=== PATIENT | female | born 1935 | race Caucasian/White ===

== ENCOUNTER 2020-06-18 08:28 | Outpatient (REF) | payer MEDICARE, SELFPAY ==
[2020-06-18 09:14] LABS: MANUAL DIFF FLAG NO
[2020-06-18 09:18] LABS: Basophils Absolute Auto 0.1 X10*3/uL (0.0-0.2); Basophils Percent Auto 0.7 % (0-2); Eosinophils Absolute Auto 0.2 X10*3/uL (0.0-0.4); Eosinophils Percent Auto 3.3 % (0-4); Hematocrit 41.6 % (37-47); Hemoglobin 13.7 g/dl (12.0-16.0); Imm Gran Abs Auto 0.01 X10*3/uL (0.00-0.03); Imm Gran Pct Auto 0.1 % (0.0-0.4); Lymphocytes Absolute Auto 1.8 X10*3/uL (1.2-4.9); Lymphocytes Percent Auto 25.7 % (20-40); Mean Corpuscular HGB Conc 32.9 g/dl (31.0-35.0); Mean Corpuscular Hemoglobin 31.9 pg (27.0-33.0); Mean Platelet Volume 9.2 fL (9.4-12.3); Monocytes Absolute Auto 0.5 X10*3/uL (0.1-1.2); Monocytes Percent Auto 7.4 % (2-11); Neutrophils Absolute Auto 4.4 X10*3/uL (2.0-8.3); Neutrophils Percent Auto 62.8 % (45-73); Platelet Count 337 X10*3/uL (160-400); Red Blood Count 4.29 X10*6/uL (4.20-5.50); Red Cell Distribution Width 12.6 % (11.0-16.0)
[2020-06-18 09:48] LABS: Alanine Aminotransferase 15 U/L (0-31); Albumin Level 4.4 g/dL (3.5-5.0); Alkaline Phosphatase 90 U/L (39-117); Anion Gap 13 (12-20); Aspartate Amino Transferase 20 U/L (5-31); Bilirubin Total 0.6 mg/dL (0.0-1.0); Blood Urea Nitrogen 29 mg/dL (9-16); Calcium 9.9 mg/dL (8.4-10.2); Carbon Dioxide 30 mmol/L (22-29); Chloride 101 mmol/L (96-108); Cholesterol 211 mg/dL; Estimated Glomerular Filt Rate > 60; Glucose Fasting 121 mg/dL (60-99); HDL Cholesterol 85 mg/dL; LDL Cholesterol Calculated 107 mg/dl; Potassium 4.7 mmol/l (3.3-5.1); Sodium 139 mmol/L (135-145); Total Protein 7.1 g/dL (6.5-8.0); Triglycerides 97 mg/dL
== END 2020-06-18 08:29 | disposition home or self-care (01) ==
LOC: HO.LAB 08:28
PROVIDERS: Visit Provider Internal Medicine Medical Oncology
DX: E78.2 Mixed hyperlipidemia (principal); I10 Essential (primary) hypertension
CPT/HCPCS: 36415; 80053; 80061; 85025

== ENCOUNTER 2020-10-29 12:18 | Outpatient (REF) | payer MEDICARE, SELFPAY | END 2020-10-29 12:19 | disposition home or self-care (01) | LOC: HO.LAB 12:18 | PROVIDERS: PCP Internal Medicine Medical Oncology; Visit Provider Internal Medicine | DX: Z20.822 Contact with and (suspected) exposure to COVID-19 (principal) | CPT/HCPCS: 36415; C9803; U0003; U0005 ==

== ENCOUNTER 2021-02-18 08:03 | Outpatient (REF) | payer MEDICARE, SELFPAY ==
[2021-02-18 10:06] LABS: MANUAL DIFF FLAG NO
[2021-02-18 10:14] LABS: Basophils Percent Auto 0.4 % (0-2); Eosinophils Absolute Auto 0.2 X10*3/uL (0.0-0.4); Eosinophils Percent Auto 2.2 % (0-4); Hematocrit 39.4 % (37-47); Hemoglobin 12.7 g/dl (12.0-16.0); Imm Gran Abs Auto 0.01 X10*3/uL (0.00-0.03); Imm Gran Pct Auto 0.1 % (0.0-0.4); Lymphocytes Absolute Auto 2.3 X10*3/uL (1.2-4.9); Mean Corpuscular HGB Conc 32.2 g/dl (31.0-35.0); Mean Corpuscular Hemoglobin 31.4 pg (27.0-33.0); Mean Corpuscular Volume 97.3 fL (80-98); Mean Platelet Volume 9.5 fL (9.4-12.3); Monocytes Absolute Auto 0.7 X10*3/uL (0.1-1.2); Neutrophils Absolute Auto 4.1 X10*3/uL (2.0-8.3); Neutrophils Percent Auto 56.3 % (45-73); Platelet Count 350 X10*3/uL (160-400); Red Blood Count 4.05 X10*6/uL (4.20-5.50); Red Cell Distribution Width 12.3 % (11.0-16.0); White Blood Count 7.3 X10*3/uL (4.8-10.8)
[2021-02-18 10:47] LABS: Alanine Aminotransferase 14 U/L (0-31); Albumin Level 4.3 g/dL (3.5-5.0); Alkaline Phosphatase 88 U/L (39-117); Anion Gap 14 (12-20); Aspartate Amino Transferase 18 U/L (5-31); Bilirubin Total 0.6 mg/dL (0.0-1.0); Blood Urea Nitrogen 28 mg/dL (9-16); Calcium 9.7 mg/dL (8.4-10.2); Carbon Dioxide 26 mmol/L (22-29); Chloride 106 mmol/L (96-108); Cholesterol 192 mg/dL; Estimated Glomerular Filt Rate > 60; Glucose Fasting 123 mg/dL (60-99); HDL Cholesterol 82 mg/dL; LDL Cholesterol Calculated 91 mg/dl; Potassium 4.2 mmol/L (3.3-5.1); Sodium 142 mmol/L (135-145); Total Protein 7.1 g/dL (6.5-8.0); Triglycerides 97 mg/dL
== END 2021-02-18 08:04 | disposition home or self-care (01) ==
LOC: HO.10HDL 08:03
PROVIDERS: Visit Provider Internal Medicine Medical Oncology
DX: I10 Essential (primary) hypertension (principal); E78.2 Mixed hyperlipidemia
CPT/HCPCS: 36415; 80053; 80061; 85025

== ENCOUNTER 2021-07-21 12:21 | Outpatient (REF) | payer MEDICARE, SELFPAY ==
--- NOTE | ~2021-07-21 | MM_ITS ---
EXAMINATION: MM SCREENING DIGITAL BREAST TOMOSYNTHESIS, BILATERAL CLINICAL INFORMATION: Screening. Asymptomatic. The lifetime risk of breast cancer based on the Tyrer-Cuzick Model is under 1%. COMPARISON: Mammography: 04/29/2020, 04/24/2019, 01/18/2018 TECHNIQUE: Digital breast tomosynthesis is performed in both the craniocaudal and mediolateral oblique views along with computer-aided detection (CAD). Synthesized 2D images are generated from the tomosynthesis. FINDINGS: There are scattered areas of fibroglandular density (ACR BI-RADS breast composition Category b). Breast tissue composition borders on heterogeneously dense. There are no significant masses, abnormal calcifications, or other abnormalities. Parenchymal pattern is similar to prior exams. No developing density or architectural abnormality. The axilla and skin contours are unremarkable. MM/MM tomosynthesis screening BI IMPRESSION: No mammographic evidence of malignancy. ASSESSMENT: BI-RADS 1: Negative RECOMMENDATION: Routine annual mammography screening. This patient's information was entered into a reminder system with a target due date for their next mammogram.
== END 2021-07-21 12:22 | disposition home or self-care (01) ==
LOC: HO.MAMMO 12:21
PROVIDERS: Visit Provider Internal Medicine Medical Oncology
DX: Z12.31 Encounter for screening mammogram for malignant neoplasm of breast (principal)
CPT/HCPCS: 77063; 77067

== ENCOUNTER 2021-09-25 08:14 | Outpatient (REF) | payer MEDICARE, SELFPAY ==
[2021-09-25 10:53] LABS: MANUAL DIFF FLAG NO
[2021-09-25 10:57] LABS: Basophils Percent Auto 0.6 % (0-2); Eosinophils Absolute Auto 0.3 X10*3/uL (0.0-0.4); Eosinophils Percent Auto 3.6 % (0-4); Hematocrit 41.2 % (37.0-47.0); Hemoglobin 13.4 g/dl (12.0-16.0); Imm Gran Abs Auto 0.02 X10*3/uL (0.00-0.03); Imm Gran Pct Auto 0.3 % (0.0-0.4); Lymphocytes Percent Auto 27.9 % (20-40); Mean Corpuscular HGB Conc 32.5 g/dl (31.0-35.0); Mean Corpuscular Hemoglobin 31.3 pg (27.0-33.0); Mean Corpuscular Volume 96.3 fL (80.0-98.0); Mean Platelet Volume 9.2 fL (9.4-12.3); Monocytes Absolute Auto 0.6 X10*3/uL (0.1-1.2); Monocytes Percent Auto 7.8 % (2-11); Neutrophils Absolute Auto 4.3 x10*3/uL (2.0-8.3); Neutrophils Percent Auto 59.8 % (45-73); Platelet Count 344 X10*3/uL (160-400); Red Blood Count 4.28 X10*6/uL (4.20-5.50); Red Cell Distribution Width 12.7 % (11.0-16.0); White Blood Count 7.2 X10*3/uL (4.8-10.8)
[2021-09-25 11:11] LABS: Alanine Aminotransferase 14 U/L (0-31); Albumin Level 4.1 g/dL (3.5-5.0); Alkaline Phosphatase 98 U/L (39-117); Anion Gap 11 (12-20); Aspartate Amino Transferase 18 U/L (5-31); Bilirubin Total 0.4 mg/dL (0.0-1.0); Blood Urea Nitrogen 28 mg/dL (9-16); Calcium 9.6 mg/dL (8.4-10.2); Carbon Dioxide 28 mmol/L (22-29); Chloride 105 mmol/L (96-108); Cholesterol 210 mg/dL; Estimated Glomerular Filt Rate > 60; Glucose Fasting 144 mg/dL (60-99); HDL Cholesterol 72 mg/dL; LDL Cholesterol Calculated 116 mg/dl; Potassium 4.1 mmol/L (3.3-5.1); Sodium 140 mmol/L (135-145); Total Protein 6.8 g/dL (6.5-8.0); Triglycerides 110 mg/dL
== END 2021-09-25 08:15 | disposition home or self-care (01) ==
LOC: HO.10HDL 08:14
PROVIDERS: Visit Provider Internal Medicine Medical Oncology
DX: I10 Essential (primary) hypertension (principal); E78.2 Mixed hyperlipidemia; E66.3 Overweight
CPT/HCPCS: 36415; 80053; 80061; 85025

== ENCOUNTER 2022-05-25 08:11 | Outpatient (REF) | payer MEDICARE, SELFPAY ==
[2022-05-25 11:18] LABS: MANUAL DIFF FLAG NO
[2022-05-25 11:25] LABS: Basophils Percent Auto 0.3 % (0-2); Eosinophils Absolute Auto 0.2 X10*3/uL (0.0-0.4); Eosinophils Percent Auto 2.5 % (0-4); Hematocrit 40.3 % (37.0-47.0); Hemoglobin 13.2 g/dl (12.0-16.0); Imm Gran Abs Auto 0.05 X10*3/uL (0.00-0.03); Imm Gran Pct Auto 0.5 % (0.0-0.4); Lymphocytes Absolute Auto 2.1 X10*3/uL (1.2-4.9); Lymphocytes Percent Auto 21.5 % (20-40); Mean Corpuscular HGB Conc 32.8 g/dl (31.0-35.0); Mean Corpuscular Hemoglobin 31.4 pg (27.0-33.0); Mean Corpuscular Volume 95.7 fL (80.0-98.0); Mean Platelet Volume 9.4 fL (9.4-12.3); Monocytes Absolute Auto 0.7 X10*3/uL (0.1-1.2); Neutrophils Absolute Auto 6.5 x10*3/uL (2.0-8.3); Neutrophils Percent Auto 68.2 % (45-73); Platelet Count 356 X10*3/uL (160-400); Red Blood Count 4.21 X10*6/uL (4.20-5.50); Red Cell Distribution Width 12.7 % (11.0-16.0); White Blood Count 9.6 X10*3/uL (4.8-10.8)
[2022-05-25 11:54] LABS: Alanine Aminotransferase 11 U/L (0-31); Albumin Level 4.3 g/dL (3.5-5.0); Alkaline Phosphatase 86 U/L (39-117); Anion Gap 17 (12-20); Aspartate Amino Transferase 17 U/L (5-31); Bilirubin Total 0.6 mg/dL (0.0-1.0); Blood Urea Nitrogen 24 mg/dL (9-16); Calcium 9.7 mg/dL (8.4-10.2); Carbon Dioxide 25 mmol/L (22-29); Chloride 104 mmol/L (96-108); Cholesterol 218 mg/dL; Estimated Glomerular Filt Rate > 60; Glucose Fasting 133 mg/dL (60-99); HDL Cholesterol 81 mg/dL; LDL Cholesterol Calculated 114 mg/dl; Potassium 4.6 mmol/L (3.3-5.1); Sodium 141 mmol/L (135-145); Total Protein 6.8 g/dL (6.5-8.0); Triglycerides 119 mg/dL
== END 2022-05-25 08:12 | disposition home or self-care (01) ==
LOC: HO.10HDL 08:11
PROVIDERS: Visit Provider Internal Medicine Medical Oncology
DX: I10 Essential (primary) hypertension (principal); E78.2 Mixed hyperlipidemia; E66.3 Overweight
CPT/HCPCS: 36415; 80053; 80061; 85025

== ENCOUNTER 2022-10-21 07:45 | Outpatient (REF) | payer MEDICARE, SELFPAY ==
[2022-10-21 08:06] LABS: MANUAL DIFF FLAG NO
[2022-10-21 09:01] LABS: Basophils Percent Auto 0.3 % (0-2); Eosinophils Absolute Auto 0.3 X10*3/uL (0.0-0.4); Eosinophils Percent Auto 3.6 % (0-4); Hematocrit 43.5 % (37.0-47.0); Hemoglobin 14.3 g/dl (12.0-16.0); Imm Gran Abs Auto 0.02 X10*3/uL (0.00-0.03); Imm Gran Pct Auto 0.2 % (0.0-0.4); Lymphocytes Absolute Auto 1.9 X10*3/uL (1.2-4.9); Lymphocytes Percent Auto 21.5 % (20-40); Mean Corpuscular HGB Conc 32.9 g/dl (31.0-35.0); Mean Corpuscular Hemoglobin 31.3 pg (27.0-33.0); Mean Corpuscular Volume 95.2 fL (80.0-98.0); Mean Platelet Volume 9.2 fL (9.4-12.3); Monocytes Absolute Auto 0.7 X10*3/uL (0.1-1.2); Monocytes Percent Auto 7.9 % (2-11); Neutrophils Absolute Auto 5.9 x10*3/uL (2.0-8.3); Neutrophils Percent Auto 66.5 % (45-73); Platelet Count 370 X10*3/uL (160-400); Red Blood Count 4.57 X10*6/uL (4.20-5.50); Red Cell Distribution Width 12.5 % (11.0-16.0); White Blood Count 8.9 X10*3/uL (4.8-10.8)
[2022-10-21 09:36] LABS: Alanine Aminotransferase 14 U/L (0-31); Albumin Level 4.3 g/dL (3.5-5.0); Alkaline Phosphatase 83 U/L (39-117); Anion Gap 17 (12-20); Aspartate Amino Transferase 18 U/L (5-31); Bilirubin Total 0.8 mg/dL (0.0-1.0); Blood Urea Nitrogen 23 mg/dL (9-16); Calcium 10.1 mg/dL (8.4-10.2); Carbon Dioxide 26 mmol/L (22-29); Chloride 105 mmol/L (96-108); Cholesterol 233 mg/dL; Estimated Glomerular Filt Rate > 60; Glucose Fasting 134 mg/dL (60-99); HDL Cholesterol 83 mg/dL; LDL Cholesterol Calculated 133 mg/dl; Potassium 4.9 mmol/L (3.3-5.1); Sodium 143 mmol/L (135-145); Triglycerides 88 mg/dL
[2022-10-21 10:01] LABS: Free T4 (Free Thyroxine) 0.98 ng/dL (0.71-1.85); Vitamin B12 772 pg/mL (200-900)
== END 2022-10-21 07:46 | disposition home or self-care (01) ==
LOC: HO.LAB 07:45
PROVIDERS: PCP Internal Medicine Medical Oncology; Visit Provider Internal Medicine Medical Oncology
DX: I10 Essential (primary) hypertension (principal); E78.2 Mixed hyperlipidemia; E66.3 Overweight
CPT/HCPCS: 36415; 80053; 80061; 82607; 84439; 84443; 85025

== ENCOUNTER 2023-03-01 07:57 | Outpatient (REF) | payer MEDICARE, SELFPAY ==
[2023-03-01 10:36] LABS: MANUAL DIFF FLAG NO
[2023-03-01 10:48] LABS: Basophils Absolute Auto 0.1 X10*3/uL (0.0-0.2); Basophils Percent Auto 0.7 % (0-2); Eosinophils Absolute Auto 0.2 X10*3/uL (0.0-0.4); Hematocrit 42.4 % (37.0-47.0); Hemoglobin 13.9 g/dl (12.0-16.0); Imm Gran Abs Auto 0.01 X10*3/uL (0.00-0.03); Imm Gran Pct Auto 0.1 % (0.0-0.4); Lymphocytes Percent Auto 26.3 % (20-40); Mean Corpuscular HGB Conc 32.8 g/dl (31.0-35.0); Mean Corpuscular Hemoglobin 31.2 pg (27.0-33.0); Mean Corpuscular Volume 95.3 fL (80.0-98.0); Mean Platelet Volume 9.2 fL (9.4-12.3); Monocytes Absolute Auto 0.6 X10*3/uL (0.1-1.2); Monocytes Percent Auto 7.5 % (2-11); Neutrophils Absolute Auto 4.6 x10*3/uL (2.0-8.3); Neutrophils Percent Auto 62.4 % (45-73); Platelet Count 366 X10*3/uL (160-400); Red Blood Count 4.45 X10*6/uL (4.20-5.50); Red Cell Distribution Width 12.5 % (11.0-16.0); White Blood Count 7.4 X10*3/uL (4.8-10.8)
[2023-03-01 11:16] LABS: Alanine Aminotransferase 14 U/L (0-31); Alkaline Phosphatase 75 U/L (39-117); Anion Gap 10 (12-20); Aspartate Amino Transferase 16 U/L (5-31); Bilirubin Total 0.4 mg/dL (0.0-1.0); Blood Urea Nitrogen 23 mg/dL (9-16); Calcium 9.7 mg/dL (8.4-10.2); Carbon Dioxide 28 mmol/L (22-29); Chloride 107 mmol/L (96-108); Cholesterol 226 mg/dL; Estimated Glomerular Filt Rate > 60; Glucose Fasting 135 mg/dL (60-99); HDL Cholesterol 72 mg/dL; LDL Cholesterol Calculated 138 mg/dl; Potassium 4.4 mmol/L (3.3-5.1); Sodium 141 mmol/L (135-145); Triglycerides 82 mg/dL
== END 2023-03-01 07:58 | disposition home or self-care (01) ==
LOC: HO.10HDL 07:57
PROVIDERS: Visit Provider Internal Medicine Medical Oncology
DX: I10 Essential (primary) hypertension (principal); E78.2 Mixed hyperlipidemia; E66.3 Overweight
CPT/HCPCS: 36415; 80053; 80061; 85025

== ENCOUNTER 2023-09-08 08:20 | Outpatient (REF) | payer MEDICARE, SELFPAY ==
[2023-09-08 08:37] LABS: MANUAL DIFF FLAG NO
[2023-09-08 08:58] LABS: Basophils Absolute Auto 0.1 X10*3/uL (0.0-0.2); Basophils Percent Auto 0.5 % (0-2); Eosinophils Absolute Auto 0.3 X10*3/uL (0.0-0.4); Eosinophils Percent Auto 2.6 % (0-4); Hematocrit 41.9 % (37.0-47.0); Hemoglobin 13.8 g/dl (12.0-16.0); Imm Gran Abs Auto 0.02 X10*3/uL (0.00-0.03); Imm Gran Pct Auto 0.2 % (0.0-0.4); Lymphocytes Absolute Auto 2.4 X10*3/uL (1.2-4.9); Lymphocytes Percent Auto 22.6 % (20-40); Mean Corpuscular HGB Conc 32.9 g/dl (31.0-35.0); Mean Corpuscular Hemoglobin 31.4 pg (27.0-33.0); Mean Corpuscular Volume 95.4 fL (80.0-98.0); Mean Platelet Volume 8.7 fL (9.4-12.3); Monocytes Absolute Auto 0.7 X10*3/uL (0.1-1.2); Monocytes Percent Auto 6.4 % (2-11); Neutrophils Absolute Auto 7.2 x10*3/uL (2.0-8.3); Neutrophils Percent Auto 67.7 % (45-73); Platelet Count 327 X10*3/uL (160-400); Red Blood Count 4.39 X10*6/uL (4.20-5.50); Red Cell Distribution Width 13.1 % (11.0-16.0); White Blood Count 10.6 X10*3/uL (4.8-10.8)
[2023-09-08 09:32] LABS: Alanine Aminotransferase 12 U/L (0-31); Albumin Level 4.2 g/dL (3.5-5.0); Alkaline Phosphatase 88 U/L (39-117); Anion Gap 12 (12-20); Aspartate Amino Transferase 16 U/L (5-31); Bilirubin Total 0.5 mg/dL (0.0-1.0); Blood Urea Nitrogen 25 mg/dL (9-16); Calcium 10.3 mg/dL (8.4-10.2); Carbon Dioxide 29 mmol/L (22-29); Chloride 106 mmol/L (96-108); Cholesterol 208 mg/dL (<200); Estimated Glomerular Filt Rate > 60; Glucose Random 148 mg/dL (60-115); HDL Cholesterol 74 mg/dL (>40); LDL Cholesterol Calculated 111 mg/dL (<100); Potassium 4.5 mmol/L (3.3-5.1); Sodium 142 mmol/L (135-145); Total Protein 7.4 g/dL (6.5-8.0); Triglycerides 119 mg/dL (<150)
== END 2023-09-08 08:21 | disposition home or self-care (01) ==
LOC: HO.LAB 08:20
PROVIDERS: PCP Internal Medicine Medical Oncology; Visit Provider Internal Medicine Medical Oncology
DX: I10 Essential (primary) hypertension (principal); E78.2 Mixed hyperlipidemia
CPT/HCPCS: 36415; 80053; 80061; 85025

== ENCOUNTER 2024-04-12 08:47 | Outpatient (REF) | payer MEDICARE, SELFPAY ==
[2024-04-12 09:30] LABS: MANUAL DIFF FLAG NO
[2024-04-12 10:27] LABS: Basophils Percent Auto 0.5 % (0-2); Eosinophils Absolute Auto 0.1 X10*3/uL (0.0-0.4); Eosinophils Percent Auto 1.5 % (0-4); Hematocrit 42.5 % (37.0-47.0); Hemoglobin 14.2 g/dl (12.0-16.0); Imm Gran Abs Auto 0.02 X10*3/uL (0.00-0.03); Imm Gran Pct Auto 0.2 % (0.0-0.4); Lymphocytes Absolute Auto 1.6 X10*3/uL (1.2-4.9); Lymphocytes Percent Auto 19.2 % (20-40); Mean Corpuscular HGB Conc 33.4 g/dl (31.0-35.0); Mean Corpuscular Hemoglobin 31.4 pg (27.0-33.0); Mean Platelet Volume 9.3 fL (9.4-12.3); Monocytes Absolute Auto 0.7 X10*3/uL (0.1-1.2); Monocytes Percent Auto 7.9 % (2-11); Neutrophils Percent Auto 70.7 % (45-73); Platelet Count 366 X10*3/uL (160-400); Red Blood Count 4.52 X10*6/uL (4.20-5.50); Red Cell Distribution Width 13.2 % (11.0-16.0); White Blood Count 8.5 X10*3/uL (4.8-10.8)
[2024-04-12 11:05] LABS: Alanine Aminotransferase 15 U/L (0-31); Albumin Level 4.3 g/dL (3.5-5.0); Alkaline Phosphatase 92 U/L (39-117); Anion Gap 15 (12-20); Aspartate Amino Transferase 17 U/L (5-31); Bilirubin Total 0.6 mg/dL (0.0-1.0); Blood Urea Nitrogen 24 mg/dL (9-16); Calcium 10.2 mg/dL (8.4-10.2); Carbon Dioxide 26 mmol/L (22-29); Chloride 106 mmol/L (96-108); Cholesterol 242 mg/dL (<200); Estimated Glomerular Filt Rate > 60; Glucose Fasting 146 mg/dL (60-99); HDL Cholesterol 83 mg/dL (>40); LDL Cholesterol Calculated 142 mg/dL (<100); Potassium 4.3 mmol/L (3.3-5.1); Sodium 143 mmol/L (135-145); Total Protein 7.4 g/dL (6.5-8.0); Triglycerides 85 mg/dL (<150)
== END 2024-04-12 08:48 | disposition home or self-care (01) ==
LOC: HO.LAB 08:47
PROVIDERS: PCP Internal Medicine Medical Oncology; Visit Provider Internal Medicine Medical Oncology
DX: I10 Essential (primary) hypertension (principal); E78.2 Mixed hyperlipidemia; E66.3 Overweight
CPT/HCPCS: 36415; 80053; 80061; 85025

== ENCOUNTER 2024-12-12 01:39 | Inpatient (IN) | payer MEDICARE, SELFPAY ==
[2024-12-12] VITALS (15 sets, daily range): BP systolic 131–163; BP diastolic 46–109; PULSE 69–107; RESP 16–27; TEMP 36.4–37.9; O2SAT 94–98; BMI 27.1; BMI 27.8
--- NOTE | ~2024-12-12 | XR_ITS ---
CLINICAL HISTORY: weakness 1 view chest x-ray Comparison: None Findings: Minimal left basilar atelectasis. No significant pleural effusion or pneumothorax. Possible bilateral perihilar calcified granulomas/nodes. Prominent cardiac silhouette. Degenerative changes of the shoulders. IMPRESSION: Minimal left basilar atelectasis. This document has been electronically signed by: Breezy Maravilla MD on 12/12/2024 03:08:00
--- NOTE | ~2024-12-12 | CT_ITS ---
CLINICAL HISTORY: pain, wound, ?abscess CT right knee with contrast Comparison: CR - XR KNEE RT 2V - 12/12/24 02:38 EDT Findings: Total knee arthroplasty. Heterogeneous multifocal fractures with lucencies along the tibial tuberosity extending along the periprosthetic aspect of the tibial prosthesis. Hardware appears intact. Anterior to the tibial tuberosity of the soft tissues is diffuse thickening with a focal soft tissue defect of the skin surface measuring 1.3 cm. Tiny foci of soft tissue gas. Suspect ill-defined fluid collection, best seen on sagittal measuring up to 4 cm series 9, image 260 extending through the skin defect. Additionally, the fluid collection appears to be contiguous from the marrow cavity of the tibial prosthesis, series 9, image 160. IMPRESSION: 1. Right TKA. 2. 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 Suspect cloaca with adjacent soft tissue abscess, extending through the ulceration of the skin surface. Clinical correlation with tissue sampling may be helpful. This document has been electronically signed by: Breezy Maravilla MD on 12/12/2024 04:42:58
--- NOTE | ~2024-12-12 | XR_ITS ---
CLINICAL HISTORY: pain 2 view right knee Comparison: None Findings: Total knee arthroplasty. Hardware is intact, alignment is maintained. There is heterogeneous lucency surrounding the tibial prosthesis more so along the tibial tuberosity. Findings may be chronic, postoperative related however loosening or infection may have a similar appearance and is not entirely excluded. Comparison with prior imaging and attention on follow-up advised. Osteopenia. No acute fracture. No erosions. No joint effusion. No radiopaque foreign body. IMPRESSION: Chronic changes without acute fracture. Additional findings described, please see above. This document has been electronically signed by: Breezy Maravilla MD on 12/12/2024 03:16:51
--- NOTE | 2024-12-12 01:46 | ECG_ITS ---
Test Reason : WEAKNESS Blood Pressure : */* mmHG Vent. Rate : 107 BPM Atrial Rate : 107 BPM P-R Int : 148 ms QRS Dur : 124 ms QT Int : 362 ms P-R-T Axes : 48 52 21 degrees QTcB Int : 483 ms Sinus tachycardia Right bundle branch block Cannot rule out Inferior infarct , age undetermined Abnormal ECG When compared with ECG of 25-Mar-2017 09:52, Vent. rate has increased by 35 bpm Referred By: Generic ED Physician Electronically Signed By: ISSA ADORNO
--- NOTE | 2024-12-12 01:50 | PC.NURSE ---
PT comes from home with complaints of weakness. Pt states she is ambulatory at baseline but has needed to use a walker d/t weakness. On initial exam, pt a/o to person place and situation- unable to recall her , pt afebrile, bp wnl, however pt tachypneic, and tachycardic. oozing wound to her right knee. Notified provider, Eric Healy.
--- NOTE | 2024-12-12 02:18 | PC.NURSE ---
When attempting to place IV access, pt noted to feel warm despite normal temperature orally. PT agreeable to rectal temp-100.3. Notified provider, Eric Polanco. Sepsis initiated
[2024-12-12 02:20] LABS: Basophils Absolute Auto 0.1 X10*3/uL (0.0-0.2); Basophils Percent Auto 0.4 % (0-2); Hematocrit 38.7 % (37.0-47.0); Hemoglobin 13.2 g/dl (12.0-16.0); Imm Gran Abs Auto 0.09 X10*3/uL (0.00-0.03); Imm Gran Pct Auto 0.4 % (0.0-0.4); Lymphocytes Absolute Auto 0.6 X10*3/uL (1.2-4.9); Lymphocytes Percent Auto 2.8 % (20-40); Mean Corpuscular HGB Conc 34.1 g/dl (31.0-35.0); Mean Corpuscular Volume 90.8 fL (80.0-98.0); Mean Platelet Volume 9.2 fL (9.4-12.3); Monocytes Absolute Auto 0.9 X10*3/uL (0.1-1.2); Monocytes Percent Auto 3.9 % (2-11); Neutrophils Absolute Auto 20.2 x10*3/uL (2.0-8.3); Neutrophils Percent Auto 92.5 % (45-73); Platelet Count 336 X10*3/uL (160-400); Red Blood Count 4.26 X10*6/uL (4.20-5.50); Red Cell Distribution Width 13.2 % (11.0-16.0); SCAN SMEAR FLAG 1; White Blood Count 21.8 X10*3/uL (4.8-10.8)
[2024-12-12 02:30] LABS: MANUAL DIFF FLAG SCAN
[2024-12-12 02:39] LABS: Lactic Acid 2.5 mmol/L (0.5-2.0)
[2024-12-12 02:42] LABS: Alanine Aminotransferase 6 U/L (0-31); Alkaline Phosphatase 105 U/L (39-117); Anion Gap 19 (12-20); Aspartate Amino Transferase 28 U/L (5-31); Bilirubin Total 0.6 mg/dL (0.0-1.0); Blood Urea Nitrogen 33 mg/dL (9-16); Calcium 9.7 mg/dL (8.4-10.2); Carbon Dioxide 19 mmol/L (22-29); Chloride 105 mmol/L (96-108); Creatinine Clr Calc Pharmacy 33.2; Estimated Glomerular Filt Rate 51; Glucose Random 262 mg/dL (60-115); Sodium 139 mmol/L (135-145)
[2024-12-12 02:43] LABS: Troponin-I High Sensitivity 16.7 ng/L (<3.5-17.0)
[2024-12-12 02:45] LABS: SLIDE REVIEW VERIFIED
[2024-12-12 02:47] LABS: Influenza A PCR NEGATIVE (Negative); Influenza B PCR NEGATIVE (Negative); Resp Syncy Virus RNA Qual PCR NEGATIVE (Negative); SARS COV2 PCR INHOUSE NEGATIVE (Negative)
[2024-12-12] MEDS: cefTRIAXone sodium 1 GM VIAL IVPUSH ×2 (02:50→04:42)
[2024-12-12] MEDS: vancomycin HCL 1,500 MG in 0.9 % Sodium Chloride 500 ML 333.33 MG IV (02:51)
[2024-12-12] MEDS: 0.9 % Sodium Chloride 1,000 ML 999 ML IV (02:51)
--- NOTE | 2024-12-12 02:51 | ED.GENADULT ---
HPI - General Adult General Chief complaint: Weakness Stated complaint: GENERALIZED WEAKNESS Time Seen by Provider: 12/12/24 02:25 Source: patient and RN notes reviewed Mode of arrival: EMS Limitations: other (poor historian) History of Present Illness ED Provider: Monet HPI narrative: 89-year-old female presents for evaluation of weakness. EMS was initially called the patient for a lift assist as she had partially so that a bed and was unable to get up. The patient reports that she does not feel well but denies a specific complaints. She states that she has felt somewhat unwell since yesterday She typically ambulates independently but has been unable to do so since yesterday She complains of mild dizziness She denies any pain, The patient endorses a dry cough Related Data Allergies Allergy/AdvReac Type Severity Reaction Status Date / Time amoxicillin [Amoxicillin] Allergy Mild RASH Verified 12/12/24 02:02 Sulfa (Sulfonamide Allergy Mild RASH Verified 12/12/24 02:02 Antibiotics) [Sulfa (Sulfonamides)] sulfa Allergy Unknown Unknown Uncoded 12/12/24 02:02 Review of Systems Constitutional: Constitutional: Denies body ache(s), Denies chills, Reports fatigue, Denies fever(s) and Reports weakness Eyes: Eyes: Denies blurry vision and Denies seeing flashes ENT: Denies vertigo and Reports dizziness Cardiovascular: Cardiovascular: Denies chest pain and Denies dyspnea Respiratory: Respiratory: Denies cough and Denies dyspnea Gastrointestinal: Gastrointestinal: Denies abdominal pain, Denies nausea and Denies vomiting Musculoskeletal: Musculoskeletal: Denies back pain Integumentary/Breasts: Skin/Breast: Denies rash and Reports wounds Neurologic: Denies vertigo, Reports dizziness and Reports weakness Endocrine: Endocrine: Reports fatigue PMFSH Social History Social History Advance Directives: No Advance Directives Information Provided: Yes Do you have a plan to hurt others: No Plan Physical Exam ED Vital Signs: Vital Signs - 24 hr 12/12/24 01:50 12/12/24 02:18 Temperature 98.7 F 100.3 F Pulse Rate 107 H Respiratory Rate 26 H Blood Pressure 136/46 L Pulse Oximetry 95 Oxygen Delivery Method Room Air BMI result Body Mass Index 27.1 Const General: healthy appearing, comfortable, no acute distress, alert and awake Nutritional Appearance: well nourished Orientation/consciousness: patient oriented x3 HENMT Head: Yes normocephalic and Yes atraumatic Eyes Eyelids: Yes eyelids normal Conjunctivae: conjunctivae normal Sclerae: sclerae normal Corneas: corneas normal Pupils: Equal, round and reactive pupils present EOM: EOMs intact bilaterally Neck Neck: Yes full ROM Resp Effort & Inspection: normal respiratory effort, able to speak in complete sentences, no audible wheezes and not labored Auscultation: clear to auscultation bilaterally Cardio Rate: regular rate Rhythm: regular rhythm GI Inspection: No distended Palpation (GI): Soft to palpation, not firm, nontender, no guarding and not rigid Skin General skin exam: elasticity normal Neuro General: patient oriented x3 Cranial nerves: Yes Equal, round and reactive pupils present and Yes Bilaterally intact EOM present Cognition (Neuro): normal cognition Extrem Other: The patient has somewhat decreased range of motion with flexion of the right knee. She is able to flex to about 120? of flexion. There are scars from previous right total knee replacement. There is a wound at the inferior aspect of the right knee. It is approximately dime-sized with surrounding erythema and foul-smelling drainage. Course Reevaluation(s) Reevaluation #1: [place] [address], she is tachycardic, tachypneic. Temp of a 100.3?. Blood pressure is within normal limits. At this time the patient meets SIRS criteria with a suspected infection of a right knee cellulitis. It is unclear how deep this infection goes but she does have a right knee prosthesis. Remainder of workup is pending. The patient was given IV fluids, vancomycin and ceftriaxone due to penicillin allergy Time: 02:52 Reevaluation #2: Sepsis focused exam performed. The patient does not meet criteria for 30 cc/kilogram of IV fluids but did receive a 1 L bolus and any antibiotics Time: 03:44 Medications Administered Generic Name Dose Route Start Last Admin Trade Name Freq PRN Reason Stop Dose Admin Sodium Chloride 1,000 mls @ 999 mls/hr 12/12/24 02:45 12/12/24 02:51 Ns IV 12/12/24 03:45 999 mls/hr .Q1H1M PATRICIA Administration Vancomycin HCl 1,500 mg/ 500 mls @ 333.333 mls/hr 12/12/24 02:39 12/12/24 02:51 Sodium Chloride IV 12/12/24 04:08 333.33 mls/hr ONCE ONE Administration Discontinued Medications Generic Name Dose Route Start Last Admin Trade Name Mannie PRN Reason Stop Dose Admin Acetaminophen 975 mg 12/12/24 02:31 12/12/24 03:05 Acetaminophen 325 Mg Tablet PO 12/12/24 02:32 Not Given ONCE ONE Ceftriaxone Sodium 1 gm 12/12/24 02:41 12/12/24 02:50 Ceftriaxone Sodium 1 Gm Vial IVPUSH 12/12/24 02:42 1 gm ONCE ONE Administration Acetaminophen 1,000 mg in 100 mls @ 400 mls/hr 12/12/24 02:56 12/12/24 03:32 Ofirmev IV 12/12/24 03:10 400 mls/hr ONCE ONE Administration Medical Decision Making Medical Decision Making [facility] Narrative: 89-year-old female presents for evaluation of weakness. She is found to have a rectal temp of a 100.3?, pulse of 107, heart rate of 26. She meets SIRS [place] [address]. Suspected infection of skin infection of the right knee which potentially tunnels deeper to the right knee arthroplasty. A sepsis alert was called. The patient was given IV antibiotics with vancomycin and ceftriaxone due to penicillin allergy. Chest x-ray is clear, viral swabs negative. She was also given IV fluids. The patient's carbon down who level is slightly low at 19 likely due to sepsis and tachypnea. She has slightly elevated BUN the normal creatinine 1.03 which is very slightly elevated from baseline unlikely to dehydration. Random glucose of 262. Elevated inflammatory markers elevated lactate to 2.5. Differential Diagnosis Differential Diagnoses: The differential diagnosis associated with the presentation includes Septic arthritis Cellulitis Sepsis Pneumonia UTI Admission/Observation Consideration of admission/observation: Escalation of care including admission/observation considered Consult Healthcare Provider Management of the patient was discussed with: Hospitalist Lab Data [facility] Lab Attestation statement: I reviewed the patient's lab results. As above 12/12/24 02:14 12/12/24 02:14 Labs: Lab Results 12/12/24 12/12/24 12/12/24 Range/Units 02:05 02:13 02:14 WBC 21.8 H (4.8-10.8) X10*3/uL RBC 4.26 (4.20-5.50) X10*6/uL Hgb 13.2 (12.0-16.0) g/dl Hct 38.7 (37.0-47.0) % MCV 90.8 (80.0-98.0) fL MCH 31.0 (27.0-33.0) pg MCHC 34.1 (31.0-35.0) g/dl RDW 13.2 (11.0-16.0) % Plt Count 336 (160-400) X10*3/uL MPV 9.2 L (9.4-12.3) fL Immature Gran % (Auto) 0.4 (0.0-0.4) % Neut % (Auto) 92.5 H (45-73) % Lymph % (Auto) 2.8 L (20-40) % [place] % (Auto) 3.9 (2-11) % Eos % (Auto) 0.0 (0-4) % Baso % (Auto) 0.4 (0-2) % Lymph # (Auto) 0.6 L (1.2-4.9) X10*3/uL [place] # (Auto) 0.9 (0.1-1.2) X10*3/uL Eos # (Auto) 0.0 (0.0-0.4) X10*3/uL Baso # (Auto) 0.1 (0.0-0.2) X10*3/uL Abs Immat Gran (auto) 0.09 H (0.00-0.03) X10*3/uL Absolute Neuts (auto) 20.2 H (2.0-8.3) x10*3/uL Absolute Nucleated RBC 0.000 (0.0-0.012) X10*3/uL Nucleated RBC % (auto) 0.0 (0.0-0.2) /100WBC Smear Tech's Comments VERIFIED Sodium 139 (135-145) mmol/L Potassium 4.0 (3.3-5.1) mmol/L Chloride 105 (96-108) mmol/L Carbon Dioxide 19 L (22-29) mmol/L Anion Gap 19 (12-20) BUN 33 H (9-16) mg/dL Creatinine 1.03 (0.5-1.4) mg/dL Estim Creat Clear Calc 33.2 Estimated GFR 51 Random Glucose 262 H (60-115) mg/dL Lactic Acid 2.5 H* (0.5-2.0) mmol/L Calcium 9.7 (8.4-10.2) mg/dL Total Bilirubin 0.6 (0.0-1.0) mg/dL AST 28 (5-31) U/L ALT 6 (0-31) U/L Alkaline Phosphatase 105 (39-117) U/L Troponin I High Sens 16.7 (<3.5-17.0) ng/L C-Reactive Protein 1.74 H (< or = 0.50) mg/dL Total Protein 7.0 (6.5-8.0) g/dL Albumin 4.0 (3.5-5.0) g/dL Influenza Type A (PCR) NEGATIVE (Negative) Influenza Type B (PCR) NEGATIVE (Negative) RSV RNA Qual (PCR) NEGATIVE (Negative) SARS-CoV-2 RNA (RT-PCR) NEGATIVE (Negative) Radiology Impression Discussion of test interpretation with radiology: I have reviewed the radiologist's reading. Radiologist Impression: Findings: Total knee arthroplasty. Hardware is intact, alignment is maintained. There is heterogeneous lucency surrounding the tibial prosthesis more so along the tibial tuberosity. Findings may be chronic, postoperative related however loosening or infection may have a similar appearance and is not entirely excluded. Comparison with prior imaging and attention on follow-up advised. Osteopenia. No acute fracture. No erosions. No joint effusion. No radiopaque foreign body. IMPRESSION: Chronic changes without acute fracture. Additional findings described, please see above. This document has been electronically signed by: Breezy Maravilla MD on 12/12/2024 03:16:51 Findings: Minimal left basilar atelectasis. No significant pleural effusion or pneumothorax. Possible bilateral perihilar calcified granulomas/nodes. Prominent cardiac silhouette. Degenerative changes of the shoulders. IMPRESSION: Minimal left basilar atelectasis. This document has been electronically signed by: Breezy Maravilla MD on 12/12/2024 03:08:00 Discharge Plan Discharge Clinical Impression: Sepsis, Cellulitis of knee, right Patient Disposition: Admitted As Inpatient
[2024-12-12 03:05] LABS: C Reactive Protein 1.74 mg/dL (< or = 0.50)
[2024-12-12] MEDS: Acetaminophen 1,000 MG/100 ML PIGGYBACK 400 MG IV (03:32)
--- NOTE | 2024-12-12 03:44 | P.HPHOSP_ITS ---
History of Present Illness Date of Service: 12/12/24 Attending physician on admission: Samantha Ramesh Chief Complaint: weakness Patient is an 89-year-old female with a past medical history significant for HTN, HLD, R TKR, who presented to the ED due to weakness and difficult with ambulation requiring a walker for the past 2 days. At baseline she does not need a walker for ambulation. she denies any fever, chills, nausea, vomiting, abd pain, diarrhea, headache, vision changes, or urinary sx. In the ED she was found to have a wound on her R knee that she was unaware of and does not know how long it has been there. she denies any knee pain. she called EMS last night after sliding off the bed, for assistance getting back on. when the noticed her weakness she agreed to come to the ED. Review of Systems 2 Constitutional: Constitutional: Denies chills, Denies fatigue, Denies fever(s), Denies headache(s) and Reports weakness Eyes: Eyes: Denies change in vision and Denies photophobia ENT: Denies headache(s), Denies nasal congestion, Denies nasal discharge and Denies sore throat Cardiovascular: Cardiovascular: Denies chest pain, Denies rapid heart rate, Denies leg edema, Denies lightheadedness and Denies dyspnea Respiratory: Respiratory: Denies chest congestion, Denies cough, Denies dyspnea and Denies wheezing Gastrointestinal: Gastrointestinal: Denies diarrhea, Denies nausea and Denies vomiting Genitourinary: Genitourinary: Denies difficulty voiding, Denies dysuria and Denies urinary urgency Musculoskeletal: Musculoskeletal: Reports muscle weakness Integumentary/Breasts: Skin/Breast: Denies rash Neurologic: Denies confusion, Denies headache(s) and Reports weakness Psychiatric: Psychiatric: Denies confusion Endocrine: Endocrine: Denies fatigue Hematologic/Lymphatic: Hematologic/Lymphatic: Denies easy bleeding and Denies easy bruising Allergic/Immunologic: Allergic/Immunologic: Denies wheezing [facility] Medical History (Updated 12/12/24 @ 03:54 by Melissa Iyer PA-C) HLD (hyperlipidemia) HTN (hypertension) Functional capacity: independent ambulation Surgical History (Updated 12/12/24 @ 03:48 by Melissa Iyer PA-C) S/P total knee replacement Social History Advance Directives: No Advance Directives Information Provided: Yes Do you have a plan to hurt others: No Plan Narrative: no smoking. social occasional etoh. Meds Allergies Allergy/AdvReac Type Severity Reaction Status Date / Time amoxicillin [Amoxicillin] Allergy Mild RASH Verified 12/12/24 02:02 Sulfa (Sulfonamide Allergy Mild RASH Verified 12/12/24 02:02 Antibiotics) [Sulfa (Sulfonamides)] sulfa Allergy Unknown Unknown Uncoded 12/12/24 02:02 Active Medications: Current Medications Ceftriaxone Sodium (Ceftriaxone Sodium 2 Gm Vial) 2 gm IVPUSH Q24H PATRICIA Sodium Chloride (Ns) 1,000 mls @ 999 mls/hr IV .Q1H1M PATRICIA Stop: 12/12/24 03:45 Last Admin: 12/12/24 02:51 Dose: 999 mls/hr Vancomycin HCl 1,500 mg/ (Sodium Chloride) 500 mls @ 333.333 mls/hr IV ONCE ONE Stop: 12/12/24 04:08 Last Admin: 12/12/24 02:51 Dose: 333.33 mls/hr Pharmacy Consult (Consult Rx Vancomycin Dosing) 1 each MISCELLANE DAILY PRN PRN Reason: Consult order Physical Exam 2 Vital Signs and Narrative: Vital Signs: Last Vital Signs Temp 98.6 F 12/12/24 03:42 Pulse 100 12/12/24 03:42 Resp 22 H 12/12/24 03:42 BP 157/66 H 12/12/24 03:42 Pulse Ox 96 12/12/24 03:42 O2 Del Method Room Air 12/12/24 03:42 BMI result Body Mass Index 27.1 General: AOx3, no acute distress Resp: CTA bilaterally CVS: RRR +murmur GI: +BS, NT, no distention Skin: Warm, dry. small open wound R knee with surrounding erythema and signs of drainage Neuro: Cranial nerves II-XII grossly intact bilaterally. Motor grossly intact bilaterally Extremities: No LE edema Psych: Appropriate affect Const: General: No confusion Orientation/consciousness: No confusion Eyes: Direct Ophthalmoscopy: No photophobia Neuro: General: No confusion Results Labs 12/12/24 02:14 12/12/24 02:14 Labs: Laboratory Results - last 24 hr 12/12/24 12/12/24 12/12/24 02:05 02:13 02:14 MCV 90.8 MCH 31.0 MCHC 34.1 RDW 13.2 Plt Count 336 MPV 9.2 L Immature Gran % (Auto) 0.4 Neut % (Auto) 92.5 H Lymph % (Auto) 2.8 L Gates % (Auto) 3.9 Eos % (Auto) 0.0 Baso % (Auto) 0.4 Lymph # (Auto) 0.6 L [place] # (Auto) 0.9 Eos # (Auto) 0.0 Baso # (Auto) 0.1 Abs Immat Gran (auto) 0.09 H Absolute Neuts (auto) 20.2 H Absolute Nucleated RBC 0.000 Nucleated RBC % (auto) 0.0 Smear Tech's Comments VERIFIED Anion Gap 19 Estim Creat Clear Calc 33.2 Estimated GFR 51 Random Glucose 262 H Lactic Acid 2.5 H* Calcium 9.7 Total Bilirubin 0.6 AST 28 ALT 6 Alkaline Phosphatase 105 C-Reactive Protein 1.74 H Total Protein 7.0 Albumin 4.0 Influenza Type A (PCR) NEGATIVE Influenza Type B (PCR) NEGATIVE RSV RNA Qual (PCR) NEGATIVE SARS-CoV-2 RNA (RT-PCR) NEGATIVE Assessment and Plan (1) Severe sepsis: Status: Acute (2) Cellulitis of knee, right: Status: Acute (3) Metabolic acidosis: Status: Acute (4) Lactic acidosis: Status: Acute Plan Patient is an 89-year-old female with a past medical history significant for HTN, HLD, R TKR, who presented to the ED due to weakness and difficult with ambulation requiring a walker for the past 2 days. She slid off the bed and called EMS to assist her back on and ultimately came to the ED due to her new weakness. 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 Findings may be chronic, postoperative related however loosening or infection may have similar appearance and is not entirely excluded - CT R knee ordered - UA pending - neuro exam normal - started on ceftriaxone and vancomycin in ED, continue ceftriaxone 2 g daily and vancomycin - ortho consult - given 1 L IV fluids in ED, BP stable, no further fluids needed at this time - monitor CBC and BMP metabolic acidosis and lactic acidosis - secondary to severe sepsis - IVF as above, 1L in ED. 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 Quality Stroke Does the patient have a stroke diagnosis?: No VTE Prior VTE?: No VTE Risk Level:: Medical - moderate - high VTE Device Contraindication: N/A - Device Ordered VTE Drug Contraindication: Treatment Not Indicated
[2024-12-12 03:57] LABS: Erythrocyte Sedimentation Rate 38 MM/HR (0-20)
[2024-12-12] MEDS: iohexoL 350 MG/ML 100 ML INFUS..BTL 85 ML IV (04:13)
[2024-12-12 04:18] LABS: Reflex Lactate? Lactic Acid Added
--- NOTE | 2024-12-12 04:35 | PC.NURSE ---
pt reminded to keep arm straight to allow for infusions to run. IV fluids still infusion at this time.
[2024-12-12 05:22] LABS: ~Lactic Acid-LAB USE ONLY 1.6 mmol/L (0.5-2.0)
--- NOTE | 2024-12-12 06:11 | PC.NURSE ---
admission report: 89F Full code biba from home for generalized weakness initially called for lift assist, pt found to have slid partially out of bed. PT reports she has been weak since yesterday dinner time. PT normally ambulates independently but had to start using a walker d/t generalized weakness and dizziness. PT states she just feels off . HX of HTN and HLD. On exam PT a/ox3 however pt unable to recall birthday, pt tremulous, neuros intact, bilateral extremity weakness noted, POC 252, oozing wound to left knee, pt afebrile, tachycardic at 108 and tachypneic 26rr ?vitals otherwise stable. Sepsis?criteria?meet, and work up complete. 20g IV line in LAC? Purewick in place .NPO pending speech eval being admitted for severe sepsis and cellulitis?of the knee. Plan for ortho consult?
[2024-12-12 06:12] LABS: Glucose, Whole Blood 252 mg/dL (60-115)
[2024-12-12 06:14] LABS: Hematocrit 33.5 % (37.0-47.0); Hemoglobin 11.5 g/dl (12.0-16.0); Mean Corpuscular HGB Conc 34.3 g/dl (31.0-35.0); Mean Corpuscular Hemoglobin 31.2 pg (27.0-33.0); Mean Corpuscular Volume 90.8 fL (80.0-98.0); Mean Platelet Volume 10.3 fL (9.4-12.3); Platelet Count 289 X10*3/uL (160-400); Red Blood Count 3.69 X10*6/uL (4.20-5.50); Red Cell Distribution Width 13.2 % (11.0-16.0); White Blood Count 23.5 X10*3/uL (4.8-10.8)
[2024-12-12 06:33] LABS: Appearance Urine Clear; Color Urine Yellow; Glucose Urine UA 250 mg/dL (Negative); Leukocyte Esterase Urine Moderate (2+) (Negative); Nitrite Urine Negative (Negative); PH 6.5 (5.0-9.0); Specific Gravity - Urine >= 1.030 (1.005-1.025); UMIC TRIGGER UACC YES; Urine Blood Large (3+) (Negative); Urine Ketones Trace mg/dL (Negative); Urine Protein 100 (2+) mg/dL (Neg-Trace)
[2024-12-12 06:35] LABS: Bacteria Urine None Seen (None Seen); Hyaline Casts Urine 0-2 /LPF (0-2); RBC Urine >20 /HPF (0-2); Squamous Epithelial Cell Urine 0-2 /HPF (0-2); UACC Culture Trigger YES
[2024-12-12 06:40] LABS: Anion Gap 14 (12-20); Blood Urea Nitrogen 27 mg/dL (9-16); Calcium 8.5 mg/dL (8.4-10.2); Carbon Dioxide 20 mmol/L (22-29); Chloride 110 mmol/L (96-108); Creatinine Clr Calc Pharmacy 44.5; Estimated Glomerular Filt Rate > 60; Glucose Random 180 mg/dL (60-115); Potassium 3.6 mmol/L (3.3-5.1); Sodium 140 mmol/L (135-145)
--- NOTE | 2024-12-12 07:00 | PHA.PROG ---
Admission Date/Time: December 12, 2024 03:08 Indication: Bone and Joint Weight in k.1 kg Adjusted body weight in Kg: [place] body weight in Kg: Obesity Dosing Indication % IBW: Serum Creatinine - Last 168 Hours 12/12/24 12/12/24 02:14 05:03 Creatinine 1.03 0.77 Estimated CrCl and GFR - Last 168 Hours 12/12/24 12/12/24 02:14 05:03 Estim Creat Clear Calc 33.2 44.5 Estimated GFR 51 > 60 Vancomycin Loading Dose: 1500 x 1 Current Vancomycin Dosing Regimen: 750mg Q12H Vancomycin Monitoring using AUC goal of 400 - 600 range with trough as surrogate marker: 522 mg/L Date and Time for next Vancomycin Level to be drawn: 12/13 @2100 Pharmacist Comments on Vancomycin Plan: predicted trough of 15.4 mg/L. Will continue to monitor and adjust as necessary Vancomycin dosing will take advantage of [employer] as a clinical decision support tool that uses Bayesian modeling to calculate individual patient's pharmacokinetic parameters and forecast the patient's drug concentration time course with the target goal AUC 24 range of 400 - 600 mg/L/hr.
--- NOTE | 2024-12-12 08:18 | P.CONOP_ITS ---
History of Present Illness HPI Consult date: 12/12/24 Chief complaint: WEAKNESS Narrative: Ms. Gruber is an 89 yo female with a past medical history significant for HTN, HLD, RTKA with revision, who presented to the ED due to weakness and difficult with ambulation requiring a walker for the past 2 days. At baseline she does not need a walker for ambulation. In the ED she was found to have a wound on her right knee over the prior incision site with drainage. She does not recall what happened and does not know how long it has been there. She denies any knee pain. She called EMS last night after sliding off the bed, for assistance getting back on. EMS observed her level of weakness and recommended further evaluation at the ED. Patient agreed. Review of Systems 2 Review of Systems: Yes all other systems are reviewed and are negative [facility] Past Medical History Medical History (Updated 12/12/24 @ 03:54 by Melissa Iyer PA-C) HLD (hyperlipidemia) HTN (hypertension) Surgical History Surgical History (Updated 12/12/24 @ 03:48 by Melissa Iyer PA-C) S/P total knee replacement Meds Allergies Allergy/AdvReac Type Severity Reaction Status Date / Time amoxicillin [Amoxicillin] Allergy Mild RASH Verified 12/12/24 02:02 Sulfa (Sulfonamide Allergy Mild RASH Verified 12/12/24 02:02 Antibiotics) [Sulfa (Sulfonamides)] sulfa Allergy Unknown Unknown Uncoded 12/12/24 02:02 Active Medications: Current Medications Acetaminophen (Acetaminophen 325 Mg Tablet) 975 mg PO Q6H PRN PRN Reason: Pain, Mild 1-3,fever,headache Calcium Carbonate (Calcium Carbonate 750 Mg Tab.Chew) 750 mg PO Q4H PRN PRN Reason: Heartburn Ceftriaxone Sodium (Ceftriaxone Sodium 2 Gm Vial) 2 gm IVPUSH Q24H PATRICIA Hydromorphone HCl (Hydromorphone Hcl 0.5 Mg/0.5 Ml Syringe) 0.5 mg IVPUSH Q4H PRN; Protocol PRN Reason: Pain, Severe (Pain Scale 7-10) Vancomycin HCl 1,250 mg/ (Sodium Chloride) 250 mls @ 166.667 mls/hr IV Q24H PATRICIA Magnesium Hydroxide (Milk Of Magnesia 30 Ml Oral.Susp) 30 ml PO DAILY PRN PRN Reason: Constipation Melatonin (Melatonin 3 Mg Tablet) 6 mg PO BEDTIME PRN PRN Reason: Insomnia Morphine Sulfate (Morphine Sulfate 2 Mg/Ml Cartridge) 2 mg IVPUSH Q4H PRN; Protocol PRN Reason: Pain, Moderate(Pain Scale 4-6) Ondansetron HCl (Ondansetron Hcl 4 Mg/2 Ml Vial) 4 mg IVPUSH Q8H PRN PRN Reason: Nausea and Vomiting Pharmacy Consult (Consult Rx Vancomycin Dosing) 1 each MISCELLANE DAILY PRN PRN Reason: Consult order Sodium Chloride (0.9 % Sodium Chloride Flush 3 Ml Syringe) 3 ml IVFLUSH QSHIFT [facility] Physical Exam 2 Vital Signs: Vital Signs: Last Vital Signs Temp 98.6 F 12/12/24 03:42 Pulse 92 12/12/24 05:30 Resp 23 H 12/12/24 05:23 BP 139/65 12/12/24 05:30 Pulse Ox 94 12/12/24 05:30 O2 Del Method Room Air 12/12/24 05:25 BMI result Body Mass Index 27.1 Const: General: cooperative, healthy appearing and no acute distress Resp: Effort & Inspection: normal respiratory effort and able to speak in complete sentences Cardio: Rate: regular rate Peripheral pulses: Peripheral pulses 2+ throughout GI: Palpation (GI): Soft to palpation Skin: Lesions: no lesions Rashes: no rashes Extrem: Other: Right knee surgical scar from prior TKA and revision TKA noted. Has a roughly dime sized wound over the anterior aspect of the knee along the surgical scar. There is surrounding erythema and purulent discharge. No pain with ROM. Results Labs 12/12/24 05:03 12/12/24 05:03 Labs: Abnormal lab results 12/12/24 12/12/24 12/12/24 Range/Units 01:52 02:13 02:14 WBC 21.8 H (4.8-10.8) X10*3/uL RBC (4.20-5.50) X10*6/uL Hgb (12.0-16.0) g/dl Hct (37.0-47.0) % MPV 9.2 L (9.4-12.3) fL Neut % (Auto) 92.5 H (45-73) % Lymph % (Auto) 2.8 L (20-40) % Lymph # (Auto) 0.6 L (1.2-4.9) X10*3/uL Abs Immat Gran (auto) 0.09 H (0.00-0.03) X10*3/uL Absolute Neuts (auto) 20.2 H (2.0-8.3) x10*3/uL ESR 38 H (0-20) MM/HR Chloride (96-108) mmol/L Carbon Dioxide 19 L (22-29) mmol/L BUN 33 H (9-16) mg/dL POC Glucose 252 H (60-115) mg/dL Random Glucose 262 H (60-115) mg/dL Lactic Acid 2.5 H* (0.5-2.0) mmol/L C-Reactive Protein 1.74 H (< or = 0.50) mg/dL Ur Specific [place] (1.005-1.025) Urine Protein (Neg-Trace) mg/dL Urine Glucose (UA) (Negative) mg/dL Urine Blood (Negative) Ur Leukocyte Esterase (Negative) Urine RBC (0-2) /HPF Urine WBC (0-5) /HPF 12/12/24 12/12/24 Range/Units 05:03 06:21 WBC 23.5 H (4.8-10.8) X10*3/uL RBC 3.69 L (4.20-5.50) X10*6/uL Hgb 11.5 L (12.0-16.0) g/dl Hct 33.5 L (37.0-47.0) % MPV (9.4-12.3) fL Neut % (Auto) (45-73) % Lymph % (Auto) (20-40) % Lymph # (Auto) (1.2-4.9) X10*3/uL Abs Immat Gran (auto) (0.00-0.03) X10*3/uL Absolute Neuts (auto) (2.0-8.3) x10*3/uL ESR (0-20) MM/HR Chloride 110 H (96-108) mmol/L Carbon Dioxide 20 L (22-29) mmol/L BUN 27 H (9-16) mg/dL POC Glucose (60-115) mg/dL Random Glucose 180 H (60-115) mg/dL Lactic Acid (0.5-2.0) mmol/L C-Reactive Protein (< or = 0.50) mg/dL Ur Specific [place] >= 1.030 H (1.005-1.025) Urine Protein 100 (2+) H (Neg-Trace) mg/dL Urine Glucose (UA) 250 H (Negative) mg/dL Urine Blood Large (3+) H (Negative) Ur Leukocyte Esterase Moderate (2+) H (Negative) Urine RBC >20 H (0-2) /HPF Urine WBC 11-20 H (0-5) /HPF H & H 12/12/24 12/12/24 Range/Units 02:14 05:03 Hgb 13.2 11.5 L (12.0-16.0) g/dl Hct 38.7 33.5 L (37.0-47.0) % All other labs normal. Assessment and Plan (1) Cellulitis of knee, right: Status: Acute (2) S/P total knee replacement: Status: Acute Plan The case and imaging was reviewed with Dr. Estrada Recommend wound care nurse for recommendations of management of the open wound Patient needs to follow-up in the out patient clinic for further discussion of treatment Outpatient management and planning No acute surgical intervention Procedures Date of Service Date of Service: 12/12/24
[2024-12-12] MEDS: 0.9 % Sodium Chloride Flush 3 ML SYRINGE IVFLUSH ×3 (08:23→22:31)
--- NOTE | 2024-12-12 08:26 | PC.NURSE ---
Pt is alert and awake. Denies pain or discomfort. Wound noted just below right knee, red and warm to site, no active drainage, +odor. +cms to distal extremity. VSS. Afebrile. Update Clara (family member) with permission of pt NPO, awaits bed assgn and plan
--- NOTE | 2024-12-12 09:04 | PC.NURSE ---
speech at bedside
--- NOTE | 2024-12-12 09:13 | PC.NURSE ---
Speech recommends reg diet with thin liquids, Dr Bell notified
--- NOTE | 2024-12-12 09:28 | PHA.MEDREC ---
Addendum entered by Eliana Aguirre RPh 12/12/24 09:30: Reviewed by [facility]. Original Note: Pharmacy Consult ? Medication Reconciliation Pharmacy has completed the medication reconciliation. Spoke to patient to confirm med list. Patient states she only takes Atenolol 25 mg, and Simvastatin 20 mg.
--- NOTE | 2024-12-12 10:26 | PM.EVENT ---
Event Note Date of Service: 12/12/24 Event Note: Seen and evaluated Feels better, no fever overnight Orthopedic did not feel the knee hardware infected wound care to follow continue IV antibiotics pending cultures Time Spent With Patient Time: Total time managing care of this patient today ____ minutes.
--- NOTE | 2024-12-12 11:02 | MHC.CM.PN ---
IMM 12/12/24, Pt lives with her , She has a PCP but could not recall the name. She does not have any home care services or use DME at this time. Her will transport home at DC. HCP to be completed here and added to chart. DCP: home, either self care or with services. CM to follow for DC needs.
--- NOTE | 2024-12-12 11:37 | MHC.SL.SWA ---
Speech Pathologist Impression: Oropharyngeal swallow WNL Risk of Aspiration Due to: None Dysphasia Diet Status: Regular diet with thin liquis Liquid Consistency and Strategies for Safe Swallow: Liquid Intake Recommendation: Liquid Intake Strategies: Solid Food Consistency: Dietary Recommendations: Regular Additional Modifications to Solid Foods: Oral Medication Intake: Whole with Liquid Please contact the pharmacy regarding appropriate crushable or liquid drug formulations that are available whenever modified delivery is recommended. Compensatory Strategies and Precautions to be Taken for Safe Swallow: Sitting Upright (90 deg) Alternate Liquids/Solids Supervision While Eating and Drinking for Safe Swallow: None Needed Foods to Avoid: Swallowing Recommended Treatments: Compens. Strategy Educat. Recommendation for Speech: NA:Typical Evaluation Comment: Pt repositioned upright in stretcher, alert and communicative. Pt denied hx of dysphagia. RN consulted, pt had coughed on trials of thins during bedside screen. WAREHOUSE SELECTOR explained reason for evaluation to pt, who was in agreement with bedside assessment. Pt endorsed feeling hungry. Tremors observed in lower facial musculature and hands, bilaterally. No formal diagnosis has been made. Pt presents with adequate oropharyngeal coordination of swallow phases. Pt formulates, manipulates and transfers bolus efficiently, timing of pharyngeal swallow WNL. Pt voicing clear upon speaking. Cough occurred s/p several bites of solids x2, considered WNL as pt voice clear and no further difficulties observed. WAREHOUSE SELECTOR provided education and review of recommendations, RN consulted, MD notified. Recc regular diet with thin liquids, upright position while eating and for 30 minutes after PO intake, meds as pt tolerates, contact PCP with concerns. Frequency/Duration: Date Range for Service Req: Timeline to reassess: Tool And Fixture Repairer Clinican/Clinical Fellow: No Supervisory Statement: I have reviewed and agree with the student/clinical fellow's documentation: N/A Speech Language Pathologist: Rosa Cannon M.S., CCC-WAREHOUSE SELECTOR
--- NOTE | 2024-12-12 11:45 | PC.NURSE ---
Addendum entered by Sandra Newsome 12/12/24 11:56: Pt tremulous, states she has been like that for months. Addendum entered by Sandra Newsome 12/12/24 11:47: repeat rectal 98.2 Original Note: Pt remains calm and appears comfortable. Area to right knee cleansed and DCD applied. Pt cleaned for urine incontinence and repositioned in bed. Purewick in place however some urine leakage noted/cleaned. Pt given more something to drink and awaits lunch tray.
[2024-12-12] MEDS: atenoloL 25 MG TABLET PO (13:01)
--- NOTE | 2024-12-12 16:13 | MHC.CM.PN ---
Patient provided copy of HCP. Added to chart.
[2024-12-12] MEDS: Atorvastatin Calcium 10 MG TABLET PO (22:13)
[2024-12-12] MEDS: cefTRIAXone sodium 2 GM VIAL IVPUSH (22:13)
[2024-12-12] MEDS: vancomycin HCL 1,250 MG in 0.9 % Sodium Chloride 250 ML 166.67 MG IV (22:31)
[2024-12-13] VITALS (9 sets, daily range): BP systolic 97–185; BP diastolic 54–84; PULSE 65–101; RESP 12–18; TEMP 36–36.9; O2SAT 92–95
--- NOTE | 2024-12-13 04:13 | PC.NURSE ---
Pt denies pain, woundnoted to R knee, dsg CDI, no drainage noted, redness/warmth to leg, +cms to R extremity. VSS, Lung sounds clear, respirations even and nonlabored with no apparent distress at this thime.
--- NOTE | 2024-12-13 04:15 | PC.NURSE ---
Pt denies pain, wound noted to R knee, dsg CDI, no drainage noted, redness/warmth to leg, +cms to R extremity. VSS, Lung sounds clear, respirations even and non-labored with no apparent distress at this time, BSX4. Call zhou within reach.
[2024-12-13 06:13] LABS: MANUAL DIFF FLAG NO
[2024-12-13 06:22] LABS: Basophils Percent Auto 0.3 % (0-2); Eosinophils Absolute Auto 0.1 X10*3/uL (0.0-0.4); Eosinophils Percent Auto 0.8 % (0-4); Hematocrit 35.7 % (37.0-47.0); Imm Gran Abs Auto 0.11 X10*3/uL (0.00-0.03); Imm Gran Pct Auto 0.7 % (0.0-0.4); Lymphocytes Percent Auto 12.8 % (20-40); Mean Corpuscular HGB Conc 33.6 g/dl (31.0-35.0); Mean Corpuscular Hemoglobin 30.5 pg (27.0-33.0); Mean Corpuscular Volume 90.6 fL (80.0-98.0); Mean Platelet Volume 9.6 fL (9.4-12.3); Monocytes Absolute Auto 1.2 X10*3/uL (0.1-1.2); Neutrophils Absolute Auto 11.9 x10*3/uL (2.0-8.3); Neutrophils Percent Auto 77.4 % (45-73); Platelet Count 295 X10*3/uL (160-400); Red Blood Count 3.94 X10*6/uL (4.20-5.50); Red Cell Distribution Width 13.3 % (11.0-16.0); White Blood Count 15.4 X10*3/uL (4.8-10.8)
[2024-12-13 06:29] LABS: Anion Gap 14 (12-20); Blood Urea Nitrogen 20 mg/dL (9-16); Carbon Dioxide 22 mmol/L (22-29); Chloride 110 mmol/L (96-108); Creatinine Clr Calc Pharmacy 47.4; Estimated Glomerular Filt Rate > 60; Glucose Random 147 mg/dL (60-115); Potassium 3.8 mmol/L (3.3-5.1); Sodium 142 mmol/L (135-145)
[2024-12-13 06:58] LABS: Anion Gap 11 (12-20); Blood Urea Nitrogen 20 mg/dL (9-16); Calcium 8.7 mg/dL (8.4-10.2); Carbon Dioxide 25 mmol/L (22-29); Chloride 110 mmol/L (96-108); Creatinine Clr Calc Pharmacy 46.2; Estimated Glomerular Filt Rate > 60; Glucose Random 146 mg/dL (60-115); Potassium 3.7 mmol/L (3.3-5.1); Sodium 142 mmol/L (135-145)
[2024-12-13] MEDS: atenoloL 25 MG TABLET PO (08:21)
[2024-12-13] MEDS: 0.9 % Sodium Chloride Flush 3 ML SYRINGE IVFLUSH ×3 (08:22→20:58)
--- NOTE | 2024-12-13 10:33 | MHC.SLORD ---
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 No further GRAIN I FARMWORKER service indicated will D/C speech.
[2024-12-13] MEDS: amLODIPine Besylate 5 MG TABLET PO (13:39)
--- NOTE | 2024-12-13 14:34 | HO.PM.IMPN ---
Subjective Subjective Date of Service: 12/13/24 Interval History: no acute issues overnight. Notes improvement since admission Review of Systems denies chest pain Denies shortness of breath Denies nausea vomiting diarrhea Denies fever chills Physical Exam Vital Signs: Vital Signs: Last Vital Signs Temp 98.2 F 12/13/24 11:45 Pulse 76 12/13/24 11:45 Resp 18 12/13/24 11:45 BP 185/84 H 12/13/24 11:45 Pulse Ox 93 12/13/24 11:45 O2 Del Method Room Air 12/13/24 11:45 BMI result Body Mass Index 27.8 Const: Other: awake alert no acute distress Resp: Other: clear to auscultation bilaterally no rales rhonchi or wheezes Cardio: Other: no S4; positive S1-S2; no S3 murmurs rubs or gallops GI: Other: soft nontender nondistended normoactive bowel sounds Extrem: Other: no edema bilaterally. Minimal erythema over right knee Objective Data Active Medications Acetaminophen (Acetaminophen 325 Mg Tablet) 975 mg PO Q6H PRN PRN Reason: Pain, Mild 1-3,fever,headache Amlodipine Besylate (Amlodipine Besylate 5 Mg Tablet) 5 mg PO DAILY [facility]; Protocol Last Admin: 12/13/24 13:39 Dose: 5 mg Documented By: JEMIMA Atenolol (Atenolol 25 Mg Tablet) 25 mg PO DAILY [facility]; Protocol Last Admin: 12/13/24 08:21 Dose: 25 mg Documented By: JEMIMA Atorvastatin Calcium (Atorvastatin Calcium 10 Mg Tablet) 10 mg PO BEDTIME [facility] Last Admin: 12/12/24 22:13 Dose: 10 mg Documented By: DANIEL Calcium Carbonate (Calcium Carbonate 750 Mg Tab.Chew) 750 mg PO Q4H PRN PRN Reason: Heartburn Ceftriaxone Sodium (Ceftriaxone Sodium 2 Gm Vial) 2 gm IVPUSH Q24H [facility] Last Admin: 12/12/24 22:13 Dose: 2 gm Documented By: DANIEL Hydromorphone HCl (Hydromorphone Hcl 0.5 Mg/0.5 Ml Syringe) 0.5 mg IVPUSH Q4H PRN; Protocol PRN Reason: Pain, Severe (Pain Scale 7-10) Vancomycin HCl 1,250 mg/ (Sodium Chloride) 250 mls @ 166.667 mls/hr IV Q24H [facility] Last Infusion: 12/13/24 00:01 Dose: Infused Documented By: DANIEL Magnesium Hydroxide (Milk Of Magnesia 30 Ml Oral.Susp) 30 ml PO DAILY PRN PRN Reason: Constipation Melatonin (Melatonin 3 Mg Tablet) 6 mg PO BEDTIME PRN PRN Reason: Insomnia Morphine Sulfate (Morphine Sulfate 2 Mg/Ml Cartridge) 2 mg IVPUSH Q4H PRN; Protocol PRN Reason: Pain, Moderate(Pain Scale 4-6) Ondansetron HCl (Ondansetron Hcl 4 Mg/2 Ml Vial) 4 mg IVPUSH Q8H PRN PRN Reason: Nausea and Vomiting Pharmacy Consult (Consult Rx Vancomycin Dosing) 1 each MISCELLANE DAILY PRN PRN Reason: Consult order Sodium Chloride (0.9 % Sodium Chloride Flush 3 Ml Syringe) 3 ml IVFLUSH QSHIFT [facility] Last Admin: 12/13/24 08:22 Dose: 3 ml Documented By: JEMIMA Labs 12/13/24 05:42 12/13/24 06:04 Labs: Laboratory Results - last 24 hr 12/13/24 12/13/24 05:42 06:04 MCV 90.6 MCH 30.5 MCHC 33.6 RDW 13.3 Plt Count 295 MPV 9.6 Immature Gran % (Auto) 0.7 H Neut % (Auto) 77.4 H Lymph % (Auto) 12.8 L [place] % (Auto) 8.0 Eos % (Auto) 0.8 Baso % (Auto) 0.3 Lymph # (Auto) 2.0 [place] # (Auto) 1.2 Eos # (Auto) 0.1 Baso # (Auto) 0.0 Abs Immat Gran (auto) 0.11 H Absolute Neuts (auto) 11.9 H Absolute Nucleated RBC 0.000 Nucleated RBC % (auto) 0.0 Anion Gap 14 11 L Estim Creat Clear Calc 47.4 46.2 Estimated GFR > 60 > 60 Random Glucose 147 H 146 H Calcium 9.0 8.7 Microbiology Microbiology Results: Microbiology 12/12/24 Unknown Urine Culture - Final Urine clean catch - Clean Catch Midstream 12/12/24 06:24 Gram Stain - Final Knee,Right Routine Culture - Preliminary Staphylococcus species 12/12/24 02:15 Blood Culture - Preliminary Blood - Venous No growth after 24 hours. 12/12/24 02:15 Blood Culture - Preliminary Blood - Venous No growth after 24 hours. Assessment and Plan (1) Cellulitis of knee, right: Status: Acute (2) Metabolic acidosis: Status: Acute (3) HTN (hypertension): Status: Acute Plan Patient is an 89-year-old female with a past medical history significant for HTN, HLD, R TKR, who presented to the ED due to weakness and difficult with ambulation requiring a walker for the past 2 days. She slid off the bed and called EMS to assist her back on and ultimately came to the ED due to her new weakness. 1.Severe sepsis secondary to cellulitis R knee( sepsis resolved) - appreciate ortho input. . . Do not feel septic joint - ceftriaxone/vancomycin(2) - monitor CBC and BMP -follow cultures 2.Metabolic acidosis and lactic acidosis - secondary to severe sepsis...resolved - follow renals/divalents 3.HTN - poor control. . . Amlodipine added - continue home meds - adjust as indicated Full code Boots requires ongoing hospitalization for IV antibiotics to treat cellulitis pending culture Quality Stroke Does the patient have a stroke diagnosis?: No VTE Prior VTE?: No VTE Risk Level:: Medical - moderate - high VTE Device Contraindication: N/A - Device Ordered VTE Drug Contraindication: Treatment Not Indicated
--- NOTE | 2024-12-13 16:56 | HO.WOUND ---
Wound Consult: Initial 89yr old?female admitted to [facility] on 12/12/24 - See progress notes and H&P for detailed history.? Wound consult placed for Right Knee and Foot wound.? Patient agreeable to assessment and photo documentation.? Patient is pleasantly confused and unsure about the details of her injury. She had family at bedside and he reports she had foot wound and Right Knee prior to coming in but unclear on timeline. The right knee does probe to bone, Orthopedic consult completed and imaging completed - per Ortho team no surgical interventions needed at this time. The patient reports difficulty with knee mobility. Patient will need VNA services for wound care treatments. Right Knee / bazzi Etiology: Ulceration / Abscess??Present on Admission Measurements: 1.5cm x 1cm x 5cm Wound Bed: adherent kendall yellow drainage Drainage / Odor: Foul smelling odor Edges: ? epibole and red Serenity wound: red hyperpigmentation noted ? No Induration, Fluctuance or Warmth noted Pain: pain noted Goals of Treatment: ? Durafiber packing every other day Right Plantar Foot Unclear etiology - appears as friction or burn but patient and family does not recall injury - partial thickness tissue loss - pink moist wound bed - cleansed and foam dressing applied. Recommendations: 1. Turn and Reposition every 2 hours and as needed for patient comfort.? Use pillows or wedges to support off loading positions. 2. Off Load all bony prominences with use of pillows and heel boots if needed.? Apply Preventative foams where needed. ? 3. Monitor for incontinence and moisture control, use barrier creams when needed for prevention and treatment. 4. Provide adequate and supplemental nutrition.? 5. Order low air loss mattress. 6. When applicable maintain blood glucose levels per Providers order. Right Knee / Bazzi - Cleanse and irrigate with NS. Lightly pack wound bed with Durafiber AG - be sure to leave wick for easy full removal. Cover with dry gauze and abd pad. Change every other day. Right Plantar Foot - Cleanse with NS moist gauze, pat dry. Apply skin prep, followed by foam dressing. Change every 3 days. Recommend follow up out patient Wound Clinic at [address] [place] [id number] and to call for an appointment at time of discharge. [phone].? Re-consult wound care Nurse for wound deterioration or wound changes.
[2024-12-13] MEDS: Atorvastatin Calcium 10 MG TABLET PO (20:54)
[2024-12-13] MEDS: Melatonin 3 MG TABLET 6 MG PO (20:54)
[2024-12-13] MEDS: cefTRIAXone sodium 2 GM VIAL IVPUSH (21:00)
[2024-12-13 21:32] LABS: Vancomycin Random 8.2 mcg/mL (15-20)
[2024-12-13] MEDS: vancomycin HCL 750 MG in 0.9 % Sodium Chloride 250 ML 265 MG IV (22:19)
[2024-12-14 03:16] VITALS: BP 169/73; PULSE 101; RESP 16; TEMP 36.1; O2SAT 93
[2024-12-14 06:33] LABS: Hematocrit 36.4 % (37.0-47.0); Hemoglobin 12.3 g/dl (12.0-16.0); Mean Corpuscular HGB Conc 33.8 g/dl (31.0-35.0); Mean Corpuscular Hemoglobin 30.8 pg (27.0-33.0); Mean Corpuscular Volume 91.2 fL (80.0-98.0); Mean Platelet Volume 9.5 fL (9.4-12.3); Platelet Count 278 X10*3/uL (160-400); Red Blood Count 3.99 X10*6/uL (4.20-5.50); Red Cell Distribution Width 13.2 % (11.0-16.0); White Blood Count 13.1 X10*3/uL (4.8-10.8)
[2024-12-14 06:45] LABS: Anion Gap 13 (12-20); Blood Urea Nitrogen 12 mg/dL (9-16); Calcium 8.6 mg/dL (8.4-10.2); Carbon Dioxide 21 mmol/L (22-29); Chloride 108 mmol/L (96-108); Creatinine Clr Calc Pharmacy 50.2; Estimated Glomerular Filt Rate > 60; Glucose Random 148 mg/dL (60-115); Potassium 3.3 mmol/L (3.3-5.1); Sodium 139 mmol/L (135-145)
[2024-12-14 07:23] VITALS: BP 158/70; PULSE 97; RESP 14; TEMP 36.7; O2SAT 94
[2024-12-14] MEDS: amLODIPine Besylate 5 MG TABLET PO (07:47)
[2024-12-14] MEDS: atenoloL 25 MG TABLET PO (07:48)
[2024-12-14] MEDS: 0.9 % Sodium Chloride Flush 3 ML SYRINGE IVFLUSH ×2 (07:50→21:52)
[2024-12-14 11:58] VITALS: BP 141/70; PULSE 77; RESP 16; TEMP 36.9; O2SAT 94
--- NOTE | 2024-12-14 15:22 | P.PNIM_ITS ---
Subjective Subjective Date of Service: 12/14/24 Interval History: No acute issues overnight. Remains afebrile Review of Systems denies chest pain Denies shortness of breath Denies nausea vomiting diarrhea Denies fever chills Physical Exam 2 Vital Signs: Vital Signs: Last Vital Signs Temp 98.5 F 12/14/24 11:58 Pulse 77 12/14/24 11:58 Resp 16 12/14/24 11:58 BP 141/70 H 12/14/24 11:58 Pulse Ox 94 12/14/24 11:58 O2 Del Method Room Air 12/14/24 11:58 BMI result Body Mass Index 27.8 Const: Other: awake alert no acute distress Resp: Other: clear to auscultation bilaterally no rales rhonchi or wheezes Cardio: Other: no S4; positive S1-S2; no S3 murmurs rubs or gallops GI: Other: soft nontender nondistended normoactive bowel sounds Extrem: Other: no edema bilaterally. Minimal erythema over right knee Objective Data Active Medications Acetaminophen (Acetaminophen 325 Mg Tablet) 975 mg PO Q6H PRN PRN Reason: Pain, Mild 1-3,fever,headache Amlodipine Besylate (Amlodipine Besylate 5 Mg Tablet) 5 mg PO DAILY [facility]; Protocol Last Admin: 12/14/24 07:47 Dose: 5 mg Documented By: RFANCIA Atenolol (Atenolol 25 Mg Tablet) 25 mg PO DAILY [facility]; Protocol Last Admin: 12/14/24 07:48 Dose: 25 mg Documented By: FRANCIA Atorvastatin Calcium (Atorvastatin Calcium 10 Mg Tablet) 10 mg PO BEDTIME [facility] Last Admin: 12/13/24 20:54 Dose: 10 mg Documented By: JUAN JOSE Calcium Carbonate (Calcium Carbonate 750 Mg Tab.Chew) 750 mg PO Q4H PRN PRN Reason: Heartburn Ceftriaxone Sodium (Ceftriaxone Sodium 2 Gm Vial) 2 gm IVPUSH Q24H [facility] Last Admin: 12/13/24 21:00 Dose: 2 gm Documented By: JUAN JOSE Hydromorphone HCl (Hydromorphone Hcl 0.5 Mg/0.5 Ml Syringe) 0.5 mg IVPUSH Q4H PRN; Protocol PRN Reason: Pain, Severe (Pain Scale 7-10) Vancomycin HCl 750 mg/ Sodium (Chloride) 265 mls @ 265 mls/hr IV Q12H [facility] Last Admin: 12/14/24 13:18 Dose: Not Given Documented By: FRANCIA Non-Admin Reason: Physician Held Med Magnesium Hydroxide (Milk Of Magnesia 30 Ml Oral.Susp) 30 ml PO DAILY PRN PRN Reason: Constipation Melatonin (Melatonin 3 Mg Tablet) 6 mg PO BEDTIME PRN PRN Reason: Insomnia Last Admin: 12/13/24 20:54 Dose: 6 mg Documented By: JUAN JOSE Morphine Sulfate (Morphine Sulfate 2 Mg/Ml Cartridge) 2 mg IVPUSH Q4H PRN; Protocol PRN Reason: Pain, Moderate(Pain Scale 4-6) Ondansetron HCl (Ondansetron Hcl 4 Mg/2 Ml Vial) 4 mg IVPUSH Q8H PRN PRN Reason: Nausea and Vomiting Pharmacy Consult (Consult Rx Vancomycin Dosing) 1 each MISCELLANE DAILY PRN PRN Reason: Consult order Sodium Chloride (0.9 % Sodium Chloride Flush 3 Ml Syringe) 3 ml IVFLUSH QSHIFT [facility] Last Admin: 12/14/24 07:50 Dose: 3 ml Documented By: FRANCIA Labs 12/14/24 05:48 12/14/24 05:48 Labs: Laboratory Results - last 24 hr 12/13/24 12/14/24 21:07 05:48 MCV 91.2 MCH 30.8 MCHC 33.8 RDW 13.2 Plt Count 278 MPV 9.5 Absolute Nucleated RBC 0.000 Nucleated RBC % (auto) 0.0 Anion Gap 13 Estim Creat Clear Calc 50.2 Estimated GFR > 60 Random Glucose 148 H Calcium 8.6 Random Vancomycin 8.2 L Microbiology Microbiology Results: Microbiology 12/12/24 06:24 Gram Stain - Final Knee,Right Routine Culture - Final Staphylococcus aureus 12/12/24 02:15 Blood Culture - Preliminary Blood - Venous No growth after 48 hours. 12/12/24 02:15 Blood Culture - Preliminary Blood - Venous No growth after 48 hours. Assessment and Plan (1) Cellulitis of knee, right: Status: Acute Plan Patient is an 89-year-old female with a past medical history significant for HTN, HLD, R TKR, who presented to the ED due to weakness and difficult with ambulation requiring a walker for the past 2 days. She slid off the bed and called EMS to assist her back on and ultimately came to the ED due to her new weakness. 1.Severe sepsis secondary to cellulitis R knee( sepsis resolved) -appreciate ortho input. . . Do not feel septic joint - switch to oral Ceftin -follow cultures -PT consult in a.m. 2.Metabolic acidosis and lactic acidosis - secondary to severe sepsis...resolved - follow renals/divalents 3.HTN - poor control. . . Amlodipine added - continue home meds - adjust as indicated Full code Boots requires ongoing hospitalization for IV antibiotics to treat cellulitis pending culture Quality Stroke Does the patient have a stroke diagnosis?: No VTE Prior VTE?: No VTE Risk Level:: Medical - moderate - high VTE Device Contraindication: N/A - Device Ordered VTE Drug Contraindication: Treatment Not Indicated
[2024-12-14 15:52] VITALS: BP 157/72; PULSE 100; RESP 16; TEMP 36.8; O2SAT 95
[2024-12-14] MEDS: cefuroxime axetiL 250 MG TABLET PO (15:57)
[2024-12-14 20:00] VITALS: BP 142/68; PULSE 83; RESP 17; TEMP 37.2; O2SAT 93
[2024-12-14] MEDS: Atorvastatin Calcium 10 MG TABLET PO (21:49)
[2024-12-14] MEDS: Melatonin 3 MG TABLET 6 MG PO (21:49)
[2024-12-14] MEDS: cefTRIAXone sodium 2 GM VIAL IVPUSH (21:49)
[2024-12-14] MEDS: vancomycin HCL 750 MG in 0.9 % Sodium Chloride 250 ML 265 MG IV (22:00)
[2024-12-15] VITALS (9 sets, daily range): BP systolic 113–170; BP diastolic 58–80; PULSE 79–103; RESP 16–18; TEMP 36.8–37.3; O2SAT 92–96
[2024-12-15] MEDS: cefuroxime axetiL 250 MG TABLET PO ×2 (03:23→15:59)
[2024-12-15] MEDS: amLODIPine Besylate 5 MG TABLET PO (08:27)
[2024-12-15] MEDS: atenoloL 25 MG TABLET PO (08:27)
[2024-12-15 08:29] LABS: Vancomycin Random 11.2 mcg/mL (15-20)
[2024-12-15 08:30] LABS: Creatinine Clr Calc Pharmacy 46.2; Estimated Glomerular Filt Rate > 60
--- NOTE | 2024-12-15 08:38 | HE.PHANOTE ---
RE VANCO: TROUGH STILL LOW. RENAL FUNCTION STABLE. WILL INCREASE DOSE TO 1000 MG Q12 AND RECHECK LEVEL, RENAL FUNCTION IN THE MORNING 12/16/24.
[2024-12-15] MEDS: vancomycin HCL 1,000 MG in 0.9 % Sodium Chloride 250 ML 270 MG IV ×2 (11:42→23:20)
--- NOTE | 2024-12-15 13:07 | P.PNIM_ITS ---
Subjective Subjective Date of Service: 12/15/24 Interval History: No acute issues overnight. Knee continues to improve Review of Systems denies chest pain Denies shortness of breath Denies nausea vomiting diarrhea Denies fever chills Physical Exam 2 Vital Signs: Vital Signs: Last Vital Signs Temp 98.2 F 12/15/24 07:45 Pulse 79 12/15/24 12:00 Resp 18 12/15/24 07:45 BP 113/63 12/15/24 12:00 Pulse Ox 96 12/15/24 10:06 O2 Del Method Room Air 12/15/24 07:45 BMI result Body Mass Index 27.8 Const: Other: awake alert no acute distress Resp: Other: clear to auscultation bilaterally no rales rhonchi or wheezes Cardio: Other: no S4; positive S1-S2; no S3 murmurs rubs or gallops GI: Other: soft nontender nondistended normoactive bowel sounds Extrem: Other: no edema bilaterally. Minimal erythema over right knee Objective Data Active Medications Acetaminophen (Acetaminophen 325 Mg Tablet) 975 mg PO Q6H PRN PRN Reason: Pain, Mild 1-3,fever,headache Amlodipine Besylate (Amlodipine Besylate 5 Mg Tablet) 5 mg PO DAILY [facility]; Protocol Last Admin: 12/15/24 08:27 Dose: 5 mg Documented By: HENRIQUE Atenolol (Atenolol 25 Mg Tablet) 25 mg PO DAILY [facility]; Protocol Last Admin: 12/15/24 08:27 Dose: 25 mg Documented By: HENRIQUE Atorvastatin Calcium (Atorvastatin Calcium 10 Mg Tablet) 10 mg PO BEDTIME [facility] Last Admin: 12/14/24 21:49 Dose: 10 mg Documented By: JUAN JOSE Calcium Carbonate (Calcium Carbonate 750 Mg Tab.Chew) 750 mg PO Q4H PRN PRN Reason: Heartburn Ceftriaxone Sodium (Ceftriaxone Sodium 2 Gm Vial) 2 gm IVPUSH Q24H [facility] Last Admin: 12/14/24 21:49 Dose: 2 gm Documented By: JUAN JOSE Cefuroxime Axetil (Cefuroxime Axetil 250 Mg Tablet) 250 mg PO Q12H [facility] Last Admin: 12/15/24 03:23 Dose: 250 mg Documented By: JUAN JOSE Hydromorphone HCl (Hydromorphone Hcl 0.5 Mg/0.5 Ml Syringe) 0.5 mg IVPUSH Q4H PRN; Protocol PRN Reason: Pain, Severe (Pain Scale 7-10) Vancomycin HCl 1,000 mg/ (Sodium Chloride) 270 mls @ 270 mls/hr IV Q12H [facility] Last Admin: 12/15/24 11:42 Dose: 270 mls/hr Documented By: HENRIQUE Magnesium Hydroxide (Milk Of Magnesia 30 Ml Oral.Susp) 30 ml PO DAILY PRN PRN Reason: Constipation Melatonin (Melatonin 3 Mg Tablet) 6 mg PO BEDTIME PRN PRN Reason: Insomnia Last Admin: 12/14/24 21:49 Dose: 6 mg Documented By: JUAN JOSE Morphine Sulfate (Morphine Sulfate 2 Mg/Ml Cartridge) 2 mg IVPUSH Q4H PRN; Protocol PRN Reason: Pain, Moderate(Pain Scale 4-6) Ondansetron HCl (Ondansetron Hcl 4 Mg/2 Ml Vial) 4 mg IVPUSH Q8H PRN PRN Reason: Nausea and Vomiting Pharmacy Consult (Consult Rx Vancomycin Dosing) 1 each MISCELLANE DAILY PRN PRN Reason: Consult order Sodium Chloride (0.9 % Sodium Chloride Flush 3 Ml Syringe) 3 ml IVFLUSH QSHIFT [facility] Last Admin: 12/15/24 11:33 Dose: Not Given Documented By: HENRIQUE Non-Admin Reason: Previously Administered Labs 12/14/24 05:48 12/15/24 08:00 Labs: Laboratory Results - last 24 hr 12/15/24 08:00 Estim Creat Clear Calc 46.2 Estimated GFR > 60 Random Vancomycin 11.2 L Assessment and Plan (1) Severe sepsis: Status: Acute (2) Cellulitis of knee, right: Status: Acute Plan Patient is an 89-year-old female with a past medical history significant for HTN, HLD, R TKR, who presented to the ED due to weakness and difficult with ambulation requiring a walker for the past 2 days. She slid off the bed and called EMS to assist her back on and ultimately came to the ED due to her new weakness. 1.Severe sepsis secondary to cellulitis R knee( sepsis resolved) -appreciate ortho input. . . Do not feel septic joint - continue IV vanco at this time. We will switch to p.o. in a.m. -cultures negative times 48 hours -PT recommended short-term rehab 2.Metabolic acidosis and lactic acidosis - secondary to severe sepsis...resolved - follow renals/divalents 3.HTN - poor control. . . Amlodipine added - continue home meds - adjust as indicated Full code Boots requires ongoing hospitalization for IV antibiotics to treat cellulitis; we will need short-term rehab Quality Stroke Does the patient have a stroke diagnosis?: No VTE Prior VTE?: No VTE Risk Level:: Medical - moderate - high VTE Device Contraindication: N/A - Device Ordered VTE Drug Contraindication: Treatment Not Indicated
[2024-12-15] MEDS: 0.9 % Sodium Chloride Flush 3 ML SYRINGE IVFLUSH ×2 (16:01→21:01)
[2024-12-15] MEDS: Atorvastatin Calcium 10 MG TABLET PO (21:00)
[2024-12-15] MEDS: Melatonin 3 MG TABLET 6 MG PO (21:00)
[2024-12-15] MEDS: cefTRIAXone sodium 2 GM VIAL IVPUSH (21:00)
[2024-12-16 03:11] VITALS: BP 137/65; PULSE 96; RESP 16; TEMP 37.3; O2SAT 93
[2024-12-16] MEDS: cefuroxime axetiL 250 MG TABLET PO ×2 (03:13→13:11)
[2024-12-16 07:28] VITALS: BP 139/67; PULSE 91; RESP 16; TEMP 37.3; O2SAT 93
[2024-12-16] MEDS: amLODIPine Besylate 5 MG TABLET PO (08:36)
[2024-12-16] MEDS: atenoloL 25 MG TABLET PO (08:36)
[2024-12-16] MEDS: 0.9 % Sodium Chloride Flush 3 ML SYRINGE IVFLUSH (08:37)
[2024-12-16 10:25] LABS: MANUAL DIFF FLAG NO
[2024-12-16 10:30] LABS: Basophils Absolute Auto 0.1 X10*3/uL (0.0-0.2); Basophils Percent Auto 0.4 % (0-2); Eosinophils Absolute Auto 0.5 X10*3/uL (0.0-0.4); Eosinophils Percent Auto 3.6 % (0-4); Hematocrit 37.3 % (37.0-47.0); Hemoglobin 12.5 g/dl (12.0-16.0); Imm Gran Abs Auto 0.07 X10*3/uL (0.00-0.03); Imm Gran Pct Auto 0.6 % (0.0-0.4); Lymphocytes Percent Auto 16.2 % (20-40); Mean Corpuscular HGB Conc 33.5 g/dl (31.0-35.0); Mean Corpuscular Hemoglobin 30.5 pg (27.0-33.0); Mean Platelet Volume 9.3 fL (9.4-12.3); Monocytes Percent Auto 7.8 % (2-11); Neutrophils Percent Auto 71.4 % (45-73); Platelet Count 283 X10*3/uL (160-400); Red Cell Distribution Width 13.2 % (11.0-16.0); White Blood Count 12.6 X10*3/uL (4.8-10.8)
[2024-12-16 10:44] LABS: Creatinine Clr Calc Pharmacy 42.2; Estimated Glomerular Filt Rate > 60
--- NOTE | 2024-12-16 10:53 | MHC.CM.PN ---
Addendum entered by Azalia Garcia 12/16/24 12:22: PT BOOKED FOR 1400 TRANSPORT VIA [facility] A[facility] Original Note: PT MEDICALLY CLEARED TO DC CM MET WITH PT WHO IS AGREEABLE TO STR PTS PREFERRED SNF WAS [facility], HOWEVER THEY DID NOT OFFER A BED SECOND CHOICE IS [facility], THEY ARE OFFERING CM SPOKE TO PTS NIECE/HCP, AZALIA, WHO IS AWARE PT WILL LIKELY DC THIS AFTERNOON CM AWAITING RESPONSE FROM [facility] TO CONFIRM WHAT TIME THEY CAN ACCEPT HER
[2024-12-16 11:01] LABS: Vancomycin Random 16.7 mcg/mL (15-20)
[2024-12-16 11:07] LABS: Alanine Aminotransferase 35 U/L (0-31); Albumin Level 3.2 g/dL (3.5-5.0); Alkaline Phosphatase 140 U/L (39-117); Anion Gap 15 (12-20); Aspartate Amino Transferase 29 U/L (5-31); Bilirubin Total 0.3 mg/dL (0.0-1.0); Blood Urea Nitrogen 17 mg/dL (9-16); Calcium 8.7 mg/dL (8.4-10.2); Carbon Dioxide 20 mmol/L (22-29); Chloride 108 mmol/L (96-108); Creatinine Clr Calc Pharmacy 40.3; Estimated Glomerular Filt Rate > 60; Glucose Random 271 mg/dL (60-115); Potassium 3.8 mmol/L (3.3-5.1); Sodium 139 mmol/L (135-145); Total Protein 6.2 g/dL (6.5-8.0)
--- NOTE | 2024-12-16 11:25 | PM.DS ---
DS: Providers Provider Date of Service: 12/16/24 Date of admission: 12/12/24 03:08 Date of discharge: 12/16/24 Primary care physician: Germán Foss MD Consults: 12/12/24 03:38 Consult to Orthopedics Routine Consulting Provider: [facility] Orthopedic Surgeons Reason for consultation: sepsis ?infected prosthetic joint Has provider been notified: No 12/12/24 08:29 Consult to Wound Care Routine Reason for consultation: Management wound over anterior aspect of rt knee. Hx revision TKA 12/13/24 01:43 Consult to Wound Care Routine Reason for consultation: redness/warmth/ wound to knee DS: Diagnosis Discharge Diagnosis (1) Severe sepsis: Status: Acute (2) Cellulitis of knee, right: Status: Acute DS: Summary Hospital Course Hospital Course: 89-year-old female with a past medical history significant for HTN, HLD, R TKR, who presented to the ED due to weakness and difficult with ambulation requiring a walker for the past 2 days. At baseline she does not need a walker for ambulation. she denies any fever, chills, nausea, vomiting, abd pain, diarrhea, headache, vision changes, or urinary sx. In the ED she was found to have a wound on her R knee that she was unaware of and does not know how long it has been there. she denies any knee pain. she called EMS last night after sliding off the bed, for assistance getting back on. when the noticed her weakness she agreed to come to the ED. Hospital Course Patient admitted to general medical floor and started on vancomycin and Zosyn. She was seen in consultation by Orthopedics who felt this was not a septic joint. She continued with wound care and over the course of her admission had marked improvement in her cellulitis. She was seen by Physical therapy who deemed her appropriate for short-term rehab. At the time of discharge all cultures has been negative and she will be discharged to complete a course of Ceftin Time Attestation Discharge Coordination Time (in mins): 35 Quality: Safe Use of Opioids Does Pt have an Active Cancer Diagnosis on the Problem List?: No Quality: Stroke Does the patient have a stroke diagnosis?: No Physical Exam Vital Signs: Vital Signs: Last Vital Signs Temp 99.1 F 12/16/24 07:28 Pulse 91 12/16/24 07:28 Resp 16 12/16/24 07:28 BP 139/67 12/16/24 07:28 Pulse Ox 93 12/16/24 07:28 O2 Del Method Room Air 12/16/24 07:28 BMI result Body Mass Index 27.8 Const: Other: awake alert no acute distress Resp: Other: clear to auscultation bilaterally no rales rhonchi or wheezes Cardio: Other: no S4; positive S1-S2; no S3 murmurs rubs or gallops GI: Other: soft nontender nondistended normoactive bowel sounds Extrem: Other: no edema bilaterally. Minimal erythema over right knee DS: Data Data Completed and Pending Labs on day of discharge: Laboratory Results - last 24 hr 12/16/24 12/16/24 12/16/24 10:06 10:06 10:06 WBC 12.6 H RBC 4.10 L Hgb 12.5 Hct 37.3 MCV 91.0 MCH 30.5 MCHC 33.5 RDW 13.2 Plt Count 283 MPV 9.3 L Immature Gran % (Auto) 0.6 H Neut % (Auto) 71.4 Lymph % (Auto) 16.2 L Harrison % (Auto) 7.8 Eos % (Auto) 3.6 Baso % (Auto) 0.4 Lymph # (Auto) 2.0 Harrison # (Auto) 1.0 Eos # (Auto) 0.5 H Baso # (Auto) 0.1 Abs Immat Gran (auto) 0.07 H Absolute Neuts (auto) 9.0 H Absolute Nucleated RBC 0.000 Nucleated RBC % (auto) 0.0 Sodium 139 Potassium 3.8 Chloride 108 Carbon Dioxide 20 L Anion Gap 15 BUN 17 H Creatinine 0.82 0.86 Estim Creat Clear Calc 42.2 40.3 Estimated GFR > 60 Random Glucose Calcium Total Bilirubin AST ALT Alkaline Phosphatase Total Protein Albumin Random Vancomycin 12/16/24 10:06 WBC RBC Hgb Hct MCV MCH MCHC RDW Plt Count MPV Immature Gran % (Auto) Neut % (Auto) Lymph % (Auto) Harrison % (Auto) Eos % (Auto) Baso % (Auto) Lymph # (Auto) Harrison # (Auto) Eos # (Auto) Baso # (Auto) Abs Immat Gran (auto) Absolute Neuts (auto) Absolute Nucleated RBC Nucleated RBC % (auto) Sodium Potassium Chloride Carbon Dioxide Anion Gap BUN Creatinine Estim Creat Clear Calc Estimated GFR > 60 Random Glucose 271 H Calcium 8.7 Total Bilirubin 0.3 AST 29 ALT 35 H Alkaline Phosphatase 140 H Total Protein 6.2 L Albumin 3.2 L Random Vancomycin 16.7 Preliminary micro results at discharge 12/12/24 02:15 Blood Culture - Preliminary Blood - Venous No growth after 48 hours. 12/12/24 02:15 Blood Culture - Preliminary Blood - Venous No growth after 48 hours. Discharge Plan Discharge Anticipated Discharge Date/Time: 12/16/24 11:22 Patient Disposition: Xfer SNF Discharge Diagnosis: Cellulitis right knee Referrals: Germán Foss MD [Primary Care Provider] - 1 Week Discharge Medications: New cefuroxime axetil 250 mg Tablet 250 mg PO Q12H Qty: 20 0RF amlodipine 5 mg Tablet 5 mg PO DAILY Qty: 30 0RF Protocol: Hold for SBP< HOLD for SBP < : 90 Continued atenolol 25 mg tablet 25 mg PO DAILY simvastatin 20 mg tablet 20 mg PO BEDTIME Discharge Orders: Discharge Order (Routine); Ordered 12/16/24 Ordered By: Bob Enriquez Diet: Advance to usual diet Activity on Discharge: As tolerated Stand Alone Forms: Patient Portal Discharge page Print Language: Finnish Activity Restrictions/Additional Instructions: Topical Wound Care Recommendations: Right Knee / Flower - Cleanse and irrigate with NS. Lightly pack wound bed with Durafiber AG - be sure to leave wick for easy full removal. Cover with dry gauze and abd pad. Change every other day. Right Plantar Foot - Cleanse with NS moist gauze, pat dry. Apply skin prep, followed by foam dressing. Change every 3 days. Recommend follow up out patient Wound Clinic at [address] [place] [id number] and to call for an appointment at time of discharge. [phone].? Care Plan Goals: Continue all meds as listed on transfer sheet Health Concerns: Ceftin 250 twice daily for 10 days Plan of Treatment: As per receiving facility Assessment: See discharge summary
[2024-12-16 12:00] VITALS: BP 134/60; PULSE 77; RESP 16; TEMP 37; O2SAT 97
[2024-12-16 14:19] VITALS: BP 140/63; PULSE 90; RESP 16; TEMP 36.7; O2SAT 95
== END 2024-12-16 14:22 | disposition skilled nursing facility (03) | DRG 872 ==
LOC: HO.ED 02:32 → HO.EDOVER 03:19 → HO.S3 11:57
PROVIDERS: Physician Assistant; Student in an Organized Health Care Education/Training Program; Admitting Provider Student in an Organized Health Care Education/Training Program; Emergency Provider Emergency Medicine; PCP Internal Medicine Medical Oncology; Visit Provider Hospitalist
DX: A41.9 Sepsis, unspecified organism (principal); L03.115 Cellulitis of right lower limb; R65.20 Severe sepsis without septic shock; I10 Essential (primary) hypertension; Z20.822 Contact with and (suspected) exposure to COVID-19; Z79.899 Other long term (current) drug therapy
CPT/HCPCS: 0241U; 36415; 71045; 73560; 73701; 80048; 80053; 80202; 81001; 82565; 82947; 83605; 84484; 85025; 85027; 85652; 86140; 87040; 87070; 87077; 87086; 87186; 87205; 92610; 93005; 97162; 99285; J0131; J0696; J3370; J3371; Q9967

== ENCOUNTER → 2024-12-12 01:46 | Outpatient (BNV) | payer MEDICARE, SELFPAY | PROVIDERS: Admitting Provider Student in an Organized Health Care Education/Training Program; Emergency Provider Emergency Medicine; Visit Provider Internal Medicine | DX: R00.0 Tachycardia, unspecified (principal); I45.10 Unspecified right bundle-branch block | CPT/HCPCS: 93010 ==

== ENCOUNTER → 2024-12-12 02:26 | Outpatient (BNV) | payer MEDICARE, SELFPAY | PROVIDERS: Admitting Provider Student in an Organized Health Care Education/Training Program; Emergency Provider Emergency Medicine; Visit Provider Radiology Diagnostic Radiology | DX: M25.561 Pain in right knee (principal); Z96.651 Presence of right artificial knee joint; R53.1 Weakness | CPT/HCPCS: 71045; 73560; 73701 ==

== ENCOUNTER → 2024-12-12 03:08 | Outpatient (BNV) | payer MEDICARE, SELFPAY | PROVIDERS: Admitting Provider Student in an Organized Health Care Education/Training Program; Emergency Provider Emergency Medicine; Visit Provider Physician Assistant | DX: L03.115 Cellulitis of right lower limb (principal); Z96.651 Presence of right artificial knee joint | CPT/HCPCS: 99222 ==

== ENCOUNTER → 2024-12-12 03:08 | Outpatient (BNV) | payer MEDICARE, SELFPAY | PROVIDERS: Admitting Provider Student in an Organized Health Care Education/Training Program; Emergency Provider Emergency Medicine; Visit Provider Physician Assistant | DX: A41.9 Sepsis, unspecified organism (principal); R65.20 Severe sepsis without septic shock; L03.115 Cellulitis of right lower limb | CPT/HCPCS: 99223; 99232; 99499 ==

== ENCOUNTER 2025-01-10 07:25 | Outpatient (REF) | payer SELFPAY ==
--- OUTSIDE RECORDS SUMMARY | 2025-01-10 07:28 | XMS_ITS ---
Author Organization [facility] [address] Address [address] [place] [address] Care Team Providers Care Personal Lines Underwriter Name Role Phone Pipo YOO, Germán Primary Care Provider Unavailab Isidra Burleson Unavailable [phone] Encounters Encounter Location Date Provider Diagnosis [address] [address] 12/12/2024 Isidra Hinojosa Plan Of Treatment Next Appt Details Provider Name:Isidra swanson, 02/04/2025 03:45:00 PM, [address] [place], [address], Progress Notes * Fleicita GRUBERyn EDOB:[birth year] (89 yo F)Acc No.[id number]:12/12/2024 Progress Note Patient:?Yue GRUBER Provider:?Isidra Hinojosa DPM :1935???Age:89 Y???Sex:Female D ate:12/12/2024 Address:[id number] Pcp:Germán Foss MD Subjective: * Chief Complaints: * ??? * Medical History:? Objective: * Vitals:? Assessment: Plan: * Treatment: * Images: * The named appointment provid er may or may not be the originator of this progress note, and it is not deemed complete until electronically signed by the appointment provider. Sign off status: Pending * Provider:?Isidra Hinojosa DPM Date:?0 12/12/2024 Generated for Kunal velasquez/Bertrand/Napoleon on:?01/10/2025 07:27 AM EDT
== END 2025-01-10 07:26 | disposition home or self-care (01) ==
LOC: HO.HOSX 07:25
PROVIDERS: Visit Provider Orthopaedic Surgery
DX: Z13.89 Encounter for screening for other disorder (principal)

== ENCOUNTER 2025-01-12 10:25 | Outpatient (REF) | payer MEDICARE, SELFPAY ==
[2025-01-12 11:10] LABS: MANUAL DIFF FLAG NO
[2025-01-12 11:31] LABS: Basophils Absolute Auto 0.1 X10*3/uL (0.0-0.2); Basophils Percent Auto 0.4 % (0-2); Eosinophils Absolute Auto 0.6 X10*3/uL (0.0-0.4); Hematocrit 37.8 % (37.0-47.0); Hemoglobin 12.3 g/dl (12.0-16.0); Imm Gran Abs Auto 0.13 X10*3/uL (0.00-0.03); Imm Gran Pct Auto 0.9 % (0.0-0.4); Lymphocytes Absolute Auto 1.2 X10*3/uL (1.2-4.9); Lymphocytes Percent Auto 8.1 % (20-40); Mean Corpuscular HGB Conc 32.5 g/dl (31.0-35.0); Mean Corpuscular Hemoglobin 30.1 pg (27.0-33.0); Mean Corpuscular Volume 92.6 fL (80.0-98.0); Monocytes Percent Auto 6.5 % (2-11); Neutrophils Absolute Auto 12.1 x10*3/uL (2.0-8.3); Neutrophils Percent Auto 80.1 % (45-73); Platelet Count 288 X10*3/uL (160-400); Red Blood Count 4.08 X10*6/uL (4.20-5.50); Red Cell Distribution Width 14.1 % (11.0-16.0); White Blood Count 15.1 X10*3/uL (4.8-10.8)
[2025-01-12 11:34] LABS: Alanine Aminotransferase 177 U/L (0-31); Alkaline Phosphatase 1296 U/L (39-117); Anion Gap 10 (12-20); Aspartate Amino Transferase 146 U/L (5-31); Bilirubin Direct 0.5 mg/dL (0.0-0.5); Bilirubin Total 0.9 mg/dL (0.0-1.0); Blood Urea Nitrogen 21 mg/dL (9-16); Calcium 8.9 mg/dL (8.4-10.2); Carbon Dioxide 25 mmol/L (22-29); Chloride 111 mmol/L (96-108); Estimated Glomerular Filt Rate 58; Glucose Random 219 mg/dL (60-115); Potassium 4.2 mmol/L (3.3-5.1); Sodium 142 mmol/L (135-145); Total Protein 5.7 g/dL (6.5-8.0)
[2025-01-12 11:38] LABS: INTERNATIONAL NORM RATIO 1.1 (0.9-1.1); Prothrombin Time 12.6 SEC (10.9-12.4)
[2025-01-15 09:33] LABS: Lyme Abs Screen <0.90 index
[2025-01-20 09:08] LABS: A phagocytophilum IgG <1:64 (<1:64); A phagocytophilum IgM <1:20 (<1:20); Babesia duncani Ab IgG (WA1) <1:256; Babesia microti IgG <1:64 titer (<1:64); Babesia microti IgM <1:20 titer (<1:20); E chaffeensis IgG <1:64 (<1:64); E chaffeensis IgM <1:20 (<1:20); Lyme Ab Screen <0.90 index
== END 2025-01-12 10:26 | disposition home or self-care (01) ==
LOC: HO.MMNH2L 10:25
PROVIDERS: Visit Provider Student in an Organized Health Care Education/Training Program
DX: M62.561 Muscle wasting and atrophy, not elsewhere classified, right lower leg (principal)
CPT/HCPCS: 36415; 80053; 82248; 85025; 85610; 86617; 86618; 86666; 86753

== ENCOUNTER 2025-01-14 07:48 | Outpatient (REF) | payer MEDICARE, SELFPAY ==
--- NOTE | ~2025-01-14 | XR_ITS ---
EXAMINATION: XR KNEE 3 VIEWS BILATERAL HISTORY: pain COMPARISON: Comparison is made with prior examinations dated 12/12/2024 and 07/18/2017. FINDINGS: Standing AP views of both knees and additional lateral and sunrise patellar views of the bilateral knees are submitted. The patient is status post bilateral total knee arthroplasty. The orthopedic elements are in anatomic alignment. There is no radiographic evidence of loosening. There is no fracture or dislocation. There are vascular calcifications. There is no joint effusion. XR/XR Knee Andriy 3V IMPRESSION: Status post bilateral total knee arthroplasty. Electronically signed by: Germán Lawrence MD 01/14/2025 02:23 PM EDT
== END 2025-01-14 07:49 | disposition home or self-care (01) ==
LOC: HO.HOSX 07:48
PROVIDERS: Visit Provider Orthopaedic Surgery
DX: M25.562 Pain in left knee (principal); M25.561 Pain in right knee
CPT/HCPCS: 73562; 99212

== ENCOUNTER 2025-01-14 13:00 | Outpatient (AMB) | payer MEDICARE, SELFPAY ==
--- NOTE | 2025-01-14 13:23 | A.OFFVIS_ITS ---
Vital Signs 01/14/25 13:32 Height 5 ft 1 in Weight 145 lb BMI 27.4 Intake Visit Reasons: STATISTICIAN MATHEMATICAL - R knee pain, h/o B/L TKA at [facility] 10 years ago Intake Note: Humera is a right hand dominant female who presents today as a new patient for a wound that is located on the Right knee, history of Total Bilateral knee replacements.Patient states that she had both knees done 10 years ago at [facility]. Patient was sent by [facility] for concern of the wound on the right knee cap. Patient's niece reports that her right knee has a open wound since october 2024. Patient states that no numbness or tingling to report in her knee or going down the leg. Patients niece stated that she was told she has cellulites in the right knee. Allergies amoxicillin (Amoxicillin) Allergy (Mild, Verified 01/23/25 16:26) RASH Sulfa (Sulfonamide Antibiotics) (Sulfa (Sulfonamides)) Allergy (Mild, Verified 01/23/25 16:26) RASH HPI HPI STATISTICIAN MATHEMATICAL - R knee pain, h/o B/L TKA at [facility] 10 years ago: Details: Humera is a right hand dominant female who presents today as a new patient for a wound that is located on the Right knee, history of Total Bilateral knee replacements.Patient states that she had both knees done 10 years ago at [facility]. Patient was sent by [facility] for concern of the wound on the right knee. Patient's niece reports that her right knee has a open wound since october 2024. Patient states that no numbness or tingling to report in her knee or going down the leg. Patients niece stated that she was told she has cellulites in the right knee. She suffers from dementia. [facility] Medical History Cellulitis of knee, right HLD (hyperlipidemia) HTN (hypertension) Surgical History S/P total knee replacement Social History Household Members: Spouse Housing: House Do you presently have visiting nurse or other home services: No Patient Tobacco Use Status: Never used Tobacco service: No Physical Exam Vital Signs: BMI result Body Mass Index 27.4 Extrem Other: There is an open wound oin the anterior right tibia that appears full thickness. There is fibrous tissue and maloderous. Results Reviewed Results Reviewed: I personally reviewed relevant radiographs. long stem prosthesis with anterior tibial periprosthetic lucency suggestive of OA Assessment & Plan Assessment & Plan (1) Open wound of knee, complicated: Code(s): S81.009A - Unspecified open wound, unspecified knee, initial encounter Category: Medical Plan: This is an 89-year-old with an open wound over a total knee prosthesis. I had a discussion with her niece who did not feel like she is in a good position to make decisions for her and the patient has dementia. I recommend wound care with wet-to-dry b.i.d. and follow up in 1 week. Hopefully next appointment her family can be with her and we can discuss treatment options. 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 There is no emergent intervention warranted. Orders: Orders XR knee RT 3V 01/14/25 M25.561 - Pain in right knee XR Knee Andriy 3V 01/14/25 M25.569 - Pain in unspecified knee Coding Level of Care Code Est Pt Level 3 (73730) Diagnoses Open wound of knee, complicated S81.009A
[2025-01-14 13:32] VITALS: BMI 27.4
== END 2025-01-14 14:24 | disposition home or self-care (01) ==
LOC: HO.HOS 13:01
PROVIDERS: PCP Internal Medicine Medical Oncology; Visit Provider Orthopaedic Surgery
DX: S81.009A Unspecified open wound, unspecified knee, initial encounter (principal)
CPT/HCPCS: 99213

== ENCOUNTER → 2025-01-14 13:21 | Outpatient (BNV) | payer MEDICARE, SELFPAY | PROVIDERS: Visit Provider Radiology Diagnostic Radiology | DX: M25.561 Pain in right knee (principal); M25.562 Pain in left knee | CPT/HCPCS: 73562 ==

== ENCOUNTER 2025-01-23 15:00 | Outpatient (AMB) | payer MEDICARE, SELFPAY ==
--- OUTSIDE RECORDS SUMMARY | 2024-12-12 06:00 | XMS_ITS ---
Author Organization [facility] [address] [place] Address [address] [address] Care Team Providers Care Food Production Worker Name Role Phone Germán Foss MD Primary Care Provider Unavailab Isidra Burleson Unavailable [phone] Encounters Encounter Location Date Provider Diagnosis [address] [address] 12/12/2024 Isidra Hinojosa Plan Of Treatment Next Appt Details Provider Name:Isidra Justina swanson, 02/04/2025 03:45:00 PM, [address] [place], [address], Progress Notes * Yue GRUBER EDOB:[birth year] (89 yo F)Acc No.[id number]:12/12/2024 Progress Note Patient: Yue VILLARREAL Provider: Alyssa Hinojosa DPM :1935 A ge:89 Y S ex:Female Date:12/12/2024 Address:[address] [id number] Pcp:Germán Foss MD Subjective: * Chief Complaints: * * Medical History: Objective: * Vitals: Assessment: Plan: * Treatment: * Images: * The named appointment provid er may or may not be the originator of this progress note, and it is not deemed complete until electronically signed by the appointment provider. Sign off status: Pending * Provider: Alyssa Hinojosa DPM Date: 0 12/12/2024 Generated for Kunal velasquez/Bertrand/Napoleon on: 0 01/23/2025 05:17 PM EDT
--- NOTE | 2025-01-23 15:36 | A.OFFVIS_ITS ---
Vital Signs 3 01/23/25 15:37 Pulse 110 H Pulse Oximetry (%) 99 Oxygen Delivery Method Room Air Intake Visit Reasons: [facility] reff/Foot wound Allergies amoxicillin (Amoxicillin) Allergy (Mild, Verified 01/23/25 16:26) RASH Sulfa (Sulfonamide Antibiotics) (Sulfa (Sulfonamides)) Allergy (Mild, Verified 01/23/25 16:26) RASH HPI HPI [facility] reff/Foot wound: Details: She was referred by Rehab facility. She has been seeing Orthopedics. She has midline left arm. She has wound near knee looks clear She did receive IV Levaquin 01/15-01/22. [facility] Medical History Cellulitis of knee, right HLD (hyperlipidemia) HTN (hypertension) Surgical History S/P total knee replacement Social History Household Members: Spouse Housing: House Do you presently have visiting nurse or other home services: No Patient Tobacco Use Status: Never used Tobacco service: No Review of Systems Const All systems reviewed & are unremarkable except as noted in HPI and below Physical Exam Vital Signs: Last Vital Signs Pulse 110 H 01/23/25 15:37 Pulse Ox 99 01/23/25 15:37 Oxygen Delivery Method Room Air 01/23/25 15:37 Const Other: General: cooperative Orientation/consciousness: patient oriented x3 HEENT Head: Yes normal to inspection Mouth: Normal oral and palatal mucosa present Eyes General: appearance normal, both eyes and all related structures Pupils: Equal, round and reactive pupils present Resp Effort & Inspection: normal respiratory effort Cardio Rate: regular rate Rhythm: regular rhythm GI Palpation (GI): Soft to palpation and nontender General: Yes no CVA tenderness Back/Spine/Pelvis Back: no CVA tenderness Skin General skin exam: no rashes or lesions noted Neuro General: patient oriented x3 Cranial nerves: Yes CN's II-XII intact bilaterally and Yes Equal, round and reactive pupils present Extrem General: Yes normal to inspection Psych Appearance: grossly normal Assessment & Plan Assessment & Plan (1) Open wound of knee, complicated: Comment: She is seeing Orthopedics and wound is clean. Code(s): S81.009A - Unspecified open wound, unspecified knee, initial encounter Category: Medical Plan: No further IV antibiotics at this time per me/I didnt order them. Follow with Orthopedics as doing. Coding Level of Care Code New Pt Level 3 (30766) Diagnoses Open wound of knee, complicated S81.009A
[2025-01-23 15:37] VITALS: PULSE 110; O2SAT 99
== END 2025-01-23 16:16 | disposition home or self-care (01) ==
LOC: HO.HID 15:00
PROVIDERS: Visit Provider Internal Medicine
DX: S81.009A Unspecified open wound, unspecified knee, initial encounter (principal)
CPT/HCPCS: 99203

== ENCOUNTER → 2025-01-23 15:00 | Outpatient (BNVA) | payer MEDICARE, SELFPAY | PROVIDERS: Visit Provider Internal Medicine | DX: S81.009A Unspecified open wound, unspecified knee, initial encounter (principal) | CPT/HCPCS: 99202 ==

== ENCOUNTER 2025-01-25 09:49 | Outpatient (AMB) | payer MEDICARE, SELFPAY ==
--- OUTSIDE RECORDS SUMMARY | 2024-12-12 06:00 | XMS_ITS ---
Author Organization [facility] [address] [place] Address [address] [place] [address] Care Team Providers Care Senior Linux Systems Engineer Name Role Phone Germán Foss MD Primary Care Provider Unavailab Isidra Burleson Unavailable [phone] Encounters Encounter Location Date Provider Diagnosis [address] [address] 12/12/2024 Isidra Hinojosa Plan Of Treatment Next Appt Details Provider Name:Isidra Justina swanson, 02/04/2025 03:45:00 PM, [address] [place], [address], Progress Notes * Yue GRUBER EDOB:[birth year] (89 yo F)Acc No.[id number]:12/12/2024 Progress Note Patient: Yue VILLARREAL Provider: Alyssa Hinojosa DPM :1935 A ge:89 Y S ex:Female Date:12/12/2024 Address:[address] [id number] Pcp:Germán Foss MD Subjective: * Chief Complaints: [...] 12/12/2024 Generated for Kunal velasquez/Bertrand/Napoleon on: 0 01/25/2025 10:00 AM EDT
--- NOTE | 2025-01-25 09:51 | MHC.OFFVIS ---
Vital Signs 01/25/25 09:52 Height 5 ft 1 in Weight 145 lb BMI 27.4 Intake Visit Reasons: OV-R knee pain, h/o B/L TKA follow up Intake Note: Yue is an 89 year old female who presents today for a one week wound check of her right knee. history of Total Bilateral knee replacements. Patient states that she had both knees done 10 years ago at [facility]. She was last seen in office about one week ago for concerns of an open wound of the right knee ongoing since October of 2023. Allergies amoxicillin (Amoxicillin) Allergy (Mild, Verified 01/23/25 16:26) RASH Sulfa (Sulfonamide Antibiotics) (Sulfa (Sulfonamides)) Allergy (Mild, Verified 01/23/25 16:26) RASH HPI HPI OV-R knee pain, h/o B/L TKA follow up: Details: Yue returns today. I would hope to see her earlier in the week but for 1 reason or another today is the day she is in my office. She is demented and does not remember our last conversation. She is at a care home and stable with wound care. She does not describe difficulty walking but her knee said that is not the case. There is no one with her today her visit. [facility] Medical History Cellulitis of knee, right HLD (hyperlipidemia) HTN (hypertension) Surgical History S/P total knee replacement Social History Household Members: Spouse Housing: House Do you presently have visiting nurse or other home services: No Patient Tobacco Use Status: Never used Tobacco service: No Physical Exam Vital Signs: BMI result Body Mass Index 27.4 Extrem Other: A malodorous full-thickness wound over the anterior tibia at the level of the prosthesis. This is 2 cm with full-thickness loss and there is semi purulent discharge Assessment & Plan Assessment & Plan (1) Open wound of knee, complicated: Code(s): S81.009A - Unspecified open wound, unspecified knee, initial encounter Category: Medical Plan: This is an 89-year-old woman with a open wound that is infected. She has radiographic evidence of knee infection. She had a total knee replacement about 10 years ago. This is a difficult situation. She has what appears to be a well-fixed stemmed prosthesis in both the femur and the tibia and she has a full-thickness loss of skin proximally 2 cm in diameter over the distal aspect of the incision and anterior tibia. I think the best treatment for her at this point would be a irrigation debridement with placement of a wound VAC and suppression of infection with IV antibiotics. If that is unsuccessful next step would be resection arthroplasty with placement of an articulating cement spacer. Given her age and mental status hopefully we can work on getting the wound closed and suppressing the infection. I recommend that we admit her to the hospital after surgery her seen by infectious disease. They will make recommendations regarding antibiotics. I do not believe we will have sensitivity but cultures will be taken. I will discuss this with her family as she is not able to sign her own consent form. Coding Level of Care Code Est Pt Level 4 (93909) Diagnoses Open wound of knee, complicated S81.009A
[2025-01-25 09:52] VITALS: BMI 27.4
== END 2025-01-25 10:48 | disposition home or self-care (01) ==
PROVIDERS: Visit Provider Orthopaedic Surgery
DX: S81.009A Unspecified open wound, unspecified knee, initial encounter (principal)
CPT/HCPCS: 99214

== ENCOUNTER → 2025-01-25 09:49 | Outpatient (BNVA) | payer MEDICARE, SELFPAY | PROVIDERS: Visit Provider Orthopaedic Surgery | DX: S81.001D Unspecified open wound, right knee, subsequent encounter (principal) | CPT/HCPCS: 99212 ==

== ENCOUNTER → 2025-01-29 13:19 | Outpatient (BNV) | payer MEDICARE, SELFPAY | PROVIDERS: PCP Internal Medicine Medical Oncology; Visit Provider Physician Assistant | DX: S81.009A Unspecified open wound, unspecified knee, initial encounter (principal); R00.0 Tachycardia, unspecified | CPT/HCPCS: 99222; 99231; 99499 ==

== ENCOUNTER → 2025-01-29 13:19 | Outpatient (BNV) | payer MEDICARE, SELFPAY | PROVIDERS: PCP Internal Medicine Medical Oncology; Visit Provider Orthopaedic Surgery | DX: T84.53XA Infection and inflammatory reaction due to internal right knee prosthesis, initial encounter (principal); S81.001A Unspecified open wound, right knee, initial encounter | CPT/HCPCS: 11042; 27310; 97605; 99024 ==

== ENCOUNTER → 2025-01-29 13:19 | Outpatient (BNV) | payer MEDICARE, SELFPAY | PROVIDERS: PCP Internal Medicine Medical Oncology; Visit Provider Internal Medicine | DX: A41.9 Sepsis, unspecified organism (principal); S81.009A Unspecified open wound, unspecified knee, initial encounter | CPT/HCPCS: 99232 ==

== ENCOUNTER → 2025-01-29 14:11 | Outpatient (BNV) | payer MEDICARE, SELFPAY | PROVIDERS: PCP Internal Medicine Medical Oncology; Visit Provider Internal Medicine | DX: I45.10 Unspecified right bundle-branch block (principal); R00.0 Tachycardia, unspecified | CPT/HCPCS: 93010 ==

== ENCOUNTER 2025-01-31 09:26 | Outpatient (BNV) | payer MEDICARE, SELFPAY | END 2025-02-03 04:03 | PROVIDERS: Admitting Provider Orthopaedic Surgery; PCP Internal Medicine Medical Oncology; Visit Provider Internal Medicine | DX: I45.10 Unspecified right bundle-branch block (principal); R00.0 Tachycardia, unspecified | CPT/HCPCS: 93010 ==

== ENCOUNTER 2025-01-31 09:26 | Inpatient (IN) | payer MEDICARE, SELFPAY ==
[2025-01-29] VITALS (10 sets, daily range): BP systolic 106–154; BP diastolic 42–72; PULSE 91–128; RESP 14–27; TEMP 36–37.4; O2SAT 92–98; BMI 23.9; BMI 27.5
[2025-01-29] MEDS: Lactated Ringers 1,000 ML 100 ML IVCONT ×3 (13:48→17:03)
--- NOTE | 2025-01-29 14:00 | HO.ANESPROP2 ---
Documented by User: Pari Spivey NP 01/28/25 08:52 HPI - Anesthesia Eval Consult details Narrative: 89yo F for Right Knee Irrigation and debridement with wound vac placement Pt at short term rehab since [facility] [place] 12/2024 with knee wound. Hospital course: Patient admitted to general medical floor and started on vancomycin and Zosyn. She was seen in consultation by Orthopedics who felt this was not a septic joint. She continued with wound care and over the course of her admission had marked improvement in her cellulitis. She was seen by Physical therapy who deemed her appropriate for short-term rehab. At the time of discharge all cultures has been negative and she will be discharged to complete a course of Ceftin Ortho office visit states patient presented with dementia PMFSH Active Problems Active Problems: All Active Problems Open wound of knee, complicated (Acute) HLD (hyperlipidemia) (Acute) Sepsis (Acute) Past Medical History Medical History (Updated 01/29/25 @ 13:52 by Jenny Roberts RN) Bilateral cataracts Dementia Cellulitis of knee, right HLD (hyperlipidemia) HTN (hypertension) Surgical History Surgical History (Updated 01/29/25 @ 13:52 by Jenny Roberts RN) H/O: hysterectomy S/P total knee replacement Social History Social History Household Members: Spouse Housing: House Do you presently have visiting nurse or other home services: No Patient Tobacco Use Status: Never used Tobacco Use of substances other than those prescribed or required for medical reasons: No Are you DNR?: No Advance Directives: No Advance Directives Information Provided: Yes Patient : No : No Poor oral hygiene: No service: No Meds Allergies Allergy/AdvReac Type Severity Reaction Status Date / Time amoxicillin (Amoxicillin) Allergy Mild RASH Verified 01/23/25 16:26 Sulfa (Sulfonamide Allergy Mild RASH Verified 01/23/25 16:26 Antibiotics) (Sulfa (Sulfonamides)) Home Medications ?Medication ?Instructions ?Recorded ?Confirmed ?Last Taken ?Type acetaminophen 325 mg capsule 325 mg PO QID PRN 01/23/25 Unknown History bisacodyl 10 mg rectal suppository 10 mg ID DAILY PRN 01/23/25 Unknown History cetirizine 10 mg capsule (Zyrtec) 10 mg PO DAILY PRN 01/23/25 Unknown History hydrocortisone 1 % topical cream 1 appl topical BID PRN 01/23/25 Unknown History (Anti-Itch (hydrocortisone)) magnesium hydroxide 400 mg/5 mL 400 mg PO DAILY PRN 01/23/25 Unknown History oral suspension (Dulcolax (magnesium hydroxide)) mirtazapine 7.5 mg tablet 7.5 mg PO DAILY 01/23/25 Unknown History omeprazole 40 mg capsule,delayed 40 mg PO DAILY 01/23/25 Unknown History release ondansetron 4 mg disintegrating 4 mg PO Q8H 01/23/25 Unknown History tablet sodium phosphates 19 gram-7 118 ml ID DAILY PRN 01/23/25 Unknown History gram/197 mL enema tramadol 50 mg tablet 50 mg PO DAILY 01/23/25 Unknown History Exam Pertinent Lab Results Pertinent Lab Results: Laboratory Tests 01/28/25 04:00 WBC 10.1 Hgb 9.6 L Hct 28.6 L Plt Count 346 Sodium 138 Potassium 3.5 Chloride 107 Carbon Dioxide 23 BUN 8 L Creatinine 0.67 Narrative Narrative: EKG 12/2024 Vent. Rate : 107 BPM Atrial Rate : 107 BPM P-R Int : 148 ms QRS Dur : 124 ms QT Int : 362 ms P-R-T Axes : 48 52 21 degrees QTcB Int : 483 ms Sinus tachycardia Right bundle branch block Cannot rule out Inferior infarct , age undetermined Abnormal ECG When compared with ECG of 25-Mar-2017 09:52, Vent. rate has increased by 35 bpm Assessment and Plan Assessment Anesthesia Assessment: Chart Reviewed Documented by User: Keren Wall, 01/29/25 14:02 [facility] Past Medical History Medical History (Updated 01/29/25 @ 13:52 by Jenny Roberts RN) Bilateral cataracts Dementia Cellulitis of knee, right HLD (hyperlipidemia) HTN (hypertension) Family History Family history of problems with anesthesia: No Surgical History Surgical History (Updated 01/29/25 @ 13:52 by Jenny Roberts RN) H/O: hysterectomy S/P total knee replacement History of Problems with Anesthesia: No Social History Social History Household Members: Spouse Housing: House Do you presently have visiting nurse or other home services: No Patient Tobacco Use Status: Never used Tobacco Use of substances other than those prescribed or required for medical reasons: No Are you DNR?: No Advance Directives: No Advance Directives Information Provided: Yes Patient : No : No Poor oral hygiene: No service: No Meds Allergies Allergy/AdvReac Type Severity Reaction Status Date / Time amoxicillin (Amoxicillin) Allergy Mild RASH Verified 01/23/25 16:26 Sulfa (Sulfonamide Allergy Mild RASH Verified 01/23/25 16:26 Antibiotics) (Sulfa (Sulfonamides)) Home Medications ?Medication ?Instructions ?Recorded ?Confirmed ?Last Taken ?Type acetaminophen 325 mg capsule 325 mg PO QID PRN 01/23/25 Unknown History bisacodyl 10 mg rectal suppository 10 mg ID DAILY PRN 01/23/25 Unknown History cetirizine 10 mg capsule (Zyrtec) 10 mg PO DAILY PRN 01/23/25 Unknown History hydrocortisone 1 % topical cream 1 appl topical BID PRN 01/23/25 Unknown History (Anti-Itch (hydrocortisone)) magnesium hydroxide 400 mg/5 mL 400 mg PO DAILY PRN 01/23/25 Unknown History oral suspension (Dulcolax (magnesium hydroxide)) mirtazapine 7.5 mg tablet 7.5 mg PO DAILY 01/23/25 Unknown History omeprazole 40 mg capsule,delayed 40 mg PO DAILY 01/23/25 Unknown History release ondansetron 4 mg disintegrating 4 mg PO Q8H 01/23/25 Unknown History tablet sodium phosphates 19 gram-7 118 ml ID DAILY PRN 01/23/25 Unknown History gram/197 mL enema tramadol 50 mg tablet 50 mg PO DAILY 01/23/25 Unknown History Exam Exam Date and Time: 01/29/25 1400 Height,Weight and Vital Signs: Vital Signs Temperature 98.0 F 01/29/25 13:37 Pulse Rate 128 H 01/29/25 13:37 Respiratory Rate 24 H 01/29/25 13:37 Blood Pressure 154/72 H 01/29/25 13:37 Pulse Oximetry 92 01/29/25 13:37 Oxygen Delivery Method Room Air 01/29/25 13:37 Temperature 98.0 F 01/29/25 13:37 Pulse Rate 128 H 01/29/25 13:37 Respiratory Rate 24 H 01/29/25 13:37 Blood Pressure 154/72 H 01/29/25 13:37 Pulse Oximetry 97 01/29/25 13:52 Oxygen Delivery Method Nasal Cannula 01/29/25 13:52 Oxygen Flow Rate 2 01/29/25 13:52 Airway Mallampati Class: II TM Dist: >3cm Neck ROM: Full Loose/Missing/Broken Teeth: No (patient denies any loose or broken teeth) Heart: S1S2 Lungs: CTAB Assessment and Plan Assessment Anesthesia Assessment: Anesthesia Plan Discussed and Chart Reviewed Final Anesthetic Review Family History of Problems with Anesthesia: No History of Problems with Anesthesia: No NPO: Yes ASA Class: III Final Preanesthetic Review: No Changes in Pt Med Stat, Meds/Allgs Chart Reviewed, Consent Obtained/Reviewed and Anes Risks/Benef Reviewed Patient Risk: Intermediate Procedure Risk: Low Anesthetic Plan Anesthetic Plan: GA and Agree w/ Assess. and Plan Disposition: Standard PACU
--- NOTE | 2025-01-29 14:06 | PC.NURSE ---
spoke to jason rn at [facility] [phone].picc line dressing needs to be changed today per nurse. nurse to fax over her information regarding the patient that she sent with the ambulance that was never given to bud nurse (myself). picc line inserted and has been having three weeks of antibiotic treatment. also melva stated she had an ekg performed last week with a BBB from having an increased heart rate. has been npo since midnight. baseline vitals this morning was 132/76 with 94 heart rate.
--- NOTE | 2025-01-29 14:11 | ECG_ITS ---
Test Reason : TACHYCARDIA Blood Pressure : */* mmHG Vent. Rate : 131 BPM Atrial Rate : 131 BPM P-R Int : 136 ms QRS Dur : 116 ms QT Int : 316 ms P-R-T Axes : 50 44 19 degrees QTcB Int : 466 ms Sinus tachycardia Incomplete right bundle branch block Borderline ECG When compared with ECG of 12-Dec-2024 01:50, No significant change was found Referred By: Keren Wall Electronically Signed By: ISSA ADORNO
--- NOTE | 2025-01-29 14:15 | PC.NURSE ---
md gilliland aware of patients vital signs. marin hcp by bedside.
--- NOTE | 2025-01-29 14:35 | PC.NURSE ---
report given to ki in pacu.
--- NOTE | 2025-01-29 14:47 | MHC.SHP ---
Pre-Procedural Eval Section A - 24 Hr Update-Section A only Date of Service: 01/29/25 The patient is an INPATIENT: No Changes since office visit: No Cold of Flu in the past 2 weeks, No New Medical Problems, No Changes in Medication and No Patient answered all questions The patient has been examined within 24 hours of the surgical procedure. The History & Physical has been completed within 30 days and I have reviewed it.: Yes Section B - Complete if H&P > 30 days Chief Complaint: Unspecified open wound, right knee, initial encoun Allergies: Allergies Allergy/AdvReac Type Severity Reaction Status Date / Time amoxicillin (Amoxicillin) Allergy Mild RASH Verified 01/23/25 16:26 Sulfa (Sulfonamide Allergy Mild RASH Verified 01/23/25 16:26 Antibiotics) (Sulfa (Sulfonamides)) Plan I have reviewed the history and physical and performed a pertinent physical examination on my patient. No changes have occurred unless specified. Time Spent With Patient Time: Total time managing care of this patient today ____ minutes.
--- NOTE | 2025-01-29 15:56 | PM.OP ---
Brief Operative Note Date of Service: 01/29/25 Pre-op diagnosis: Open wound and infected total knee Post-op diagnosis: same Procedure: irrigation and debridement right knee and placement of wound vac Surgeon: Pablo Estrada MD Anesthesia: GLMA Was an Kai [place] used for this Procedure?: Yes Kai [place]: Nupur Ordoñez Estimated blood loss (mL): 50 IV fluids (mL): 200 Pathology: other Condition: stable Disposition: PACU
--- NOTE | 2025-01-29 17:29 | HO.PM.IMCN ---
History of Present Illness Data of Consult Service Date: 01/29/25 Requesting physician: Pablo Estrada Primary Care Provider: Germán Foss MD HPI Reason for consult: Medical management Patient is an 89-year-old female with a past medical history significant for HLD, GERD and seasonal allergies, s/p wound irrigation and debridement right knee with wound VAC today due to open wound right knee. Hospitalist consult placed for medical management. Medical history and medications were reviewed with the patient. She does not have any acute complaints including chest pain, shortness of breath, nausea or vomiting. Review of Systems Review of Systems: Yes all other systems are reviewed and are negative [facility] Medical History Leukocytosis Leukocytosis Diabetes FTT (failure to thrive) in adult Osteoarthritis (arthritis due to wear and tear of joints) Bilateral cataracts Dementia Cellulitis of knee, right HLD (hyperlipidemia) HTN (hypertension) Surgical History H/O: hysterectomy S/P total knee replacement Social History Household Members: Spouse Housing: House Do you presently have visiting nurse or other home services: No Patient Tobacco Use Status: Never used Tobacco Use of substances other than those prescribed or required for medical reasons: No Are you DNR?: No Advance Directives: No Advance Directives Information Provided: Yes Patient : No : No Poor oral hygiene: No service: No Meds Allergies Allergy/AdvReac Type Severity Reaction Status Date / Time amoxicillin (Amoxicillin) Allergy Mild RASH Verified 01/23/25 16:26 Sulfa (Sulfonamide Allergy Mild RASH Verified 01/23/25 16:26 Antibiotics) (Sulfa (Sulfonamides)) Active Medications: Current Medications Acetaminophen (Acetaminophen 325 Mg Tablet) 650 mg PO Q6H PRN PRN Reason: Pain, Mild 1-3,fever,headache Aspirin (Aspirin 325 Mg Tablet) 325 mg PO BID PATRICIA Calcium Carbonate (Calcium Carbonate 750 Mg Tab.Chew) 750 mg PO Q4H PRN PRN Reason: Heartburn Docusate Sodium (Docusate Sodium 100 Mg Capsule) 100 mg PO BID PATRICIA Hydromorphone HCl (Hydromorphone Hcl 0.5 Mg/0.5 Ml Syringe) 0.25 mg IVPUSH Q4H PRN; Protocol PRN Reason: Pain, Severe (Pain Scale 7-10) Clindamycin Phosphate (Cleocin) 600 mg in 50 mls @ 100 mls/hr IV POSTOP ONE Stop: 01/29/25 23:29 Lactated Ringer's (Lr) 1,000 mls @ 100 mls/hr IVCONT .Q10H COUNTS INCLUDE 234 BEDS AT THE [facility] Last Admin: 01/29/25 17:03 Dose: 100 mls/hr Loratadine (Loratadine 10 Mg Tablet) 10 mg PO DAILY PRN PRN Reason: Allergy Symptoms Magnesium Hydroxide (Milk Of Magnesia 30 Ml Oral.Susp) 30 ml PO DAILY PRN PRN Reason: Constipation Melatonin (Melatonin 3 Mg Tablet) 6 mg PO BEDTIME PRN PRN Reason: Insomnia Mirtazapine (Mirtazapine 7.5 Mg Tablet) 7.5 mg PO DAILY COUNTS INCLUDE 234 BEDS AT THE [facility] Ondansetron HCl (Ondansetron Hcl 4 Mg/2 Ml Vial) 4 mg IVPUSH Q8H PRN PRN Reason: Nausea and Vomiting Oxycodone HCl (Oxycodone Hcl Immed Release 5 Mg Tablet) 5 mg PO Q4H PRN PRN Reason: Pain, Moderate(Pain Scale 4-6) Sodium Chloride (0.9 % Sodium Chloride Flush 3 Ml Syringe) 3 ml IVFLUSH QSHIFT COUNTS INCLUDE 234 BEDS AT THE [facility] Last Admin: 01/29/25 17:00 Dose: Not Given Home Medications ?Medication ?Instructions ?Recorded ?Confirmed ?Last Taken ?Type cetirizine 10 mg capsule (Zyrtec) 10 mg PO DAILY PRN Allergy Symptoms 01/23/25 01/29/25 Unknown History mirtazapine 7.5 mg tablet 7.5 mg PO DAILY 01/23/25 01/29/25 Unknown History omeprazole 40 mg capsule,delayed 40 mg PO DAILY 01/23/25 01/29/25 Unknown History release Physical Exam Vital Signs and Narrative: Vital Signs: Last Vital Signs Temp 98.6 F 01/29/25 16:51 Pulse 108 H 01/29/25 16:51 Resp 18 01/29/25 16:51 BP 107/58 L 01/29/25 16:51 Pulse Ox 93 01/29/25 16:51 O2 Del Method Nasal Cannula 01/29/25 16:51 O2 Flow Rate 2 01/29/25 16:51 BMI result Body Mass Index 27.5 General: AOx3, no acute distress Resp: CTA bilaterally CVS: S1, S2, RRR GI: +BS, NT, no distention Skin: Warm, dry Neuro: Cranial nerves II-XII grossly intact bilaterally. Motor grossly intact bilaterally Extremities: No LE pitting edema. Pneumoboots present. Sensation and motor intact right lower extremity Psych: Appropriate affect Assessment and Plan (1) Open wound of knee, complicated: Status: Acute Plan Patient is an 89-year-old female with a past medical history significant for HLD, GERD and seasonal allergies, s/p wound irrigation and debridement right knee with wound VAC today due to open wound right knee. Open wound right knee - s/p wound irrigation with debridement right knee with wound VAC today - pain well managed currently - plan per ortho - ID consult prior to surgery did not suggest infectious process and did not recommend antibiotics. no leukocytosis on labs yesterday. - ID re-consulted post surgery HLD - no home meds GERD - continue PPI Seasonal allergies - continue cetirizine Thank you for allowing me to participate in the pt's care. Signing off for now. Please contact the medical team if any questions or concerns.
[2025-01-29] MEDS: vancomycin HCL 1,500 MG in 0.9 % Sodium Chloride 500 ML 333.33 MG IV (19:46)
[2025-01-29 19:58] LABS: Creatinine Clr Calc Pharmacy 44.9; Estimated Glomerular Filt Rate > 60
[2025-01-29] MEDS: Aspirin 325 MG TABLET PO (21:00)
[2025-01-29] MEDS: Docusate Sodium 100 MG CAPSULE PO (21:01)
[2025-01-29] MEDS: Clindamycin Phosphate/D5W 600 MG/50 ML PIGGYBACK 100 MG IV (22:53)
[2025-01-30] VITALS (7 sets, daily range): BP systolic 115–172; BP diastolic 56–76; PULSE 81–123; RESP 14–18; TEMP 36–38.2; O2SAT 90–96
[2025-01-30] MEDS: Lactated Ringers 1,000 ML 100 ML IVCONT ×3 (04:48→19:52)
[2025-01-30 06:40] LABS: MANUAL DIFF FLAG NO
[2025-01-30 06:48] LABS: Basophils Percent Auto 0.4 % (0-2); Eosinophils Absolute Auto 0.4 X10*3/uL (0.0-0.4); Eosinophils Percent Auto 3.4 % (0-4); Hematocrit 27.5 % (37.0-47.0); Hemoglobin 9.2 g/dl (12.0-16.0); Imm Gran Abs Auto 0.06 X10*3/uL (0.00-0.03); Imm Gran Pct Auto 0.5 % (0.0-0.4); Lymphocytes Absolute Auto 1.7 X10*3/uL (1.2-4.9); Lymphocytes Percent Auto 15.1 % (20-40); Mean Corpuscular HGB Conc 33.5 g/dl (31.0-35.0); Mean Corpuscular Hemoglobin 30.9 pg (27.0-33.0); Mean Corpuscular Volume 92.3 fL (80.0-98.0); Mean Platelet Volume 8.9 fL (9.4-12.3); Monocytes Absolute Auto 1.1 X10*3/uL (0.1-1.2); Monocytes Percent Auto 9.8 % (2-11); Neutrophils Percent Auto 70.8 % (45-73); Platelet Count 347 X10*3/uL (160-400); Red Blood Count 2.98 X10*6/uL (4.20-5.50); Red Cell Distribution Width 15.3 % (11.0-16.0); White Blood Count 11.3 X10*3/uL (4.8-10.8)
[2025-01-30 07:12] LABS: Anion Gap 11 (12-20); Blood Urea Nitrogen 15 mg/dL (9-16); Carbon Dioxide 25 mmol/L (22-29); Chloride 110 mmol/L (96-108); Creatinine Clr Calc Pharmacy 47.2; Estimated Glomerular Filt Rate > 60; Glucose Fasting 104 mg/dL (60-99); Potassium 4.2 mmol/L (3.3-5.1); Sodium 142 mmol/L (135-145)
--- NOTE | 2025-01-30 08:07 | PM.PNORT ---
Subjective Subjective Date of Service: 01/30/25 Interval history: POD1 s/p irrigation and debridement right knee and placement of wound vac Patient is resting in bed comfortably No overnight events Pain is managed No additional complaints Physical Exam Vital Signs: Vital Signs: Last Vital Signs Temp 96.8 F 01/30/25 07:17 Pulse 84 01/30/25 07:17 Resp 16 01/30/25 07:17 BP 144/67 H 01/30/25 07:17 Pulse Ox 96 01/30/25 07:17 O2 Del Method Room Air 01/30/25 07:17 O2 Flow Rate 2 01/29/25 16:51 BMI result Body Mass Index 27.5 Const: General: cooperative, healthy appearing and no acute distress Resp: Effort & Inspection: normal respiratory effort and able to speak in complete sentences Cardio: Rate: regular rate Peripheral pulses: Peripheral pulses 2+ throughout GI: Palpation (GI): Soft to palpation Skin: Lesions: no lesions Rashes: no rashes Extrem: Other: Right knee dressing is c/d/i. Wound vac in place and functioning appropriately. Able to dorsi/plantar flex. Calf is supple and nontender. Sensation intact. Pedal pulse intact. Procedures Date of Service Date of Service: 01/30/25 Progress Note: A&P Assessment and plan (1) Open wound of knee, complicated: Status: Acute Plan Continue pain mgmnt as needed Begin ASA for DVT ppx Monitor wound vac, if there is a malfunction please notify orthopedics Pending ID consult for abx recommendations Monitor culture results Dispo planning-Pening ID consult, pending cultures Time Spent With Patient Time: Total time managing care of this patient today ____ minutes. Quality Stroke Does the patient have a stroke diagnosis?: No VTE Prior VTE?: No VTE Risk Level:: Medical - moderate - high VTE Device Contraindication: N/A - Device Ordered VTE Drug Contraindication: N/A - Med Ordered
[2025-01-30] MEDS: Aspirin 325 MG TABLET PO (08:22)
[2025-01-30] MEDS: Docusate Sodium 100 MG CAPSULE PO ×2 (08:22→19:46)
[2025-01-30] MEDS: Mirtazapine 7.5 MG TABLET PO (08:22)
--- NOTE | 2025-01-30 09:12 | HO.POSTANES ---
Post Anesthesia Evaluation Post Anesthesia Evaluation Date of Service: 01/30/25 Vital Signs: Vital Signs Temp Pulse Resp BP Pulse Ox O2 Del Method 01/30/25 07:17 96.8 F 84 16 144/67 H 96 Room Air 01/30/25 03:37 96.8 F 81 16 137/63 94 Room Air 01/29/25 23:53 96.8 F 91 18 106/56 L 93 Room Air Anesthesia: General Mental Status: Awake Pain Control: Satisfactory Nausea/Vomiting: None Hydration: Adequate Anesthesia-Related Issues: No Anes. Related Issues
[2025-01-30] MEDS: vancomycin HCL 500 MG in 0.9 % Sodium Chloride 100 ML 110 MG IV (09:56)
--- NOTE | 2025-01-30 10:12 | MHC.CM.PN ---
IMM 01/30/25 TIMOTHY from [facility]: STR, Wound management w Wound vac, and IV ABX therapy via PICC. (PICC placed @ [facility]) O.R. 01/29/25 S/P Knee wound debridement with Wound vac placement. She lives at home with her spouse. She requires assist + supervision due to Dementia. She uses a walker prn. HCP on file, Niece Azalia Hammond. Information obtained for CM assessment was obtained from HCP/Niece/Azalia. ID consult and Cultures are pending. DP return to [facility] for STR, wound care and IV ABX. Patient will transport via BLS.
--- NOTE | 2025-01-30 14:27 | HO.WOUND ---
Wound Consult: Initial 89yr old?[place] [facility] [place] - See progress notes and H&P for detailed history.? Wound consult placed for Coccyx.? Patient agreeable to assessment and photo documentation.? Patient is noted for right knee dressing and s/p surgical I&D - Wound Vac in place. 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 irregular Serenity wound: ?intact No Induration, Fluctuance or Warmth noted Pain: tenderness reported Goals of Treatment: ? barrier cream and off load pressure Left heel is noted to be intact - no PI noted. Preventative foam applied and elevated off of bed surface with pillows. Right heel Etiology: Redness ?Present on Admission Wound Bed: red intact blanchable tissue Drainage / Odor: None Serenity wound: ?intact No Induration, Fluctuance or Warmth noted Pain: pain reported Goals of Treatment: Preventative foam applied and elevated off of bed surface with pillows Recommendations: 1. Turn and Reposition every 2 hours and as needed for patient comfort.? Use pillows or wedges to support off loading positions. 2. Off Load all bony prominences with use of pillows and heel boots if needed.? Apply Preventative foams where needed. ? 3. Monitor for incontinence and moisture control, use barrier creams when needed for prevention and treatment. 4. Provide adequate and supplemental nutrition.? 5. Order low air loss mattress. 6. When applicable maintain blood glucose levels per Providers order. Bilateral Heels - Elevate heels off of bed surface with pillows.? Float heels off of pillows.? Apply skin prep allow to dry.? Apply heel foam dressings, peel back and assess Q shift and change every 5-7 days and PRN. Sacrum and Buttock - Off Load Pressure with Q2 hr turns and use of pillows - Cleanse with PH balance spray or wipes, pat dry. ?Apply thin layer of barrier cream to affected area.? Apply twice daily and Reapply thin layer PRN after each episode of incontinence. Re-consult wound care Nurse for wound deterioration or wound changes.
--- NOTE | 2025-01-30 18:42 | PC.NURSE ---
Pt from [facility] has left UE midline. Nurse at [facility] [place] faxed paperwork and midline is 10cm in length and placed on 01/07/25 at [facility]. Appeared to be leaking, IR nurse up to assess. Dressing changed using sterile technique and line now working without issues.
[2025-01-30 18:46] LABS: Vancomycin Random 18.5 mcg/mL (15-20)
[2025-01-30] MEDS: Acetaminophen 325 MG TABLET 650 MG PO (19:46)
[2025-01-30] MEDS: 0.9 % Sodium Chloride Flush 3 ML SYRINGE IVFLUSH (19:54)
[2025-01-30] MEDS: Acetaminophen 1,000 MG/100 ML PIGGYBACK 400 MG IV (22:23)
--- NOTE | 2025-01-30 23:10 | W.PM.IDCN ---
History of Present Illness Data of Consult Service Date: 01/30/25 Requesting physician: Pablo Estrada Primary Care Provider: Germán Foss MD HPI Reason for consult: right knee infection She presents per Dr Estrada with right knee infection concerns,R TKR. She has had ongoing wound in knee for a year. I had seen her 01/18 but wound looked similar to previous with no cellulitis and she was seeing Orthopedics to assess deep infection ,probe She has low grade temperature 100.3 and leukocytosis to 21,000. Review of Systems Review of Systems: Yes all other systems are reviewed and are negative PMFSH Past Medical History Medical History Leukocytosis Leukocytosis Diabetes FTT (failure to thrive) in adult Osteoarthritis (arthritis due to wear and tear of joints) Bilateral cataracts Dementia Cellulitis of knee, right HLD (hyperlipidemia) HTN (hypertension) Family History Family history: reviewed and not pertinent Surgical History Surgical History H/O: hysterectomy S/P total knee replacement Social History Social History Household Members: Unknown / Unable to assess Housing: House Patient Tobacco Use Status: Never used Tobacco Use of substances other than those prescribed or required for medical reasons: No Currently Displaying Signs/Symptoms of Drug Intoxication Withdrawal: No Are you DNR?: No Advance Directives: No Advance Directives Information Provided: Yes Advance Directives on File: No Recently lost weight without trying: Unsure Nutrition Risks: No Nutritional Risk Patient : No : No Poor oral hygiene: No service: No Meds Allergies Allergy/AdvReac Type Severity Reaction Status Date / Time amoxicillin (Amoxicillin) Allergy Mild RASH Verified 01/23/25 16:26 Sulfa (Sulfonamide Allergy Mild RASH Verified 01/23/25 16:26 Antibiotics) (Sulfa (Sulfonamides)) Active Medications: Current Medications Acetaminophen (Acetaminophen 325 Mg Tablet) 650 mg PO Q6H PRN PRN Reason: Pain, Mild 1-3,fever,headache Last Admin: 01/30/25 19:46 Dose: 650 mg Aspirin (Aspirin 81 Mg Tab.Chew) 81 mg PO DAILY PATRICIA Last Admin: 01/30/25 08:27 Dose: Not Given Calcium Carbonate (Calcium Carbonate 750 Mg Tab.Chew) 750 mg PO Q4H PRN PRN Reason: Heartburn Docusate Sodium (Docusate Sodium 100 Mg Capsule) 100 mg PO BID [facility] Last Admin: 01/30/25 19:46 Dose: 100 mg Hydromorphone HCl (Hydromorphone Hcl 0.5 Mg/0.5 Ml Syringe) 0.25 mg IVPUSH Q4H PRN; Protocol PRN Reason: Pain, Severe (Pain Scale 7-10) Lactated Ringer's (Lr) 1,000 mls @ 100 mls/hr IVCONT .Q10H [facility] Last Admin: 01/30/25 19:52 Dose: 100 mls/hr Vancomycin HCl 1,000 mg/ (Sodium Chloride) 270 mls @ 270 mls/hr IV Q24H [facility] Loratadine (Loratadine 10 Mg Tablet) 10 mg PO DAILY PRN PRN Reason: Allergy Symptoms Magnesium Hydroxide (Milk Of Magnesia 30 Ml Oral.Susp) 30 ml PO DAILY PRN PRN Reason: Constipation Melatonin (Melatonin 3 Mg Tablet) 6 mg PO BEDTIME PRN PRN Reason: Insomnia Mirtazapine (Mirtazapine 7.5 Mg Tablet) 7.5 mg PO DAILY [facility] Last Admin: 01/30/25 08:22 Dose: 7.5 mg Ondansetron HCl (Ondansetron Hcl 4 Mg/2 Ml Vial) 4 mg IVPUSH Q8H PRN PRN Reason: Nausea and Vomiting Oxycodone HCl (Oxycodone Hcl Immed Release 5 Mg Tablet) 5 mg PO Q4H PRN PRN Reason: Pain, Moderate(Pain Scale 4-6) Pharmacy Consult (Consult Rx Vancomycin Dosing) 1 each MISCELLANE DAILY PRN PRN Reason: Consult order Sodium Chloride (0.9 % Sodium Chloride Flush 3 Ml Syringe) 3 ml IVFLUSH QSHIFT [facility] Last Admin: 01/30/25 19:54 Dose: 3 ml Home Medications ?Medication ?Instructions ?Recorded ?Confirmed ?Last Taken ?Type cetirizine 10 mg capsule (Zyrtec) 10 mg PO DAILY PRN Allergy Symptoms 01/23/25 01/29/25 Unknown History mirtazapine 7.5 mg tablet 7.5 mg PO DAILY 01/23/25 01/29/25 Unknown History omeprazole 40 mg capsule,delayed 40 mg PO DAILY 01/23/25 01/29/25 Unknown History release Physical Exam Vital Signs: Vital Signs: Last Vital Signs Temp 100.8 F H 01/30/25 21:50 Pulse 123 H 01/30/25 19:10 Resp 14 01/30/25 19:10 BP 172/76 H 01/30/25 19:10 Pulse Ox 90 L 01/30/25 19:10 O2 Del Method Room Air 01/30/25 19:10 O2 Flow Rate 2 01/29/25 16:51 BMI result Body Mass Index 27.5 Const: General: cooperative HEENT: Head: Yes normal to inspection Face and sinus: Yes normal facial exam Mouth: Normal oral and palatal mucosa present Teeth and gingiva: dentition normal Eyes: General: appearance normal, both eyes and all related structures Pupils: Equal, round and reactive pupils present Resp: Effort & Inspection: normal respiratory effort Cardio: Rate: regular rate Rhythm: regular rhythm GI: Palpation (GI): Soft to palpation and nontender : General: Yes no CVA tenderness Back/Spine/Pelvis: Back: no CVA tenderness Skin: General skin exam: no rashes or lesions noted Neuro: General: moves all extremities Cranial nerves: Yes Equal, round and reactive pupils present Extrem: Other: distal pole right total knee replacement chronic 3 x 5 cm wound,no cellulitis,knee moves with no oozing Psych: Appearance: grossly normal Results Labs 01/30/25 05:57 01/30/25 05:57 Labs: Short CBC 01/30/25 Range/Units 05:57 WBC 11.3 H (4.8-10.8) X10*3/uL Hgb 9.2 L (12.0-16.0) g/dl Hct 27.5 L (37.0-47.0) % Plt Count 347 (160-400) X10*3/uL BMP 01/30/25 05:57 Sodium 142 Potassium 4.2 Chloride 110 H Carbon Dioxide 25 BUN 15 Creatinine 0.79 Calcium 9.0 D Microbiology Microbiology Results: Microbiology 01/29/25 15:22 Knee,Right Gram Stain - Final 01/29/25 15:22 Knee,Right Routine Culture - Preliminary Culture in progress. 01/29/25 15:22 Knee,Right Anaerobic Culture - Preliminary Culture in progress. 01/29/25 15:21 Knee,Right Gram Stain - Final 01/29/25 15:21 Knee,Right Routine Culture - Preliminary Culture in progress. 01/29/25 15:21 Knee,Right Anaerobic Culture - Preliminary Culture in progress. Assessment and Plan (1) Sepsis: Status: Acute (2) Open wound of knee, complicated: Status: Acute Plan Await cultures. She has had debridement/wound vac? Patient is on Vancomycin now but no MRSA seen so likely Kefzol or Daptomycin ,pharmacy to dose for six weeks there is no anaphylaxis to PCN
[2025-01-31] VITALS: TEMP 37.4
--- NOTE | ~2025-01-31 | XR_ITS ---
CLINICAL HISTORY: tachycardia, low O2 sats 1 view chest x-ray Comparison: 12/12/2024 Findings: New left basilar pleural-parenchymal opacity. Small right lateral costophrenic recess effusion cannot be excluded. Questionable pulmonary vascular congestion. Correlate clinically. No significant change in cardiomediastinal silhouette. No acute fracture. IMPRESSION: New left basilar pleural-parenchymal opacity. Small right lateral costophrenic recess effusion cannot be excluded. Questionable pulmonary vascular congestion. Correlate clinically. This document has been electronically signed by: Analilia Keys MD on 02/03/2025 10:25:12
[2025-01-31 03:27] VITALS: BP 132/64; PULSE 98; RESP 18; TEMP 36.4; O2SAT 94
[2025-01-31] MEDS: Lactated Ringers 1,000 ML 100 ML IVCONT ×2 (05:59→20:14)
[2025-01-31 06:01] LABS: MANUAL DIFF FLAG NO
[2025-01-31 06:19] LABS: Basophils Absolute Auto 0.1 X10*3/uL (0.0-0.2); Basophils Percent Auto 0.5 % (0-2); Eosinophils Absolute Auto 0.7 X10*3/uL (0.0-0.4); Eosinophils Percent Auto 6.7 % (0-4); Hematocrit 27.2 % (37.0-47.0); Hemoglobin 9.2 g/dl (12.0-16.0); Imm Gran Abs Auto 0.05 X10*3/uL (0.00-0.03); Imm Gran Pct Auto 0.5 % (0.0-0.4); Lymphocytes Percent Auto 20.1 % (20-40); Mean Corpuscular HGB Conc 33.8 g/dl (31.0-35.0); Mean Corpuscular Hemoglobin 30.8 pg (27.0-33.0); Mean Platelet Volume 8.9 fL (9.4-12.3); Monocytes Absolute Auto 0.8 X10*3/uL (0.1-1.2); Monocytes Percent Auto 7.5 % (2-11); Neutrophils Absolute Auto 6.4 x10*3/uL (2.0-8.3); Neutrophils Percent Auto 64.7 % (45-73); Platelet Count 386 X10*3/uL (160-400); Red Blood Count 2.99 X10*6/uL (4.20-5.50); Red Cell Distribution Width 15.1 % (11.0-16.0)
[2025-01-31 06:29] LABS: Anion Gap 10 (12-20); Blood Urea Nitrogen 12 mg/dL (9-16); Calcium 8.2 mg/dL (8.4-10.2); Carbon Dioxide 23 mmol/L (22-29); Chloride 109 mmol/L (96-108); Creatinine Clr Calc Pharmacy 57.3; Estimated Glomerular Filt Rate > 60; Glucose Fasting 86 mg/dL (60-99); Potassium 3.6 mmol/L (3.3-5.1); Sodium 138 mmol/L (135-145)
--- NOTE | 2025-01-31 07:08 | W.PM.OPN ---
Operative Note Operative Note Date of Service: 01/29/25 Narrative: Date of Service: 01/29/25 Pre-op diagnosis: Open wound and infected total knee Post-op diagnosis: same Procedure: irrigation and debridement right knee and placement of wound vac Surgeon: Pablo Estrada MD Anesthesia: GLMA Was an Rn Hemodialysis used for this Procedure?: Yes Rn Hemodialysis: Nupur Ordoñez Estimated blood loss (mL): 50 IV fluids (mL): 200 Pathology: other Condition: stable Disposition: PACU Patient was brought to the operating room and placed supine on the surgical table. She was prepped and draped in standard sterile fashion and a time out was called to indentify proper site, proper procedure and IV antibiotics per weight were held until cultures were taken. I began by examining the wound. There was a quarter size full skin defect over the distal aspect of the incision. There was exposed tibial bone but no hardware could be visualized. I began by using a curette to clear off the necrotic and purulent tissue. There was some tracking posteriorly and medially and a curette was used to explore this. There was expression of copious amounts of fluid whether this was joint fluid or seromatous tissue was unclear. There was no kassandra purulence. Two cultures were taken from this and I continued my copious mechanical debridement using a curette. IV antibiotics were given at this point. Once this was done I irrigated aggressively with 3 L of saline using a pulse lavage. At this point I reassessed the wound. The wound edges were healthy but this was full-thickness and there was no possibility of closure. The tibial bone appeared healthy and I could not find a tracking into the joint. 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 Once I had fully irrigated and debrided all the nonviable tissue I felt confident that the wound was as clean as I could make it without extending the incision and dissecting posteriorly. Therefore a small wound VAC sponge was placed in the wound. Care was taken to allow for space over the phone so that the sponge was not directly on bone. Of the wound VAC was placed using standard technique and the suction was stable with no leaks. Patient was then awakened from anesthesia and brought to recovery room in stable condition. There were no known complications.
--- NOTE | 2025-01-31 07:14 | PC.NURSE ---
Spoke with Louie from pharmacy regarding 0800 dose of IV vancomycin. Okayed to administer morning dose.
[2025-01-31 07:23] VITALS: BP 149/68; PULSE 101; RESP 16; TEMP 36.6; O2SAT 92
[2025-01-31] MEDS: vancomycin HCL 1,000 MG in 0.9 % Sodium Chloride 250 ML 270 MG IV (07:30)
[2025-01-31] MEDS: 0.9 % Sodium Chloride Flush 3 ML SYRINGE IVFLUSH (07:31)
[2025-01-31] MEDS: Docusate Sodium 100 MG CAPSULE PO ×2 (08:47→20:13)
[2025-01-31] MEDS: Mirtazapine 7.5 MG TABLET PO (08:47)
[2025-01-31] MEDS: Aspirin 81 MG TAB.CHEW PO (08:47)
--- NOTE | 2025-01-31 08:54 | PM.PNORT ---
Subjective Subjective Date of Service: 01/31/25 Interval history: POD2 s/p irrigation and debridement right knee and placement of wound vac Patient is resting in bed comfortably No overnight events Pain is managed No additional complaints Physical Exam Vital Signs: Vital Signs: Last Vital Signs Temp 97.8 F 01/31/25 07:23 Pulse 101 H 01/31/25 07:23 Resp 16 01/31/25 07:23 BP 149/68 H 01/31/25 07:23 Pulse Ox 92 01/31/25 07:23 O2 Del Method Room Air 01/31/25 07:23 O2 Flow Rate 1 01/31/25 03:27 BMI result Body Mass Index 27.5 Const: General: cooperative, healthy appearing and no acute distress Resp: Effort & Inspection: normal respiratory effort and able to speak in complete sentences Cardio: Rate: regular rate Peripheral pulses: Peripheral pulses 2+ throughout GI: Palpation (GI): Soft to palpation Skin: Lesions: no lesions Rashes: no rashes Extrem: Other: Right knee dressing is c/d/i. Wound vac in place and functioning appropriately. Able to dorsi/plantar flex. Calf is supple and nontender. Sensation intact. Pedal pulse intact. Procedures Date of Service Date of Service: 01/31/25 Progress Note: A&P Assessment and plan (1) Open wound of knee, complicated: Status: Acute Plan Continue pain mgmnt as needed Begin ASA for DVT ppx Monitor wound vac, if there is a malfunction please notify orthopedics Plan to change wound VAC dressing later today Pending ID consult for abx recommendations Monitor culture results Dispo planning-Pening ID consult, pending cultures Time Spent With Patient Time: Total time managing care of this patient today ____ minutes. Quality Stroke Does the patient have a stroke diagnosis?: No VTE Prior VTE?: No VTE Risk Level:: Medical - moderate - high VTE Device Contraindication: N/A - Device Ordered VTE Drug Contraindication: N/A - Med Ordered
--- NOTE | 2025-01-31 10:56 | PC.NURSE ---
1045. Non-functioning midline removed per NOY Woody. Paperwork reviewed from Misha Bridgett's midline placement. Line intact and measured at 10cm per placement paperwork. Patient tolerated well.
--- NOTE | 2025-01-31 11:23 | PHA.MEDREC ---
Pharmacy Consult ? Medication Reconciliation Pharmacy has completed the medication reconciliation. Reviewed med rec from RN, added meds from List from Misha Urias.
[2025-01-31 12:05] VITALS: BP 150/68; PULSE 94; TEMP 36.3
[2025-01-31 16:42] VITALS: BP 160/82; PULSE 96; RESP 16; TEMP 36.9; O2SAT 94
--- NOTE | 2025-01-31 17:13 | PM.EVENT ---
Event Note Date of Service: 01/31/25 Event Note: pt seen due to mild tachycardia and elevated BPs. pt complaining of pain in her knee and anxiety. nurse will medicate for pain. continue to monitor vitals. Time Spent With Patient Time: Total time managing care of this patient today ____ minutes.
[2025-01-31] MEDS: Acetaminophen 325 MG TABLET 650 MG PO (17:32)
[2025-01-31 19:29] VITALS: BP 146/64; PULSE 112; RESP 18; TEMP 36.6; O2SAT 93
[2025-02-01] MEDS: Acetaminophen 325 MG TABLET 650 MG PO ×2 (01:17→19:33)
[2025-02-01 03:18] VITALS: BP 156/70; PULSE 109; RESP 20; TEMP 36.3; O2SAT 93
[2025-02-01] MEDS: Lactated Ringers 1,000 ML 100 ML IVCONT ×2 (05:11→19:34)
[2025-02-01 06:10] LABS: MANUAL DIFF FLAG NO
[2025-02-01 06:21] LABS: Basophils Absolute Auto 0.1 X10*3/uL (0.0-0.2); Basophils Percent Auto 0.5 % (0-2); Eosinophils Absolute Auto 0.8 X10*3/uL (0.0-0.4); Eosinophils Percent Auto 8.4 % (0-4); Hematocrit 27.4 % (37.0-47.0); Hemoglobin 9.3 g/dl (12.0-16.0); Imm Gran Abs Auto 0.06 X10*3/uL (0.00-0.03); Imm Gran Pct Auto 0.6 % (0.0-0.4); Lymphocytes Absolute Auto 1.5 X10*3/uL (1.2-4.9); Lymphocytes Percent Auto 16.2 % (20-40); Mean Corpuscular HGB Conc 33.9 g/dl (31.0-35.0); Mean Corpuscular Hemoglobin 30.7 pg (27.0-33.0); Mean Corpuscular Volume 90.4 fL (80.0-98.0); Mean Platelet Volume 8.8 fL (9.4-12.3); Monocytes Absolute Auto 0.7 X10*3/uL (0.1-1.2); Monocytes Percent Auto 7.9 % (2-11); Neutrophils Absolute Auto 6.2 x10*3/uL (2.0-8.3); Neutrophils Percent Auto 66.4 % (45-73); Platelet Count 442 X10*3/uL (160-400); Red Blood Count 3.03 X10*6/uL (4.20-5.50); White Blood Count 9.3 X10*3/uL (4.8-10.8)
[2025-02-01 06:44] LABS: Anion Gap 14 (12-20); Blood Urea Nitrogen 8 mg/dL (9-16); Calcium 8.2 mg/dL (8.4-10.2); Carbon Dioxide 21 mmol/L (22-29); Chloride 110 mmol/L (96-108); Creatinine Clr Calc Pharmacy 56.4; Estimated Glomerular Filt Rate > 60; Glucose Fasting 82 mg/dL (60-99); Potassium 3.7 mmol/L (3.3-5.1); Sodium 141 mmol/L (135-145)
[2025-02-01 06:53] LABS: Vancomycin Random 11.4 mcg/mL (15-20)
[2025-02-01 07:08] VITALS: BP 149/79; PULSE 112; RESP 16; TEMP 37.2; O2SAT 92
--- NOTE | 2025-02-01 07:08 | HE.PHANOTE ---
RE: VANCO DOSING Trough came back as 11.4 mg/L and renal function is stable. Dose is increased to 1250 mg q24h, next trough is scheduled for 02/02/25 @0600.
[2025-02-01] MEDS: Aspirin 81 MG TAB.CHEW PO (07:41)
[2025-02-01] MEDS: vancomycin HCL 1,250 MG in 0.9 % Sodium Chloride 250 ML 166.67 MG IV (07:41)
[2025-02-01] MEDS: Mirtazapine 7.5 MG TABLET PO (07:41)
[2025-02-01] MEDS: Docusate Sodium 100 MG CAPSULE PO ×2 (07:42→19:33)
--- NOTE | 2025-02-01 08:34 | PM.PNORT ---
Subjective Subjective Date of Service: 02/01/25 Interval history: POD3 s/p irrigation and debridement right knee and placement of wound vac Patient is resting in bed comfortably No overnight events Pain is managed No additional complaints Physical Exam Vital Signs: Vital Signs: Last Vital Signs Temp 98.9 F 02/01/25 07:08 Pulse 112 H 02/01/25 07:08 Resp 16 02/01/25 07:08 BP 149/79 H 02/01/25 07:08 Pulse Ox 92 02/01/25 07:08 O2 Del Method Room Air 02/01/25 07:08 O2 Flow Rate 1 01/31/25 03:27 BMI result Body Mass Index 27.5 Const: General: cooperative, healthy appearing and no acute distress Resp: Effort & Inspection: normal respiratory effort and able to speak in complete sentences Cardio: Rate: regular rate Peripheral pulses: Peripheral pulses 2+ throughout GI: Palpation (GI): Soft to palpation Skin: Lesions: no lesions Rashes: no rashes Extrem: Other: Right knee dressing is c/d/i. Wound vac in place and functioning appropriately. Able to dorsi/plantar flex. Calf is supple and nontender. Sensation intact. Pedal pulse intact. Procedures Date of Service Date of Service: 02/01/25 Progress Note: A&P Assessment and plan (1) Open wound of knee, complicated: Status: Acute Plan Continue pain mgmnt as needed Continue ASA for DVT ppx Monitor wound vac, if there is a malfunction please notify orthopedics Plan to change wound VAC dressing later today Cultures reveal coag-negative staph, ID recommends daptomycin or Kefzol After speaking with pharmacy, daptomycin ordered for coverage for coag-negative staph Monitor culture results Dispo planning-PICC line placement pending blood cultures Time Spent With Patient Time: Total time managing care of this patient today ____ minutes. Quality Stroke Does the patient have a stroke diagnosis?: No VTE Prior VTE?: No VTE Risk Level:: Medical - moderate - high VTE Device Contraindication: N/A - Device Ordered VTE Drug Contraindication: N/A - Med Ordered
--- NOTE | 2025-02-01 10:23 | P.CDIM_ITS ---
PROVIDER RESPONSE TEXT: To clarify, the appropriate diagnosis supported by the clinical indicators: Non-excisional debridement: FUll thickness loss of skin and tissue down to bone 2 cm depth and 2 cm diameter. The tissue ling the defect was debrided and this included skin, fascia and muscle. QUERY TEXT: PHYSICIAN'S DOCUMENTATION REQUEST Date of Query: 02/01/2025 10:04 AM EDT Patient Name: Yue Gruber Admit Date: 01/31/2025 Dear Pablo Estrada MD, A review of the medical record indicates additional documentation may be needed. Please review below and update the documentation accordingly. Clinical Indicators: Procedure note dated 01/31/25 - Irrigation and debridement right knee. There was a quarter size full skin defect over the distal aspect of the incision. I began by using a curette to clear off the necrotic and purulent tissue. There was expression of copious amounts of fluid. Two cultures were taken and I continued my copious mechanical debridement. IV antibiotics were given. 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 I fully irrigated and debrided all the nonviable tissue. VAC sponge was placed in the wound. Could you provide, in the Progress Notes, further clarification regarding the depth of the debridement performed? Non-excisional debridement Please also address the Depth of debridement: skin, subcutaneous tissue and fascia, bone, bursa, muscle etc. Other specifics to the debridement Other (explain) Clinically unable to determine (explain) Thank you, Lianna Burrows, CCS, CDIS Use of terms such as suspected, likely, concern for, or probable (associated with a specific diagnosis that is being evaluated, monitored, or treated as if it exists) are acceptable and can be coded in the inpatient setting, when documented at the time of discharge. Please use your independent medical judgment in providing your response. THIS QUERY IS PART OF THE PERMANENT MEDICAL RECORD
--- NOTE | 2025-02-01 12:30 | MHC.CM.PN ---
EMR REVIEWED. PT IS AWAITING FINAL CULTURES/PICC. [facility] (PT WAS THERE PRIOR TO ADMISSION FOR STR) UPDATED WITH CLINICAL INFO VIA [facility]. CM WILL CONTINUE TO FOLLOW FOR ANY CHANGE TO DC PLAN/NEEDS.
--- NOTE | 2025-02-01 12:45 | P.PNID_ITS ---
Subjective Subjective Date of Service: 02/01/25 Critical Care Time (minutes): 15 Comment: She has no complaints Wound looks clear,wound vac some mild amount drainage Objective Data Labs 02/01/25 05:55 02/01/25 05:55 Labs: Laboratory Results - last 24 hr 02/01/25 05:55 WBC 9.3 RBC 3.03 L Hgb 9.3 L Hct 27.4 L MCV 90.4 MCH 30.7 MCHC 33.9 RDW 15.0 Plt Count 442 H MPV 8.8 L Immature Gran % (Auto) 0.6 H Neut % (Auto) 66.4 Lymph % (Auto) 16.2 L [place] % (Auto) 7.9 Eos % (Auto) 8.4 H Baso % (Auto) 0.5 Lymph # (Auto) 1.5 [place] # (Auto) 0.7 Eos # (Auto) 0.8 H Baso # (Auto) 0.1 Abs Immat Gran (auto) 0.06 H Absolute Neuts (auto) 6.2 Absolute Nucleated RBC 0.000 Nucleated RBC % (auto) 0.0 Sodium 141 Potassium 3.7 Chloride 110 H Carbon Dioxide 21 L Anion Gap 14 BUN 8 L Creatinine 0.66 Estim Creat Clear Calc 56.4 Estimated GFR > 60 Fasting Glucose 82 Calcium 8.2 L Random Vancomycin 11.4 L Microbiology Microbiology Results: Microbiology 01/29/25 15:21 Knee,Right Gram Stain - Final 01/29/25 15:21 Knee,Right Routine Culture - Preliminary Coag negative Staphylococcus 01/29/25 15:21 Knee,Right Anaerobic Culture - Preliminary Culture in progress. 01/29/25 15:22 Knee,Right Gram Stain - Final 01/29/25 15:22 Knee,Right Routine Culture - Preliminary Coag negative Staphylococcus 01/29/25 15:22 Knee,Right Anaerobic Culture - Preliminary Culture in progress. Physical Exam 2 Vital Signs: Vital Signs: Last Vital Signs Temp 98.9 F 02/01/25 07:08 Pulse 112 H 02/01/25 07:08 Resp 16 02/01/25 07:08 BP 149/79 H 02/01/25 07:08 Pulse Ox 92 02/01/25 07:08 O2 Del Method Room Air 02/01/25 07:08 O2 Flow Rate 1 01/31/25 03:27 BMI result Body Mass Index 27.5 Const: General: cooperative HEENT: Head: Yes normal to inspection Face and sinus: Yes normal facial exam Mouth: Normal oral and palatal mucosa present Teeth and gingiva: d entition normal Eyes: General: appearance normal, both eyes and all related structures P upils: Equal, round and reactive pupils present Resp: Effort & Inspection: normal respiratory effort Cardio: Rate: regular rate Rhythm: regular rhythm GI: Palpation (GI): Soft to palpation and nontender : General: Yes no CVA tenderness Back/Spine/Pelvis: Back: no CVA tenderness Skin: General skin exam: no rashes or lesions noted Neuro: General: moves all extremities Cranial nerves: Yes Equal, round and reactive pupils present Extrem: General: Yes normal to inspection Psych: Appearance: grossly normal Assessment and Plan Assessment and plan (1) Sepsis: Problem details: coagulase negative staph knee Status: Acute (2) Open wound of knee, complicated: Problem details: She is seeing Orthopedics and wound is clean. Status: Acute Plan 6 weeks IV Daptomycin and weekly CK and creatinine Time Spent With Patient Time: Total time managing care of this patient today ____ minutes.
[2025-02-01 14:48] VITALS: BP 149/79; PULSE 112; O2SAT 92
[2025-02-01 16:00] VITALS: BP 154/76; PULSE 108; RESP 18; TEMP 36.8; O2SAT 94
[2025-02-01] MEDS: 0.9 % Sodium Chloride Flush 3 ML SYRINGE IVFLUSH (19:34)
[2025-02-01 19:37] VITALS: BP 170/76; PULSE 113; RESP 20; TEMP 37.2; O2SAT 94
[2025-02-02 02:36] VITALS: BP 170/88; PULSE 111; RESP 18; TEMP 36.5; O2SAT 93
[2025-02-02] MEDS: Lactated Ringers 1,000 ML 100 ML IVCONT ×2 (04:54→15:18)
--- NOTE | 2025-02-02 06:09 | PC.NURSE ---
Pt's BP has been trending high as 170/88 x2 occasions, HR 111, pt comfortably on bed and denies any pain, Dr. Ramesh was made aware.
[2025-02-02 06:14] LABS: MANUAL DIFF FLAG NO
[2025-02-02 06:18] LABS: Basophils Absolute Auto 0.1 X10*3/uL (0.0-0.2); Basophils Percent Auto 0.7 % (0-2); Eosinophils Absolute Auto 0.7 X10*3/uL (0.0-0.4); Eosinophils Percent Auto 6.9 % (0-4); Hematocrit 30.6 % (37.0-47.0); Hemoglobin 10.2 g/dl (12.0-16.0); Imm Gran Abs Auto 0.13 X10*3/uL (0.00-0.03); Imm Gran Pct Auto 1.3 % (0.0-0.4); Lymphocytes Absolute Auto 1.5 X10*3/uL (1.2-4.9); Lymphocytes Percent Auto 14.8 % (20-40); Mean Corpuscular HGB Conc 33.3 g/dl (31.0-35.0); Mean Corpuscular Hemoglobin 30.1 pg (27.0-33.0); Mean Corpuscular Volume 90.3 fL (80.0-98.0); Mean Platelet Volume 8.5 fL (9.4-12.3); Monocytes Absolute Auto 0.8 X10*3/uL (0.1-1.2); Monocytes Percent Auto 7.9 % (2-11); Neutrophils Absolute Auto 6.9 x10*3/uL (2.0-8.3); Neutrophils Percent Auto 68.4 % (45-73); Platelet Count 477 X10*3/uL (160-400); Red Blood Count 3.39 X10*6/uL (4.20-5.50); Red Cell Distribution Width 15.1 % (11.0-16.0); White Blood Count 10.1 X10*3/uL (4.8-10.8)
[2025-02-02] MEDS: SODIUM CHLORIDE 0.9% IV (06:29)
[2025-02-02] MEDS: DAPTOMYCIN IV (06:29)
[2025-02-02 06:32] LABS: Anion Gap 14 (12-20); Blood Urea Nitrogen 6 mg/dL (9-16); Calcium 8.8 mg/dL (8.4-10.2); Carbon Dioxide 22 mmol/L (22-29); Chloride 110 mmol/L (96-108); Creatinine Clr Calc Pharmacy 58.2; Estimated Glomerular Filt Rate > 60; Glucose Fasting 120 mg/dL (60-99); Potassium 3.8 mmol/L (3.3-5.1); Sodium 142 mmol/L (135-145)
[2025-02-02 06:33] LABS: Vancomycin Random 13.6 mcg/mL (15-20)
[2025-02-02] MEDS: 0.9 % Sodium Chloride Flush 3 ML SYRINGE IVFLUSH ×2 (07:45→19:29)
[2025-02-02] MEDS: Acetaminophen 325 MG TABLET 650 MG PO (07:46)
[2025-02-02] MEDS: Aspirin 81 MG TAB.CHEW PO (07:46)
[2025-02-02] MEDS: Docusate Sodium 100 MG CAPSULE PO ×2 (07:47→19:28)
[2025-02-02] MEDS: Mirtazapine 7.5 MG TABLET PO (07:47)
[2025-02-02 08:34] VITALS: BP 180/90; PULSE 106; RESP 18; TEMP 36.6; O2SAT 92
--- NOTE | 2025-02-02 12:34 | PM.PNORT ---
Subjective Subjective Date of Service: 02/02/25 Interval history: POD4 s/p irrigation and debridement right knee and placement of wound vac Patient is resting in bed comfortably No overnight events Pain is managed No additional complaints Physical Exam Vital Signs: Vital Signs: Last Vital Signs Temp 97.9 F 02/02/25 08:34 Pulse 106 H 02/02/25 08:34 Resp 18 02/02/25 08:34 BP 180/90 H 02/02/25 08:34 Pulse Ox 92 02/02/25 08:34 O2 Del Method Nasal Cannula 02/02/25 08:34 O2 Flow Rate 2 02/02/25 08:34 BMI result Body Mass Index 27.5 Const: General: cooperative, healthy appearing and no acute distress Resp: Effort & Inspection: normal respiratory effort and able to speak in complete sentences Cardio: Rate: regular rate Peripheral pulses: Peripheral pulses 2+ throughout GI: Palpation (GI): Soft to palpation Skin: Lesions: no lesions Rashes: no rashes Extrem: Other: Right knee dressing is c/d/i. Wound vac in place and functioning appropriately. Able to dorsi/plantar flex. Calf is supple and nontender. Sensation intact. Pedal pulse intact. Procedures Date of Service Date of Service: 02/02/25 Progress Note: A&P Assessment and plan (1) Open wound of knee, complicated: Status: Acute Plan Continue pain mgmnt as needed Continue ASA for DVT ppx Monitor wound vac, if there is a malfunction please notify orthopedics Plan to change wound VAC prior to discharge Cultures reveal coag-negative staph, ID recommends daptomycin or Kefzol After speaking with pharmacy, daptomycin ordered for coverage for coag-negative staph Awaiting final blood culture results for PICC line Dispo planning-PICC line placement pending blood cultures Time Spent With Patient Time: Total time managing care of this patient today ____ minutes. Quality Stroke Does the patient have a stroke diagnosis?: No VTE Prior VTE?: No VTE Risk Level:: Medical - moderate - high VTE Device Contraindication: N/A - Device Ordered VTE Drug Contraindication: N/A - Med Ordered
[2025-02-02 12:36] VITALS: O2SAT 93
[2025-02-02 15:15] VITALS: BP 146/81; PULSE 98; RESP 18; TEMP 36.6; O2SAT 96
[2025-02-02 19:41] VITALS: BP 176/82; PULSE 102; RESP 18; TEMP 36.4; O2SAT 94
[2025-02-03] VITALS (7 sets, daily range): BP systolic 147–158; BP diastolic 65–86; PULSE 79–121; RESP 16–20; TEMP 36.1–37; O2SAT 93–97
--- NOTE | 2025-02-03 | ECG_ITS ---
Test Reason : tachycardia Blood Pressure : */* mmHG Vent. Rate : 119 BPM Atrial Rate : 119 BPM P-R Int : 132 ms QRS Dur : 120 ms QT Int : 354 ms P-R-T Axes : 54 38 16 degrees QTcB Int : 497 ms Sinus tachycardia Right bundle branch block Abnormal ECG When compared with ECG of 29-Jan-2025 14:30, No significant change was found Referred By: Pasquale Romano Electronically Signed By: ISSA ADORNO
[2025-02-03] MEDS: Metoprolol Tartrate 12.5 MG HALFTAB PO (04:19)
[2025-02-03] MEDS: DAPTOMYCIN IV (05:56)
[2025-02-03] MEDS: SODIUM CHLORIDE 0.9% IV (05:56)
[2025-02-03 06:10] LABS: MANUAL DIFF FLAG NO
--- NOTE | 2025-02-03 06:17 | PC.NURSE ---
Routine vitals at 4am noted with HR at 122, BZ=606/86, T98.6, pt asleep and awaken with care, no c/o pain, Dr. Mehta was notified, EKG done with ST and no changes from previous and relayed result to same MD, Metoprolol 12.5 mg po given, ordered for CXR, rechecked HR= 84.
[2025-02-03 06:23] LABS: Basophils Percent Auto 0.4 % (0-2); Eosinophils Absolute Auto 0.8 X10*3/uL (0.0-0.4); Hematocrit 27.3 % (37.0-47.0); Hemoglobin 9.1 g/dl (12.0-16.0); Imm Gran Abs Auto 0.13 X10*3/uL (0.00-0.03); Imm Gran Pct Auto 1.3 % (0.0-0.4); Lymphocytes Absolute Auto 1.7 X10*3/uL (1.2-4.9); Lymphocytes Percent Auto 16.7 % (20-40); Mean Corpuscular HGB Conc 33.3 g/dl (31.0-35.0); Mean Corpuscular Hemoglobin 30.1 pg (27.0-33.0); Mean Corpuscular Volume 90.4 fL (80.0-98.0); Mean Platelet Volume 8.6 fL (9.4-12.3); Monocytes Absolute Auto 0.8 X10*3/uL (0.1-1.2); Monocytes Percent Auto 7.3 % (2-11); Neutrophils Absolute Auto 6.8 x10*3/uL (2.0-8.3); Neutrophils Percent Auto 66.3 % (45-73); Platelet Count 486 X10*3/uL (160-400); Red Blood Count 3.02 X10*6/uL (4.20-5.50); Red Cell Distribution Width 15.3 % (11.0-16.0); White Blood Count 10.3 X10*3/uL (4.8-10.8)
[2025-02-03 06:33] LABS: Anion Gap 11 (12-20); Blood Urea Nitrogen 7 mg/dL (9-16); Calcium 8.2 mg/dL (8.4-10.2); Carbon Dioxide 23 mmol/L (22-29); Chloride 110 mmol/L (96-108); Creatinine Clr Calc Pharmacy 58.2; Estimated Glomerular Filt Rate > 60; Glucose Fasting 130 mg/dL (60-99); Potassium 3.7 mmol/L (3.3-5.1); Sodium 140 mmol/L (135-145)
--- NOTE | 2025-02-03 08:07 | PM.PNORT ---
Subjective Subjective Date of Service: 02/03/25 Interval history: POD4 s/p irrigation and debridement right knee and placement of wound vac Patient is resting in bed comfortably Patient did have an episode of hypertension and tachycardia overnight, internal medicine team ordered metoprolol and a pulmonary CTA to make sure no pulmonary embolism Pain is managed No additional complaints Physical Exam Vital Signs: Vital Signs: Last Vital Signs Temp 97.6 F 02/03/25 07:13 Pulse 85 02/03/25 07:13 Resp 16 02/03/25 07:13 BP 147/80 H 02/03/25 07:13 Pulse Ox 97 02/03/25 07:13 O2 Del Method Nasal Cannula 02/03/25 07:13 O2 Flow Rate 2 02/03/25 07:13 BMI result Body Mass Index 27.5 Const: General: cooperative, healthy appearing and no acute distress Resp: Effort & Inspection: normal respiratory effort and able to speak in complete sentences Cardio: Rate: regular rate Peripheral pulses: Peripheral pulses 2+ throughout GI: Palpation (GI): Soft to palpation Skin: Lesions: no lesions Rashes: no rashes Extrem: Other: Right knee dressing is c/d/i. Wound vac in place and functioning appropriately. Able to dorsi/plantar flex. Calf is supple and nontender. Sensation intact. Pedal pulse intact. Procedures Date of Service Date of Service: 02/03/25 Progress Note: A&P Assessment and plan (1) Open wound of knee, complicated: Status: Acute Plan Continue pain mgmnt as needed Continue ASA for DVT ppx Monitor wound vac, if there is a malfunction please notify orthopedics Plan to change wound VAC prior to discharge Cultures reveal coag-negative staph, ID recommends daptomycin or Kefzol After speaking with pharmacy, daptomycin ordered for coverage for coag-negative staph Dispo planning-PICC line placement pending blood cultures, results of CTA Time Spent With Patient Time: Total time managing care of this patient today ____ minutes. Quality Stroke Does the patient have a stroke diagnosis?: No VTE Prior VTE?: No VTE Risk Level:: Medical - moderate - high VTE Device Contraindication: N/A - Device Ordered VTE Drug Contraindication: N/A - Med Ordered
[2025-02-03] MEDS: 0.9 % Sodium Chloride Flush 3 ML SYRINGE IVFLUSH ×3 (08:34→21:35)
[2025-02-03] MEDS: Aspirin 81 MG TAB.CHEW PO (08:56)
[2025-02-03] MEDS: Mirtazapine 7.5 MG TABLET PO (08:56)
[2025-02-03] MEDS: Docusate Sodium 100 MG CAPSULE PO (08:56)
[2025-02-03] MEDS: guaiFENesin LA 600 MG TAB.ER.12H PO (10:12)
[2025-02-03] MEDS: Furosemide 20 MG/2 ML VIAL IVPUSH (10:12)
--- NOTE | 2025-02-03 10:14 | P.PNIM_ITS ---
Subjective Subjective Date of Service: 02/03/25 Interval History: Seen and evaluated feels better, looks comfortable HR improved to 80s denies any chest pain, leg pain or SOB no other events Review of Systems Review of Systems: Yes all other systems are reviewed and are negative Physical Exam 2 Vital Signs: Vital Signs: Last Vital Signs Temp 97.6 F 02/03/25 07:13 Pulse 85 02/03/25 07:13 Resp 16 02/03/25 07:13 BP 147/80 H 02/03/25 07:13 Pulse Ox 97 02/03/25 07:13 O2 Del Method Nasal Cannula 02/03/25 07:13 O2 Flow Rate 2 02/03/25 07:13 BMI result Body Mass Index 27.5 Const: Other: Constitutional : interactive, not in distress Cardiovascular : no JVP, no lower extremity edema Respiratory : bilateral chest movement, not in resp distress , decreased air entry on bases, on O2 supplement Gastrointestinal: soft, lax, Non tender Skin : Warm, Dry, knee wound covered with dressing Neurological : Alert & oriented to self , No focal deficit Objective Data Active Medications Acetaminophen (Acetaminophen 325 Mg Tablet) 650 mg PO Q6H PRN PRN Reason: Pain, Mild 1-3,fever,headache Last Admin: 02/02/25 07:46 Dose: 650 mg Documented By: FRANCIA Aspirin (Aspirin 81 Mg Tab.Chew) 81 mg PO DAILY [facility] Last Admin: 02/03/25 08:56 Dose: 81 mg Documented By: FRANCIA Bisacodyl (Bisacodyl 10 Mg Supp.Rect) 10 mg [place] DAILY PRN PRN Reason: CONSTIPATION IF FAILED ON MOM Calcium Carbonate (Calcium Carbonate 750 Mg Tab.Chew) 750 mg PO Q4H PRN PRN Reason: Heartburn Docusate Sodium (Docusate Sodium 100 Mg Capsule) 100 mg PO BID [facility] Last Admin: 02/03/25 08:56 Dose: 100 mg Documented By: FRANCIA Guaifenesin (Guaifenesin La 600 Mg Tab.Er.12h) 600 mg PO BID [facility] Hydromorphone HCl (Hydromorphone Hcl 0.5 Mg/0.5 Ml Syringe) 0.25 mg IVPUSH Q4H PRN; Protocol PRN Reason: Pain, Severe (Pain Scale 7-10) Daptomycin 420 mg/ Sodium (Chloride) 58.4 mls @ 99.924 mls/hr IV Q24H [facility] Last Infusion: 02/03/25 06:34 Dose: Infused Documented By: CLAIR Loratadine (Loratadine 10 Mg Tablet) 10 mg PO DAILY PRN PRN Reason: Allergy Symptoms Magnesium Hydroxide (Milk Of Magnesia 30 Ml Oral.Susp) 30 ml PO DAILY PRN PRN Reason: Constipation Melatonin (Melatonin 3 Mg Tablet) 6 mg PO BEDTIME PRN PRN Reason: Insomnia Metoprolol Tartrate (Metoprolol Tartrate 12.5 Mg Halftab) 12.5 mg PO BID [facility]; Protocol Last Admin: 02/03/25 04:19 Dose: 12.5 mg Documented By: CLAIR Comments: HR= 119, BP 158/86 Mirtazapine (Mirtazapine 7.5 Mg Tablet) 7.5 mg PO DAILY [facility] Last Admin: 02/03/25 08:56 Dose: 7.5 mg Documented By: FRANCIA Omeprazole (Omeprazole 40 Mg Capsule.Dr) 40 mg PO DAILY@0630 [facility] Ondansetron HCl (Ondansetron Hcl 4 Mg/2 Ml Vial) 4 mg IVPUSH Q8H PRN PRN Reason: Nausea and Vomiting Oxycodone HCl (Oxycodone Hcl Immed Release 5 Mg Tablet) 5 mg PO Q4H PRN PRN Reason: Pain, Moderate(Pain Scale 4-6) Sodium Chloride (0.9 % Sodium Chloride Flush 3 Ml Syringe) 3 ml IVFLUSH QSHIFT [facility] Last Admin: 02/03/25 08:34 Dose: 3 ml Documented By: FRANCIA Labs 02/03/25 05:49 02/03/25 05:49 Labs: Laboratory Results - last 24 hr 02/02/25 02/03/25 06:02 05:49 MCV 90.4 MCH 30.1 MCHC 33.3 RDW 15.3 Plt Count 486 H MPV 8.6 L Immature Gran % (Auto) 1.3 H Neut % (Auto) 66.3 Lymph % (Auto) 16.7 L [place] % (Auto) 7.3 Eos % (Auto) 8.0 H Baso % (Auto) 0.4 Lymph # (Auto) 1.7 [place] # (Auto) 0.8 Eos # (Auto) 0.8 H Baso # (Auto) 0.0 Abs Immat Gran (auto) 0.13 H Absolute Neuts (auto) 6.8 Absolute Nucleated RBC 0.000 Nucleated RBC % (auto) 0.0 Anion Gap 11 L Estim Creat Clear Calc 58.2 Estimated GFR > 60 Fasting Glucose 130 H Calcium 8.2 L D Total Creatine Kinase 33 Microbiology Microbiology Results: Microbiology 01/31/25 12:23 Blood Culture - Preliminary Blood - Venous No growth after 48 hours. 01/31/25 12:23 Blood Culture - Preliminary Blood - Venous No growth after 48 hours. 01/29/25 15:21 Gram Stain - Final Knee,Right Routine Culture - Preliminary Coag negative Staphylococcus Anaerobic Culture - Preliminary Culture in progress. 01/29/25 15:22 Gram Stain - Final Knee,Right Routine Culture - Preliminary Coag negative Staphylococcus Anaerobic Culture - Preliminary Culture in progress. Assessment and Plan (1) Open wound of knee, complicated: Status: Acute (2) Tachycardia: Status: Acute Plan Patient is an 89-year-old female with a past medical history significant for HLD, GERD and seasonal allergies, s/p wound irrigation and debridement right knee with wound VAC today due to open wound right knee. Open wound right knee growing CoAg -ve Staph plan per ortho ID rec 6 weeks IV Daptomycin and weekly CK and creatinine consider switching to Lovenox for DVT PPx Tachycardia Likely related to pain and recent surgery CXR showing left sided effusion with possible atelactasis Mucinex Incentive spirometry Hold on CTA for now, can check US LE if she develops signs of DVT GERD continue PPI Seasonal allergies cetirizine Thank you for the consult will continue to follow with you as needed Quality Stroke Does the patient have a stroke diagnosis?: No VTE Prior VTE?: No VTE Risk Level:: Medical - moderate - high VTE Device Contraindication: N/A - Device Ordered VTE Drug Contraindication: N/A - Med Ordered
[2025-02-03] MEDS: Acetaminophen 325 MG TABLET 650 MG PO (18:26)
[2025-02-04 03:20] VITALS: BP 158/77; PULSE 73; RESP 18; TEMP 36.3; O2SAT 98
[2025-02-04] MEDS: Omeprazole 40 MG CAPSULE.DR PO (05:41)
[2025-02-04] MEDS: DAPTOMYCIN IV (05:51)
[2025-02-04] MEDS: SODIUM CHLORIDE 0.9% IV (05:51)
[2025-02-04 06:00] LABS: MANUAL DIFF FLAG NO
[2025-02-04 06:05] LABS: Basophils Absolute Auto 0.1 X10*3/uL (0.0-0.2); Basophils Percent Auto 0.6 % (0-2); Eosinophils Absolute Auto 1.2 X10*3/uL (0.0-0.4); Eosinophils Percent Auto 12.7 % (0-4); Hematocrit 33.5 % (37.0-47.0); Hemoglobin 10.7 g/dl (12.0-16.0); Imm Gran Abs Auto 0.15 X10*3/uL (0.00-0.03); Imm Gran Pct Auto 1.5 % (0.0-0.4); Lymphocytes Absolute Auto 2.1 X10*3/uL (1.2-4.9); Lymphocytes Percent Auto 21.5 % (20-40); Mean Corpuscular HGB Conc 31.9 g/dl (31.0-35.0); Mean Corpuscular Hemoglobin 30.1 pg (27.0-33.0); Mean Corpuscular Volume 94.4 fL (80.0-98.0); Mean Platelet Volume 8.5 fL (9.4-12.3); Monocytes Absolute Auto 0.8 X10*3/uL (0.1-1.2); Monocytes Percent Auto 7.9 % (2-11); Neutrophils Absolute Auto 5.4 x10*3/uL (2.0-8.3); Neutrophils Percent Auto 55.8 % (45-73); Platelet Count 498 X10*3/uL (160-400); Red Blood Count 3.55 X10*6/uL (4.20-5.50); Red Cell Distribution Width 15.7 % (11.0-16.0); White Blood Count 9.7 X10*3/uL (4.8-10.8)
[2025-02-04 06:16] LABS: Creatinine Clr Calc Pharmacy 58.2; Estimated Glomerular Filt Rate > 60
[2025-02-04] MEDS: Aspirin 81 MG TAB.CHEW PO (08:10)
[2025-02-04] MEDS: Mirtazapine 7.5 MG TABLET PO (08:10)
[2025-02-04] MEDS: Docusate Sodium 100 MG CAPSULE PO (08:10)
[2025-02-04] MEDS: 0.9 % Sodium Chloride Flush 3 ML SYRINGE IVFLUSH ×2 (08:10→15:52)
[2025-02-04] MEDS: Metoprolol Tartrate 12.5 MG HALFTAB PO (08:10)
[2025-02-04] MEDS: guaiFENesin LA 600 MG TAB.ER.12H PO (08:10)
--- NOTE | 2025-02-04 08:16 | PM.PNORT ---
Subjective Subjective Date of Service: 02/04/25 Interval history: POD5 s/p irrigation and debridement right knee and placement of wound vac Patient is resting in bed comfortably No acute events overnight Pain is managed No additional complaints Physical Exam Vital Signs: Vital Signs: Last Vital Signs Temp 97.4 F 02/04/25 03:20 Pulse 73 02/04/25 03:20 Resp 18 02/04/25 03:20 BP 158/77 H 02/04/25 03:20 Pulse Ox 98 02/04/25 03:20 O2 Del Method Nasal Cannula 02/04/25 03:20 O2 Flow Rate 2 02/04/25 03:20 BMI result Body Mass Index 27.5 Const: General: cooperative, healthy appearing and no acute distress Resp: Effort & Inspection: normal respiratory effort and able to speak in complete sentences Cardio: Rate: regular rate Peripheral pulses: Peripheral pulses 2+ throughout GI: Palpation (GI): Soft to palpation Skin: Lesions: no lesions Rashes: no rashes Extrem: Other: Right knee dressing is c/d/i. Wound vac in place and functioning appropriately. Able to dorsi/plantar flex. Calf is supple and nontender. Sensation intact. Pedal pulse intact. Procedures Date of Service Date of Service: 02/04/25 Progress Note: A&P Assessment and plan (1) Open wound of knee, complicated: Status: Acute Plan Continue pain mgmnt as needed Continue ASA for DVT ppx Monitor wound vac, if there is a malfunction please notify orthopedics Plan to change wound VAC prior to discharge Cultures reveal coag-negative staph, ID recommends daptomycin or Kefzol After speaking with pharmacy, daptomycin ordered for coverage for coag-negative staph Dispo planning-PICC line placement ordered for today, Time Spent With Patient Time: Total time managing care of this patient today ____ minutes. Quality Stroke Does the patient have a stroke diagnosis?: No VTE Prior VTE?: No VTE Risk Level:: Medical - moderate - high VTE Device Contraindication: N/A - Device Ordered VTE Drug Contraindication: N/A - Med Ordered
[2025-02-04 08:18] VITALS: BP 157/70; PULSE 94; RESP 12; TEMP 36.1; O2SAT 97
--- NOTE | 2025-02-04 11:29 | P.PICC_ITS ---
PICC Line Insertion NPICC Diagnosis: right knee infection Indication: shelter antibiotics needed Pertinent Labs: needed Technique: Following informed consent including risks, benefits and alternatives and using sterile technique including cap and mask, sterile gown, glove and drape, the left arm was prepped and draped in the usual sterile fashion of full barrier technique with G. Following completion of [place] Protocol the skin and soft tissues were anesthetized with 1% Lidocaine plain. Using ultrasound guidance, left Basilic vein access was obtained twice by Manoj Santos RN, but unable to pass guidewire, left Basilic vein was then accessed by Kory Mccray RN on first attempt. Over an 0.018 wire through peel-away sheath, a 4FR single lumen PASV PICC line was positioned. Catheter length is 47 CM internal length, 0 CM external length, for a total trimmed length of 47 CM. The procedure was performed in S272. Tip verification was performed by John Madera with Sherlock 3CG. Tip located in SVC. Ultrasound was used to document vein patency and for needle entry. A formal ultrasound picture and cardiac rhythm strip was recorded. [employer] [employer] has released the line for use and it is currently dressed with a StatLock, Tegaderm, and CHG disc. Verification has been performed for blood return and line patency. Arm Circumference: 30 CM Equipment: [email or web address] PowerPICC SOLO Catheter Type: 4FR single lumen PASV PICC Lot #: [id number]
--- NOTE | 2025-02-04 12:02 | P.DS_ITS ---
DS: Providers Provider Date of Service: 02/04/25 <NOY Ortiz Last Filed: 02/04/25 12:56> Date of admission: 01/31/25 09:26 <Colby Camarillo PA-C - Last Filed: 02/04/25 12:07> Date of discharge: 02/04/25 <NOY Ortiz Last Filed: 02/04/25 12:56> Primary care physician: Germán Foss MD <TAYLOR Mullins Last Filed: 02/04/25 12:07> Consults: 01/29/25 16:43 Consult to Hospitalist Routine Comment: Consulting Provider: [facility] Reason For Exam: Routine medical management Consult to Infectious Diseases Routine Consulting Provider: [facility] Reason for consultation: rt TKA infection 01/29/25 18:13 Consult to Wound Care Routine Reason for consultation: PI coccyx/ buttocks Has provider been notified: Yes 02/01/25 08:29 Consult to Infectious Diseases Routine Consulting Provider: [facility] Reason for consultation: ID rec dapto for septic knee Has provider been notified: No <TAYLOR Mullins Last Filed: 02/04/25 12:07> DS: Diagnosis Discharge Diagnosis (1) Open wound of knee, complicated: Status: Acute <TAYLOR Mullins Last Filed: 02/04/25 12:07> DS: Summary Hospital Course Hospital Course: The patient underwent a successful , was transferred to PACU and then to the floor to recover. During their stay, their vitals were stable, afebrile at . Labs were unremarkable, H/H . POD 1 he was started on Lovenox for DVT ppx, they also received Physical Therapy services twice a day. He also had a 4FR single lumen PASV PICC line placed for administration of IV abx for 6 weeks. PICC Line Insertion NPICC Diagnosis: right knee infection Indication: fdc antibiotics needed Pertinent Labs: needed Technique: Following informed consent including risks, benefits and alternatives and using sterile technique including cap and mask, sterile gown, glove and drape, the left arm was prepped and draped in the usual sterile fashion of full barrier technique with CHG. Following completion of [place] Protocol the skin and soft tissues were anesthetized with 1% Lidocaine plain. Using ultrasound guidance, left Basilic vein access was obtained twice by Manoj Santos RN, but unable to pass guidewire, left Basilic vein was then accessed by Kory Mccray RN on first attempt. Over an 0.018 wire through peel-away sheath, a 4FR single lumen PASV PICC line was positioned. Catheter length is 47 CM internal length, 0 CM external length, for a total trimmed length of 47 CM. The procedure was performed in S272. Tip verification was performed by John Madera with Sherlock 3CG. Tip located in SVC. Ultrasound was used to document vein patency and for needle entry. A formal ultrasound picture and cardiac rhythm strip was recorded. [employer] Specialist has released the line for use and it is currently dressed with a StatLock, Tegaderm, and CHG disc. Verification has been performed for blood return and line patency. Arm Circumference: 30 CM Equipment: [employer] Logic PowerPICC SOLO Catheter Type: 4FR single lumen PASV PICC Lot #: [id number] Dictated By: DEE MCCRAY RN Physical therapy should include gait training, ROM to tolerance and quad str ength. She is WBAT. Following discharge, wound vac should remain intact and on at all times. If any concerns please contact [facility]. Follow-up appointment booked for 02/06/2025 in our office at [address] [place] [address] Infectious Disease recommendations: Assessment and plan (1) Sepsis: Problem details: coagulase negative staph knee Status: Acute (2) Open wound of knee, complicated: Problem details: She is seeing Orthopedics and wound is clean. Status: Acute Plan 6 weeks IV Daptomycin and weekly CK and creatinine Tentative stop date 03/18/2025 Picc Line / iv abx Orders: * Check CK/Cr weekly * Flush PICC line with 10 cc of normal saline 3 times a day <Colby Camarillo PA-C - Last Filed: 02/04/25 12:07> Time Attestation Discharge Coordination Time (in mins): 30 <NOY Ortiz Last Filed: 02/04/25 12:56> Quality: Safe Use of Opioids Does Pt have an Active Cancer Diagnosis on the Problem List?: No <NOY Ortiz Last Filed: 02/04/25 12:56> Quality: Stroke Does the patient have a stroke diagnosis?: No <NOY Ortiz Last Filed: 02/04/25 12:56> Physical Exam Vital Signs: Vital Signs: Last Vital Signs Temp 96.9 F 02/04/25 08:18 Pulse 94 02/04/25 08:18 Resp 12 02/04/25 08:18 BP 157/70 H 02/04/25 08:18 Pulse Ox 97 02/04/25 08:18 O2 Del Method Nasal Cannula 02/04/25 08:18 O2 Flow Rate 2 02/04/25 08:18 BMI result Body Mass Index 27.5 <Colby Camarillo PA-C - Last Filed: 02/04/25 12:07> Const: General: cooperative, healthy appearing and no acute distress <NOY Ortiz - Last Filed: 02/04/25 12:56> Resp: Effort & Inspection: normal respiratory effort and able to speak in complete sentences <NOY Ortiz - Last Filed: 02/04/25 12:56> Cardio: Rate: regular rate <NOY Ortiz - Last Filed: 02/04/25 12:56> Peripheral pulses: Peripheral pulses 2+ throughout <NOY Ortiz - Last Filed: 02/04/25 12:56> GI: Palpation (GI): Soft to palpation <NOY Ortiz - Last Filed: 02/04/25 12:56> Skin: Lesions: no lesions <NOY Ortiz Last Filed: 02/04/25 12:56> Rashes: no rashes <NOY Ortiz - Last Filed: 02/04/25 12:56> Extrem: Other: Right knee dressing is c/d/i. Wound vac in place and functioning appropriately. Able to dorsi/plantar flex. Calf is supple and nontender. Sensation intact. Pedal pulse intact. <NOY Ortiz - Last Filed: 02/04/25 12:56> DS: Data Data Completed and Pending Labs on day of discharge: Laboratory Results - last 24 hr 02/04/25 05:54 WBC 9.7 RBC 3.55 L Hgb 10.7 L Hct 33.5 L D MCV 94.4 MCH 30.1 MCHC 31.9 RDW 15.7 Plt Count 498 H MPV 8.5 L Immature Gran % (Auto) 1.5 H Neut % (Auto) 55.8 Lymph % (Auto) 21.5 [place] % (Auto) 7.9 Eos % (Auto) 12.7 H Baso % (Auto) 0.6 Lymph # (Auto) 2.1 [place] # (Auto) 0.8 Eos # (Auto) 1.2 H Baso # (Auto) 0.1 Abs Immat Gran (auto) 0.15 H Absolute Neuts (auto) 5.4 Absolute Nucleated RBC 0.000 Nucleated RBC % (auto) 0.0 Creatinine 0.64 Estim Creat Clear Calc 58.2 Estimated GFR > 60 Preliminary micro results at discharge 01/31/25 12:23 Blood Culture - Preliminary Blood - Venous No growth after 48 hours. 01/31/25 12:23 Blood Culture - Preliminary Blood - Venous No growth after 48 hours. 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 <NOY Ortiz Last Filed: 02/04/25 12:56> Referrals: Germán Foss MD [Primary Care Provider, Internal Medicine] - 1 Week Cori Kothari MD [Physician, Infectious Disease] - 1 Week Colby Camarillo PA-C [Physician Director Case Management, Orthopedics] - 02/06/25 Referral Note: 02/06/25 14:30 [facility] Colby Camarillo PA-C <Colby Camarillo PA-C - Last Filed: 02/04/25 12:07> Discharge Medications: New daptomycin 500 mg Recon Soln 420 mg IV Q24H 42 Days Qty: 1 0RF aspirin 81 mg Tablet,Chewable 81 mg PO DAILY 42 Days Qty: 42 0RF metoprolol tartrate 25 mg tablet 12.5 mg PO BID 30 Days Qty: 30 0RF Continued acetaminophen 325 mg Tablet 650 mg PO Q6H PRN (Reason: Pain) ondansetron HCl 4 mg Tablet 4 mg PO Q6H PRN (Reason: Nausea And Vomiting) tramadol 50 mg Tablet 50 mg PO Q6H PRN (Reason: Pain) magnesium hydroxide [Milk of Magnesia] 400 mg/5 mL Suspension 5 ml PO DAILY PRN (Reason: CONSTIPATION, NO BM IN 3 DAYS) bisacodyl 10 mg Suppository 10 mg NE DAILY PRN (Reason: CONSTIPATION IF FAILED ON MOM) mirtazapine 7.5 mg Tablet 7.5 mg PO BEDTIME omeprazole 40 mg capsule,delayed release(DR/EC) 40 mg PO DAILY@0630 Zyrtec 10 mg capsule 10 mg PO DAILY PRN (Reason: Allergy Symptoms) Held Fleet Enema 19-7 gram/118 mL Enema 118 ml NE BEDTIME PRN (Reason: Constipation) Hold Instructions: Resume on 03/18/25. Cannot take with aspirin <Colby Camarillo PA-C - Last Filed: 02/04/25 12:07> Discharge Orders: Discharge Order (Routine); Ordered 02/04/25 Ordered By: Dawson Woody <Colby Camarillo PA-C - Last Filed: 02/04/25 12:07> Diet: Advance to usual diet <Colby Camarillo PA-C - Last Filed: 02/04/25 12:07> Advance to usual diet <NOY Ortiz Last Filed: 02/04/25 12:56> Activity on Discharge: As tolerated <TAYLOR Mullins Last Filed: 02/04/25 12:07> As tolerated <NOY Ortiz Last Filed: 02/04/25 12:56> Stand Alone Forms: Patient Portal Discharge page <TAYLOR Mullins Last Filed: 02/04/25 12:07> Print Language: [place]se <TAYLOR Mullins Last Filed: 02/04/25 12:07> Care Plan Goals: Infection suppression/resolution Wound healing Pentecostalism of function of RLE <Colby Camarillo PA-C - Last Filed: 02/04/25 12:07> Health Concerns: Right TKA infection status post complicated wound <Colby Camarillo PA-C - Last Filed: 02/04/25 12:07> Plan of Treatment: Weight-bearing as tolerated right lower extremity Wound VAC to remain in place until follow-up 6 weeks IV daptomycin Weekly CK and creatinine to monitor kidney function Follow-up twice weekly in our office for wound VAC changes Keep wound site clean, dry, intact at all times No showering <Colby Camarillo PA-C - Last Filed: 02/04/25 12:07> Assessment: Stable for discharge <Colby Camarillo PA-C - Last Filed: 02/04/25 12:07>
[2025-02-04 12:40] VITALS: BP 186/80; PULSE 79; RESP 18; TEMP 36.9; O2SAT 98
--- NOTE | 2025-02-04 14:27 | MHC.CM.PN ---
DP: PT HAS BEEN MEDICALLY CLEARED FOR DC TO STR AT [facility]. BLS TRANSPORT HAS BEEN BOOKED FOR 4PM [facility]IA [facility]. HCP HEBER UPDATED AND IN AGREEMENT WITH PLAN. CENTER AWARE. FINAL IMM ISSUED.
[2025-02-04] MEDS: 0.9 % Sodium Chloride Flush 10 ML SYRINGE IVFLUSH (15:51)
[2025-02-04 15:54] VITALS: BP 187/79; PULSE 84; RESP 12; TEMP 36.7; O2SAT 94
[2025-02-04 16:01] VITALS: BP 135/80
== END 2025-02-04 16:14 | disposition skilled nursing facility (03) | DRG 501 ==
LOC: HO.SSS 09:29 → HO.S3 09:29
PROVIDERS: Physician Assistant; Student in an Organized Health Care Education/Training Program; Admitting Provider Orthopaedic Surgery; PCP Internal Medicine Medical Oncology; Visit Provider Orthopaedic Surgery
PROC: 0JDN0ZZ Extraction of Right Lower Leg Subcutaneous Tissue and Fascia, Open Approach (ICD-10-PCS; principal; 2025-01-29 16:50)
DX: T84.53XA Infection and inflammatory reaction due to internal right knee prosthesis, initial encounter (principal); I96 Gangrene, not elsewhere classified; E78.5 Hyperlipidemia, unspecified; K21.9 Gastro-esophageal reflux disease without esophagitis; Z79.899 Other long term (current) drug therapy
CPT/HCPCS: 36415; 36573; 71045; 80048; 80202; 82550; 82565; 85025; 87040; 87070; 87073; 87205; 93005; 97162; C1751; J0131; J0736; J0878; J1938; J3010; J3370; J3371; J7120

== ENCOUNTER 2025-02-06 14:41 | Outpatient (AMB) | payer MEDICARE, SELFPAY ==
--- OUTSIDE RECORDS SUMMARY | 2024-10-17 05:30 | XMS_ITS ---
Author Organization Germán Foss III, MD Address [address] [place] [address] Care Team Providers Care Cellar Supervisor Name Role Phone Germán Foss Primary Care Provider Allergies Allergen (clinical drug ingredient) Drug/Non Drug Allergy documented on EMR Reaction Allergy Type Onset Date Status sulfacetamide Sulfacetamide Unknown Drug Allergy Active amoxicillin Amoxicillin Unknown Drug Allergy Act narendra REASON FOR VISIT Annual Exam Medications Medication SIG (Take, Route, Frequency, Duration) Notes Start Date End Date Status Atenolol 25 MG TAKE 1 TABLET BY KALIN TH ONCE A DAY. Active Simvastatin 20 MG TAKE ONE TABLET BY M OUTH EVERY EVENING Active Tylenol Extra Strength 500 MG 2 tablet as needed Orally every 6 hrs Active Social History Tobacco Use: Social History Observation Description Date Details (start date - stop date) Never Smoker NA - NA Sex Assigned At : Social History Observation Description Sex Assigned At Female Tobacco Use/Smoking Question Answer Notes Patient is a nonsmoker Additional Findings: Tobacco Non-User Aggressive non-smoker Encounters Encounter Location Date Provider Diagnosis Germán Foss III, MD [address] [place] [address] [place] [address] 10/17/2024 Germán Foss Essential hypertensi on I10 Assessments Encounter Date Diagnosis (ICD Code) Assessment Notes Treat ment Notes Treatment Clinical Notes 10/17/2024 Essential hypertension (ICD-10 - I10) Her blood pressure is stable at 133/72. I recommended gradual weight reduction and aggressive sodium restriction. No change in her medicines was made. Plan Of Treatment Medication Medication Name Sig Start Date Stop Date Notes Atenolol 25 MG TAKE 1 TABLET BY KALIN TH ONCE A DAY. Simvastatin 20 MG TAKE ONE TABLET BY M OUTH EVERY EVENING Tylenol Extra Strength 500 MG 2 tablet a s needed Orally every 6 hrs Progress Notes * Yue GRUBERDOB: [birth year] (89 yo F)Acc No.[id number]:10/17/2024 Progress Notes Patient: Yue VILLARREAL Provider: Mel Foss MD :1935 A ge:89 Y S ex:Female Date:10/17/2024 Address:[address] [place], [place] [address]Samantha [id number] Subjective: * Chief Complaints: * 1 . Annual Exam. * HPI: C OVID-19 Screening: Questions H ave you had any new onset fever, chills, cough, congestion, sore throat, shortness of breath, muscle aches? N o * ROS: G eneral/Constitutional: pain o nly normal aches and pains. C hills d enies.?Fatigue a dmits. F ever d enies. E NT: Decreased hearing d enies. R espiratory: Cough d enies. C ardiovascular: Chest pain with exertion d enies. D yspnea on exertion?denies. S hortness of breath d enies. G astrointestinal: Constipation d enies. D ecreased appetite d enies.?Diarrhea d enies. H eartburn d enies. N ausea d enies. R ectal bleeding?denies. V omiting d enies. H ematology: bruising d enies. p etechiae d enies. S wollen glands n one have been noted. G enitourinary: Frequent urination d enies. M usculoskeletal: Muscle aches d enies. P ainful joints d enies. S ciatica d enies. W eakness d enies. S kin: Itching d enies. R sobia d enies. S kin lesion(s)?denies. N eurologic: Difficulty speaking d enies. D izziness d enies.?Headache d enies. L ow back pain d enies. P sychiatric: Depressed mood d enies. * Medical History: B ilateral carpal tunnel syndrome, Anxiety, Osteoarthritis of the right knee, GERD, Essential hypertension, Osteopenia, Right bundle branch block, Overweight, Bursitis of the shoulder, Tremor, History of cataracts. * Surgical History: h ysterectomy/BSO 1978, tonsillectomy 1957, left knee replacement 2012, right knee replacement x2 2007, revision right knee arthroplasty 2016, bilateral cataract extractions 2015. * Hospitalization/Major Diagno stic Procedure: D enies Past Hospitalization. * Family History: F ather: 75 yrs, Lung cancer, osteoarthritis, diagnosed with DM, Cancer. M other: 80 yrs, Arthritis, dementia. S iblings: alive, diagnosed with DM. 1 brother(s) - healthy. . Her brother has a history of diabetes mellitus and carcinoma the prostate. There is no known family history of breast cancer. * Social History: T obacco Use: T obacco Use/Smoking Colin rowland is a n onsmoker A dditional Findings: Tobacco Non-User A ggressive non-smoker S he has been to [place] for 60 years. He has arthritis. They have no children. 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 She has no exposures to toxic substances. * Medications: T aking Atenolol 25 MG Tablet TAKE 1 TABLET BY MOUTH ONCE A DAY. , Taking Simvastatin 20 MG Tablet TAKE ONE TABLET BY MOUTH EVERY EVENING , Taking Tylenol Extra Strength 500 MG Tablet 2 tablet as needed Orally every 6 hrs , Medication List reviewed and reconciled with the patient * Allergies: A moxicillin: Allergy, Sulfacetamide: Allergy. Objective: * Vitals: * Examination: G eneral Examination: GENERAL APPEARANCE: p leasant, well nourished, well developed, in no acute distress, calm and relaxed. HEAD: a traumatic, normocephalic. EYES: e sawyer, perrla, anicteric, conjugate. EARS: n ormal. NOSE: s eptum intact. ORAL CAVITY: n ormal, unremarkable. NECK/THYROID: n o jugular venous distention, no carotid bruit, thyroid normal. LYMPH NODES: n o enlarged lymph nodes,spleen normal. SKIN: n o suspicious lesions, anicteric. HEART: n o clicks, gallops, murmurs, or rubs, regular rhythm, S1, S2 normal, no s3, or vascular bruits. LUNGS: c lear to auscultation . BREASTS: no masses palpable bilaterally. ABDOMEN: b owel sounds normal, no ascites, no organomegaly, no mass. RECTAL EXAM: n ot examined. MUSCULOSKELETAL: e xtremities unremarkable, no clubbing, cyanosis or edema. PERIPHERAL PULSES: n ormal. NEUROLOGIC: a lert and oriented, cranial nerves 2-12 grossly intact, deep tendon reflexes 2+ symmetrical, motor strength normal upper and lower extremities, sensory exam intact. PSYCH: a lert, oriented. Assessment: * Assessment: 1. E ssential hypertension - I10 N otes :Her blood pressure is stable at 133/72. I recommended gradual weight reduction and aggressive sodium restriction. No change in her medicines was made. Plan: * Treatment: 2. O thers Continue Atenolol Tablet, 25 MG, TAKE 1 TABLET BY MOUTH ONCE A DAY.; C ontinue Simvastatin Tablet, 20 MG, TAKE ONE TABLET BY MOUTH EVERY EVENING. * Images: * The named appointment provid er may or may not be the originator of this progress note, and it is not deemed complete until electronically signed by the appointment provider. Sign off status: Pending * Provider: Mel Foss MD Date: 0 10/17/2024 Generated for Kunal velasquez/Bertrand/Siddharthitting on: 0 02/06/2025 03:07 PM EDT History and Physical Notes * HPI (History of Present Illness) Category Sub-Category Detail Notes COVID-19 Screening Questions Have you had any new onset fever, chills, cough, congestion, sore throat, shortness of breath, muscle aches?: No Examination Category Sub-Category Detail Notes General Examination GENERAL APPEARANCE: pleasant , well nourished, well developed, in no acute distress, calm and relaxed HEAD: atraumatic, normocep halic EYES: eomi, perrla, anicte ragini, conjugate EARS: normal NOSE: septum intact NECK/THYROID: no jugular venous di stention, no carotid bruit, thyroid normal HEART: no clicks, gallops, murmurs, or rubs, regular rhythm, S1, S2 normal, no s3, or vascular bruits LUNGS: clear to auscultatio n ABDOMEN: bowel sounds normal, no ascites, no organomegaly, no mass NEUROLOGIC: alert and oriented, cranial nerves 2-12 grossly intact, deep tendon reflexes 2+ symmetrical, motor strength normal upper and lower extremities, sensory exam intact SKIN: no suspicious lesion s, anicteric PERIPHERAL PULSES: normal BREASTS: no masses palpable b ilaterally MUSCULOSKELETAL: extremities unremark able, no clubbing, cyanosis or edema LYMPH NODES: no enlarged lymph no lisette,spleen normal RECTAL EXAM: not examined PSYCH: alert, oriented ORAL CAVITY: normal, unremarkable
--- OUTSIDE RECORDS SUMMARY | 2024-12-12 06:00 | XMS_ITS ---
Author Organization [facility] [place] Address [address] [address] Care Team Providers Care Chairlift Operator Name Role Phone Germán Foss MD Primary Care Provider Unavailab Isidra Burleson Unavailable [phone] Encounters Encounter Location Date Provider Diagnosis [address] [address] 12/12/2024 Isidra Hinojosa Plan Of Treatment Next Appt Details Provider Name:Isidra Justina swanson, 05/02/2025 02:45:00 PM, [address] [place], [address], Progress Notes * Yue GRUBER EDOB:[birth year] (89 yo F)Acc No.[id number]:12/12/2024 Progress Note Patient: Yue VILLARREAL Provider: Alyssa Hinojosa DPM :1935 A ge:89 Y S ex:Female Date:12/12/2024 Address:[address] [id number] Pcp:Germán Foss MD Subjective: * Chief Complaints: [...] 12/12/2024 Generated for Kunal velasquez/Bertrand/Napoleon on: 0 02/06/2025 03:06 PM EDT
--- NOTE | 2025-02-06 14:45 | MHC.OFFVIS ---
Intake Visit Reasons: PO RT knee I&D/wound vac placement 01/29/25 NE Intake Note: Yue is an 89 year old female who presents today for a post operative visit after undergoing a right knee I&D/wound vac placement, DOS 01/29/[address] Estrada. Allergies amoxicillin (Amoxicillin) Allergy (Mild, Verified 02/06/25 14:49) RASH Sulfa (Sulfonamide Antibiotics) (Sulfa (Sulfonamides)) Allergy (Mild, Verified 02/06/25 14:49) RASH HPI HPI PO RT knee I&D/wound vac placement 01/29/25 NE: Details: 89-year-old female who returns to the office today status post right total knee I and D with wound VAC on 01/29/2025. The patient was discharged from the hospital on 02/04/2025 and transferred to a short-term rehab facility. The patient has a PICC line and is receiving IV daptomycin. The antibiotics are in place for 6 weeks. End date 03/18/2025. [facility]LY [facility], [facility] Medical History Leukocytosis Leukocytosis Diabetes FTT (failure to thrive) in adult Osteoarthritis (arthritis due to wear and tear of joints) Bilateral cataracts Dementia Cellulitis of knee, right HLD (hyperlipidemia) HTN (hypertension) Surgical History H/O: hysterectomy S/P total knee replacement Social History Household Members: Unknown / Unable to assess Housing: House Patient Tobacco Use Status: Never used Tobacco service: No Review of Systems Const All systems reviewed & are unremarkable except as noted in HPI and below Physical Exam Vital Signs: Last Vital Signs Temp 96.9 F 02/04/25 08:18 Pulse 94 02/04/25 08:18 Resp 12 02/04/25 08:18 BP 157/70 H 02/04/25 08:18 Pulse Ox 97 02/04/25 08:18 O2 Del Method Nasal Cannula 02/04/25 08:18 O2 Flow Rate 2 02/04/25 08:18 BMI result Body Mass Index 27.5 Const General: cooperative, healthy appearing and no acute distress Resp Effort & Inspection: normal respiratory effort and able to speak in complete sentences Cardio Rate: regular rate Peripheral pulses: Peripheral pulses 2+ throughout GI Palpation (GI): Soft to palpation Skin Lesions: no lesions Rashes: no rashes Extrem Other: Right knee wound VAC intact. VAC was removed - there is approximately a.5cm x 1cm x 1.5cm wound with healthy borders and no drainage. There is a foul odor. Results Reviewed Results Reviewed: Name: Yue Gruber Age/Sex: 89/F : 1935 Unit#: [id number] Attend Dr: Pablo Estrada MD Re01/31/25 Status: DIS IN Location: [place] [id number] Disch: 02/04/25 Specimen: [id number] Collected: 01/29/25 Status: COMP Req#: [id number] Received: 01/29/25-1535 Source: Knee Rt Sp Desc: Subm Dr: Pablo Estrada MD Ordered: Anaerobic Cult, Routine Cult GS Procedure Result Verified Gram stain Final 01/30/25-1217 Gram stain results: 2+ polys 4+ red blood cells 4+ Gram-negative rods 2+ Gram-positive cocci 2+ Gram-positive rods Routine Culture Final 02/03/25-1135 Organism 1 Coag negative Staphylococcus Quantity 4+ Anaerobic Culture Final 02/03/25-1135 Report 2+ Anaerobic Gram Positive Cocci 2+ Anaerobic Gram negative dayami, not B. fragilis Group Assessment & Plan Assessment & Plan (1) Open wound of knee, complicated: Comment: She is seeing Orthopedics and wound is clean. Code(s): S81.009A - Unspecified open wound, unspecified knee, initial encounter Category: Medical Plan: Wound VAC was changed in the office today. The recommendation is to change the wound VAC twice a week. Discussion with the patient's family and rehab facility determined they are unable to provide weekly transportation at the least. [facility] did confirm they have a wound care doctor along with the nurse who is able to perform wound VAC changes. Instructions are to continue with the wound VAC and change this twice a week. Continue with IV antibiotics She has an appt 02/21/25 for a wound vac change and wound check . The facility was instructed to contact me sooner if needed. Coding Level of Care Code Global (10386) Diagnoses Open wound of knee, complicated S81.009A
--- OUTSIDE RECORDS SUMMARY | 2025-02-06 15:07 | XMS_ITS | Patient Health Record ---
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
--- OUTSIDE RECORDS SUMMARY | 2025-02-06 15:08 | XMS_ITS | Clinical Summary ---
Author Organization [facility] Address [address] [place] [address] Phone Care Team Providers Care Sales/Marketing Name Role Phone Physician, Pcp Unknown Primary Care Provider [place] vailable Allergies Active Allergy Reactions Criticality Noted Date Comments Amoxicillin 12/26/2024 Sulfa (Sulfonamide Antibiotics) 12/07 Encounters Date Type Department Care Team Description 01/08/2025 1:23 PM EDT - 01/08/2025 6:13 PM EDT Emergency [facility] Emergency [address] [place] [id number] Elevated liver function tests (Primary Dx) Discharge Disposition: Home or Self Care 12/26/2024 2:05 PM EDT - 12/26/2024 9:48 PM EDT Emergency [facility] Emergency [address] [place] [phone] Fatuma Alves DO Wound of left lower extremity, initial encounter (Primary Dx) Discharge Disposition: Home or Self Care from Last 3 Months Medical History Medical History Date Comments Age-related cognitive decline Essential hypertension Hyperlipidemia, unspecified Sepsis with acute hypercapni c respiratory failure and septic shock, due to unspecified organism (CMS/HCC V24, CMS/HCC V28) Unspecified open wound, right foot, subsequent e ncounter Cellulitis of right lower limb History of falling Muscle wasting and atrophy, 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, right lower leg Type 2 diabetes mellitus with hyperglycemia (CMS /HCC V24, CMS/HCC V28) Social History Tobacco Use Types Packs/Day Years Used Date Smoking Tobacco: Never Assessed Comments Unknown Sex and Gender Information Value Date Recorded Sex Assigned at Not on file Legal Sex Female 7:29 PM EST Gender Identity Not on file Sexual Orientation Not on file Obstetrics History Last Filed Vital Signs Vital Sign Reading Time Taken Comments Blood Pressure 119/62 01/08/2025 5:55 PM EDT Pulse 99 01/08/2025 5:55 PM EDT Temperature 36.5 C (97.7 F) 01/08/2025 5:55 PM EDT Respiratory Rate 18 01/08/2025 5:55 PM EDT Oxygen Saturation 97% 01/08/2025 5:55 PM EDT Inhaled Oxygen Concentration - - Weight - - Height - - Body Mass Index - - Plan of Treatment Health Maintenance Due Date Last Done Comments DTaP,Tdap,and Td Vaccines (1 - Tdap) 1954 Zoster Vaccines (1 of 2) 1987 RSV Immunization Adult Patients (1 - 1-dose 75+ series) 2012 COVID-19 Vaccine ( season) 2024 03/09/2022, 07/14/2021, 10/11/2020, Additional history exists Cholesterol Screening (Lipid Panel) 12/27/2024 Depression Screening 12/27/2024 Falls Risk Assessment 12/27/2024 Medicare Annual Wellness Visit 12/27/2024 Osteoporosis Screening (Bone Density Screening) 12/27/2024 Social Influencers of Health Screening 12/27/2024 Influenza Vaccine (Season Ended) 2025 06/07/2023, 06/27/2022, 06/10/2022, Additional history exists Hypertension/CHF/CAD Annual BMP Blood Test 01/08/2026 01/08/2025, 12/26/2024 Pneumococcal Vaccine: 50+ Years Completed 03/16/2016, 03/16/2016, 06/07/2013 HIB Vaccines Aged Out No longer eligi ble based on patient's age to complete this topic HPV Vaccines Aged Out No longer eligi ble based on patient's age to complete this topic Hepatitis A Vaccines Aged Out No long er eligible based on patient's age to complete this topic Hepatitis B Vaccines Aged Out No long er eligible based on patient's age to complete this topic IPV Vaccines Aged Out No longer eligi ble based on patient's age to complete this topic MMR Vaccines Aged Out No longer eligi ble based on patient's age to complete this topic Meningococcal ACWY Vaccine Aged Out N o longer eligible based on patient's age to complete this topic Meningococcal B Vaccine Aged Out No l onger eligible based on patient's age to complete this topic RSV Immunization Patients Under 20 months Aged Out No longer eligible based on patient's age to complete this topic Varicella Vaccines Aged Out No longer eligible based on patient's age to complete this topic Procedures Procedure Name Priority Date/Time Associated Diagnosis Comments CT ABDOMEN PELVIS W CONTRAST STAT 01/08/2025 4:59 PM EDT HEPATITIS PANEL, ACUTE WITH REFLEX TO CONFIRMATION Add-On 01/08/2025 2:09 PM EDT CBC WITH AUTO DIFFERENTIAL STAT 01/08/2025 2:09 PM EDT HEPATIC FUNCTION PANEL STAT 01/08/2025 2:09 PM EDT BASIC METABOLIC PANEL STAT 01/08/2025 2:09 PM EDT CBC AND DIFFERENTIAL STAT 01/08/2025 2:09 PM EDT LACTATE, WITH REFLEX STAT 01/08/2025 2:09 PM EDT CULTURE BLOOD STAT 01/08/2025 2:09 PM EDT CULTURE BLOOD STAT 01/08/2025 2:[address] LOWER EXTREMITY W CONTRAST RIGHT STAT 12/26/2024 5:22 PM EDT POCT GLUCOSE BLOOD Routine 12/26/2024 5: 01 PM EDT CULTURE BLOOD STAT 12/26/2024 4:08 PM EDT LACTATE STAT 12/26/2024 3:49 PM EDT BASIC METABOLIC PANEL STAT 12/26/2024 3:49 PM EDT CULTURE BLOOD STAT 12/26/2024 3:49 PM EDT CBC WITH AUTO DIFFERENTIAL STAT 12/26/2024 2:32 PM EDT CBC AND DIFFERENTIAL STAT 12/26/2024 2:32 PM EDT from Last 3 Months Results * CT Abdomen Pelvis w Contrast (01/08/2025 4:59 PM EDT) Anatomical Region Laterality Modality Body Computed Tomogra phy 01/08/2025 5:14 PM EDT Impressions 01/08/2025 5:14 PM EDT Impression: 1. No acute abnormality or CT explanation for reported history of elevated liver function tests. This document has been electronically signed by: Guy Rose MD on 01/08/2025 17:14:54 Narrative 01/08/2025 5:14 PM EDT INDICATION: elevated LFTs, new Exam: Contrast-enhanced CT abdomen and pelvis with multiplanar reformats. Comparison: None. Findings: CT abdomen: Lung bases reveal minimal bilateral scarring or atelectasis. Small hiatal hernia. Liver is free of focal lesions and ductal dilatation. Gallbladder is unremarkable. Spleen is unremarkable. Pancreas and adrenal glands appear unremarkable. Kidneys reveal multiple small bilateral subcentimeter hypodensities, too small to characterize although likely tiny cysts. Kidneys otherwise unremarkable. No free intraperitoneal fluid or retroperitoneal masses or adenopathy. Abdominal aorta is normal caliber with [id number] calcific athero sclerosis. Bowel loops reveal no abnormal wall thickening or distention. Colonic diverticulosis is present, without CT evidence of diverticulitis. The appendix is not identified, however there is no secondary CT evidence of appendicitis. CT pelvis: Uterus is surgically absent. Urinary bladder is free of gross filling defects. No pelvic masses, fluid or adenopathy. Osseous structures reveal no destructive osseous lesions. Procedure Note Guy Rose MD - 01/08/2025 INDICATION: elevated LFTs, new Exam: Contrast-enhanced CT abdomen and pelvis with multiplanarreformats. Comparison: None. Findings: CT abdomen: Lung bases reveal minimal bilateral scarring or atelectasis. Small hiatal hernia. Liver is free of focal lesions and ductaldilatation. Gallbladder is unremarkable. Spleen is unremarkable. Pancreas and adrenal glands appear unremarkable. Kidneys reveal multiple small bilateral subcentimeter hypodensities, too small to characterize although likely tiny cysts. Kidneys otherwise unremarkable. No free intraperitoneal fluid or retroperitoneal masses or adenopathy. Abdominal aorta is normal caliber with [id number] calcific athero sclerosis. Bowel loops reveal no abnormal wall thickening or distention. Colonic diverticulosis is present, without CT evidence of diverticulitis. The appendix is not identified, however there is no secondary CT evidence of appendicitis. CT pelvis: Uterus is surgically absent. Urinary bladder is free of gross filling defects. No pelvic masses, fluid or adenopathy. Osseous structures reveal no destructive osseous lesions. IMPRESSION: Impression: 1. No acute abnormality or CT explanation for reported history ofelevated liver function tests. This document has been electronically signed by: Guy Rose MD on 01/08/2025 17:14:[address] PROCEDURES Final Resul t * Lactate, with reflex (01/08/2025 2:09 PM EDT) Pathologist [facility] LACTIC ACID 1.8 0.4 - 2.0 mmol/L LAB CHEMISTRY METHOD 01/08/2025 3:13 PM EDT [facility] Blood Venous blood specimen / Unknown Venipuncture / Unknown 01/08/2025 2:09 PM EDT 01/08/2025 2:34 PM EDT Bipin Kelly DO LAB BLOOD ORDERABLES Final Result [facility] [address] [place] [address], [place] [phone] * Hepatitis panel, acute with reflex to confirmation (01/08/2025 2:09 PM EDT) Pathologist [facility] Hepatitis B Surface Ag Negative Negative LAB CHEMISTRY METHOD 01/08/2025 8:08 PM EDT [facility] Hepatitis A Antibody IgM Negative Negative LAB CHEMISTRY METHOD 01/08/2025 8:08 PM EDT [facility] Hep B Core IgM Negative Negative LAB CHEMISTRY METHOD 01/08/2025 8:08 PM EDT [facility] Hepatitis C Antibody Negative Negative LAB CHEMISTRY METHOD 01/08/2025 8:08 PM EDT [facility] Blood Venous blood specimen / Unknown Venipuncture / Unknown 01/08/2025 2:09 PM EDT 01/08/2025 2:34 PM EDT us Jacquie VILLAFUERTE LAB BLOOD ORDERABLES Final Re sult [facility] [address] [place] [address], * (ABNORMAL) CBC auto differential (01/08/2025 2:09 PM EDT) Only the most recent of2 resultswithin the time period is included. WBC 14.1(H) 4.8 - 10.8 K/mcL LAB HEMETOLOGY METHOD 01/08/2025 2:41 PM EDT [facility] RBC 4.70 3.80 - 4.80 M/mcL LAB HEMETOLOGY METHOD 01/08/2025 2:41 PM EDT [facility] Hemoglobin 13.8 11.5 - 16.0 g/dL LAB HEMETOLOGY METHOD 01/08/2025 2:41 PM EDT [facility] Hematocrit 43.4 35.0 - 47.0 % LAB HEMETOLOGY METHOD 01/08/2025 2:41 PM EDT [facility] MCV 92.9 79.0 - 98.0 FL LAB HEMETOLOGY METHOD 01/08/2025 2:41 PM EDT [facility] MCH 29.6 27.0 - 32.0 pcg LAB HEMETOLOGY METHOD 01/08/2025 2:41 PM EDT [facility] MCHC 31.8(L) 32.0 - 37.0 g/dL LAB HEMETOLOGY METHOD 01/08/2025 2:41 PM [facility] RDW 13.6 11.0 - 15.0 % LAB HEMETOLOGY METHOD 01/08/2025 2:41 PM [facility] Platelets 282 130 - 400 K/mcL LAB HEMETOLOGY METHOD 01/08/2025 2:41 PM [facility] MPV 10.0 7.0 - 11.0 FL LAB HEMETOLOGY METHOD 01/08/2025 2:41 PM [facility] NRBC 0.0 <1.0 % LAB HEMETOLOGY METHOD 01/08/2025 2:41 PM [facility] NRBC Absolute 0.00 <0.10 K/mcL LAB HEMETOLOGY METHOD 01/08/2025 2:41 PM [facility] Neutrophils Relative 82.1 % LAB HEMETOLOGY METHOD 01/08/2025 2:41 PM [facility] Lymphocytes Relative 8.3 % LAB HEMETOLOGY METHOD 01/08/2025 2:41 PM [facility] Monocytes Relative 7.4 % LAB HEMETOLOGY METHOD 01/08/2025 2:41 PM [facility] Eosinophils Relative 0.5 % LAB HEMETOLOGY METHOD 01/08/2025 2:41 PM [facility] Basophils Relative 0.6 % LAB HEMETOLOGY METHOD 01/08/2025 2:41 PM [facility] Immature Granulocytes Relative 1.1 % LAB HEMETOLOGY METHOD 01/08/2025 2:41 PM [facility] Neutrophils Absolute 11.60(H) 1.50 - 7.00 K/mcL LAB HEMETOLOGY METHOD 01/08/2025 2:41 PM [facility] Lymphocytes Absolute 1.17 1.00 - 5.00 K/mcL LAB HEMETOLOGY METHOD 01/08/2025 2:41 PM EDT [facility] Monocytes Absolute 1.05(H) 0.20 - 1.00 K/[facility] LAB HEMETOLOGY METHOD 01/08/2025 2:41 PM EDT [facility] Eosinophils Absolute 0.07 0.00 - 0.50 K/[facility] LAB HEMETOLOGY METHOD 01/08/2025 2:41 PM EDT [facility] Basophils Absolute 0.09 0.00 - 0.20 K/[facility] LAB HEMETOLOGY METHOD 01/08/2025 2:41 PM EDT [facility] Immature Granulocytes Absolute 0.16(H) 0.00 - 0.03 K/[facility] LAB HEMETOLOGY METHOD 01/08/2025 2:41 PM EDT [facility] Blood Venous blood specimen / Unknown Venipuncture / Unknown 01/08/2025 2:09 PM EDT 01/08/2025 2:34 PM EDT us Bipin GEORGE BLOOD ORDERABLES Final Result Performing Organization Address City/[facility]/ZIP Co de Phone Number [facility] [address] [place] [address], [place] [phone] * Culture blood (01/08/2025 2:09 PM EDT) Only the most recent of4 resultswithin the time period is included. Culture, Blood No growth at 5 days 01/13/2025 3:01 PM EDT [facility] Blood Venous blood specimen / Unknown Venipuncture / Unknown 01/08/2025 2:09 PM EDT 01/08/2025 2:33 PM EDT us Bipni Kelly DO LAB MICROBIOLOGY - GENERAL ORDERABLES Final Result [facility] [address] [place] [address], [place] [phone] * (ABNORMAL) Hepatic function panel (01/08/2025 2:09 PM EDT) Total Protein 6.2 6.0 - 8.0 g/dL LAB CHEMISTRY METHOD 01/08/2025 3:35 PM EDT [facility] Albumin 2.7(L) 3.2 - 5.0 g/dL LAB CHEMISTRY METHOD 01/08/2025 3:35 PM EDT [facility] Total Bilirubin 1.2 0.0 - 1.4 mg/dL LAB CHEMISTRY METHOD 01/08/2025 3:35 PM EDT [facility] Bilirubin, Direct 0.8(H) 0.0 - 0.3 mg/dL LAB CHEMISTRY METHOD 01/08/2025 3:35 PM EDT [facility] Bilirubin, Indirect 0.4 0.0 - 1.1 mg/dL LAB CHEMISTRY METHOD 01/08/2025 3:35 PM EDT [facility] ALT (SGPT) 368(H) 10 - 60 unit/L LAB CHEMISTRY METHOD 01/08/2025 3:35 PM EDT [facility] AST (SGOT) 240(H) 10 - 42 unit/L LAB CHEMISTRY METHOD 01/08/2025 3:35 PM EDT [facility] Alkaline Phosphatase 1,346(H) 42 - 121 unit/L LAB CHEMISTRY METHOD 01/08/2025 3:35 PM EDT [facility] Blood Venous blood specimen / Unknown Venipuncture / Unknown 01/08/2025 2:09 PM EDT 01/08/2025 2:34 PM EDT Bipin Kelly DO LAB BLOOD ORDERABLES Final Result [facility] [address] [place] [address], [place] [phone] * (ABNORMAL) Basic metabolic panel (01/08/2025 2:09 PM EDT) Only the most recent of2 resultswithin the time period is included. Sodium 141 133 - 145 mmol/L LAB CHEMISTRY METHOD 01/08/2025 3:09 PM [facility] Potassium 4.3 3.5 - 5.5 mmol/L LAB CHEMISTRY METHOD 01/08/2025 3:09 PM [facility] Chloride 108 96 - 110 mmol/L LAB CHEMISTRY METHOD 01/08/2025 3:09 PM [facility] CO2 27 21 - 32 mmol/L LAB CHEMISTRY METHOD 01/08/2025 3:09 PM [facility] Anion Gap 6 3 - 11 LAB CHEMISTRY METHOD 01/08/2025 3:09 PM [facility] Glucose 125(H) 70 - 100 mg/dL LAB CHEMISTRY METHOD 01/08/2025 3:09 PM [facility] BUN 44(H) 5 - 25 mg/dL LAB CHEMISTRY METHOD 01/08/2025 3:09 PM [facility] Creatinine 1.38(H) 0.50 - 1.10 mg/dL LAB CHEMISTRY METHOD 01/08/2025 3:09 PM [facility] eGFR 37(L) >=60 mL/min/1. 73m2 LAB CHEMISTRY METHOD 01/08/2025 3:09 PM [facility] Comment:Calculation based on the Chronic Kidney Disease Epidemiology Collaboration (CKD-EPI) equation refit without adjustment for race. BUN/Creatinine Ratio 31.9 LAB CHEMISTRY METHOD 01/08/2025 3:09 PM [facility] Calcium 9.6 8.5 - 10.5 mg/dL LAB CHEMISTRY METHOD 01/08/2025 3:09 PM [facility] Blood Venous blood specimen / Unknown Venipuncture / Unknown 01/08/2025 2:09 PM EDT 01/08/2025 2:34 PM EDT Bipin Kelly DO LAB BLOOD ORDERABLES Final Result [facility] [address] [place] [address], * CT Lower Extremity w Contrast Right (12/26/2024 5:22 PM EDT) Anatomical Region Laterality Modality Lower Extremities Right Computed Tomog pretty 12/26/2024 5:42 PM EDT Impressions 12/26/2024 5:42 PM EDT Impression: 1. Cutaneous defect overlying the upper bazzi compatible with reported history of wound in this location. No definable underlying collection or abscess is delineated. 2. Subacute appearing nondisplaced periprosthetic fracture of the proximal tibia. This document has been electronically signed by: Guy Rose MD on 12/26/2024 17:42:23 Narrative 12/26/2024 5:42 PM EDT INDICATION: knee replacement, wound drainage, assess infected knee Exam: Contrast-enhanced CT of the right knee with multiplanar reformats and 3D reconstructions. Comparison: None. Findings: Osseous structures: Knee arthroplasty hardware is in place, in good appearing alignment. There is a nondisplaced periprosthetic fracture involving medial and lateral tibial plateau subjacent to the tibial plate, as well as at the level of the proximal tibial meta diaphysis. There is slight callus formation, compatible with subacute fracture. No other evidence of acute fracture or dislocation. No other evidence of hardware failure. No CT evidence of osteomyelitis. Soft tissues: There is a cutaneous defect involving proximal bazzi at the level of the proximal tibia (200; 46 and 2; 34 as well as 5; 87). Evaluation of the soft tissues in this region is limited by streak artifact from patient's hardware, although no definable circumscribed collection is appreciated in this region. A tiny joint effusion is present. Visualized muscular structures appear unremarkable with no evidence of focal collections. Procedure Note Guy Rose MD - 12/26/2024 INDICATION: knee replacement, wound drainage, assess infected knee Exam: Contrast-enhanced CT of the right knee with multiplanar reformats and 3D reconstructions. Comparison: None. Findings: Osseous structures: Knee arthroplasty hardware is in place, in good appearing alignment. There is a nondisplaced periprosthetic fracture involving medial and lateral tibial plateau subjacent to the tibialplate, as well as at the level of the proximal tibial meta diaphysis. There is slight callus formation, compatible with subacute fracture. No other evidence of acute fracture or dislocation. No other evidence of hardware failure. No CT evidence of osteomyelitis. Soft tissues: There is a cutaneous defect involving proximal bazzi at the level of the proximal tibia (200; 46 and 2; 34 as well as 5; 87). Evaluation of the soft tissues in this region is limited by streak artifact from patient's hardware, although no definable circumscribed collection is appreciated in this region. A tiny joint effusion is present. Visualized muscular structures appear unremarkable with no evidence of focal collections. IMPRESSION: Impression: 1. Cutaneous defect overlying the upper bazzi compatible with reported history of wound in this location. No definable underlying collection or abscess is delineated. 2. Subacute appearing nondisplaced periprosthetic fracture of theproximal tibia. This document has been electronically signed by: Guy Rose MD on 12/26/2024 17:42:23 us Fatuma Alves DO IMG CT PROCEDURES Final R esult * (ABNORMAL) POCT Glucose, blood (12/26/2024 5:01 PM EDT) Glucose POCT 137(H) 70 - 100 mg/dL 12/26/2024 5:02 PM EDT [facility] Blood Capillary blood specimen / Unknown 12/26/2024 5:01 PM EDT 12/26/2024 5:03 PM EDT us [employer] Alves DO LAB POINT OF CARE TEST DOCKED DEVICE UNSOLICITED RESULTS Final Result [facility] [address] [place] [address], [place] [phone] * Lactate (12/26/2024 3:49 PM EDT) Lactate 1.9 0.4 - 2.0 mmol/L LAB CHEMISTRY METHOD 12/26/2024 5:01 PM EDT [facility] Blood Venous blood specimen / Unknown Venipuncture / Unknown 12/26/2024 3:49 PM EDT 12/26/2024 3:57 PM EDT us Reggie Jacob Alves DO LAB BLOOD ORDERABLES Maria Elena l Result [facility] ([facility]) [facility] [address] [place] [address], [place] [phone] from Last 3 Months Insurance MEDICARE Care Teams Sales/Marketing Relationship Specialty Start Date End Date Physician, Pcp Unknown PCP - General 12/26/24
== END 2025-02-06 15:14 | disposition home or self-care (01) ==
LOC: HO.HOS 14:41
PROVIDERS: Visit Provider Physician Assistant
DX: S81.009A Unspecified open wound, unspecified knee, initial encounter (principal)
CPT/HCPCS: 99024

== ENCOUNTER → 2025-02-06 14:41 | Outpatient (BNVA) | payer MEDICARE, SELFPAY | PROVIDERS: Visit Provider Physician Assistant | DX: Z48.01 Encounter for change or removal of surgical wound dressing (principal); S81.001D Unspecified open wound, right knee, subsequent encounter; Z79.2 Long term (current) use of antibiotics; Z98.890 Other specified postprocedural states | CPT/HCPCS: 99212 ==

== ENCOUNTER 2025-02-11 14:34 | Inpatient (IN) | payer MEDICARE, SELFPAY ==
[2025-02-11] VITALS (11 sets, daily range): BP systolic 141–183; BP diastolic 41–82; PULSE 85–112; RESP 18–24; TEMP 36.3–38.4; O2SAT 93–99; BMI 25.1
--- NOTE | ~2025-02-11 | XR_ITS ---
EXAMINATION: XR CHEST CLINICAL INFORMATION: weakness COMPARISON: None available. TECHNIQUE: Frontal view of the chest was obtained. FINDINGS: Left-sided PICC terminates in the region of the superior vena cava. It crosses midline below the aortic arch Opacity in left lung bases similar to the prior. Lungs are clear otherwise. Moderate osteophytes are present involving the right humeral head. XR/XR chest 1V IMPRESSION: Persistent left basilar opacity could represent pleural effusion with atelectasis and/or pneumonia. Left-sided PICC terminates in the superior vena cava. It crosses midline below the aortic arch raising suspicion of a variant vascular anatomy Electronically signed by: Mason Chávez MD 02/11/2025 04:02 PM EDT
--- NOTE | ~2025-02-11 | US_ITS ---
EXAMINATION: US TRIPLEX UPPER EXTREMITY, RIGHT CLINICAL INFORMATION: Edema/swelling right upper extremity. COMPARISON: None available. TECHNIQUE: Color-flow triplex imaging with spectral analysis and compression Doppler was performed on the right upper extremity. FINDINGS: The right internal jugular, subclavian, and axillary demonstrated normal phasic flow spectral Doppler waveforms and compressibility. The right brachiocephalic vein demonstrates normal spectral doppler waveforms . The brachial, basilic, cephalic, radial, and ulnar veins are compressible with normal spectral Doppler waveforms.. US/US venous duplex UE RT IMPRESSION: No acute deep venous thrombosis interrogated veins, right upper extremity. Negative for DVT. Electronically signed by: Pako Amado MD 02/15/2025 11:58 AM EDT
--- NOTE | 2025-02-11 15:05 | ECG_ITS ---
Test Reason : weakness Blood Pressure : */* mmHG Vent. Rate : 102 BPM Atrial Rate : 102 BPM P-R Int : 156 ms QRS Dur : 118 ms QT Int : 374 ms P-R-T Axes : 43 40 19 degrees QTcB Int : 487 ms Sinus tachycardia Incomplete right bundle branch block Borderline ECG When compared with ECG of 03-Feb-2025 04:03, No significant change was found Referred By: Jostin Mathis Electronically Signed By: Darryl Beckman
--- NOTE | 2025-02-11 15:12 | PC.NURSE ---
89 F presented to ED with weakness, altered mental status, coming from her snf. Pt started as a sepsis work-up. Pt unable to answer questions or follow commands, was showing signs of pain but unable to verbalize where her pain was. Wound vac noted to R knee, site appeared intact and draining properly. RR even and unlabored. Pt was febrile and tachycardic upon arrival.
--- NOTE | 2025-02-11 15:31 | ED.GENADULT ---
HPI - General Adult General Chief complaint: Weakness Stated complaint: SEPSIS, SYNCOPE, PT IS DNR/DNI Time Seen by Provider: 02/11/25 15:04 Source: EMS and old records reviewed Mode of arrival: EMS Limitations: no limitations History of Present Illness ED Provider: DR. Mathis HPI narrative: 89-year-old female with PMH significant for HTN, HLD, right TKR came in from SNF for evaluation of increased confusion, and change mental status. Patient is a poor historian can not a obtain history from the patient, patient found to be febrile, tachycardic and meet criteria for sepsis. Patient had recent admission for right knee surgical wound infection the specimen was discharged to SNF on oral cefuroxime. Related Data Home Medications ?Medication ?Instructions ?Recorded ?Confirmed cetirizine 10 mg capsule (Zyrtec) 10 mg PO DAILY PRN Allergy Symptoms 01/23/25 02/11/25 omeprazole 40 mg capsule,delayed 40 mg PO DAILY@0630 01/23/25 02/11/25 release acetaminophen 325 mg tablet 650 mg PO Q6H PRN Pain 01/31/25 02/11/25 bisacodyl 10 mg rectal suppository 10 mg [place] DAILY PRN CONSTIPATION 01/31/25 02/11/25 magnesium hydroxide 400 mg/5 mL 5 ml PO DAILY PRN Constipation 01/31/25 02/11/25 oral suspension (Milk of Magnesia) mirtazapine 7.5 mg tablet 7.5 mg PO BEDTIME 01/31/25 02/11/25 ondansetron HCl 4 mg tablet 4 mg PO Q6H PRN Nausea And Vomiting 01/31/25 02/11/25 tramadol 50 mg tablet 50 mg PO Q6H PRN Pain 01/31/25 02/11/25 Previous Rx's ?Medication ?Instructions ?Recorded aspirin 81 mg chewable tablet 81 mg PO DAILY 42 days #42 tabs 02/04/25 daptomycin 500 mg intravenous 420 mg IV Q24H 42 days #1 ea 02/04/25 solution metoprolol tartrate 25 mg tablet 12.5 mg (1/2 x 25 mg) PO BID 30 02/04/25 days #30 tabs Allergies Allergy/AdvReac Type Severity Reaction Status Date / Time amoxicillin (Amoxicillin) Allergy Mild RASH Verified 02/11/25 14:56 Sulfa (Sulfonamide Allergy Mild RASH Verified 02/11/25 14:56 Antibiotics) (Sulfa (Sulfonamides)) Review of Systems Review of Systems: All other systems are reviewed and are negative Constitutional: Reports as per HPI and Reports no additional constitutional complaints Eyes: Reports as per HPI and Reports no additional eye complaints Reports system reviewed and no additional complaints, except as documented Cardiovascular: Reports as per HPI and Reports no additional cardiovascular complaints Respiratory: Reports as per HPI and Reports no additional respiratory complaints Gastrointestinal: Reports as per HPI and Reports no additional gastrointestinal complaints Genitourinary: Reports no additional female genitourinary complaints Musculoskeletal: Reports no additional musculoskeletal complaints Skin/Breast: Reports system reviewed and no additional complaints, except as docu Psychiatric: Reports no additional psychiatric complaints Endocrine: Reports no additional endocrine complaints Hematologic/Lymphatic: Reports no additional hematologic/lymphatic complaints Allergic/Immunologic: Reports no additional allergic/immunologic complaints Reports system reviewed and no additional complaints, except as documented and Reports Abnormal speech present PMFSH Past Medical History Medical History Leukocytosis Leukocytosis Diabetes FTT (failure to thrive) in adult Osteoarthritis (arthritis due to wear and tear of joints) Bilateral cataracts Dementia Cellulitis of knee, right HLD (hyperlipidemia) HTN (hypertension) Surgical History H/O: hysterectomy S/P total knee replacement Social History Social History Household Members: Unknown / Unable to assess Housing: House Unable to assess alcohol history related to: Unable to respond Patient Tobacco Use Status: Never used Tobacco Smoked in Last 30 Days: No Use of substances other than those prescribed or required for medical reasons: Unable to respond Advance Directives: No Advance Directives Information Provided: No Do you have a plan to hurt others: No Plan service: No Physical Exam ED Vital Signs: Vital Signs - 24 hr 02/11/25 14:54 02/11/25 14:59 02/11/25 16:14 Temperature 101.2 F H 101.2 F H Pulse Rate 101 H 101 H 93 Respiratory Rate 18 18 24 H Blood Pressure 183/74 H 183/74 H 152/62 H Pulse Oximetry 96 96 99 Oxygen Delivery Method Room Air Room Air Room Air 02/11/25 16:17 02/11/25 16:35 02/11/25 16:42 Temperature 100.2 F 99.5 F Pulse Rate 90 Respiratory Rate Blood Pressure 159/57 H Pulse Oximetry 95 Oxygen Delivery Method Room Air 02/11/25 16:43 02/11/25 17:06 02/11/25 17:15 Temperature 99.5 F 99.1 F Pulse Rate 89 89 93 Respiratory Rate 21 H 20 18 Blood Pressure 146/41 H 141/60 H 152/62 H Pulse Oximetry 95 96 98 Oxygen Delivery Method Room Air Room Air Room Air 02/11/25 18:31 Temperature Pulse Rate 87 Respiratory Rate 22 H Blood Pressure 143/51 H Pulse Oximetry 93 Oxygen Delivery Method Room Air BMI result Body Mass Index 25.1 Vital signs have been reviewed and appear to be correct. Blood pressure elevated. Heart rate normal. Respiratory rate normal. Temperature normal. Oxygen saturation normal. Appearance: Alert. Disoriented x4. No acute distress. Head: Normal external exam. Normocephalic. Atraumatic. No [place] signs noted. No raccoon eyes noted Eyes: PERRLA. EOMI. Conjunctiva and sclera normal. Eyelids normal. ENT: TM's Normal. Pharynx normal. Uvula midline. Moist mucous membranes. No trismus noted. No drooling noted. No muffled voice noted. Neck: Normal inspection. Neck supple. FROM. No adenopathy. Thyroid Normal. No meningeal signs. No neck mass noted. CVS: Normal heart rate and rhythm. Heart sound normal. No murmurs noted. Pulses normal throughout. Respiratory: No respiratory distress. Painless inspiration. Breath sounds normal. No wheezes/rales/rhonchi noted. Chest nontender. No accessory muscle usage noted or decreased air movement noted. Abdomen: Soft and nontender. Bowel sounds normal in all 4 quadrants. No distention noted. No organomegaly noted. No visible injury noted. Back: No CVA tenderness. Full range of motion noted. Skin: Skin warm and dry. Normal skin color. Normal skin turgor. No rashes/lesions/lacerations noted. Extremities: No lower extremity edema. Extremities exhibit normal range of motion. Extremities nontender. Neuro: Cranial nerve exam: II-XII are grossly intact No motor deficit. No sensory deficit. Reflexes normal. Course Reevaluation(s) Reevaluation #1: Mental status change, meeting criteria for sepsis secondary to pneumonia and UTI. Patient received IV fluids and antibiotic ceftriaxone and doxycyclin. Time: 18:47 Medications Administered Discontinued Medications Generic Name Dose Route Start Last Admin Trade Name Freq PRN Reason Stop Dose Admin Ceftriaxone Sodium 1 gm 02/11/25 15:12 02/11/25 15:28 Ceftriaxone Sodium 1 Gm Vial IVPUSH 02/11/25 15:13 1 gm ONCE ONE Administration Sodium Chloride 1,000 mls @ 999 mls/hr 02/11/25 15:12 02/11/25 16:39 Ns IV 02/11/25 16:12 Infused .Q1H1M ONE Infusion Acetaminophen 1,000 mg in 100 mls @ 400 mls/hr 02/11/25 15:30 02/11/25 16:05 Ofirmev IV 02/11/25 15:44 Infused ONCE ONE Infusion Doxycycline Hyclate 100 mg/ 250 mls @ 166.67 mls/hr 02/11/25 17:13 02/11/25 19:18 Sodium Chloride IV 02/11/25 18:42 Infused ONCE ONE Infusion Medical Decision Making Differential Diagnosis Differential Diagnoses: The differential diagnosis associated with the presentation includes (UTI, pneumonia, dehydration, electrolyte derangement, severe anemia.) Admission/Observation Consideration of admission/observation: Escalation of care including admission/observation considered Consult Healthcare Provider Management of the patient was discussed with: Hospitalist (Chata Ricardo) Lab Data MDM Lab Attestation statement: I reviewed the patient's lab results. 02/11/25 15:25 02/11/25 15:25 Labs: Lab Results 02/11/25 02/11/25 02/11/25 Range/Units 15:21 15:25 17:02 WBC 20.2 H (4.8-10.8) X10*3/uL RBC 3.59 L (4.20-5.50) X10*6/uL Hgb 10.5 L (12.0-16.0) g/dl Hct 32.3 L (37.0-47.0) % MCV 90.0 (80.0-98.0) fL MCH 29.2 (27.0-33.0) pg MCHC 32.5 (31.0-35.0) g/dl RDW 15.4 (11.0-16.0) % Plt Count 588 H (160-400) X10*3/uL MPV 8.4 L (9.4-12.3) fL Immature Gran % (Auto) 0.6 H (0.0-0.4) % Neut % (Auto) 75.8 H (45-73) % Lymph % (Auto) 12.0 L (20-40) % [place] % (Auto) 11.2 H (2-11) % Eos % (Auto) 0.0 (0-4) % Baso % (Auto) 0.4 (0-2) % Lymph # (Auto) 2.4 (1.2-4.9) X10*3/uL [place] # (Auto) 2.3 H (0.1-1.2) X10*3/uL Eos # (Auto) 0.0 (0.0-0.4) X10*3/uL Baso # (Auto) 0.1 (0.0-0.2) X10*3/uL Abs Immat Gran (auto) 0.13 H (0.00-0.03) X10*3/uL Absolute Neuts (auto) 15.3 H (2.0-8.3) x10*3/uL Absolute Nucleated RBC 0.000 (0.0-0.012) X10*3/uL Nucleated RBC % (auto) 0.0 (0.0-0.2) /100WBC Smear Tech's Comments VERIFIED Sodium 138 (135-145) mmol/L Potassium 4.0 (3.3-5.1) mmol/L Chloride 104 (96-108) mmol/L Carbon Dioxide 25 (22-29) mmol/L Anion Gap 13 (12-20) BUN 16 (9-16) mg/dL Creatinine 0.80 (0.5-1.4) mg/dL Estim Creat Clear Calc 44.6 Estimated GFR > 60 Random Glucose 152 H (60-115) mg/dL Lactic Acid 1.5 (0.5-2.0) mmol/L Calcium 8.7 (8.4-10.2) mg/dL Total Bilirubin 0.9 (0.0-1.0) mg/dL AST 36 H (5-31) U/L ALT 9 (0-31) U/L Alkaline Phosphatase 206 H (39-117) U/L Total Protein 6.1 L (6.5-8.0) g/dL Albumin 3.1 L (3.5-5.0) g/dL Urine Color Yellow Urine Appearance Turbid Urine pH 6.0 (5.0-9.0) Ur Specific [place] 1.015 (1.005-1.025) Urine Protein 300 (3+) H (Neg-Trace) mg/dL Urine Glucose (UA) Negative (Negative) mg/dL Urine Ketones 15 (Negative) mg/dL Urine Blood Moderate (2+) H (Negative) Urine Nitrite Negative (Negative) Ur Leukocyte Esterase Large (3+) H (Negative) Urine RBC 6-10 H (0-2) /HPF Urine WBC >50 H (0-5) /HPF Ur Squamous Epith Cells 0-2 (0-2) /HPF Urine Bacteria 4+ (None Seen) Hyaline Casts 0-2 (0-2) /LPF Influenza Type A (PCR) NEGATIVE (Negative) Influenza Type B (PCR) NEGATIVE (Negative) RSV RNA Qual (PCR) NEGATIVE (Negative) SARS-CoV-2 RNA (RT-PCR) NEGATIVE (Negative) Independent Interpretation I performed an independent interpretation of an: EKG (Sinus tachycardia at 01:02, incomplete RBBB, no significant change from prior EKG.) and Plain X-Ray (Chest:Persistent left basilar opacity could represent pleural effusion with atelectasis and/or pneumonia. ) Radiology Impression Discussion of test interpretation with radiology: I have reviewed the radiologist's reading. Discharge Plan Discharge Clinical Impression: Sepsis, Pneumonia, Acute UTI Patient Disposition: Admitted As Inpatient Print Language: Mexican
[2025-02-11 15:38] LABS: Hematocrit 32.3 % (37.0-47.0); Hemoglobin 10.5 g/dl (12.0-16.0); Imm Gran Abs Auto 0.13 X10*3/uL (0.00-0.03); Imm Gran Pct Auto 0.6 % (0.0-0.4); Lymphocytes Absolute Auto 2.4 X10*3/uL (1.2-4.9); MANUAL DIFF FLAG SCAN; Mean Corpuscular HGB Conc 32.5 g/dl (31.0-35.0); Mean Corpuscular Hemoglobin 29.2 pg (27.0-33.0); Mean Corpuscular Volume 90.0 fL (80.0-98.0); NRBC Abs Auto 0.000 X10*3/uL (0.0-0.012); NRBC Pct Auto 0.0 /100WBC (0.0-0.2); Platelet Count 588 X10*3/uL (160-400); Red Blood Count 3.59 X10*6/uL (4.20-5.50); SCAN SMEAR FLAG 1; White Blood Count 20.2 X10*3/uL (4.8-10.8)
[2025-02-11 15:50] LABS: Alanine Aminotransferase 9 U/L (0-31); Albumin Level 3.1 g/dL (3.5-5.0); Alkaline Phosphatase 206 U/L (39-117); Anion Gap 13 (12-20); Aspartate Amino Transferase 36 U/L (5-31); Blood Urea Nitrogen 16 mg/dL (9-16); Calcium 8.7 mg/dL (8.4-10.2); Carbon Dioxide 25 mmol/L (22-29); Chloride 104 mmol/L (96-108); Creatinine Clr Calc Pharmacy 44.6; Estimated Glomerular Filt Rate > 60; Potassium 4.0 mmol/L (3.3-5.1); Sodium 138 mmol/L (135-145); Total Protein 6.1 g/dL (6.5-8.0)
[2025-02-11 16:53] LABS: Resp Syncy Virus RNA Qual PCR NEGATIVE (Negative); SARS COV2 PCR INHOUSE NEGATIVE (Negative)
[2025-02-11 17:10] LABS: Appearance Urine Turbid; Glucose Urine UA Negative (Negative); PH 6.0 (5.0-9.0); Specific Gravity - Urine 1.015 (1.005-1.025); UMIC TRIGGER UACC YES
[2025-02-11 17:56] LABS: UACC Culture Trigger YES
--- NOTE | 2025-02-11 19:50 | PHA.MEDREC ---
Addendum entered by Abbie Sol RPh 02/11/25 20:26: reviewed by [facility]. Original Note: Pharmacy Consult ? Medication Reconciliation Pharmacy has completed the medication reconciliation. utilized list from [facility] to confirm med list.
--- NOTE | 2025-02-11 21:30 | PM.IMHP ---
History of Present Illness Date of Service: 02/11/25 Attending physician on admission: Pasquale Romano Chief Complaint: AMS, lethargy Patient is an 89-year-old female with past medical history of dementia, hypertension, hyperlipidemia, allergic rhinitis, right knee infection currently on daptomycin until 03/18/2025, GERD, history of total bilateral knee replacements [facility] with progressive weakness for the past 2 days with evidence of tachycardia. Patient has a baseline dementia but was more confused per patient's niece who is also her healthcare proxy. Patient was not able to provide any history or answer any questions regarding review of systems below. Per patient's daughter her blood pressure was also elevated 175/83. Patient has been seeing at [facility] for rehab but has recently converted to long-term care. Workup in the ED included urinalysis which indicated UTI. Patient was started on ceftriaxone.. Patient has leukocytosis of 20,000. Lactic acid 1.5. Patient is currently on daptomycin chronically until 03/18/2025 for right knee infection and is followed by orthopedics. Patient currently has PICC line in place. The insertion site does not appear to be infected. Pt has wound VAC in place that was changed earlier in the day on 02/11/2025. The wound VAC is functioning properly. Wound care consultation will be placed. Blood cultures and urine cultures are currently pending. Review of Systems Review of Systems: Was able to state no to chest pain and shortness of breath. Yes Unobtainable due to mental status (Dementia) [facility] Medical History Leukocytosis Leukocytosis Diabetes FTT (failure to thrive) in adult Osteoarthritis (arthritis due to wear and tear of joints) Bilateral cataracts Dementia Cellulitis of knee, right HLD (hyperlipidemia) HTN (hypertension) Cognitive capacity: Alert to self and niece only Functional capacity: wheelchair bound Patient : No Surgical History H/O: hysterectomy S/P total knee replacement Social History Household Members: Unknown / Unable to assess Housing: House Unable to assess alcohol history related to: Unable to respond Patient Tobacco Use Status: Never used Tobacco Smoked in Last 30 Days: No Use of substances other than those prescribed or required for medical reasons: Unable to respond Advance Directives: No Advance Directives Information Provided: No Do you have a plan to hurt others: No Plan Patient : No service: No Ebola Risk: Travel/Contact With Anyone From Affected Area/s: No Has Patient Experienced Ebola Symptoms: No Meds Allergies Allergy/AdvReac Type Severity Reaction Status Date / Time amoxicillin (Amoxicillin) Allergy Mild RASH Verified 02/11/25 14:56 Sulfa (Sulfonamide Allergy Mild RASH Verified 02/11/25 14:56 Antibiotics) (Sulfa (Sulfonamides)) Active Medications: Current Medications Acetaminophen (Acetaminophen 325 Mg Tablet) 650 mg PO Q6H PRN PRN Reason: Pain, Mild 1-3,fever,headache Albuterol/Ipratropium (Albuterol/Iprat 2.5/0.5mg 3 Ml Ampul.Neb) 3 ml INHALE Q4H PRN PRN Reason: Shortness of Breath/Wheezing Calcium Carbonate (Calcium Carbonate 750 Mg Tab.Chew) 750 mg PO Q4H PRN PRN Reason: Heartburn Enoxaparin Sodium (Enoxaparin Sodium 40 Mg/0.4 Ml Syringe) 40 mg SUBCUT Q24H PATRICIA Magnesium Hydroxide (Milk Of Magnesia 30 Ml Oral.Susp) 30 ml PO DAILY PRN PRN Reason: Constipation Melatonin (Melatonin 3 Mg Tablet) 6 mg PO BEDTIME PRN PRN Reason: Insomnia Ondansetron HCl (Ondansetron Hcl 4 Mg/2 Ml Vial) 4 mg IVPUSH Q8H PRN PRN Reason: Nausea and Vomiting Polyethylene Glycol (Polyethylene Glycol 3350 17 Gm Powd.Pack) 17 gm PO DAILY PRN PRN Reason: Constipation Senna (Sennosides 8.6 Mg Tablet) 17.2 mg PO BEDTIME PATRICIA Sodium Chloride (0.9 % Sodium Chloride Flush 3 Ml Syringe) 3 ml IVFLUSH QSHIFT PATRICIA Home Medications ?Medication ?Instructions ?Recorded ?Confirmed ?Last Taken ?Type cetirizine 10 mg capsule (Zyrtec) 10 mg PO DAILY PRN Allergy Symptoms 01/23/25 02/11/25 Unknown History omeprazole 40 mg capsule,delayed 40 mg PO DAILY@0630 01/23/25 02/11/25 Unknown History release acetaminophen 325 mg tablet 650 mg PO Q6H PRN Pain 01/31/25 02/11/25 Unknown History bisacodyl 10 mg rectal suppository 10 mg HI DAILY PRN CONSTIPATION 01/31/25 02/11/25 Unknown History magnesium hydroxide 400 mg/5 mL 5 ml PO DAILY PRN Constipation 01/31/25 02/11/25 Unknown History oral suspension (Milk of Magnesia) mirtazapine 7.5 mg tablet 7.5 mg PO BEDTIME 01/31/25 02/11/25 Unknown History ondansetron HCl 4 mg tablet 4 mg PO Q6H PRN Nausea And Vomiting 01/31/25 02/11/25 Unknown History tramadol 50 mg tablet 50 mg PO Q6H PRN Pain 01/31/25 02/11/25 Unknown History Physical Exam Vital Signs and Narrative: Vital Signs: Last Vital Signs Temp 97.3 F 02/11/25 21:05 Pulse 85 02/11/25 21:05 Resp 20 02/11/25 21:05 BP 151/68 H 02/11/25 21:05 Pulse Ox 96 02/11/25 21:05 O2 Del Method Room Air 02/11/25 21:05 BMI result Body Mass Index 25.1 Alert and orientated X1, unable to give good history. Neuro: CN II-X11 intact, no deficits, visual acuity intact EYES: PERRLA, EOM intact, sclerae nonicteric, conjunctiva pink, glasses on ENT: hearing intact, no issues with swallowing, uvula midline, lips moist, nares patent no epistaxis Cardiac: S1 S2 RRR, no murmur, no JVD, no edema in Lower ext Pulmonary: lungs diminished bilateral Abdominal: BS active in all 4 quadrants, no guarding, tenderness, rebounding MSK: strength 4/5 upper and lower extremities : no CVA tenderness no bladder distension Extremities: no edema in lower extremities, PT and DP pulses palpable +2 Psych: mood anxious, judgement and insight poor Skin: Intact, wound VAC in place below right knee Results Labs 02/11/25 15:25 02/11/25 15:25 Labs: Laboratory Results - last 24 hr 02/11/25 02/11/25 02/11/25 15:21 15:25 17:02 MCV 90.0 MCH 29.2 MCHC 32.5 RDW 15.4 Plt Count 588 H MPV 8.4 L Immature Gran % (Auto) 0.6 H Neut % (Auto) 75.8 H Lymph % (Auto) 12.0 L [place] % (Auto) 11.2 H Eos % (Auto) 0.0 Baso % (Auto) 0.4 Lymph # (Auto) 2.4 [place] # (Auto) 2.3 H Eos # (Auto) 0.0 Baso # (Auto) 0.1 Abs Immat Gran (auto) 0.13 H Absolute Neuts (auto) 15.3 H Absolute Nucleated RBC 0.000 Nucleated RBC % (auto) 0.0 Smear Tech's Comments VERIFIED Anion Gap 13 Estim Creat Clear Calc 44.6 Estimated GFR > 60 Random Glucose 152 H Lactic Acid 1.5 Calcium 8.7 Total Bilirubin 0.9 AST 36 H ALT 9 Alkaline Phosphatase 206 H Total Protein 6.1 L Albumin 3.1 L Urine Color Yellow Urine Appearance Turbid Urine pH 6.0 Ur Specific [place] 1.015 Urine Protein 300 (3+) H Urine Glucose (UA) Negative Urine Ketones 15 Urine Blood Moderate (2+) H Urine Nitrite Negative Ur Leukocyte Esterase Large (3+) H Urine RBC 6-10 H Urine WBC >50 H Ur Squamous Epith Cells 0-2 Urine Bacteria 4+ Hyaline Casts 0-2 Influenza Type A (PCR) NEGATIVE Influenza Type B (PCR) NEGATIVE RSV RNA Qual (PCR) NEGATIVE SARS-CoV-2 RNA (RT-PCR) NEGATIVE ECG Attestation: I personally reviewed and interpreted this ECG as follows: (Normal sinus rhythm right bundle branch block not new) Prior ECG tracings: available for review Imaging Radiologist's Impressions: Impressions Chest X-Ray 02/11/25 14:44 IMPRESSION: Persistent left basilar opacity could represent pleural effusion with atelectasis and/or pneumonia. Left-sided PICC terminates in the superior vena cava. It crosses midline below the aortic arch raising suspicion of a variant vascular anatomy Electronically signed by: Mason Chávez MD 02/11/2025 04:02 PM EDT Assessment and Plan (1) Sepsis: Qualifiers: Sepsis acute organ dysfunction status: without acute organ dysfunction Sepsis type: sepsis due to unspecified organism Qualified Code(s): A41.9 - Sepsis, unspecified organism Status: Acute Plan Patient is an 89-year-old female with past medical history of dementia, hypertension, hyperlipidemia, allergic rhinitis, right knee infection currently on daptomycin until 03/18/2025, GERD, history of total bilateral knee replacements is being admitted with sepsis secondary to urinary tract infection/pneumonia. Patient has been sign dementia and is currently at [facility] for rehabilitation/long-term care. Sepsis, non severe -Patient is now on ceftriaxone and doxycycline for UTI and pneumonia -Patient we will continue daptomycin for right knee infection, end date 03/18/2025 -ID consultation place -continuous fluids ordered -Lactic acid 1.5 -Leukocytosis of 20, patient currently not febrile -Telemetry and continuous pulse ox UTI -Patient on ceftriaxone -Follow urine culture -Serenity wick in place -Bladder scan QS X3 PNA -Patient on ceftriaxone and doxycycline -Currently on room air -Duo nebs p.r.n. -Incentive spirometry -Speech therapy eval ordered, patient did pass a bedside eval which allowed diet initiation -Aspiration precautions ordered Recent R knee surgery with current wound vac and PICC line -Wound VAC currently in place, suction intact -Wound VAC was changed earlier today 02/11/2025 -Wound care consultation place -Patient has PICC line and has been on daptomycin per Orthopedics and will continue until 03/18/2025. PICC line does not appear to be infected. Blood cultures x2 are pending. -pharmacy could not approve the daptomycin until patient is seen by infectious disease -ID consulted automatically based on Depo renewal along with sepsis Dementia -Chronic in nature -Per healthcare proxy and patient's niece, patient has been more depressed since being away from her HTN -Metoprolol restarted -Hydralazine p.r.n. -Low-sodium diet DVT prophylaxis: Lovenox PPI prophylaxis: Protonix Med rec completed Full Code status, reviewed with patient's niece who is also her healthcare proxy Quality Stroke Does the patient have a stroke diagnosis?: No Reason for No Anti-thrombotic by Day Two: N/A - Med Ordered VTE Prior VTE?: No VTE Risk Level:: Medical - moderate - high VTE Device Contraindication: N/A - Device Ordered VTE Drug Contraindication: N/A - Med Ordered
[2025-02-12] VITALS (13 sets, daily range): BP systolic 137–181; BP diastolic 58–83; PULSE 78–111; RESP 14–25; TEMP 35.8–37.7; O2SAT 97–100; BMI 24.3
[2025-02-12] MEDS: 0.9 % Sodium Chloride Flush 3 ML SYRINGE IVFLUSH ×4 (00:12→22:04)
--- NOTE | 2025-02-12 06:28 | PC.NURSE ---
pts BP was 181/83. RN gave pt prn IV hydralazine. Rechecked BP shortly after; BP lowered to 158/56.
[2025-02-12 06:52] LABS: Hematocrit 32.8 % (37.0-47.0); Hemoglobin 10.9 g/dl (12.0-16.0); Imm Gran Abs Auto 0.22 X10*3/uL (0.00-0.03); Imm Gran Pct Auto 1.3 % (0.0-0.4); Lymphocytes Absolute Auto 2.0 X10*3/uL (1.2-4.9); MANUAL DIFF FLAG SCAN; Mean Corpuscular HGB Conc 33.2 g/dl (31.0-35.0); Mean Corpuscular Hemoglobin 30.2 pg (27.0-33.0); Mean Corpuscular Volume 90.9 fL (80.0-98.0); NRBC Abs Auto 0.000 X10*3/uL (0.0-0.012); NRBC Pct Auto 0.0 /100WBC (0.0-0.2); Platelet Count 526 X10*3/uL (160-400); Red Blood Count 3.61 X10*6/uL (4.20-5.50); SCAN SMEAR FLAG 1; White Blood Count 17.1 X10*3/uL (4.8-10.8)
--- NOTE | 2025-02-12 07:00 | CA_ITS ---
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 The left ventricular systolic function is hyperdynamic. The visually estimated ejection fraction is >70%. Abnormal diastolic function is noted. Spectral Doppler is indicative of an impaired relaxation filling pattern. Elevated filling pressures. - Normal right ventricular cavity size and systolic function. - There is moderate aortic valve stenosis. - Gradient is higher for calculated valve area, probably due to high flow state. Findings Procedure Information Contrast agent, definity, is being given per protocol without apparent complications. The quality of the study was technically difficult. The study quality is limited by the patients inability to tolerate the test. Left Ventricle Normal left ventricular cavity size. The left ventricular systolic function is hyperdynamic. The visually estimated ejection fraction is >70%. Abnormal diastolic function is noted. Spectral Doppler is indicative of an impaired relaxation filling pattern. Elevated filling pressures. Right Ventricle Normal right ventricular cavity size and systolic function. Atria The left atrium is likely dilated. The right atrium was not well visualized. Aortic Valve There is moderate calcification of the aortic valve. There is moderate aortic valve stenosis. The peak aortic velocity is 3.27 m/s. The mean gradient is 26 mmHg. The aortic valve area is 1.71 cm2. There is no aortic valve regurgitation. Mitral Valve Likely normal mitral valve structure and function. There is no mitral valve regurgitation. There is no mitral valve stenosis. Pulmonic Valve The pulmonic valve was not well visualized. Tricuspid Valve Normal tricuspid valve structure. There is trace tricuspid valve regurgitation. Indeterminate right atrial pressure. Mild pulmonary hypertension is present. Great Vessels All visible segments of the aorta are normal in size. Venous The inferior vena cava was not well visualized. Pericardium/Pleural There is no evidence of pericardial effusion. Prior Study Comparison No prior study available for comparison. Measurements 2D Linear Measurements IVSd: 0.90 0.6-0.9/0.6-1.0 cm LVIDd: 3.55 3.9-5.3/4.2-5.9 cm LVIDd Index: 2.13 2.4-3.2/2.2-3.1 cm/m2 LVIDs: 1.66 2.0-3.6 cm LVPWd: 0.67 0.7-1.1 cm LA Diam: 3.00 2.7-3.8/3.0-4.0 cm LAIDs Index: 1.80 1.5-2.3 cm/m2 LV Mass: 93.47 67-162/88-224 g LV Mass Index: 55.97 43-95/49-115 g/m2 LVOT Diam: 2.00 3.0+(-)1.3 cm 2D Systolic Function EF 2C: 84.40 >55% Mitral Valve MV VTI: 0.24 MV Pk Byron: 1.60 MV Mn Byron: 0.99 MV Pk Grad: 10.00 MV Mn Grad: 5.00 MV Pk E: 0.85 MV PK A: 1.58 MV Decel Time: 249.00 E/A: 0.50 E'Lateral: 3.59 E'Medial: 4.13 E/E' Med: 20.50 E/E' Lat: 23.60 PHT: 73.00 MVA PHT: 3.01 MVA Continuity: 4.57 Decel [place]: 3.40 Aortic Valve AoV Pk Byron: 3.27 AoV Mn Byron: 2.45 AoV VTI: 0.64 AoV Pk Grad: 43.00 Aov Mn Grad: 26.00 SAIRA Cont.VTI: 1.71 LVOT LVOT Pk Byron: 1.65 LVOT Mn Byron: 1.29 LVOT VTI: 0.35 LVOT Pk Grad: 11.00 LVOT Mn Grad: 8.00 LVOT Diam: 2.00 LVOT Area: 3.14 Diastolic Function MV Pk E: 0.85 MV Pk A: 1.58 E/A: 0.50 E'Medial: 4.13 E/E' Med: 20.50 E' Laterial: 3.59 E/E' Lat: 23.60 Right Ventricle TAPSE (mm): 20.30 TVS' Byron: 10.90 Tricuspid Valve TR Pk Byron: 2.78 TR Pk Grad: 31.00 RA Press: 3.00 RVSP: 34.00 Great Vessels Aorta Sinus of Valsalva: 2.80 2.0-3.5 cm Ao Asc: 2.70 2.1-3.4 cm Pulmonary Valve PV Pk Byron: 1.20 Peak PV Grad: 6.00 Updated in Other Vendor System with Status of Final Darryl Beckman MD electronically signed on 02/12/2025 9:17:32 PM with status of Final
[2025-02-12 07:16] LABS: Alanine Aminotransferase 6 U/L (0-31); Albumin Level 2.9 g/dL (3.5-5.0); Alkaline Phosphatase 194 U/L (39-117); Anion Gap 14 (12-20); Aspartate Amino Transferase 23 U/L (5-31); Blood Urea Nitrogen 14 mg/dL (9-16); Calcium 9.4 mg/dL (8.4-10.2); Carbon Dioxide 22 mmol/L (22-29); Chloride 107 mmol/L (96-108); Creatinine Clr Calc Pharmacy 61.6; Estimated Glomerular Filt Rate > 60; Potassium 3.9 mmol/L (3.3-5.1); Sodium 139 mmol/L (135-145); Total Protein 5.9 g/dL (6.5-8.0)
--- NOTE | 2025-02-12 08:27 | PC.NURSE ---
Addendum entered by Kadi Will RN 02/12/25 08:28: Patient is an 89-year-old female with past medical history of dementia, hypertension, hyperlipidemia, allergic rhinitis, right knee infection currently on daptomycin until 03/18/2025, GERD, history of total bilateral knee replacements presents to the emergency room from the group home facility with progressive weakness for the past 2 days with evidence of tachycardia. Patient has a baseline dementia but was more confused per patient's niece who is also her healthcare proxy. Patient has been seeing at [facility] for rehab but has recently converted to long-term care. Workup in the ED included urinalysis which indicated UTI. Patient was started on ceftriaxone.. Patient has leukocytosis of 20,000. Lactic acid 1.5. Patient is currently on daptomycin chronically until 03/18/2025 for right knee infection and is followed by orthopedics. Patient currently has PICC line in place. The insertion site does not appear to be infected. Pt has wound VAC in place that was changed earlier in the day on 02/11/2025. The wound VAC is functioning properly. Wound care consultation will be placed. Patient alert to name. night monitor maintained and stach noted. Respirations even and non-labored. Abdomen soft, distended, non-tender with positive bowel sounds. Purewick intact and draining caroline urine. Wound vac intact. Positive pedal pulses with no edema. Original Note: Medical History Leukocytosis Leukocytosis Diabetes FTT (failure to thrive) in adult Osteoarthritis (arthritis due to wear and tear of joints) Bilateral cataracts Dementia Cellulitis of knee, right HLD (hyperlipidemia) HTN (hypertension)
[2025-02-12] MEDS: Metoprolol Tartrate 12.5 MG HALFTAB PO ×2 (08:55→22:00)
[2025-02-12] MEDS: DAPTOMYCIN IV (08:58)
[2025-02-12] MEDS: SODIUM CHLORIDE 0.9% IV (08:58)
--- NOTE | 2025-02-12 10:22 | MHC.CM.PN ---
PATIENT IS IN FROM [facility] FOR REHAB PURPOSES. SHE LIVES WITH SPOUSE [facility] [place]. RELIES ON A WALKER, ALTHOUGH NIECE/HCP, STATES THAT HE HAS NOT MOBILIZED IN QUITE SOME TIME NOW . HCP ON FILE AND VERIFIED. IDEAL PLAN WOULD BE FOR PATIENT TO RETURN HOME FROM [facility]; HOWEVER, NIECE FEELS THIS MAY NOT BE FEASIBLE. IMM DISCUSSED. COPY PLACED IN PATIENT CHART AND ORIGINAL WILL RETURN TO FACILITY WITH PATIENT PER CONVERSATION. IMM 02/12 IN CHART.
--- NOTE | 2025-02-12 10:49 | MHC.SLORD ---
Addendum entered and electronically signed by ONI Schultz 02/12/25 15:10: PONY EDGER attempted to see pt for swallow eval multiple times throughout day, pt has been reportedly lethargic/sleeping all day. Per RN, pt not appropriate for PONY EDGER evaluation at this time. PONY EDGER to see pt tomorrow AM for eval. Original Note: Speech Language Pathology Order Status: PONY EDGER visisted pt for clinical swallow evaluation this morning; sound asleep. PONY EDGER to attempt again later in day. RN to [place] PONY EDGER when awake.
--- NOTE | 2025-02-12 19:06 | P.PNIM_ITS ---
Subjective Subjective Date of Service: 02/13/25 Interval History: uti Review of Systems awake denies new c/o Physical Exam 2 Vital Signs: Vital Signs: Last Vital Signs Temp 99.5 F 02/12/25 16:21 Pulse 97 02/12/25 16:21 Resp 24 H 02/12/25 16:21 BP 162/69 H 02/12/25 16:21 Pulse Ox 97 02/12/25 16:21 O2 Del Method Nasal Cannula 02/12/25 16:21 O2 Flow Rate 3 02/12/25 12:00 BMI result Body Mass Index 25.1 Appearance: Awake and interactive cvs: rrr, [id number] res: clear to auscultation ,no rhonchii or wheezing abd: no rebound or guarding ,nt, bs present. ext pulses present , no cyanosis . neuro: Moves all extremities Objective Data Active Medications Acetaminophen (Acetaminophen 325 Mg Tablet) 650 mg PO Q6H PRN PRN Reason: Pain, Mild 1-3,fever,headache Albuterol/Ipratropium (Albuterol/Iprat 2.5/0.5mg 3 Ml Ampul.Neb) 3 ml INHALE Q4H PRN PRN Reason: Shortness of Breath/Wheezing Aspirin (Aspirin 81 Mg Tab.Chew) 81 mg PO DAILY [facility] Last Admin: 02/12/25 10:15 Dose: 81 mg Documented By: SHELBY Bisacodyl (Bisacodyl 10 Mg Supp.Rect) 10 mg MA DAILY PRN PRN Reason: CONSTIPATION Calcium Carbonate (Calcium Carbonate 750 Mg Tab.Chew) 750 mg PO Q4H PRN PRN Reason: Heartburn Ceftriaxone Sodium (Ceftriaxone Sodium 1 Gm Vial) 1 gm IVPUSH Q24H [facility] Last Admin: 02/12/25 15:36 Dose: 1 gm Documented By: SHELBY Enoxaparin Sodium (Enoxaparin Sodium 40 Mg/0.4 Ml Syringe) 40 mg SUBCUT Q24H [facility] Last Admin: 02/11/25 22:01 Dose: 40 mg Documented By: FAISAL Hydralazine HCl (Hydralazine Hcl 20 Mg/Ml Vial) 10 mg IVPUSH Q6H PRN; Protocol PRN Reason: SBP > 160 Last Admin: 02/12/25 06:17 Dose: 10 mg Documented By: DB Doxycycline Hyclate 100 mg/ (Sodium Chloride) 250 mls @ 166.67 mls/hr IV Q12H [facility] Last Admin: 02/12/25 18:02 Dose: 166.67 mls/hr Documented By: SHELBY Daptomycin 420 mg/ Sodium (Chloride) 58.4 mls @ 100.69 mls/hr IV Q24H [facility] Last Admin: 02/12/25 08:58 Dose: 100.69 mls/hr Documented By: SHELBY Magnesium Hydroxide (Milk Of Magnesia 30 Ml Oral.Susp) 30 ml PO DAILY PRN PRN Reason: Constipation Melatonin (Melatonin 3 Mg Tablet) 6 mg PO BEDTIME PRN PRN Reason: Insomnia Metoprolol Tartrate (Metoprolol Tartrate 12.5 Mg Halftab) 12.5 mg PO BID [facility]; Protocol Last Admin: 02/12/25 08:55 Dose: 12.5 mg Documented By: SHELBY Ondansetron HCl (Ondansetron Hcl 4 Mg/2 Ml Vial) 4 mg IVPUSH Q8H PRN PRN Reason: Nausea and Vomiting Pantoprazole Sodium (Pantoprazole Sodium 40 Mg/10 Ml Vial) 40 mg IVPUSH DAILY@0630 [facility] Last Admin: 02/12/25 06:05 Dose: 40 mg Documented By: DB Polyethylene Glycol (Polyethylene Glycol 3350 17 Gm Powd.Pack) 17 gm PO DAILY PRN PRN Reason: Constipation Senna (Sennosides 8.6 Mg Tablet) 17.2 mg PO BEDTIME [facility] Sodium Chloride (0.9 % Sodium Chloride Flush 3 Ml Syringe) 3 ml IVFLUSH QSHIFT [facility] Last Admin: 02/12/25 15:35 Dose: 3 ml Documented By: SHELBY Labs 02/12/25 05:47 02/12/25 05:47 Labs: Laboratory Results - last 24 hr 02/12/25 05:47 MCV 90.9 MCH 30.2 MCHC 33.2 RDW 15.4 Plt Count 526 H MPV 8.9 L Immature Gran % (Auto) 1.3 H Neut % (Auto) 74.6 H Lymph % (Auto) 11.6 L Gillespie % (Auto) 9.6 Eos % (Auto) 2.3 Baso % (Auto) 0.6 Lymph # (Auto) 2.0 Gillespie # (Auto) 1.6 H Eos # (Auto) 0.4 Baso # (Auto) 0.1 Abs Immat Gran (auto) 0.22 H Absolute Neuts (auto) 12.8 H Absolute Nucleated RBC 0.000 Nucleated RBC % (auto) 0.0 Smear Tech's Comments VERIFIED Anion Gap 14 Estim Creat Clear Calc 61.6 Estimated GFR > 60 Random Glucose 87 Calcium 9.4 D Total Bilirubin 0.5 AST 23 ALT 6 Alkaline Phosphatase 194 H Total Protein 5.9 L Albumin 2.9 L Microbiology Microbiology Results: Microbiology 02/11/25 15:25 Blood Culture - Preliminary Blood - Venous No growth after 24 hours. 02/11/25 15:21 Blood Culture - Preliminary Blood - Venous No growth after 24 hours. 02/11/25 Unknown Urine Culture - Preliminary Urine clean catch - Clean Catch Midstream Culture in progress. Assessment and Plan (1) Acute UTI: Status: Acute (2) Sepsis: Status: Acute Plan 89-year-old female with past medical history of dementia, hypertension, hyperlipidemia, allergic rhinitis, right knee infection currently on daptomycin until 03/18/2025, GERD, history of total bilateral knee replacements is being admitted with sepsis secondary to urinary tract infection/pneumonia. Patient has been sign dementia and is currently at [facility] for rehabilitation/long-term care. Sepsis possible secfor UTI and pneumonia continue daptomycin for right knee infection, end date 03/18/2025 Lactic acid 1.5,Leukocytosis of 20, patient currently not febrile Follow urine culture,Bladder scan QS X3 plan:Duo nebs p.r.n.,Incentive spirometry.continue antibiotics ,follow cultures Speech therapy eval ordered Aspiration precautions ordered. ID eval. Recent R knee surgery with current wound vac and PICC line : Wound VAC was changed earlier today 02/11/[address] Patient has PICC line and has been on daptomycin per Orthopedics and will continue until 03/18/2025. ortho eval. Dementia -Chronic in nature Per healthcare proxy and patient's niece, patient has been more depressed since being away from her HTN-Metoprolol restarted -Hydralazine p.r.n. -Low-sodium diet DVT prophylaxis: Lovenox Full Code status ongoing need:Sepsis possible secfor UTI and pneumonia-need iv antibiotics ,close monitering Quality Stroke Does the patient have a stroke diagnosis?: No Reason for No Anti-thrombotic by Day Two: N/A - Med Ordered VTE Prior VTE?: No VTE Risk Level:: Medical - moderate - high VTE Device Contraindication: N/A - Device Ordered VTE Drug Contraindication: N/A - Med Ordered
[2025-02-13] VITALS (7 sets, daily range): BP systolic 140–174; BP diastolic 63–74; PULSE 86–107; RESP 18–20; TEMP 36–36.6; O2SAT 98–100
--- NOTE | 2025-02-13 00:17 | PC.NURSE ---
Midnight bladder scan revealed 436cc. patient unable to void. Provider notified and patient straight cath'ed for 400cc caroline urine. Tolerated well.
--- NOTE | 2025-02-13 08:58 | HO.WOUND ---
Wound Consult: Initial 89yr old?female admitted to [facility] on 02/11/25 - See progress notes and H&P for detailed history.? Wound consult placed for Right Leg wound vac.? Patient agreeable to assessment and photo documentation, although she remains confused at times. Easily re-directable. Patient is noted for right knee dressing and s/p surgical I&D - Wound Vac in place that per staff has been alarming overnight unclear on duration but per verbal report all night suspect greater than 2 hours. From my assessment the NPWT Black foam appears to be sitting on healthy tissue. Given the alarming issues lack of suction at bedside and foam appearance on healthy tissue Wound vac was removed and skin assessed, see below for details. Right Posterior Knee / Flower area Etiology: NPWT site - s/p debridement last admission by Dr. Estrada and IV ABX secondary to +Osteo Wound bed: Probes to bone Edges: Rolled Periwound: rolled raised edges, red maroon tissue - appears to have not been protected by wound vac drape prior to suction Pain: Some tenderness noted Goals: Discussed with NOY Garcia from [facility] - at this time will discontinue NPWT and will lightly pack with Durafiber [employer] and Tuesday will follow up with wound assessment for reassessment of NPWT (Negative Pressure Wound Therapy) Of note 1 piece of black foam was removed from the wound bed - no remaining sponge noted in wound bed. Buttock and Intergluteal Etiology: ?MASD - IAD ?Present on Admission with Fungal Dermatitis Wound Bed: red purple moist blanchable tissue with irregular boarders and hyperpigmentation noted Drainage / Odor: None Edges: ? irregular and mirrored - satellite lesions noted Serenity wound: ?intact No Induration, Fluctuance or Warmth noted Pain: tenderness reported Goals of Treatment: ? barrier cream, antifungal and off load pressure Fungal dermatitis noted to perineal area as well - Provider Dr. Espitia to order Antifungal topical treatment. 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 Turn and Reposition every 2 hours and as needed for patient comfort.? Use pillows or wedges to support off loading positions. 2. Off Load all bony prominences with use of pillows and heel boots if needed.? Apply Preventative foams where needed. ? 3. Monitor for incontinence and moisture control, use barrier creams when needed for prevention and treatment. 4. Provide adequate and supplemental nutrition.? 5. Order low air loss mattress. 6. When applicable maintain blood glucose levels per Providers order. Bilateral Heels - Elevate heels off of bed surface with pillows.? Float heels off of pillows.? Apply skin prep allow to dry.? Apply heel foam dressings, peel back and assess Q shift and change every 5-7 days and PRN. Sacrum and Buttock - Off Load Pressure with Q2 hr turns and use of pillows - Cleanse with PH balance spray or wipes, pat dry. Apply anti-fungal powder twice daily - be sure to dust off excess to prevent caking. Apply thin layer of barrier cream to affected area.? Apply twice daily and Reapply thin layer PRN after each episode of incontinence. May apply Preventative foam higher to the sacral area to protect and aid in pressure redistribution. Right inferior knee - Cleanse with NS moist gauze, apply barrier cream to wound edge, lightly pack [facility] be sure to leave wick for easy removal. Cover with small dry gauze and foam dressing. Change every 3 days. Re-consult wound care Nurse for wound deterioration or wound changes.
[2025-02-13] MEDS: DAPTOMYCIN IV (09:57)
[2025-02-13] MEDS: SODIUM CHLORIDE 0.9% IV (09:57)
[2025-02-13] MEDS: 0.9 % Sodium Chloride Flush 3 ML SYRINGE IVFLUSH ×3 (09:58→21:09)
--- NOTE | 2025-02-13 10:09 | MHC.SL.SWA ---
Speech Pathologist Impression: Risk of Aspiration, Mild Oropharyngeal Dysphagia Risk of Aspiration Due to: Reduced Cognition Dysphasia Diet Status: Downgrade to NDD3/NTL Liquid Consistency and Strategies for Safe Swallow: Liquid Intake Recommendation: Draper Thick Solid Food Consistency: Dietary Recommendations: Chopped/Advanced (NDD3) Additional Modifications to Solid Foods: Patient is admitted w/ sepsis secondary to UTI and PNA, presenting with mild oropharyngeal phase dysphagia, in setting of dementia and hx GERD. Patient recently converted to LTC at [facility]- paperwork indicates patient was taking her meds crushed in applesauce at the facility, but no special diet was specified. Patient passed her RN swallow screen and was started on a regular texture diet, however, when seen by CLINICAL FELLOW this a.m., coughed consistently w/ trials of thin liquids. Oral phase was slowed and delayed, with difficulty biting into solids, disorganized chewing, and presence of lingual residue cleared w/ puree. Pharyngeal swallow was delayed in initiation, w/ partial laryngeal elevation. Recommend downgrade to CHOPPED/ADVANCED (NDD3) diet and NECTAR THICK liquids, pills CRUSHED in PUREE. Patient will need 1:1 assistance at meals. Diet order adjusted by CLINICAL FELLOW, notified MD, RN & RD of recommendations via [place] Message. Oral Medication Intake: Crushed with Puree Please contact the pharmacy regarding appropriate crushable or liquid drug formulations that are available whenever modified delivery is recommended. Supervision While Eating and Drinking for Safe Swallow: Total Assistance (1:1) Recommendation for Speech: Inpatient Speech Therapy Comment: CLINICAL FELLOW will continue to follow while inpatient to monitor tolerance of modified diet and re-assess for upgrade if/when appropriate. Frequency/Duration: M-F Date Range for Service Req: Timeline to reassess: Global Chief Creative Officer Clinican/Clinical Fellow: No Supervisory Statement: I have reviewed and agree with the student/clinical fellow's documentation: N/A Speech Language Pathologist: Sangeeta Mota M.A., CCC-CLINICAL FELLOW
--- NOTE | 2025-02-13 10:25 | MHC.CM.PN ---
Per ROUNDS discussion, Patient is not yet medically cleared for dc (3 IV ABX, IV Hydralazine, IV Protonix); returning to [facility] is the tentative goal and CM will continue to follow.
[2025-02-13] MEDS: Metoprolol Tartrate 12.5 MG HALFTAB PO ×2 (10:48→21:01)
[2025-02-13] MEDS: Clotrimazole 1 % Cream 15 GM TUBE 1 APPL TOPICAL ×2 (11:12→21:08)
--- NOTE | 2025-02-13 13:10 | MHC.CLN ---
NUTRITION LIBERALIZED DIET FROM CARDIAC TO REGULAR TO PROMOTE PO INTAKE. PER ELECT[employer]IC [employer]ORS SALESPERSON, CHOPPED CONSISTENCY WITH NECTAR THICK LIQUIDS. ADDING MAGIC CUP BID (580 KCALS, 18 G PROTEIN) TO INCREASE NUTRITIONAL INTAKE. PATIENT WITH WOUND VAC TO RIGHT MARTINEZ. NOT PRESSURE RELATED.
--- NOTE | 2025-02-13 15:14 | HO.PM.IMPN ---
Subjective Subjective Date of Service: 02/13/25 Interval History: uti/pnemumonia Review of Systems awake ,unable to provide much info. Physical Exam Vital Signs: Vital Signs: Last Vital Signs Temp 96.8 F 02/13/25 10:55 Pulse 94 02/13/25 10:55 Resp 20 02/13/25 10:55 BP 140/63 H 02/13/25 10:55 Pulse Ox 100 02/13/25 10:55 O2 Del Method Nasal Cannula 02/13/25 10:55 O2 Flow Rate 3 02/13/25 10:55 BMI result Body Mass Index 24.3 Appearance: Awake and interactive cvs: rrr, [id number] res: clear to auscultation ,no rhonchii or wheezing abd: no rebound or guarding ,nt, bs present. ext pulses present , no cyanosis . neuro: Moves all extremities Objective Data Active Medications Acetaminophen (Acetaminophen 325 Mg Tablet) 650 mg PO Q6H PRN PRN Reason: Pain, Mild 1-3,fever,headache Albuterol/Ipratropium (Albuterol/Iprat 2.5/0.5mg 3 Ml Ampul.Neb) 3 ml INHALE Q4H PRN PRN Reason: Shortness of Breath/Wheezing Aspirin (Aspirin 81 Mg Tab.Chew) 81 mg PO DAILY [facility] Last Admin: 02/13/25 10:53 Dose: 81 mg Documented By: DIEGO Bisacodyl (Bisacodyl 10 Mg Supp.Rect) 10 mg ME DAILY PRN PRN Reason: CONSTIPATION Calcium Carbonate (Calcium Carbonate 750 Mg Tab.Chew) 750 mg PO Q4H PRN PRN Reason: Heartburn Ceftriaxone Sodium (Ceftriaxone Sodium 1 Gm Vial) 1 gm IVPUSH Q24H [facility] Last Admin: 02/12/25 15:36 Dose: 1 gm Documented By: SHELBY Clotrimazole (Clotrimazole 1 % Cream 15 Gm Tube) 1 appl TOPICAL BID [facility]; Protocol Last Admin: 02/13/25 11:12 Dose: 1 appl Documented By: BANDAR Enoxaparin Sodium (Enoxaparin Sodium 40 Mg/0.4 Ml Syringe) 40 mg SUBCUT Q24H [facility] Last Admin: 02/12/25 22:00 Dose: 40 mg Documented By: DARINEL Hydralazine HCl (Hydralazine Hcl 20 Mg/Ml Vial) 10 mg IVPUSH Q6H PRN; Protocol PRN Reason: SBP > 160 Last Admin: 02/13/25 03:29 Dose: 10 mg Documented By: DARINEL Doxycycline Hyclate 100 mg/ (Sodium Chloride) 250 mls @ 166.67 mls/hr IV Q12H [facility] Last Infusion: 02/13/25 08:17 Dose: Infused Documented By: BANDAR Daptomycin 420 mg/ Sodium (Chloride) 58.4 mls @ 100.69 mls/hr IV Q24H [facility] Last Infusion: 02/13/25 11:03 Dose: Infused Documented By: BANDAR Magnesium Hydroxide (Milk Of Magnesia 30 Ml Oral.Susp) 30 ml PO DAILY PRN PRN Reason: Constipation Melatonin (Melatonin 3 Mg Tablet) 6 mg PO BEDTIME PRN PRN Reason: Insomnia Last Admin: 02/12/25 22:00 Dose: 6 mg Documented By: DARINEL Metoprolol Tartrate (Metoprolol Tartrate 12.5 Mg Halftab) 12.5 mg PO BID [facility]; Protocol Last Admin: 02/13/25 10:48 Dose: 12.5 mg Documented By: DIEGO Nystatin (Nystatin Powder 15 Gm Bottle) 1 appl TOPICAL TID [facility]; Protocol Last Admin: 02/13/25 11:12 Dose: 1 appl Documented By: BANDAR Ondansetron HCl (Ondansetron Hcl 4 Mg/2 Ml Vial) 4 mg IVPUSH Q8H PRN PRN Reason: Nausea and Vomiting Pantoprazole Sodium (Pantoprazole Sodium 40 Mg/10 Ml Vial) 40 mg IVPUSH DAILY@0630 [facility] Last Admin: 02/13/25 05:48 Dose: 40 mg Documented By: DARINEL Polyethylene Glycol (Polyethylene Glycol 3350 17 Gm Powd.Pack) 17 gm PO DAILY PRN PRN Reason: Constipation Senna (Sennosides 8.6 Mg Tablet) 17.2 mg PO BEDTIME [facility] Last Admin: 02/12/25 22:00 Dose: 17.2 mg Documented By: DARINEL Sodium Chloride (0.9 % Sodium Chloride Flush 3 Ml Syringe) 3 ml IVFLUSH QSHIFT [facility] Last Admin: 07/09/25 09:58 Dose: 3 ml Documented By: TIMA Labs 02/12/25 05:47 02/12/25 05:47 Microbiology Microbiology Results: Microbiology 02/11/25 Unknown Urine Culture - Preliminary Urine clean catch - Clean Catch Midstream Culture in progress. 02/11/25 15:25 Blood Culture - Preliminary Blood - Venous No growth after 24 hours. 02/11/25 15:21 Blood Culture - Preliminary Blood - Venous No growth after 24 hours. Assessment and Plan (1) Acute UTI: Status: Acute Plan 89-year-old female with past medical history of dementia, hypertension, hyperlipidemia, allergic rhinitis, right knee infection currently on daptomycin until 03/18/2025, GERD, history of total bilateral knee replacements is being admitted with sepsis secondary to urinary tract infection/pneumonia. Patient has been sign dementia and is currently at [facility] for rehabilitation/long-term care. Sepsis possible secfor UTI and pneumonia continue daptomycin for right knee infection, end date 03/18/2025 Lactic acid 1.5,Leukocytosis of 20, patient currently not febrile Follow urine culture,Bladder scan QS X3 plan:Duo nebs p.r.n.,Incentive spirometry.continue antibiotics ,follow cultures Speech therapy eval ordered Aspiration precautions ordered. ID eval. Recent R knee surgery with current wound vac and PICC line : Wound VAC was changed earlier today 02/11/[address] Patient has PICC line and has been on daptomycin per Orthopedics and will continue until 03/18/2025. ortho eval. Dementia -Chronic in nature Per healthcare proxy and patient's niece, patient has been more depressed since being away from her HTN-Metoprolol restarted -Hydralazine p.r.n. -Low-sodium diet DVT prophylaxis: Lovenox Full Code status ongoing need:Sepsis possible secfor UTI and pneumonia-need iv antibiotics ,close monitering Quality Stroke Does the patient have a stroke diagnosis?: No Reason for No Anti-thrombotic by Day Two: N/A - Med Ordered VTE Prior VTE?: No VTE Risk Level:: Medical - moderate - high VTE Device Contraindication: N/A - Device Ordered VTE Drug Contraindication: N/A - Med Ordered
--- NOTE | 2025-02-13 15:40 | PM.CNOR ---
History of Present Illness HPI Consult date: 02/13/25 Chief complaint: UTI, PNA Narrative: 89-year-old female who is status post right total knee arthroplasty over 20 years ago who recently had an I and D with wound VAC placement on 01/29/[address] Estrada. The patient was transferred to a short-term rehab. She did follow up with me in the office on 02/06/2025 where I changed her wound VAC and the wound had clean healthy borders but no purulent drainage. The patient was transferred back to rehab where the wound care team at the rehab was going to continue wound VAC care until she was seen back in our office on 02/21. On admission the hospital team also consulted wound care nurse. Review of Systems Review of Systems: Yes all other systems are reviewed and are negative [facility] Past Medical History Medical History (Updated 02/13/25 @ 17:21 by Cori Kothari MD) Encephalopathy Leukocytosis Leukocytosis Diabetes FTT (failure to thrive) in adult Osteoarthritis (arthritis due to wear and tear of joints) Bilateral cataracts Dementia Cellulitis of knee, right HLD (hyperlipidemia) HTN (hypertension) Surgical History Surgical History H/O: hysterectomy S/P total knee replacement Social History Social History Household Members: Other Housing: [facility] Unable to assess alcohol history related to: Unable to respond Patient Tobacco Use Status: Never used Tobacco service: No Travel History Ebola Risk: Travel/Contact With Anyone From Affected Area/s: No Has Patient Experienced Ebola Symptoms: No Meds Allergies Allergy/AdvReac Type Severity Reaction Status Date / Time amoxicillin (Amoxicillin) Allergy Mild RASH Verified 02/11/25 14:56 Sulfa (Sulfonamide Allergy Mild RASH Verified 02/11/25 14:56 Antibiotics) (Sulfa (Sulfonamides)) Active Medications: Current Medications Acetaminophen (Acetaminophen 325 Mg Tablet) 650 mg PO Q6H PRN PRN Reason: Pain, Mild 1-3,fever,headache Albuterol/Ipratropium (Albuterol/Iprat 2.5/0.5mg 3 Ml Ampul.Neb) 3 ml INHALE Q4H PRN PRN Reason: Shortness of Breath/Wheezing Aspirin (Aspirin 81 Mg Tab.Chew) 81 mg PO DAILY [facility] Last Admin: 02/13/25 10:53 Dose: 81 mg Bisacodyl (Bisacodyl 10 Mg Supp.Rect) 10 mg [place] DAILY PRN PRN Reason: CONSTIPATION Calcium Carbonate (Calcium Carbonate 750 Mg Tab.Chew) 750 mg PO Q4H PRN PRN Reason: Heartburn Ceftriaxone Sodium (Ceftriaxone Sodium 1 Gm Vial) 1 gm IVPUSH Q24H [facility] Last Admin: 02/12/25 15:36 Dose: 1 gm Clotrimazole (Clotrimazole 1 % Cream 15 Gm Tube) 1 appl TOPICAL BID [facility]; Protocol Last Admin: 02/13/25 11:12 Dose: 1 appl Enoxaparin Sodium (Enoxaparin Sodium 40 Mg/0.4 Ml Syringe) 40 mg SUBCUT Q24H [facility] Last Admin: 02/12/25 22:00 Dose: 40 mg Hydralazine HCl (Hydralazine Hcl 20 Mg/Ml Vial) 10 mg IVPUSH Q6H PRN; Protocol PRN Reason: SBP > 160 Last Admin: 02/13/25 03:29 Dose: 10 mg Doxycycline Hyclate 100 mg/ (Sodium Chloride) 250 mls @ 166.67 mls/hr IV Q12H [facility] Last Infusion: 02/13/25 08:17 Dose: Infused Daptomycin 420 mg/ Sodium (Chloride) 58.4 mls @ 100.69 mls/hr IV Q24H [facility] Last Infusion: 02/13/25 11:03 Dose: Infused Magnesium Hydroxide (Milk Of Magnesia 30 Ml Oral.Susp) 30 ml PO DAILY PRN PRN Reason: Constipation Melatonin (Melatonin 3 Mg Tablet) 6 mg PO BEDTIME PRN PRN Reason: Insomnia Last Admin: 02/12/25 22:00 Dose: 6 mg Metoprolol Tartrate (Metoprolol Tartrate 12.5 Mg Halftab) 12.5 mg PO BID [facility]; Protocol Last Admin: 02/13/25 10:48 Dose: 12.5 mg Nystatin (Nystatin Powder 15 Gm Bottle) 1 appl TOPICAL TID [facility]; Protocol Last Admin: 02/13/25 11:12 Dose: 1 appl Ondansetron HCl (Ondansetron Hcl 4 Mg/2 Ml Vial) 4 mg IVPUSH Q8H PRN PRN Reason: Nausea and Vomiting Pantoprazole Sodium (Pantoprazole Sodium 40 Mg/10 Ml Vial) 40 mg IVPUSH DAILY@06 [facility] Last Admin: 02/13/25 05:48 Dose: 40 mg Polyethylene Glycol (Polyethylene Glycol 3350 17 Gm Powd.Pack) 17 gm PO DAILY PRN PRN Reason: Constipation Senna (Sennosides 8.6 Mg Tablet) 17.2 mg PO BEDTIME [facility] Last Admin: 02/12/25 22:00 Dose: 17.2 mg Sodium Chloride (0.9 % Sodium Chloride Flush 3 Ml Syringe) [address] [facility] Last Admin: 02/13/25 09:58 Dose: 3 ml Home Medications ?Medication ?Instructions ?Recorded ?Confirmed ?Last Taken ?Type cetirizine 10 mg capsule (Zyrtec) 10 mg PO DAILY PRN Allergy Symptoms 01/23/25 02/11/25 Unknown History omeprazole 40 mg capsule,delayed 40 mg PO DAILY@0630 01/23/25 02/11/25 Unknown History release acetaminophen 325 mg tablet 650 mg PO Q6H PRN Pain 01/31/25 02/11/25 Unknown History bisacodyl 10 mg rectal suppository 10 mg RI DAILY PRN CONSTIPATION 01/31/25 02/11/25 Unknown History magnesium hydroxide 400 mg/5 mL 5 ml PO DAILY PRN Constipation 01/31/25 02/11/25 Unknown History oral suspension (Milk of Magnesia) mirtazapine 7.5 mg tablet 7.5 mg PO BEDTIME 01/31/25 02/11/25 Unknown History ondansetron HCl 4 mg tablet 4 mg PO Q6H PRN Nausea And Vomiting 01/31/25 02/11/25 Unknown History tramadol 50 mg tablet 50 mg PO Q6H PRN Pain 01/31/25 02/11/25 Unknown History Physical Exam Vital Signs: Vital Signs: Last Vital Signs Temp 97.9 F 02/13/25 15:36 Pulse 86 02/13/25 15:36 Resp 18 02/13/25 15:36 BP 140/63 H 02/13/25 10:55 Pulse Ox 99 02/13/25 15:36 O2 Del Method Nasal Cannula 02/13/25 15:36 O2 Flow Rate 3 02/13/25 15:36 BMI result Body Mass Index 24.3 Extrem: Other: Patient is resting comfortably in bed. The right knee wound is clean with healthy borders. There is still deep penetration to the bone. No active drainage. Results Labs 02/15/25 06:43 02/15/25 06:43 Labs: H & H 02/11/25 02/12/25 Range/Units 15:25 05:47 Hgb 10.5 L 10.9 L (12.0-16.0) g/dl Hct 32.3 L 32.8 L (37.0-47.0) % All other labs normal. Assessment and Plan (1) Open wound of knee, complicated: Status: Acute Plan WBAT RT knee Dressing care by wound nurse -hold off on the wound vac at this time as the wound appears rina in circumference. -->wound care nurse recommended packing with dermabond Will reasess the wound on Tuesday Continue IV abx Procedures Date of Service Date of Service: 02/15/25
--- NOTE | 2025-02-13 17:03 | HO.WOUND ---
Wound Consult: Follow up 89yr old?female admitted to [facility] on 02/11/25 - See progress notes and H&P for detailed history.? Wound consult follow up for Right Leg wound.? Patient agreeable to assessment and photo documentation, although she remains confused at times. Easily re-directable. Reassessed for Durafiber packing to wound bed and periwound assessment: Overall periwound improvement noted - suspect this was primarily from improper wound vac application. Will reassess on Tuesday for appropriateness of NPWT. This afternoon photo - improvement noted to periwound. This morning photo - raised elevated periwound - related to wound vac. Right Posterior Knee / Flower area Etiology: NPWT site - s/p debridement last admission by Dr. Estrada and IV ABX secondary to +Osteo Wound bed: Probes to bone - visable bone in wound bed at this time. Edges: Rolled Drainage: green kendall drainage on dressing.- odor noted. Periwound: rolled raised edges, red maroon tissue - appears to have not been protected by wound vac drape prior to suction Pain: Some tenderness noted Goals: Discussed with NOY Roy from [facility] - at this time will discontinue NPWT and will lightly pack with Durafiber AG and Tuesday will follow up with wound assessment for reassessment of NPWT (Negative Pressure Wound Therapy) Details from prior assessment: Buttock and Intergluteal Etiology: ?MASD - IAD ?Present on Admission with Fungal Dermatitis Wound Bed: red purple moist blanchable tissue with irregular boarders and hyperpigmentation noted Drainage / Odor: None Edges: ? irregular and mirrored - satellite lesions noted Serenity wound: ?intact No Induration, Fluctuance or Warmth noted Pain: tenderness reported Goals of Treatment: ? barrier cream, antifungal and off load pressure Fungal dermatitis noted to perineal area as well - Provider Dr. Espitia to order Antifungal topical treatment. 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 Turn and Reposition every 2 hours and as needed for patient comfort.? Use pillows or wedges to support off loading positions. 2. Off Load all bony prominences with use of pillows and heel boots if needed.? Apply Preventative foams where needed. ? 3. Monitor for incontinence and moisture control, use barrier creams when needed for prevention and treatment. 4. Provide adequate and supplemental nutrition.? 5. Order low air loss mattress. 6. When applicable maintain blood glucose levels per Providers order. Bilateral Heels - Elevate heels off of bed surface with pillows.? Float heels off of pillows.? Apply skin prep allow to dry.? Apply heel foam dressings, peel back and assess Q shift and change every 5-7 days and PRN. Sacrum and Buttock - Off Load Pressure with Q2 hr turns and use of pillows - Cleanse with PH balance spray or wipes, pat dry. Apply anti-fungal powder twice daily - be sure to dust off excess to prevent caking. Apply thin layer of barrier cream to affected area.? Apply twice daily and Reapply thin layer PRN after each episode of incontinence. May apply Preventative foam higher to the sacral area to protect and aid in pressure redistribution. Right inferior knee - Cleanse with NS moist gauze, apply barrier cream to wound edge, lightly pack wound bed sithe [facility] be sure to leave wick for easy removal. Cover with small dry gauze and foam dressing. Change every 3 days. Re-consult wound care Nurse for wound deterioration or wound changes.
--- NOTE | 2025-02-13 17:17 | W.PM.IDCN ---
History of Present Illness Data of Consult Service Date: 02/13/25 Requesting physician: Mik Espitia Primary Care Provider: Piotr Remy MD HPI Reason for consult: confusion,infiltrate She presents with confusion,left infiltrate. She is doing well. She is on Daptomycin until March 18 for right knee. Review of Systems Review of Systems: Yes all other systems are reviewed and are negative PMF[facility] Past Medical History Medical History (Updated 02/13/25 @ 17:21 by Cori Kothari MD) Encephalopathy Leukocytosis Leukocytosis Diabetes FTT (failure to thrive) in adult Osteoarthritis (arthritis due to wear and tear of joints) Bilateral cataracts Dementia Cellulitis of knee, right HLD (hyperlipidemia) HTN (hypertension) Family History Family history: reviewed and not pertinent Surgical History Surgical History H/O: hysterectomy S/P total knee replacement Social History Social History Household Members: Other Housing: [facility] Unable to assess alcohol history related to: Unable to respond Patient Tobacco Use Status: Never used Tobacco service: No Travel History Ebola Risk: Travel/Contact With Anyone From Affected Area/s: No Has Patient Experienced Ebola Symptoms: No Meds Allergies Allergy/AdvReac Type Severity Reaction Status Date / Time amoxicillin (Amoxicillin) Allergy Mild RASH Verified 02/11/25 14:56 Sulfa (Sulfonamide Allergy Mild RASH Verified 02/11/25 14:56 Antibiotics) (Sulfa (Sulfonamides)) Active Medications: Current Medications Acetaminophen (Acetaminophen 325 Mg Tablet) 650 mg PO Q6H PRN PRN Reason: Pain, Mild 1-3,fever,headache Albuterol/Ipratropium (Albuterol/Iprat 2.5/0.5mg 3 Ml Ampul.Neb) 3 ml INHALE Q4H PRN PRN Reason: Shortness of Breath/Wheezing Aspirin (Aspirin 81 Mg Tab.Chew) 81 mg PO DAILY [facility] Last Admin: 02/13/25 10:53 Dose: 81 mg Bisacodyl (Bisacodyl 10 Mg Supp.Rect) 10 mg [place] DAILY PRN PRN Reason: CONSTIPATION Calcium Carbonate (Calcium Carbonate 750 Mg Tab.Chew) 750 mg PO Q4H PRN PRN Reason: Heartburn Ceftriaxone Sodium (Ceftriaxone Sodium 1 Gm Vial) 1 gm IVPUSH Q24H [facility] Last Admin: 02/13/25 16:23 Dose: 1 gm Clotrimazole (Clotrimazole 1 % Cream 15 Gm Tube) 1 appl TOPICAL BID [facility]; Protocol Last Admin: 02/13/25 11:12 Dose: 1 appl Enoxaparin Sodium (Enoxaparin Sodium 40 Mg/0.4 Ml Syringe) 40 mg SUBCUT Q24H [facility] Last Admin: 02/12/25 22:00 Dose: 40 mg Hydralazine HCl (Hydralazine Hcl 20 Mg/Ml Vial) 10 mg IVPUSH Q6H PRN; Protocol PRN Reason: SBP > 160 Last Admin: 02/13/25 03:29 Dose: 10 mg Doxycycline Hyclate 100 mg/ (Sodium Chloride) 250 mls @ 166.67 mls/hr IV Q12H [facility] Last Infusion: 02/13/25 08:17 Dose: Infused Daptomycin 420 mg/ Sodium (Chloride) 58.4 mls @ 100.69 mls/hr IV Q24H [facility] Last Infusion: 02/13/25 11:03 Dose: Infused Magnesium Hydroxide (Milk Of Magnesia 30 Ml Oral.Susp) 30 ml PO DAILY PRN PRN Reason: Constipation Melatonin (Melatonin 3 Mg Tablet) 6 mg PO BEDTIME PRN PRN Reason: Insomnia Last Admin: 02/12/25 22:00 Dose: 6 mg Metoprolol Tartrate (Metoprolol Tartrate 12.5 Mg Halftab) 12.5 mg PO BID [facility]; Protocol Last Admin: 02/13/25 10:48 Dose: 12.5 mg Nystatin (Nystatin Powder 15 Gm Bottle) 1 appl TOPICAL TID [facility]; Protocol Last Admin: 02/13/25 16:22 Dose: 1 appl Ondansetron HCl (Ondansetron Hcl 4 Mg/2 Ml Vial) 4 mg IVPUSH Q8H PRN PRN Reason: Nausea and Vomiting Pantoprazole Sodium (Pantoprazole Sodium 40 Mg/10 Ml Vial) 40 mg IVPUSH DAILY@0630 [facility] Last Admin: 02/13/25 05:48 Dose: 40 mg Polyethylene Glycol (Polyethylene Glycol 3350 17 Gm Powd.Pack) 17 gm PO DAILY PRN PRN Reason: Constipation Senna (Sennosides 8.6 Mg Tablet) 17.2 mg PO BEDTIME [facility] Last Admin: 02/12/25 22:00 Dose: 17.2 mg Sodium Chloride (0.9 % Sodium Chloride Flush 3 Ml [facility]) [facility] Last Admin: 02/13/25 16:23 Dose: 3 ml Home Medications ?Medication ?Instructions ?Recorded ?Confirmed ?Last Taken ?Type cetirizine 10 mg capsule (Zyrtec) 10 mg PO DAILY PRN Allergy Symptoms 01/23/25 02/11/25 Unknown History omeprazole 40 mg capsule,delayed 40 mg PO DAILY@0630 01/23/25 02/11/25 Unknown History release acetaminophen 325 mg tablet 650 mg PO Q6H PRN Pain 01/31/25 02/11/25 Unknown History bisacodyl 10 mg rectal suppository 10 mg [place] DAILY PRN CONSTIPATION 01/31/25 02/11/25 Unknown History magnesium hydroxide 400 mg/5 mL 5 ml PO DAILY PRN Constipation 01/31/25 02/11/25 Unknown History oral suspension (Milk of Magnesia) mirtazapine 7.5 mg tablet 7.5 mg PO BEDTIME 01/31/25 02/11/25 Unknown History ondansetron HCl 4 mg tablet 4 mg PO Q6H PRN Nausea And Vomiting 01/31/25 02/11/25 Unknown History tramadol 50 mg tablet 50 mg PO Q6H PRN Pain 01/31/25 02/11/25 Unknown History Physical Exam Vital Signs: Vital Signs: Last Vital Signs Temp 97.9 F 02/13/25 15:36 Pulse 86 02/13/25 15:36 Resp 18 02/13/25 15:36 BP 154/67 H 02/13/25 15:36 Pulse Ox 99 02/13/25 15:36 O2 Del Method Nasal Cannula 02/13/25 15:36 O2 Flow Rate 3 02/13/25 15:36 BMI result Body Mass Index 24.3 Const: General: cooperative HEENT: Head: Yes normal to inspection Face and sinus: Yes normal facial exam Mouth: Normal oral and palatal mucosa present Teeth and gingiva: dentition normal Eyes: General: appearance normal, both eyes and all related structures Pupils: Equal, round and reactive pupils present Resp: Effort & Inspection: normal respiratory effort Cardio: Rate: regular rate Rhythm: regular rhythm GI: Palpation (GI): Soft to palpation and nontender : General: Yes no CVA tenderness Back/Spine/Pelvis: Back: no CVA tenderness Skin: General skin exam: no rashes or lesions noted Neuro: General: moves all extremities Cranial nerves: Yes Equal, round and reactive pupils present Extrem: General: Yes normal to inspection Psych: Other: clear Results Labs 02/12/25 05:47 02/12/25 05:47 Microbiology Microbiology Results: Microbiology 02/11/25 Unknown Urine clean catch - Clean Catch Midstream Urine Culture - Preliminary Culture in progress. 02/11/25 15:25 Blood - Venous Blood Culture - Preliminary No growth after 24 hours. 02/11/25 15:21 Blood - Venous Blood Culture - Preliminary No growth after 24 hours. Assessment and Plan (1) Encephalopathy: Status: Acute Plan This may be due to Daptomycin. Will change to Vancomycin. Finish Vancomycin on 03/18. Await urine cultures.
--- NOTE | 2025-02-13 17:26 | PM.EVENT ---
Event Note Date of Service: 02/13/25 Event Note: continue Doxycycline for now,possible lung Time Spent With Patient Time: Total time managing care of this patient today ____ minutes.
[2025-02-14] VITALS (9 sets, daily range): BP systolic 134–188; BP diastolic 62–81; PULSE 87–124; RESP 16–18; TEMP 36–37.1; O2SAT 97–98
--- NOTE | 2025-02-14 07:31 | PC.NURSE ---
Pt bladder scanned for 491mls. notified. Order for straight cath placed. Patient straight catheterized for 550mls. Purewick placed post straight cath.
--- NOTE | 2025-02-14 07:33 | PC.NURSE ---
Patient with high blood pressure systolic up to 180s. Given PRN IV Hydalazine. About 1.5hrs later, patient heart rate in the 120s. MD notified. Likely reflex tachycardia from hydralazine. Monitor and notify if sustaining 140s.
[2025-02-14] MEDS: Metoprolol Tartrate 12.5 MG HALFTAB PO ×2 (07:54→22:24)
[2025-02-14] MEDS: 0.9 % Sodium Chloride Flush 3 ML SYRINGE IVFLUSH ×3 (07:55→22:25)
[2025-02-14] MEDS: Clotrimazole 1 % Cream 15 GM TUBE 1 APPL TOPICAL ×2 (07:55→22:25)
[2025-02-14] MEDS: DAPTOMYCIN IV (08:02)
[2025-02-14] MEDS: SODIUM CHLORIDE 0.9% IV (08:02)
[2025-02-14 09:24] LABS: Creatinine Clr Calc Pharmacy 52.0; Estimated Glomerular Filt Rate > 60
[2025-02-14 09:25] LABS: Anion Gap 11 (12-20); Blood Urea Nitrogen 18 mg/dL (9-16); Calcium 8.9 mg/dL (8.4-10.2); Carbon Dioxide 24 mmol/L (22-29); Chloride 112 mmol/L (96-108); Creatinine Clr Calc Pharmacy 52.9; Estimated Glomerular Filt Rate > 60; Potassium 3.8 mmol/L (3.3-5.1); Sodium 143 mmol/L (135-145)
--- NOTE | 2025-02-14 09:46 | MHC.SL.SWA ---
Speech Pathologist Impression: Risk of Aspiration Due to: Dysphasia Diet Status: Recommend continue on Chopped/Advanced (NDD3) with NECTAR THICK liquids, pills crushed in puree, 1-1 feeding/assistance at all meals. Patient is a slow eater, putting her at risk for reduced nutritional intake. Remove items from tray that can be given as a snack later if intake is poor at meal. Liquid Consistency and Strategies for Safe Swallow: Liquid Intake Recommendation: Tarina Thick Liquid Intake Strategies: No Straws Solid Food Consistency: Dietary Recommendations: Chopped/Advanced (NDD3) Additional Modifications to Solid Foods: Oral Medication Intake: Crushed with Puree Please contact the pharmacy regarding appropriate crushable or liquid drug formulations that are available whenever modified delivery is recommended. Compensatory Strategies and Precautions to be Taken for Safe Swallow: Sitting Upright (90 deg) No Straw Liquids from Cup Small Bites and Sips Alternate Liquids/Solids Rate of Ingestion Change Supervision While Eating and Drinking for Safe Swallow: Total Assistance (1:1) Foods to Avoid: Swallowing Recommended Treatments: Compens. Strategy Educat. Recommendation for Speech: Inpatient Speech Therapy Comment: Patient seen at breakfast today, with patient now on telemed floor. Patient was sleeping at onset, remained quite drowsy but responsive throughout meal. Patient initially offered pancakes from tray, with patient eating a couple of bites of this consistency, and demonstrating prolonged period of mastication on each bite, and mild oral residual after swallow noted, which was cleared by sip of nectar thick juice. Patient offered peaches from tray, which patient was interested and enjoyed, eventually consuming the entire container. On this consistency as well, patient produced slow, prolonged chewing on each bite, with good clearance on each swallow. No evidence of clinical aspiration on any consistency. Patient continues to need 1-1 assistance at all meals, and is a slow eater. Very slow pace likely to affect amount of intake at each meal. AIRCONDITIONING ENGINEER also gave patient portion of magic cup on tray, and explained it's nutritional value to patient. Magic cup was removed from meal tray to continue to be administered at a later time. Due to slow pace, patient would likely benefit from smaller more frequent meals to encourage intake. AIRCONDITIONING ENGINEER will continue to follow. Recommend continue on Chopped/Advanced (NDD3) with NECTAR THICK liquids, pills crushed in puree, 1-1 feeding/assistance at all meals. Frequency/Duration: M-F Date Range for Service Req: Timeline to reassess: Bag Machine Tender Clinican/Clinical Fellow: No Supervisory Statement: I have reviewed and agree with the student/clinical fellow's documentation: N/A Speech Language Pathologist: Sangeeta Mota M.A., CCC-AIRCONDITIONING ENGINEER
--- NOTE | 2025-02-14 10:35 | PM.PNORT ---
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 Patient resting comfortably in bed this morning Is arousable, but quite drowsy No evidence of acute pain No acute events overnight No other acute complaints or concerns at this time Physical Exam Vital Signs: Vital Signs: Last Vital Signs Temp 98.2 F 02/14/25 07:32 Pulse 124 H 02/14/25 07:32 Resp 16 02/14/25 07:32 BP 145/75 H 02/14/25 07:32 Pulse Ox 97 02/14/25 07:32 O2 Del Method Nasal Cannula 02/14/25 07:32 O2 Flow Rate 2 02/14/25 07:32 BMI result Body Mass Index 24.3 Const: General: cooperative, healthy appearing and no acute distress Resp: Effort & Inspection: normal respiratory effort and able to speak in complete sentences Cardio: Rate: regular rate Peripheral pulses: Peripheral pulses 2+ throughout GI: Palpation (GI): Soft to palpation Skin: Lesions: no lesions Rashes: no rashes Extrem: Other: Right knee dressing is c/d/i. Able to dorsi/plantar flex. Calf is supple and nontender. Sensation intact. Pedal pulse intact. Procedures Date of Service Date of Service: 02/14/25 Progress Note: A&P Assessment and plan (1) Open wound of knee, complicated: Status: Acute Plan Continue pain mgmnt as needed Continue ASA for DVT ppx Continue with current dressing, will replace wound VAC tomorrow Continue IV daptomycin Continue treatment for UTI and pneumonia Continue with all other recommendations per Medicine Time Spent With Patient Time: Total time managing care of this patient today ____ minutes. Quality Stroke Does the patient have a stroke diagnosis?: No Reason for No Anti-thrombotic by Day Two: N/A - Med Ordered VTE Prior VTE?: No VTE Risk Level:: Medical - moderate - high VTE Device Contraindication: N/A - Device Ordered VTE Drug Contraindication: N/A - Med Ordered
--- NOTE | 2025-02-14 16:38 | HO.PM.IMPN ---
Subjective Subjective Date of Service: 02/14/25 Interval History: uti/pneumonia Review of Systems awake ,unable to provide much info. Review of Systems: Yes all other systems are reviewed and are negative Physical Exam Vital Signs: Vital Signs: Last Vital Signs Temp 98.7 F 02/14/25 15:28 Pulse 103 H 02/14/25 15:28 Resp 16 02/14/25 15:28 BP 145/67 H 02/14/25 15:28 Pulse Ox 97 02/14/25 15:28 O2 Del Method Nasal Cannula 02/14/25 15:28 O2 Flow Rate 2 02/14/25 15:28 BMI result Body Mass Index 24.3 Appearance: Awake and interactive cvs: rrr, [id number] res: clear to auscultation ,no rhonchii or wheezing abd: no rebound or guarding ,nt, bs present. ext pulses present , no cyanosis . neuro: Moves all extremities Objective Data Active Medications Acetaminophen (Acetaminophen 325 Mg Tablet) 650 mg PO Q6H PRN PRN Reason: Pain, Mild 1-3,fever,headache Albuterol/Ipratropium (Albuterol/Iprat 2.5/0.5mg 3 Ml Ampul.Neb) 3 ml INHALE Q4H PRN PRN Reason: Shortness of Breath/Wheezing Aspirin (Aspirin 81 Mg Tab.Chew) 81 mg PO DAILY [facility] Last Admin: 02/14/25 07:55 Dose: 81 mg Documented By: EZEQUIEL Bisacodyl (Bisacodyl 10 Mg Supp.Rect) 10 mg [place] DAILY PRN PRN Reason: CONSTIPATION Calcium Carbonate (Calcium Carbonate 750 Mg Tab.Chew) 750 mg PO Q4H PRN PRN Reason: Heartburn Clotrimazole (Clotrimazole 1 % Cream 15 Gm Tube) 1 appl TOPICAL BID PATRICIA; Protocol Last Admin: 02/14/25 07:55 Dose: 1 appl Documented By: EZEQUIEL Enoxaparin Sodium (Enoxaparin Sodium 40 Mg/0.4 Ml Syringe) 40 mg SUBCUT Q24H [facility] Last Admin: 02/13/25 21:00 Dose: 40 mg Documented By: PRISCA Hydralazine HCl (Hydralazine Hcl 20 Mg/Ml Vial) 10 mg IVPUSH Q6H PRN; Protocol PRN Reason: SBP > 160 Last Admin: 02/14/25 03:40 Dose: 10 mg Documented By: PRISCA Doxycycline Hyclate 100 mg/ (Sodium Chloride) 250 mls @ 166.67 mls/hr IV Q12H [facility] Last Infusion: 02/14/25 07:50 Dose: Infused Documented By: EZEQUIEL Vancomycin HCl 1,000 mg/ (Sodium Chloride) 270 mls @ 270 mls/hr IV Q24H [facility] Magnesium Hydroxide (Milk Of Magnesia 30 Ml Oral.Susp) 30 ml PO DAILY PRN PRN Reason: Constipation Melatonin (Melatonin 3 Mg Tablet) 6 mg PO BEDTIME PRN PRN Reason: Insomnia Last Admin: 02/13/25 21:01 Dose: 6 mg Documented By: PRISCA Metoprolol Tartrate (Metoprolol Tartrate 12.5 Mg Halftab) 12.5 mg PO BID [facility]; Protocol Last Admin: 02/14/25 07:54 Dose: 12.5 mg Documented By: EZEQUIEL Nystatin (Nystatin Powder 15 Gm Bottle) 1 appl TOPICAL TID [facility]; Protocol Last Admin: 02/14/25 15:49 Dose: 1 appl Documented By: EZEQUIEL Ondansetron HCl (Ondansetron Hcl 4 Mg/2 Ml Vial) 4 mg IVPUSH Q8H PRN PRN Reason: Nausea and Vomiting Pantoprazole Sodium (Pantoprazole Sodium 40 Mg/10 Ml Vial) 40 mg IVPUSH DAILY@0630 [facility] Last Admin: 02/14/25 06:16 Dose: 40 mg Documented By: PRISCA Pharmacy Consult (Consult Rx Vancomycin Dosing) 1 each MISCELLANE DAILY PRN PRN Reason: Consult order Polyethylene Glycol (Polyethylene Glycol 3350 17 Gm Powd.Pack) 17 gm PO DAILY PRN PRN Reason: Constipation Senna (Sennosides 8.6 Mg Tablet) 17.2 mg PO BEDTIME [facility] Last Admin: 02/13/25 21:01 Dose: 17.2 mg Documented By: PRISCA Sodium Chloride (0.9 % Sodium Chloride Flush 3 Ml Syringe) 3 ml IVFLUSH QSHIFT [facility] Last Admin: 02/14/25 15:49 Dose: 3 ml Documented By: EZEQUIEL Labs 02/12/25 05:47 02/14/25 08:27 Labs: Laboratory Results - last 24 hr 02/14/25 02/14/25 02/14/25 08:27 08:27 08:27 Anion Gap 11 L Estim Creat Clear Calc 52.0 52.9 Estimated GFR > 60 > 60 Random Glucose 146 H Calcium 8.9 Microbiology Microbiology Results: Microbiology 02/11/25 Unknown Urine Culture - Preliminary Urine clean catch - Clean Catch Midstream Gram negative dayami 02/11/25 15:25 Blood Culture - Preliminary Blood - Venous No growth after 48 hours. 02/11/25 15:21 Blood Culture - Preliminary Blood - Venous No growth after 48 hours. Assessment and Plan (1) Acute UTI: Status: Acute Plan 89-year-old female with past medical history of dementia, hypertension, hyperlipidemia, allergic rhinitis, right knee infection currently on daptomycin until 03/18/2025, GERD, history of total bilateral knee replacements is being admitted with sepsis secondary to urinary tract infection/pneumonia. Patient has been sign dementia and is currently at [facility] for rehabilitation/long-term care. Sepsis possible sec for UTI and pneumonia continue daptomycin for right knee infection, end date 03/18/2025 Lactic acid 1.5,Leukocytosis of 20, patient currently not febrile Follow urine culture-gram neg dayami,Bladder scan QS X3 plan:Duo nebs p.r.n.,Incentive spirometry.continue antibiotics ,follow cultures Speech therapy eval ordered Aspiration precautions ordered. ID eval noted -rec to change daptomycin to iv vanco due to ? dapto might causing confusion, also rec to change antibiotics to doxycylcine (?lung source for infection) low po intake -added gentle hydration. Recent R knee surgery with current wound vac and PICC line : Wound VAC was changed earlier today 02/11/[address] Patient has PICC line and has been on daptomycin (changed to vanco per id)per Orthopedics and will continue until 03/18/2025. ortho eval-plan for vac change wound care also following Dementia -Chronic in nature Per healthcare proxy and patient's niece, patient has been more depressed since being away from her HTN-Metoprolol restarted -Hydralazine p.r.n. -Low-sodium diet DVT prophylaxis: Lovenox Full Code status ongoing need:Sepsis possible secfor UTI and pneumonia-need iv antibiotics ,close monitering Quality Stroke Does the patient have a stroke diagnosis?: No Reason for No Anti-thrombotic by Day Two: N/A - Med Ordered VTE Prior VTE?: No VTE Risk Level:: Medical - moderate - high VTE Device Contraindication: N/A - Device Ordered VTE Drug Contraindication: N/A - Med Ordered
[2025-02-14] MEDS: Lactated Ringers 1,000 ML 80 ML IVCONT (16:56)
--- NOTE | 2025-02-14 17:19 | PC.NURSE ---
pt with 3rd bladder scanned of 404ml. notified, straight cath done at 1600 w 400ml clear yellow output. due to void at 2200 02/14 to 0000 02/15/25
[2025-02-15] VITALS (7 sets, daily range): BP systolic 115–178; BP diastolic 58–86; PULSE 81–112; RESP 16–22; TEMP 36.6–37.3; O2SAT 93–98; BMI 24.3
[2025-02-15] MEDS: Lactated Ringers 1,000 ML 80 ML IVCONT (05:14)
[2025-02-15 07:07] LABS: Hematocrit 28.5 % (37.0-47.0); Hemoglobin 9.4 g/dl (12.0-16.0); Mean Corpuscular HGB Conc 33.0 g/dl (31.0-35.0); Mean Corpuscular Hemoglobin 29.8 pg (27.0-33.0); Mean Corpuscular Volume 90.5 fL (80.0-98.0); NRBC Abs Auto 0.000 X10*3/uL (0.0-0.012); NRBC Pct Auto 0.0 /100WBC (0.0-0.2); Platelet Count 492 X10*3/uL (160-400); Red Blood Count 3.15 X10*6/uL (4.20-5.50); White Blood Count 11.8 X10*3/uL (4.8-10.8)
[2025-02-15 07:20] LABS: Anion Gap 11 (12-20); Blood Urea Nitrogen 16 mg/dL (9-16); Calcium 8.9 mg/dL (8.4-10.2); Carbon Dioxide 26 mmol/L (22-29); Chloride 110 mmol/L (96-108); Creatinine Clr Calc Pharmacy 50.4; Estimated Glomerular Filt Rate > 60; Potassium 3.5 mmol/L (3.3-5.1); Sodium 143 mmol/L (135-145)
[2025-02-15] MEDS: Metoprolol Tartrate 12.5 MG HALFTAB PO ×2 (08:53→20:38)
[2025-02-15] MEDS: Clotrimazole 1 % Cream 15 GM TUBE 1 APPL TOPICAL (08:54)
[2025-02-15] MEDS: 0.9 % Sodium Chloride Flush 3 ML SYRINGE IVFLUSH ×2 (08:54→14:13)
--- NOTE | 2025-02-15 10:10 | PM.PNORT ---
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 Patient resting comfortably in bed this morning Is arousable, but quite drowsy No evidence of acute pain No acute events overnight No other acute complaints or concerns at this time Physical Exam Vital Signs: Vital Signs: Last Vital Signs Temp 97.8 F 02/15/25 07:20 Pulse 91 02/15/25 07:20 Resp 16 02/15/25 07:20 BP 158/82 H 02/15/25 07:20 Pulse Ox 98 02/15/25 07:20 O2 Del Method Nasal Cannula 02/15/25 07:20 O2 Flow Rate 1 02/15/25 07:20 BMI result Body Mass Index 24.3 Const: General: cooperative, healthy appearing and no acute distress Resp: Effort & Inspection: normal respiratory effort and able to speak in complete sentences Cardio: Rate: regular rate Peripheral pulses: Peripheral pulses 2+ throughout GI: Palpation (GI): Soft to palpation Skin: Lesions: no lesions Rashes: no rashes Extrem: Other: Right knee dressing is c/d/i. Able to dorsi/plantar flex. Calf is supple and nontender. Sensation intact. Pedal pulse intact. Procedures Date of Service Date of Service: 02/15/25 Progress Note: A&P Assessment and plan (1) Open wound of knee, complicated: Status: Acute Plan Continue pain mgmnt as needed Continue ASA for DVT ppx Continue with current dressing, wound care will replace wound VAC today Continue IV daptomycin Continue treatment for UTI and pneumonia Continue with all other recommendations per Medicine Time Spent With Patient Time: Total time managing care of this patient today ____ minutes. Quality Stroke Does the patient have a stroke diagnosis?: No Reason for No Anti-thrombotic by Day Two: N/A - Med Ordered VTE Prior VTE?: No VTE Risk Level:: Medical - moderate - high VTE Device Contraindication: N/A - Device Ordered VTE Drug Contraindication: N/A - Med Ordered
[2025-02-15 10:26] LABS: Albumin Level 2.6 g/dL (3.5-5.0); Magnesium 1.7 mg/dL (1.6-2.6); Triglycerides 107 mg/dL (<150)
--- NOTE | 2025-02-15 11:34 | PC.NURSE ---
PICC Line assessment 02/15/2025 10:30 The PICC line was dressed with a 2 by 2 and tegaderm and regular tape. No bioparch or stat losk was present. The PICC line was pulled out 1cm. The PICC line was cleansed and redressed with Stat lock, biopatch and tegaderm using sterile technique. Dr. Espitia and Yohannes English Director were made aware. The PICC line did flush with slight resistance. No blood return noted. Dr Espitia ststed he would order ALteplase.
--- NOTE | 2025-02-15 11:43 | MHC.CLN ---
NUTRITION DIET CONTINUES REGULAR, CHOPPED WITH NECTAR THICK LIQUIDS. SUPPLEMENT MAGIC CUP BID PROVIDES 580 KCALS, 18 G PROTEIN. PO USUALLY 0-25%. STARTING PARENTERAL NUTRITION PER MD REC. HAS CENTRAL LINE FOR ABT. IF ABLE TO USE CENTRAL LINE FOR PERIPHERAL NUTRITION, RECOMMEND START TPN AT 45 ML PER HOUR, 54 G PROTEIN, 162 G DEXTROSE, 767 KCALS. REPLETE LYTES NEEDED. IF PPN, START PPN AT 55 ML PER HOUR, 56 G PROTEIN, 132 G DEXTROSE, 673 KCALS. REPLETE LYTES NEEDED. FOLLOW FOR PARENTERAL NUTRITION TOLERANCE, PO INTAKE, AND PLAN OF CARE. SEE CLINICAL NUTRITION ASSESSMENT 02/15/25.
--- NOTE | 2025-02-15 12:20 | HO.WOUND ---
Wound Consult: Follow up 89yr old?female admitted to [facility] on 02/11/25 - See progress notes and H&P for detailed history.? Wound consult follow up for Right Leg wound.? Patient agreeable to assessment and photo documentation, although she remains confused at times. Easily re-directable. Reassessed for Negative Pressure Wound Therapy Application. Wound bed observable smooth moist white bone, wound herrera clean red, there is mild odor noted with drainage creamy kendall drainage - Per Orthopedic Surgery NOY Roy ok to apply wound vac. Periwound improvement noted - small areas on wound edge noted for hypergranulation tissue - treated with Durafiber AG under wound vac foam and drape. New Wound vac applied - Drape applied to protect kenneth wound from Vac suction - 1 piece of Cuticerin contact layer applied placed first to protect bone from foam, I piece of black foam packed into wound bed - hypergranultation tissue treated with durafiber and Mushroom cap of black foam applied to exterior to allow for proper suction given wound bed is so small in diameter. NPWT Suction Settings: 125mmHg - Setting Type: Continuous No Premedication Provided. Wound assessment: 1cm x 1cm x 1.5cm? - no undermining or tunneling noted Wound bed: wound bed of moist white smooth exposed bone, herrera red moist and clean - pale hypergranulation tissue noted to wound edge Old Dressing removed - Durafiber with creamy kendall drainage mild odor noted Cleansed and irrigated with NS. NPWT Dressing Application: Skin and wound edge protected with drape.? Cuticerin placed for bone protection,1 black foam cut to size and applied to wound bed, Durafiber Applied to wound edge with hypergranulation tissue, for mushroom cap one piece of black foam applied and lizeth pad applied accordingly - Dressing completed and no leak noted.? Suction set to 125mmHg - low and continuous - patient denies pain and or burning sensation. Patient tolerated well.? D/C plan defer wound vac management?to Orthopedic Surgery Service line - patient to follow up with Dr. Estrada at time of d/c. Nursing Considerations: Wound vac should be on and set to suction at all times - if leak occurs reinforce with drape left at bedside or tegaderm. If unable to obtain seal page covering doctor from Orthopedic Service Team. If not able to obtain suction for 2 consecutive hours remove and apply wet to dry dressing - notify providers. If bright red blood is noted in Vac canister stop wound vac and page doctor immediately. Re-consult wound care Nurse for wound deterioration or wound changes.
[2025-02-15] MEDS: Alteplase Cath Clear 2 MG/2 ML VIAL INTRACATH (12:37)
--- NOTE | 2025-02-15 13:08 | MHC.CM.PN ---
EMR reviewed and per MD rounds, pt is not medically cleared for discharge due to management of pneumonia, and UTI, PO intake poor, now on PPN.
[2025-02-15] MEDS: 0.9 % Sodium Chloride Flush 10 ML SYRINGE IVFLUSH (14:14)
--- NOTE | 2025-02-15 15:05 | HO.PM.IMPN ---
Subjective Subjective Date of Service: 02/15/25 Interval History: dec po intake Review of Systems awake some conversive ,dec po intake urine cultures grew -gram negative dayami Physical Exam Vital Signs: Vital Signs: Last Vital Signs Temp 98.5 F 02/15/25 12:00 Pulse 81 02/15/25 12:00 Resp 16 02/15/25 12:00 BP 168/84 H 02/15/25 12:00 Pulse Ox 96 02/15/25 12:00 O2 Del Method Room Air 02/15/25 12:00 O2 Flow Rate 1 02/15/25 07:20 BMI result Body Mass Index 24.3 Appearance: Awake and interactive cvs: rrr, [id number] res: clear to auscultation ,no rhonchii or wheezing abd: no rebound or guarding ,nt, bs present. ext pulses present , no cyanosis . neuro: Moves all extremities Objective Data Active Medications Acetaminophen (Acetaminophen 325 Mg Tablet) 650 mg PO Q6H PRN PRN Reason: Pain, Mild 1-3,fever,headache Albuterol/Ipratropium (Albuterol/Iprat 2.5/0.5mg 3 Ml Ampul.Neb) 3 ml INHALE Q4H PRN PRN Reason: Shortness of Breath/Wheezing Aspirin (Aspirin 81 Mg Tab.Chew) 81 mg PO DAILY [facility] Last Admin: 02/15/25 08:53 Dose: 81 mg Documented By: DOROTHY Bisacodyl (Bisacodyl 10 Mg Supp.Rect) 10 mg [place] DAILY PRN PRN Reason: CONSTIPATION Calcium Carbonate (Calcium Carbonate 750 Mg Tab.Chew) 750 mg PO Q4H PRN PRN Reason: Heartburn Clotrimazole (Clotrimazole 1 % Cream 15 Gm Tube) 1 appl TOPICAL BID PATRICIA; Protocol Last Admin: 02/15/25 08:54 Dose: 1 appl Documented By: DOROTHY Enoxaparin Sodium (Enoxaparin Sodium 40 Mg/0.4 Ml Syringe) 40 mg SUBCUT Q24H [facility] Last Admin: 02/14/25 22:24 Dose: 40 mg Documented By: PRISCA Hydralazine HCl (Hydralazine Hcl 20 Mg/Ml Vial) 10 mg IVPUSH Q6H PRN; Protocol PRN Reason: SBP > 160 Last Admin: 02/14/25 03:40 Dose: 10 mg Documented By: PRISCA Doxycycline Hyclate 100 mg/ (Sodium Chloride) 250 mls @ 166.67 mls/hr IV Q12H [facility] Last Infusion: 02/15/25 07:01 Dose: Infused Documented By: PRISCA Vancomycin HCl 1,250 mg/ (Sodium Chloride) 250 mls @ 166.667 mls/hr IV Q24H [facility] Last Infusion: 02/14/25 20:01 Dose: Infused Documented By: PRISCA Nutrition (Parenteral) (Parenteral Nutrition) 1,320 mls @ 55 mls/hr IV .Q24H [facility]; Protocol Stop: 02/16/25 20:59 Magnesium Hydroxide (Milk Of Magnesia 30 Ml Oral.Susp) 30 ml PO DAILY PRN PRN Reason: Constipation Melatonin (Melatonin 3 Mg Tablet) 6 mg PO BEDTIME PRN PRN Reason: Insomnia Last Admin: 02/14/25 22:24 Dose: 6 mg Documented By: PRISCA Metoprolol Tartrate (Metoprolol Tartrate 12.5 Mg Halftab) 12.5 mg PO BID [facility]; Protocol Last Admin: 02/15/25 08:53 Dose: 12.5 mg Documented By: DOROTHY Nystatin (Nystatin Powder 15 Gm Bottle) 1 appl TOPICAL TID [facility]; Protocol Last Admin: 02/15/25 14:13 Dose: 1 appl Documented By: DOROTHY Ondansetron HCl (Ondansetron Hcl 4 Mg/2 Ml Vial) 4 mg IVPUSH Q8H PRN PRN Reason: Nausea and Vomiting Pantoprazole Sodium (Pantoprazole Sodium 40 Mg/10 Ml Vial) 40 mg IVPUSH DAILY@0630 [facility] Last Admin: 02/15/25 05:14 Dose: 40 mg Documented By: PRISCA Pharmacy Consult (Consult Rx Vancomycin Dosing) 1 each MISCELLANE DAILY PRN PRN Reason: Consult order Pharmacy Consult (Consult Rx Parenteral Nutrition Ordering) 1 each MISCELLANE DAILY PRN PRN Reason: Consult order Polyethylene Glycol (Polyethylene Glycol 3350 17 Gm Powd.Pack) 17 gm PO DAILY PRN PRN Reason: Constipation Senna (Sennosides 8.6 Mg Tablet) 17.2 mg PO BEDTIME [facility] Last Admin: 02/14/25 22:24 Dose: 17.2 mg Documented By: PRISCA Sodium Chloride (0.9 % Sodium Chloride Flush 3 Ml Sy[facility]) [facility] Last Admin: 02/15/25 14:13 Dose: 3 ml Documented By: DOROTHY Sodium Chloride (0.9 % Sodium Chloride Flush 10 Ml Syringe) [facility] Last Admin: 02/15/25 14:14 Dose: 10 ml Documented By: DOROTHY Labs 02/15/25 06:43 02/15/25 06:43 Labs: Laboratory Results - last 24 hr 02/14/25 02/15/25 17:00 06:43 MCV 90.5 MCH 29.8 MCHC 33.0 RDW 15.5 Plt Count 492 H MPV 8.5 L Absolute Nucleated RBC 0.000 Nucleated RBC % (auto) 0.0 Anion Gap 11 L Estim Creat Clear Calc 50.4 Estimated GFR > 60 Random Glucose 123 H Calcium 8.9 Phosphorus 2.9 Magnesium 1.7 Albumin 2.6 L Triglycerides 107 Random Vancomycin 9.8 L Microbiology Microbiology Results: Microbiology 02/11/25 Unknown Urine Culture - Preliminary Urine clean catch - Clean Catch Midstream Gram negative dayami Assessment and Plan (1) Acute UTI: Status: Acute Plan 89-year-old female with past medical history of dementia, hypertension, hyperlipidemia, allergic rhinitis, right knee infection currently on daptomycin until 03/18/2025, GERD, history of total bilateral knee replacements is being admitted with sepsis secondary to urinary tract infection/pneumonia. Patient has been sign dementia and is currently at [facility] for rehabilitation/long-term care. Sepsis possible sec for UTI and pneumonia continue daptomycin for right knee infection, end date 03/18/2025 Lactic acid 1.5,Leukocytosis of 20, patient currently not febrile Follow urine culture-gram neg dayami,Bladder scan QS X3 plan:Duo nebs p.r.n.,Incentive spirometry.continue antibiotics ,follow cultures Speech therapy eval ordered Aspiration precautions ordered. ID eval noted -rec to change daptomycin to iv vanco due to ? dapto might causing confusion, also rec to change antibiotics to doxycylcine (?lung source for infection) low po intake -added gentle hydration. Recent R knee surgery with current wound vac and PICC line : Wound VAC was changed earlier today 02/11/[address] Patient has PICC line and has been on daptomycin (changed to vanco per id)per Orthopedics and will continue until 03/18/2025. ? called Ir for picc line -no blood return -added local alteplase . ortho eval-plan for vac change wound care also following Dementia -Chronic in nature Per healthcare proxy and patient's niece, patient has been more depressed since being away from her . po intake is very poor -added ppn encouraged to better p.o. intake , staff is aware in detail that need more frequent encouragement for p.o. intake HTN-Metoprolol restarted -Hydralazine p.r.n. -Low-sodium diet DVT prophylaxis: Lovenox Full Code status ongoing need:Sepsis possible secfor UTI and pneumonia-need iv antibiotics ,close monitering Quality Stroke Does the patient have a stroke diagnosis?: No Reason for No Anti-thrombotic by Day Two: N/A - Med Ordered VTE Prior VTE?: No VTE Risk Level:: Medical - moderate - high VTE Device Contraindication: N/A - Device Ordered VTE Drug Contraindication: N/A - Med Ordered
--- NOTE | 2025-02-15 16:12 | MHC.SL.SWA ---
Speech Pathologist Impression: Risk of Aspiration, Oropharyngeal Dysphagia Dysphasia Diet Status: Recommend continue on Chopped/Advanced (NDD3) and UPGRADE to THIN liquids, pills crushed in puree, 1-1 feeding/assistance at all meals. Patient is a slow eater, putting her at risk for reduced nutritional intake. Remove items from tray that can be given as a snack later if intake is poor at meal. Liquid Consistency and Strategies for Safe Swallow: Liquid Intake Recommendation: Thin Liquid Intake Strategies: No Straws Solid Food Consistency: Dietary Recommendations: Chopped/Advanced (NDD3) Oral Medication Intake: Crushed with Puree Please contact the pharmacy regarding appropriate crushable or liquid drug formulations that are available whenever modified delivery is recommended. Compensatory Strategies and Precautions to be Taken for Safe Swallow: Sitting Upright (90 deg) No Straw Liquids from Cup Small Bites and Sips Alternate Liquids/Solids Rate of Ingestion Change Supervision While Eating and Drinking for Safe Swallow: Total Assistance (1:1) Swallowing Recommended Treatments: Compens. Strategy Educat. Recommendation for Speech: Inpatient Speech Therapy Frequency/Duration: M-F Date Range for Service Req: Timeline to reassess: Technical Services Representative Clinican/Clinical Fellow: No Supervisory Statement: I have reviewed and agree with the student/clinical fellow's documentation: N/A Speech Language Pathologist: Sangeeta Mota M.A., CCC-SUPERVISOR POST WAVE
[2025-02-15] MEDS: Parenteral Nutrition 1,320 ML 55 ML IV (22:31)
[2025-02-16] VITALS (8 sets, daily range): BP systolic 124–186; BP diastolic 58–84; PULSE 88–111; RESP 16–24; TEMP 36.4–37.4; O2SAT 95–97
[2025-02-16] MEDS: 0.9 % Sodium Chloride Flush 10 ML SYRINGE IVFLUSH ×3 (01:40→20:07)
[2025-02-16 06:41] LABS: Alanine Aminotransferase < 6 U/L (0-31); Albumin Level 2.6 g/dL (3.5-5.0); Alkaline Phosphatase 135 U/L (39-117); Anion Gap 10 (12-20); Aspartate Amino Transferase 22 U/L (5-31); Blood Urea Nitrogen 14 mg/dL (9-16); Calcium 8.7 mg/dL (8.4-10.2); Carbon Dioxide 25 mmol/L (22-29); Chloride 108 mmol/L (96-108); Creatinine Clr Calc Pharmacy 55.5; Estimated Glomerular Filt Rate > 60; Magnesium 1.7 mg/dL (1.6-2.6); Potassium 3.3 mmol/L (3.3-5.1); Sodium 140 mmol/L (135-145); Total Protein 5.2 g/dL (6.5-8.0)
[2025-02-16] MEDS: Albumin Human 25 % 100 ML IV (09:03)
[2025-02-16] MEDS: Metoprolol Tartrate 12.5 MG HALFTAB PO ×2 (09:03→20:07)
[2025-02-16] MEDS: Clotrimazole 1 % Cream 15 GM TUBE 1 APPL TOPICAL ×2 (09:17→20:18)
--- NOTE | 2025-02-16 09:33 | MHC.CLN ---
Addendum entered by Caroline Ybarra, SCOOBY 02/16/25 10:15: WILL BE USING CENTRAL LINE FOR TPN. RECOMMEND TPN AT MAX GOAL RATE: TPN AT 70 ML PER HOUR, ADD 35 G LIPIDS PROVIDES 84 G PROTEIN (1.35 G/KG), 252 G DEXTROSE, 1543 TOTAL KCALS (24.8 KCALS.KG). REPLETE LYTES NEEDED. FOLLOW FOR TPN TOLERANCE, PO INTAKE AND PLAN OF CARE. Original Note: F/U CONTINUES WITH LIMITED PO INTAKE, 0-25%. HAS CENTRAL LINE FOR ABT BUT USING PERIPHERAL ACCESS FOR PPN. REVIEWED LABS. COMMUNICATED WITH PHARMACY. INCREASE PPN TO MAX GOAL RATE: PPN AT 80 ML PER HOUR ADD 50 G LIPIDS PROVIDES 82 G PROTEIN (1.3 G/KG), 192 G DEXTROSE, 1479 TOTAL KCALS (24.8 KCALS/KG). REPLETE LYTES NEEDED. FOLLOW FOR PPN TOLERANCE, PO INTAKE, AND PLAN OF CARE. RD AVAILABLE VIA TIGER TEXT FOR WEEKEND.
[2025-02-16] MEDS: Potassium Chloride Packet 20 MEQ PACKET PO (10:49)
--- NOTE | 2025-02-16 11:00 | PM.PNORT ---
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 Patient resting comfortably in bed this morning Pain well Managed No acute events overnight No other acute complaints or concerns at this time Physical Exam Vital Signs: Vital Signs: Last Vital Signs Temp 97.9 F 02/16/25 07:09 Pulse 111 H 02/16/25 07:09 Resp 16 02/16/25 07:09 BP 135/65 02/16/25 09:04 Pulse Ox 96 02/16/25 07:09 O2 Del Method Room Air 02/16/25 07:09 O2 Flow Rate 1 02/15/25 07:20 BMI result Body Mass Index 24.3 Const: General: cooperative, healthy appearing and no acute distress Resp: Effort & Inspection: normal respiratory effort and able to speak in complete sentences Cardio: Rate: regular rate Peripheral pulses: Peripheral pulses 2+ throughout GI: Palpation (GI): Soft to palpation Skin: Lesions: no lesions Rashes: no rashes Extrem: Other: Right knee dressing is c/d/i. Wound VAC in place and functioning appropriately. Able to dorsi/plantar flex. Calf is supple and nontender. Sensation intact. Pedal pulse intact. Procedures Date of Service Date of Service: 02/16/25 Progress Note: A&P Assessment and plan (1) Open wound of knee, complicated: Status: Acute Plan Continue pain mgmnt as needed Continue ASA for DVT ppx Continue wound VAC therapy, replace every 2-3 days Continue IV daptomycin Continue treatment for UTI and pneumonia Continue with all other recommendations per Medicine Time Spent With Patient Time: Total time managing care of this patient today ____ minutes. Quality Stroke Does the patient have a stroke diagnosis?: No Reason for No Anti-thrombotic by Day Two: N/A - Med Ordered VTE Prior VTE?: No VTE Risk Level:: Medical - moderate - high VTE Device Contraindication: N/A - Device Ordered VTE Drug Contraindication: N/A - Med Ordered
[2025-02-16] MEDS: 0.9 % Sodium Chloride Flush 3 ML SYRINGE IVFLUSH (15:50)
--- NOTE | 2025-02-16 16:17 | HO.PM.IMPN ---
Subjective Subjective Date of Service: 02/16/25 Interval History: Sepsis possible sec for UTI and pneumonia Review of Systems seems similar ,po intake somewhat improving Physical Exam Vital Signs: Vital Signs: Last Vital Signs Temp 98.2 F 02/16/25 15:13 Pulse 96 02/16/25 15:13 Resp 18 02/16/25 15:13 BP 158/78 H 02/16/25 15:13 Pulse Ox 96 02/16/25 15:13 O2 Del Method Room Air 02/16/25 15:13 O2 Flow Rate 1 02/15/25 07:20 BMI result Body Mass Index 24.3 Appearance: Awake and interactive cvs: rrr, [id number] res: clear to auscultation ,no rhonchii or wheezing abd: no rebound or guarding ,nt, bs present. ext pulses present , no cyanosis . neuro: Moves all extremities Objective Data Active Medications Acetaminophen (Acetaminophen 325 Mg Tablet) 650 mg PO Q6H PRN PRN Reason: Pain, Mild 1-3,fever,headache Last Admin: 02/15/25 17:12 Dose: 650 mg Documented By: DOROTHY Albuterol/Ipratropium (Albuterol/Iprat 2.5/0.5mg 3 Ml Ampul.Neb) 3 ml INHALE Q4H PRN PRN Reason: Shortness of Breath/Wheezing Amlodipine Besylate (Amlodipine Besylate 2.5 Mg Tablet) 2.5 mg PO DAILY [facility]; Protocol Last Admin: 02/16/25 09:04 Dose: 2.5 mg Documented By: AJ Aspirin (Aspirin 81 Mg Tab.Chew) 81 mg PO DAILY [facility] Last Admin: 02/16/25 09:03 Dose: 81 mg Documented By: AJ Bisacodyl (Bisacodyl 10 Mg Supp.Rect) 10 mg GA DAILY PRN PRN Reason: CONSTIPATION Calcium Carbonate (Calcium Carbonate 750 Mg Tab.Chew) 750 mg PO Q4H PRN PRN Reason: Heartburn Ceftriaxone Sodium (Ceftriaxone Sodium 1 Gm Vial) 1 gm IVPUSH Q24H [facility] Last Admin: 02/16/25 15:49 Dose: 1 gm Documented By: AJ Clotrimazole (Clotrimazole 1 % Cream 15 Gm Tube) 1 appl TOPICAL BID [facility]; Protocol Last Admin: 02/16/25 09:17 Dose: 1 appl Documented By: AJ Enoxaparin Sodium (Enoxaparin Sodium 40 Mg/0.4 Ml Syringe) 40 mg SUBCUT Q24H [facility] Last Admin: 02/15/25 20:46 Dose: 40 mg Documented By: TYSON Hydralazine HCl (Hydralazine Hcl 20 Mg/Ml Vial) 10 mg IVPUSH Q6H PRN; Protocol PRN Reason: SBP > 160 Last Admin: 02/16/25 04:15 Dose: 10 mg Documented By: TYSON Doxycycline Hyclate 100 mg/ (Sodium Chloride) 250 mls @ 166.67 mls/hr IV Q12H [facility] Last Infusion: 02/16/25 06:30 Dose: Infused Documented By: TYSON Nutrition (Parenteral) (Parenteral Nutrition) 1,320 mls @ 55 mls/hr IV .Q24H [facility]; Protocol Stop: 02/16/25 20:59 Last Admin: 02/15/25 22:31 Dose: 55 mls/hr Documented By: TYSON Vancomycin HCl 750 mg/ Sodium (Chloride) 265 mls @ 265 mls/hr IV Q24H [facility] Last Infusion: 02/15/25 19:47 Dose: Infused Documented By: TYSON Nutrition (Parenteral) (Parenteral Nutrition) 1,680 mls @ 70 mls/hr IV .Q24H [facility]; Protocol Stop: 02/17/25 20:59 Magnesium Hydroxide (Milk Of Magnesia 30 Ml Oral.Susp) 30 ml PO DAILY PRN PRN Reason: Constipation Melatonin (Melatonin 3 Mg Tablet) 6 mg PO BEDTIME PRN PRN Reason: Insomnia Last Admin: 02/14/25 22:24 Dose: 6 mg Documented By: PRISCA Metoprolol Tartrate (Metoprolol Tartrate 12.5 Mg Halftab) 12.5 mg PO BID [facility]; Protocol Last Admin: 02/16/25 09:03 Dose: 12.5 mg Documented By: AJ Nystatin (Nystatin Powder 15 Gm Bottle) 1 appl TOPICAL TID [facility]; Protocol Last Admin: 02/16/25 15:49 Dose: 1 appl Documented By: AJ Ondansetron HCl (Ondansetron Hcl 4 Mg/2 Ml Vial) 4 mg IVPUSH Q8H PRN PRN Reason: Nausea and Vomiting Pantoprazole Sodium (Pantoprazole Sodium 40 Mg/10 Ml Vial) 40 mg IVPUSH DAILY@0630 [facility] Last Admin: 02/16/25 04:30 Dose: 40 mg Documented By: TYSON Pharmacy Consult (Consult Rx Vancomycin Dosing) 1 each MISCELLANE DAILY PRN PRN Reason: Consult order Pharmacy Consult (Consult Rx Parenteral Nutrition Ordering) 1 each MISCELLANE DAILY PRN PRN Reason: Consult order Polyethylene Glycol (Polyethylene Glycol 3350 17 Gm Powd.Pack) 17 gm PO DAILY PRN PRN Reason: Constipation Senna (Sennosides 8.6 Mg Tablet) 17.2 mg PO BEDTIME [facility] Last Admin: 02/15/25 20:39 Dose: 17.2 mg Documented By: TYSON Sodium Chloride (0.9 % Sodium Chloride Flush 3 Ml Syringe) 3 ml IVFLUSH QSHIFT [facility] Last Admin: 02/16/25 15:50 Dose: 3 ml Documented By: AJ Sodium Chloride (0.9 % Sodium Chloride Flush 10 Ml Syringe) [facility] Last Admin: 02/16/25 09:15 Dose: Not Given Documented By: AJ Non-Admin Reason: IV Running Labs 02/15/25 06:43 02/16/25 05:57 Labs: Laboratory Results - last 24 hr 02/15/25 02/16/25 16:49 05:57 Hold Purple Top SEE NOTE Anion Gap 10 L Estim Creat Clear Calc 55.5 Estimated GFR > 60 Random Glucose 169 H Calcium 8.7 Phosphorus 2.7 Magnesium 1.7 Total Bilirubin 0.2 AST 22 ALT < 6 Alkaline Phosphatase 135 H Total Protein 5.2 L Albumin 2.6 L Random Vancomycin 11.6 L Microbiology Microbiology Results: Microbiology 02/11/25 Unknown Urine Culture - Preliminary Urine clean catch - Clean Catch Midstream Gram negative dayami Assessment and Plan (1) Acute UTI: Status: Acute Plan 89-year-old female with past medical history of dementia, hypertension, hyperlipidemia, allergic rhinitis, right knee infection currently on daptomycin until 03/18/2025, GERD, history of total bilateral knee replacements is being admitted with sepsis secondary to urinary tract infection/pneumonia. Patient has been sign dementia and is currently at [facility] for rehabilitation/long-term care. Sepsis possible sec for UTI and pneumonia continue daptomycin for right knee infection, end date 03/18/2025 Lactic acid 1.5,Leukocytosis of 20, patient currently not febrile Follow urine culture-gram neg dayami,Bladder scan QS X3 plan:Duo nebs p.r.n.,Incentive spirometry.continue antibiotics ,follow cultures Speech therapy eval ordered Aspiration precautions ordered. ID eval noted -rec to change daptomycin to iv vanco due to ? dapto might causing confusion, also rec to change antibiotics to doxycylcine (?lung source for infection) urine culture -grew gram negative dayami-added iv ceftriaxone until urine cultures are back.will id follow up. low po intake -added gentle hydration. Recent R knee surgery with current wound vac and PICC line : Wound VAC was changed earlier today 02/11/2025 ortho eval-Continue wound VAC therapy, replace every 2-3 days wound care following Dementia -Chronic in nature Per healthcare proxy and patient's niece, patient has been more depressed since being away from her . po intake is very poor -added ppn encouraged to better p.o. intake , staff is aware in detail that need more frequent encouragement for p.o. intake HTN-Metoprolol restarted -Hydralazine p.r.n. -Low-sodium diet DVT prophylaxis: Lovenox Full Code status ongoing need:Sepsis possible secfor UTI and pneumonia-need iv antibiotics ,close monitering Quality Stroke Does the patient have a stroke diagnosis?: No Reason for No Anti-thrombotic by Day Two: N/A - Med Ordered VTE Prior VTE?: No VTE Risk Level:: Medical - moderate - high VTE Device Contraindication: N/A - Device Ordered VTE Drug Contraindication: N/A - Med Ordered
--- NOTE | 2025-02-16 17:40 | HE.PHANOTE ---
RE VANCO DOSING Pt has had small changes in renal function but still generally stable. Trough is only 10 so will increase dose to 1250 q24 with hopes of achieving trough of 14 and auc 522. Continue close monitoring with daily renal function and next trough 02/17 @1700. May need to reassess dosing tomorrow due to patients advanced age.
[2025-02-16] MEDS: Parenteral Nutrition 1,680 ML 70 ML IV (22:00)
[2025-02-17 03:13] VITALS: BP 183/81; PULSE 97; RESP 18; TEMP 36.8; O2SAT 97
[2025-02-17 07:36] LABS: Alanine Aminotransferase < 6 U/L (0-31); Albumin Level 2.9 g/dL (3.5-5.0); Alkaline Phosphatase 133 U/L (39-117); Anion Gap 12 (12-20); Aspartate Amino Transferase 18 U/L (5-31); Blood Urea Nitrogen 17 mg/dL (9-16); Calcium 9.0 mg/dL (8.4-10.2); Carbon Dioxide 24 mmol/L (22-29); Chloride 105 mmol/L (96-108); Creatinine Clr Calc Pharmacy 56.5; Estimated Glomerular Filt Rate > 60; Magnesium 1.8 mg/dL (1.6-2.6); Potassium 4.2 mmol/L (3.3-5.1); Sodium 137 mmol/L (135-145); Total Protein 5.6 g/dL (6.5-8.0)
[2025-02-17 07:40] VITALS: BP 180/82; PULSE 99; RESP 18; TEMP 36; O2SAT 96
[2025-02-17] MEDS: Metoprolol Tartrate 12.5 MG HALFTAB PO ×2 (08:15→20:06)
[2025-02-17] MEDS: 0.9 % Sodium Chloride Flush 3 ML SYRINGE IVFLUSH ×3 (08:15→22:31)
--- NOTE | 2025-02-17 08:15 | MHC.CLN ---
F/U CONTINUES WITH NUTRITION/HYDRATION VIA TPN. DIET=REGULAR CHOPPED. PO INTAKE USUALLY APPROX 25%. DISCONTINUE MAGIC CUP BID DUE TO ELEVATED BLOOD GLUCOSE. LABS REVIEWED. RANDOM TCEXODJ=676A. COMMUNICATED WITH PHARMACY. RECOMMEND CONTINUE TPN AT MAX GOAL RATE: TPN AT 70 ML PER HOUR, ADD 35 G LIPIDS PROVIDES 84 G PROTEIN (1.35 G/KG), 252 G DEXTROSE, 1543 TOTAL KCALS (24.8 KCALS.KG). REPLETE LYTES NEEDED. FOLLOW FOR TPN TOLERANCE, PO INTAKE AND PLAN OF CARE.
[2025-02-17] MEDS: Clotrimazole 1 % Cream 15 GM TUBE 1 APPL TOPICAL ×2 (08:20→20:07)
[2025-02-17 08:53] LABS: Hematocrit 30.5 % (37.0-47.0); Hemoglobin 10.1 g/dl (12.0-16.0); Mean Corpuscular HGB Conc 33.1 g/dl (31.0-35.0); Mean Corpuscular Hemoglobin 29.9 pg (27.0-33.0); Mean Corpuscular Volume 90.2 fL (80.0-98.0); NRBC Abs Auto 0.020 X10*3/uL (0.0-0.012); NRBC Pct Auto 0.1 /100WBC (0.0-0.2); Platelet Count 479 X10*3/uL (160-400); Red Blood Count 3.38 X10*6/uL (4.20-5.50); White Blood Count 15.9 X10*3/uL (4.8-10.8)
[2025-02-17 09:55] LABS: Band Neutrophils Percent 1 % (3-5); Eosinophils Absolute Manual 1.9 X10*3/uL (0.0-0.4); Eosinophils Percent Manual 12 % (0-4); Lymphocytes Absolute Manual 2.7 X10*3/uL (1.2-4.9); Lymphocytes Percent Manual 17 % (20-40); Metamyelocytes Absolute 0.3 X10*3/uL; Metamyelocytes Percent 2 %; Monocytes Absolute Manual 0.3 X10*3/uL (0.1-1.2); Monocytes Percent Manual 2 % (2-11); Myelocytes Absolute 0.2 X10*/uL; Myelocytes Percent 1 %; Neutrophils Absolute Manual 10.5 X10*3/uL (2.0-8.3); Neutrophils Percent Manual 65 % (45-73)
[2025-02-17 09:56] LABS: RBC Morphology NORMAL
[2025-02-17 11:31] VITALS: BP 137/63; PULSE 90; RESP 18; TEMP 36.4; O2SAT 96
--- NOTE | 2025-02-17 14:50 | HO.PM.IMPN ---
Subjective Subjective Date of Service: 02/17/25 Interval History: poor oral intake Review of Systems mental status some what improving need lot of encouragement to eat,staff is aware to do that. Physical Exam Vital Signs: Vital Signs: Last Vital Signs Temp 97.6 F 02/17/25 11:31 Pulse 90 02/17/25 11:31 Resp 18 02/17/25 11:31 BP 137/63 02/17/25 11:31 Pulse Ox 96 02/17/25 11:31 O2 Del Method Room Air 02/17/25 11:31 O2 Flow Rate 1 02/15/25 07:20 BMI result Body Mass Index 24.3 Appearance: Awake and interactive cvs: rrr, [id number] res: clear to auscultation ,no rhonchii or wheezing abd: no rebound or guarding ,nt, bs present. ext pulses present , no cyanosis . neuro: Moves all extremities Objective Data Active Medications Acetaminophen (Acetaminophen 325 Mg Tablet) 650 mg PO Q6H PRN PRN Reason: Pain, Mild 1-3,fever,headache Last Admin: 02/16/25 20:06 Dose: 650 mg Documented By: TYSON Albuterol/Ipratropium (Albuterol/Iprat 2.5/0.5mg 3 Ml Ampul.Neb) 3 ml INHALE Q4H PRN PRN Reason: Shortness of Breath/Wheezing Amlodipine Besylate (Amlodipine Besylate 5 Mg Tablet) 5 mg PO DAILY [facility]; Protocol Aspirin (Aspirin 81 Mg Tab.Chew) 81 mg PO DAILY [facility] Last Admin: 02/17/25 08:15 Dose: 81 mg Documented By: AJ Bisacodyl (Bisacodyl 10 Mg Supp.Rect) 10 mg ND DAILY PRN PRN Reason: CONSTIPATION Calcium Carbonate (Calcium Carbonate 750 Mg Tab.Chew) 750 mg PO Q4H PRN PRN Reason: Heartburn Clotrimazole (Clotrimazole 1 % Cream 15 Gm Tube) 1 appl TOPICAL BID [facility]; Protocol Last Admin: 02/17/25 08:20 Dose: 1 appl Documented By: AJ Enoxaparin Sodium (Enoxaparin Sodium 40 Mg/0.4 Ml Syringe) 40 mg SUBCUT Q24H [facility] Last Admin: 02/16/25 20:07 Dose: 40 mg Documented By: TYSON Hydralazine HCl (Hydralazine Hcl 20 Mg/Ml Vial) 10 mg IVPUSH Q6H PRN; Protocol PRN Reason: SBP > 160 Last Admin: 02/16/25 20:06 Dose: 10 mg Documented By: TYSON Doxycycline Hyclate 100 mg/ (Sodium Chloride) 250 mls @ 166.67 mls/hr IV Q12H [facility] Last Infusion: 02/17/25 07:45 Dose: Infused Documented By: AJ Nutrition (Parenteral) (Parenteral Nutrition) 1,680 mls @ 70 mls/hr IV .Q24H [facility]; Protocol Stop: 02/17/25 20:59 Last Admin: 02/16/25 22:00 Dose: 70 mls/hr Documented By: TYSON Vancomycin HCl 1,250 mg/ (Sodium Chloride) 250 mls @ 166.667 mls/hr IV Q24H [facility] Last Infusion: 02/16/25 21:37 Dose: Infused Documented By: TYSON Nutrition (Parenteral) (Parenteral Nutrition) 1,680 mls @ 70 mls/hr IV .Q24H [facility]; Protocol Stop: 02/18/25 20:59 Magnesium Hydroxide (Milk Of Magnesia 30 Ml Oral.Susp) 30 ml PO DAILY PRN PRN Reason: Constipation Melatonin (Melatonin 3 Mg Tablet) 6 mg PO BEDTIME PRN PRN Reason: Insomnia Last Admin: 02/14/25 22:24 Dose: 6 mg Documented By: PRISCA Metoprolol Tartrate (Metoprolol Tartrate 12.5 Mg Halftab) 12.5 mg PO BID [facility]; Protocol Last Admin: 02/17/25 08:15 Dose: 12.5 mg Documented By: AJ Nystatin (Nystatin Powder 15 Gm Bottle) 1 appl TOPICAL TID [facility]; Protocol Last Admin: 02/17/25 08:19 Dose: 1 appl Documented By: AJ Ondansetron HCl (Ondansetron Hcl 4 Mg/2 Ml Vial) 4 mg IVPUSH Q8H PRN PRN Reason: Nausea and Vomiting Pantoprazole Sodium (Pantoprazole Sodium 40 Mg/10 Ml Vial) 40 mg IVPUSH DAILY@0630 [facility] Last Admin: 02/17/25 06:16 Dose: 40 mg Documented By: TYSON Pharmacy Consult (Consult Rx Vancomycin Dosing) 1 each MISCELLANE DAILY PRN PRN Reason: Consult order Pharmacy Consult (Consult Rx Parenteral Nutrition Ordering) 1 each MISCELLANE DAILY PRN PRN Reason: Consult order Polyethylene Glycol (Polyethylene Glycol 3350 17 Gm Powd.Pack) 17 gm PO DAILY PRN PRN Reason: Constipation Senna (Sennosides 8.6 Mg Tablet) 17.2 mg PO BEDTIME [facility] Last Admin: 02/16/25 20:05 Dose: 17.2 mg Documented By: TYSON Sodium Chloride (0.9 % Sodium Chloride Flush 3 Ml Syringe) 3 ml IVFLUSH QSHIFT [facility] Last Admin: 02/17/25 08:15 Dose: 3 ml Documented By: AJ Sodium Chloride (0.9 % Sodium Chloride Flush 10 Ml Syringe) 10 ml IVFLUSH QSHIFT [facility] Last Admin: 02/17/25 08:16 Dose: Not Given Documented By: AJ Non-Admin Reason: IV Running Labs 02/17/25 08:19 02/17/25 06:21 Labs: Laboratory Results - last 24 hr 02/16/25 02/17/25 02/17/25 17:07 06:21 08:19 MCV 90.2 MCH 29.9 MCHC 33.1 RDW 15.1 Plt Count 479 H MPV 8.9 L Immature Gran % (Auto) Cancelled Neut % (Auto) Cancelled Lymph % (Auto) Cancelled Powell % (Auto) Cancelled Eos % (Auto) Cancelled Baso % (Auto) Cancelled Lymph # (Auto) Cancelled Powell # (Auto) Cancelled Eos # (Auto) Cancelled Baso # (Auto) Cancelled Abs Immat Gran (auto) Cancelled Absolute Neuts (auto) Cancelled Absolute Nucleated RBC 0.020 H Nucleated RBC % (auto) 0.1 Neutrophils % (Manual) 65 Band Neutrophils % 1 L Lymphocytes % (Manual) 17 L Monocytes % (Manual) 2 Eosinophils % (Manual) 12 H Metamyelocytes % 2 Myelocytes % 1 Abs Neuts (Manual) 10.5 H Lymphocytes # (Manual) 2.7 Monocytes # (Manual) 0.3 Eosinophils # (Manual) 1.9 H Metamyelocytes # 0.3 Myelocytes # 0.2 Platelet Estimate SLIGHTLY INCREASED Plt Morphology Comment NORMAL RBC Morphology NORMAL Anion Gap 12 Estim Creat Clear Calc 56.5 Estimated GFR > 60 Random Glucose 230 H Calcium 9.0 Phosphorus 2.8 Magnesium 1.8 Total Bilirubin 0.2 AST 18 ALT < 6 Alkaline Phosphatase 133 H Total Protein 5.6 L Albumin 2.9 L Random Vancomycin 10.0 L Microbiology Microbiology Results: Microbiology 02/11/25 Unknown Urine Culture - Final Urine clean catch - Clean Catch Midstream Pseudomonas aeruginosa 02/11/25 15:25 Blood Culture - Final Blood - Venous No growth after 5 days. 02/11/25 15:21 Blood Culture - Final Blood - Venous No growth after 5 days. Assessment and Plan (1) Acute UTI: Status: Acute Plan 89-year-old female with past medical history of dementia, hypertension, hyperlipidemia, allergic rhinitis, right knee infection currently on daptomycin until 03/18/2025, GERD, history of total bilateral knee replacements is being admitted with sepsis secondary to urinary tract infection/pneumonia. Patient has been sign dementia and is currently at [facility] for rehabilitation/long-term care. Sepsis possible sec possible pneumonia Has leukocytosis but improving in comparison to admission , no fever Lactic acid 1.5,patient currently not febrile Bladder scan QS X3 vanco trough 10 plan:Duo nebs p.r.n.,Incentive spirometry.continue antibiotics Speech therapy eval ordered Aspiration precautions ordered. ID eval noted -rec to change daptomycin to iv vanco due to ? dapto might causing confusion, also rec to change antibiotics to doxycylcine (?lung source for infection) Urine culture grew Pseudomonas-thought to be colonization. poor oral intake: Has p.o. intake of 25%, need a lot of encouragement, currently on PPN. Recent R knee surgery with current wound vac and PICC line : Wound VAC was changed earlier today 02/11/2025 ortho eval-Continue wound VAC therapy, replace every 2-3 days wound care following Dementia -Chronic in nature Per healthcare proxy and patient's niece, patient has been more depressed since being away from her . po intake is very poor -added ppn encouraged to better p.o. intake , staff is aware in detail that need more frequent encouragement for p.o. intake HTN-Metoprolol restarted -Hydralazine p.r.n. -Low-sodium diet DVT prophylaxis: Lovenox Full Code status ongoing need:knee infection/ pneumonia-need iv antibiotics ,close monitering, dec po intake -need PPN/electrolyte monitoring d/w her hcp. Quality Stroke Does the patient have a stroke diagnosis?: No Reason for No Anti-thrombotic by Day Two: N/A - Med Ordered VTE Prior VTE?: No VTE Risk Level:: Medical - moderate - high VTE Device Contraindication: N/A - Device Ordered VTE Drug Contraindication: N/A - Med Ordered
[2025-02-17 15:29] VITALS: BP 126/70; PULSE 96; RESP 16; TEMP 36.7; O2SAT 97
--- NOTE | 2025-02-17 17:55 | HE.PHANOTE ---
RE VANCO DOSE INCREASING DOSE TO ACHIEVE THERAPEUTIC DOSE. RENAL FUNCTION STABLE AND MAY STILL NEED TO DECREASE DOSE AGAIN AFTER ANOTHER 1-2 DAYS BUT WILL GIVE 1500 MG Q24 TO REACH TROUGH 16.6. CAREFULLY MONITOR RENAL FUNCTION DAILY. NEXT TROUGH 02/18 @1700
[2025-02-17 19:23] VITALS: BP 129/70; PULSE 104; RESP 18; TEMP 36.6; O2SAT 97
[2025-02-17] MEDS: Parenteral Nutrition 1,680 ML 70 ML IV (22:30)
[2025-02-17 23:02] VITALS: BP 131/60; PULSE 100; RESP 18; TEMP 36.6; O2SAT 95
[2025-02-18 03:02] VITALS: BP 130/68; PULSE 105; RESP 18; TEMP 36.9; O2SAT 96
[2025-02-18 06:57] LABS: MANUAL DIFF FLAG NO
[2025-02-18 07:03] LABS: Hematocrit 29.3 % (37.0-47.0); Hemoglobin 10.0 g/dl (12.0-16.0); Imm Gran Abs Auto 0.67 X10*3/uL (0.00-0.03); Imm Gran Pct Auto 4.3 % (0.0-0.4); Lymphocytes Absolute Auto 2.2 X10*3/uL (1.2-4.9); Mean Corpuscular HGB Conc 34.1 g/dl (31.0-35.0); Mean Corpuscular Hemoglobin 30.2 pg (27.0-33.0); Mean Corpuscular Volume 88.5 fL (80.0-98.0); NRBC Abs Auto 0.000 X10*3/uL (0.0-0.012); NRBC Pct Auto 0.0 /100WBC (0.0-0.2); Platelet Count 514 X10*3/uL (160-400); Red Blood Count 3.31 X10*6/uL (4.20-5.50); White Blood Count 15.7 X10*3/uL (4.8-10.8)
[2025-02-18 07:26] LABS: Alanine Aminotransferase 8 U/L (0-31); Albumin Level 2.8 g/dL (3.5-5.0); Alkaline Phosphatase 166 U/L (39-117); Anion Gap 11 (12-20); Aspartate Amino Transferase 23 U/L (5-31); Blood Urea Nitrogen 20 mg/dL (9-16); Calcium 8.8 mg/dL (8.4-10.2); Carbon Dioxide 25 mmol/L (22-29); Chloride 105 mmol/L (96-108); Creatinine Clr Calc Pharmacy 55.5; Estimated Glomerular Filt Rate > 60; Magnesium 2.1 mg/dL (1.6-2.6); Potassium 4.6 mmol/L (3.3-5.1); Sodium 136 mmol/L (135-145); Total Protein 5.4 g/dL (6.5-8.0)
[2025-02-18 07:45] VITALS: BP 141/65; PULSE 100; RESP 20; TEMP 36.8; O2SAT 95
[2025-02-18] MEDS: Clotrimazole 1 % Cream 15 GM TUBE 1 APPL TOPICAL ×2 (08:20→22:23)
[2025-02-18] MEDS: 0.9 % Sodium Chloride Flush 3 ML SYRINGE IVFLUSH ×2 (08:21→22:23)
[2025-02-18] MEDS: Metoprolol Tartrate 12.5 MG HALFTAB PO ×2 (08:23→22:23)
--- NOTE | 2025-02-18 10:05 | MHC.CLN ---
F/U PO INTAKE CONSISTENTLY 25% DIET RX:REGULAR CHOPPED REVIEWED LABS DISCUSSED WITH PHARMACY RECOMMEND DECREASE TPN TO 50ML/HOUR WITH 31 G LIPIDS TO PROVIDE 1162 TOTAL KCALS (75% OF EST KCAL NEEDS), 60G PROTEIN (80% EST PRO NEEDS), 180G DEXTROSE REPLETE LYTES NEEDED MONITOR PO INTAKE CLOSELY GOAL TO REDUCE TPN PO INTAKE IMPROVES
--- NOTE | 2025-02-18 10:43 | MHC.CM.PN ---
PER MD ROUNDS, PT WILL BE READY TO DC IN 1-2 DAYS MD INFORMED A PT EVAL WOULD BE NEEDED FOR PT TO RETURN TO [facility] DCP: RETURN TO [facility] PENDING PT EVAL BLS TRANSPORT
[2025-02-18 12:00] VITALS: BP 128/58; PULSE 105; RESP 22; TEMP 36.3; O2SAT 95
--- NOTE | 2025-02-18 13:12 | HO.WOUND ---
Addendum entered by Louisa Sidhu RN 02/18/25 14:42: 02/18/25 @1425 Wound Consult: Follow up 89yr old?female admitted to [facility] on 02/11/25 - See progress notes and H&P for detailed history.? Wound consult follow up for Right Leg wound.? Patient agreeable to assessment and photo documentation, although she remains confused at times. Easily re-directable. Negative Pressure Wound Therapy in use and alarms checked - no alarms or interruptions since starting Tuesday02/15/25. Robby Wilson from General Surgery PA present for wound vac change for continued experience changing. Upon removal of wound vac foam / sponge foul odor noted. creamy kendall drainaeg expelled when foam was removed. There is concern for worsening infection at this time. TT to Nupur Ordoñez from [facility] with details above. The wound bed itself is red clean and viable - suspect the drainage is collection behind bone or an area not readily able to probe. Recommend provider to assess and consider imaging and or washout prior to wound vac replacement. Today wound vac removed one black foam on piece of cutercin durafiber to wound edge and one foam for mushroom cap. Periwound is improved and hypergranulation tissue remains - healthy red viable tissue. Will defer to provider for assessment and next steps in treatment. Original Note: Wound Consult: Follow up 89yr old?female admitted to [facility] on 02/11/25 - See progress notes and H&P for detailed history.? Wound consult follow up for Right Leg wound.? Patient agreeable to assessment and photo documentation, although she remains confused at times. Easily re-directable. Negative Pressure Wound Therapy in use and alarms checked - no alarms or interruptions since starting Tuesday02/15/25. Will plan to change NPWT today but will discuss if General Surgery PA would like to change for experience changing. Will wait to hear and will change if he is unavailable.
--- NOTE | 2025-02-18 14:00 | P.PNIM_ITS ---
Subjective Subjective Date of Service: 02/18/25 Interval History: poor oral intake Review of Systems mental status some what improving need lot of encouragement to eat,staff is aware to do that. Review of Systems: Yes all other systems are reviewed and are negative Physical Exam 2 Vital Signs: Vital Signs: Last Vital Signs Temp 97.3 F 02/18/25 12:00 Pulse 105 H 02/18/25 12:00 Resp 22 H 02/18/25 12:00 BP 128/58 L 02/18/25 12:00 Pulse Ox 95 02/18/25 12:00 O2 Del Method Room Air 02/18/25 12:00 O2 Flow Rate 1 02/15/25 07:20 BMI result Body Mass Index 24.3 Appearance: Awake and interactive cvs: rrr, [id number] res: clear to auscultation ,no rhonchii or wheezing abd: no rebound or guarding ,nt, bs present. ext pulses present , no cyanosis . neuro: Moves all extremities Objective Data Active Medications Acetaminophen (Acetaminophen 325 Mg Tablet) 650 mg PO Q6H PRN PRN Reason: Pain, Mild 1-3,fever,headache Last Admin: 02/16/25 20:06 Dose: 650 mg Documented By: TYSON Albuterol/Ipratropium (Albuterol/Iprat 2.5/0.5mg 3 Ml Ampul.Neb) 3 ml INHALE Q4H PRN PRN Reason: Shortness of Breath/Wheezing Amlodipine Besylate (Amlodipine Besylate 5 Mg Tablet) 5 mg PO DAILY [facility]; Protocol Last Admin: 02/18/25 08:23 Dose: 5 mg Documented By: RICHARD Aspirin (Aspirin 81 Mg Tab.Chew) 81 mg PO DAILY [facility] Last Admin: 02/18/25 08:23 Dose: 81 mg Documented By: RICHARD Bisacodyl (Bisacodyl 10 Mg Supp.Rect) 10 mg TN DAILY PRN PRN Reason: CONSTIPATION Calcium Carbonate (Calcium Carbonate 750 Mg Tab.Chew) 750 mg PO Q4H PRN PRN Reason: Heartburn Clotrimazole (Clotrimazole 1 % Cream 15 Gm Tube) 1 appl TOPICAL BID [facility]; Protocol Last Admin: 02/18/25 08:20 Dose: 1 appl Documented By: RICHARD Enoxaparin Sodium (Enoxaparin Sodium 40 Mg/0.4 Ml Syringe) 40 mg SUBCUT Q24H PATRICIA Last Admin: 02/17/25 20:10 Dose: 40 mg Documented By: ANIYAH Hydralazine HCl (Hydralazine Hcl 20 Mg/Ml Vial) 10 mg IVPUSH Q6H PRN; Protocol PRN Reason: SBP > 160 Last Admin: 02/16/25 20:06 Dose: 10 mg Documented By: TYSON Doxycycline Hyclate 100 mg/ (Sodium Chloride) 250 mls @ 166.67 mls/hr IV Q12H [facility] Last Infusion: 02/18/25 06:32 Dose: Infused Documented By: ANIYAH Nutrition (Parenteral) (Parenteral Nutrition) 1,680 mls @ 70 mls/hr IV .Q24H PATRICIA; Protocol Stop: 02/18/25 20:59 Last Admin: 02/17/25 22:30 Dose: 70 mls/hr Documented By: JUHI Vancomycin HCl 1,500 mg/ (Sodium Chloride) 500 mls @ 333.333 mls/hr IV Q24H [facility] Last Infusion: 02/17/25 22:03 Dose: Infused Documented By: ANIYAH Nutrition (Parenteral) (Parenteral Nutrition) 1,200 mls @ 50 mls/hr IV .Q24H [facility]; Protocol Stop: 02/19/25 20:59 Magnesium Hydroxide (Milk Of Magnesia 30 Ml Oral.Susp) 30 ml PO DAILY PRN PRN Reason: Constipation Melatonin (Melatonin 3 Mg Tablet) 6 mg PO BEDTIME PRN PRN Reason: Insomnia Last Admin: 02/14/25 22:24 Dose: 6 mg Documented By: PRISCA Metoprolol Tartrate (Metoprolol Tartrate 12.5 Mg Halftab) 12.5 mg PO BID [facility]; Protocol Last Admin: 02/18/25 08:23 Dose: 12.5 mg Documented By: RICHARD Nystatin (Nystatin Powder 15 Gm Bottle) 1 appl TOPICAL TID [facility]; Protocol Last Admin: 02/18/25 08:21 Dose: 1 appl Documented By: RICHARD Ondansetron HCl (Ondansetron Hcl 4 Mg/2 Ml Vial) 4 mg IVPUSH Q8H PRN PRN Reason: Nausea and Vomiting Pharmacy Consult (Consult Rx Vancomycin Dosing) 1 each MISCELLANE DAILY PRN PRN Reason: Consult order Pharmacy Consult (Consult Rx Parenteral Nutrition Ordering) 1 each MISCELLANE DAILY PRN PRN Reason: Consult order Polyethylene Glycol (Polyethylene Glycol 3350 17 Gm Powd.Pack) 17 gm PO DAILY PRN PRN Reason: Constipation Senna (Sennosides 8.6 Mg Tablet) 17.2 mg PO BEDTIME [facility] Last Admin: 02/17/25 20:10 Dose: 17.2 mg Documented By: ANIYAH Sodium Chloride (0.9 % Sodium Chloride Flush 3 Ml Syringe) 3 ml IVFLUSH QSHIFT [facility] Last Admin: 02/18/25 08:21 Dose: 3 ml Documented By: RICHARD Sodium Chloride (0.9 % Sodium Chloride Flush 10 Ml Syringe) 10 ml IVFLUSH QSMSFT [facility] Last Admin: 02/18/25 08:21 Dose: Not Given Documented By: RICHARD Non-Admin Reason: IV Running Labs 02/18/25 06:37 02/18/25 06:37 Labs: Laboratory Results - last 24 hr 02/17/25 02/18/25 17:10 06:37 MCV 88.5 MCH 30.2 MCHC 34.1 RDW 15.4 Plt Count 514 H MPV 8.7 L Immature Gran % (Auto) 4.3 H Neut % (Auto) 63.7 Lymph % (Auto) 14.0 L [place] % (Auto) 8.0 Eos % (Auto) 9.5 H Baso % (Auto) 0.5 Lymph # (Auto) 2.2 [place] # (Auto) 1.3 H Eos # (Auto) 1.5 H Baso # (Auto) 0.1 Abs Immat Gran (auto) 0.67 H Absolute Neuts (auto) 10.0 H Absolute Nucleated RBC 0.000 Nucleated RBC % (auto) 0.0 Anion Gap 11 L Estim Creat Clear Calc 55.5 Estimated GFR > 60 Random Glucose 197 H Calcium 8.8 Phosphorus 3.1 Magnesium 2.1 Total Bilirubin 0.2 AST 23 ALT 8 Alkaline Phosphatase 166 H Total Protein 5.4 L Albumin 2.8 L Random Vancomycin 13.1 L Microbiology Microbiology Results: Microbiology 02/11/25 Unknown Urine Culture - Final Urine clean catch - Clean Catch Midstream Pseudomonas aeruginosa Assessment and Plan (1) Acute UTI: Status: Acute Plan 89-year-old female with past medical history of dementia, hypertension, hyperlipidemia, allergic rhinitis, right knee infection currently on daptomycin until 03/18/2025, GERD, history of total bilateral knee replacements is being admitted with sepsis secondary to urinary tract infection/pneumonia. Patient has been sign dementia and is currently at [facility] for rehabilitation/long-term care. Sepsis possible sec possible pneumonia Has leukocytosis but improving in comparison to admission , no fever Lactic acid 1.5,patient currently not febrile Bladder scan QS X3 vanco trough 10 plan:Duo nebs p.r.n.,Incentive spirometry.continue antibiotics Speech therapy eval ordered Aspiration precautions ordered. ID eval noted -rec to change daptomycin to iv vanco due to ? dapto might causing confusion, also rec to change antibiotics to doxycylcine (?lung source for infection), vanco trough today 13.1 Urine culture grew Pseudomonas-thought to be colonization. poor oral intake: Has p.o. intake of 25%, need a lot of encouragement, currently on PPN. Recent R knee surgery with current wound vac and PICC line : Wound VAC was changed earlier today 02/11/2025 ortho eval-Continue wound VAC therapy, replace every 2-3 days ortho and wound care following pt eval. Dementia -Chronic in nature Per healthcare proxy and patient's niece, patient has been more depressed since being away from her . po intake is very poor -added ppn encouraged to better p.o. intake , staff is aware in detail that need more frequent encouragement for p.o. intake HTN-Metoprolol restarted -Hydralazine p.r.n. -Low-sodium diet DVT prophylaxis: Lovenox Full Code status ongoing need:knee infection/ pneumonia-need iv antibiotics ,close monitering, dec po intake -need PPN/electrolyte monitoring d/w her hcp. Quality Stroke Does the patient have a stroke diagnosis?: No Reason for No Anti-thrombotic by Day Two: N/A - Med Ordered VTE Prior VTE?: No VTE Risk Level:: Medical - moderate - high VTE Device Contraindication: N/A - Device Ordered VTE Drug Contraindication: N/A - Med Ordered
--- NOTE | 2025-02-18 14:49 | HO.WOUND ---
Addendum entered by Louisa Sidhu RN 02/18/25 14:56: TT sent to Dawson VILLAFUERTE for Ortho Services since he is covering service team. Original Note: 02/18/25 @1425 Wound Consult: Follow up 89yr old?female admitted to [facility] on 02/11/25 - See progress notes and H&P for detailed history.? Wound consult follow up for Right Leg wound.? Patient agreeable to assessment and photo documentation, although she remains confused at times. Easily re-directable. Negative Pressure Wound Therapy in use and alarms checked - no alarms or interruptions since starting Tuesday02/15/25. Robby Wilson from General Surgery PA present for wound vac change for continued experience changing. Upon removal of wound vac foam / sponge foul odor noted, creamy kendall velasquez drainage expelled when foam was removed. There is concern for worsening infection at this time. TT to Nupur Ordoñez from Ortho Services with details above. The wound bed itself is red clean and viable - suspect the drainage is collection behind bone or an area not readily able to probe. Recommend provider to assess and consider imaging and or washout prior to wound vac replacement. Today wound vac removed one black foam on piece of cutercin, one durafiber to wound edge and one foam for mushroom cap. Periwound is improved and hypergranulation tissue remains - healthy red viable tissue. Will defer to provider for assessment and next steps in treatment. Discussed with Dr. Espitia as well. Left Leg Dressing - Cleanse with NS moist gauze, lightly pack with saline wet gauze, cover with dry dressing and ABD pad and wrap. Change daily. Original Note: Wound Consult: Follow up 89yr old?female admitted to [facility] on 02/11/25 - See progress notes and H&P for detailed history.? Wound consult follow up for Right Leg wound.? Patient agreeable to assessment and photo documentation, although she remains confused at times. Easily re-directable. Negative Pressure Wound Therapy in use and alarms checked - no alarms or interruptions since starting Tuesday02/15/25. Will plan to change NPWT today but will discuss if General Surgery PA would like to change for experience changing. Will wait to hear and will change if he is unavailable.
--- NOTE | 2025-02-18 15:58 | MHC.SLORD ---
Speech Language Pathology Order Status: Pt sleeping soundly. RN and MECHANIST consulted, reporting pt ate small amount of breakfast and bites of pudding around lunch. Pt son and spouse present at bedside when PHLEBOTOMIST PRN arrived, POC reviewed. Pt and son verbalized understanding of safety precautions in place to reduce pt risk for aspiration. PHLEBOTOMIST PRN to follow up tomorrow.
[2025-02-18 16:00] VITALS: BP 137/69; PULSE 108; RESP 18; TEMP 36.2; O2SAT 98
--- NOTE | 2025-02-18 17:03 | PM.PNORT ---
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 Wound care reports that patient is experiencing significant foul smelling grade drainage from her right knee wound despite wound healing well Patient resting in bed Of note, patient appears significantly lethargic, and is minimally responsive to questioning No other acute complaints or concerns at this time Physical Exam Vital Signs: Vital Signs: Last Vital Signs Temp 97.1 F 02/18/25 16:00 Pulse 108 H 02/18/25 16:00 Resp 18 02/18/25 16:00 BP 137/69 02/18/25 16:00 Pulse Ox 98 02/18/25 16:00 O2 Del Method Room Air 02/18/25 16:00 O2 Flow Rate 1 02/15/25 07:20 BMI result Body Mass Index 24.3 Const: General: cooperative, healthy appearing and no acute distress Resp: Effort & Inspection: normal respiratory effort and able to speak in complete sentences Cardio: Rate: regular rate Peripheral pulses: Peripheral pulses 2+ throughout GI: Palpation (GI): Soft to palpation Skin: Lesions: no lesions Rashes: no rashes Extrem: Other: Right knee dressing is c/d/i. Wound VAC has been removed. Able to dorsi/plantar flex. Calf is supple and nontender. Sensation intact. Pedal pulse intact. Procedures Date of Service Date of Service: 02/18/25 Progress Note: A&P Assessment and plan (1) Open wound of knee, complicated: Status: Acute Plan Continue pain mgmnt as needed Continue ASA for DVT ppx Discontinue wound VAC at this time Continue IV vancomycin Patient will be re-evaluated in the AM for discussion of what further treatment options might be indicated Continue with all other recommendations per Medicine Time Spent With Patient Time: Total time managing care of this patient today ____ minutes. Quality Stroke Does the patient have a stroke diagnosis?: No Reason for No Anti-thrombotic by Day Two: N/A - Med Ordered VTE Prior VTE?: No VTE Risk Level:: Medical - moderate - high VTE Device Contraindication: N/A - Device Ordered VTE Drug Contraindication: N/A - Med Ordered
--- NOTE | 2025-02-18 17:49 | HE.PHANOTE ---
VANCO DOSE ADJUSTMENT BASED ON SCR AND LEVEL OF 12.5 DOSE CONTINUED WITH 1500 Q 24. NEXT LEVEL 02/20. PREDICTED TODAY WAS 13.6 WITH TRENDING TOWARDS 16 FOR SS
[2025-02-18 19:04] VITALS: BP 136/63; PULSE 113; RESP 18; TEMP 36.4; O2SAT 97
[2025-02-18] MEDS: Parenteral Nutrition 1,200 ML 50 ML IV (22:15)
[2025-02-18 22:44] VITALS: BP 165/73; PULSE 114; RESP 19; TEMP 36.4; O2SAT 97
[2025-02-19] VITALS (7 sets, daily range): BP systolic 108–139; BP diastolic 53–66; PULSE 91–108; RESP 17–20; TEMP 36.5–37.1; O2SAT 96–97
[2025-02-19 07:02] LABS: MANUAL DIFF FLAG NO
[2025-02-19 07:12] LABS: Hematocrit 31.9 % (37.0-47.0); Hemoglobin 10.4 g/dl (12.0-16.0); Imm Gran Abs Auto 0.53 X10*3/uL (0.00-0.03); Imm Gran Pct Auto 3.9 % (0.0-0.4); Lymphocytes Absolute Auto 1.9 X10*3/uL (1.2-4.9); Mean Corpuscular HGB Conc 32.6 g/dl (31.0-35.0); Mean Corpuscular Hemoglobin 29.0 pg (27.0-33.0); Mean Corpuscular Volume 88.9 fL (80.0-98.0); NRBC Abs Auto 0.000 X10*3/uL (0.0-0.012); NRBC Pct Auto 0.0 /100WBC (0.0-0.2); Platelet Count 490 X10*3/uL (160-400); Red Blood Count 3.59 X10*6/uL (4.20-5.50); White Blood Count 13.5 X10*3/uL (4.8-10.8)
[2025-02-19 07:32] LABS: Alanine Aminotransferase 11 U/L (0-31); Albumin Level 2.8 g/dL (3.5-5.0); Alkaline Phosphatase 166 U/L (39-117); Anion Gap 11 (12-20); Aspartate Amino Transferase 25 U/L (5-31); Blood Urea Nitrogen 22 mg/dL (9-16); Calcium 9.0 mg/dL (8.4-10.2); Carbon Dioxide 26 mmol/L (22-29); Chloride 102 mmol/L (96-108); Creatinine Clr Calc Pharmacy 51.2; Estimated Glomerular Filt Rate > 60; Magnesium 2.2 mg/dL (1.6-2.6); Potassium 5.1 mmol/L (3.3-5.1); Sodium 134 mmol/L (135-145); Total Protein 5.4 g/dL (6.5-8.0)
[2025-02-19] MEDS: Metoprolol Tartrate 12.5 MG HALFTAB PO ×2 (08:29→21:11)
[2025-02-19] MEDS: Clotrimazole 1 % Cream 15 GM TUBE 1 APPL TOPICAL ×2 (08:48→21:19)
--- NOTE | 2025-02-19 10:44 | MHC.CLN ---
F/U PO INTAKE CONSISTENTLY 25% DIET RX:REGULAR CHOPPED REVIEWED LABS DISCUSSED WITH PHARMACY CONTINUE TPN AT 50ML/HOUR WITH 31 G LIPIDS PROVIDES 1162 TOTAL KCALS (75% OF EST KCAL NEEDS), 60G PROTEIN (80% EST PRO NEEDS), 180G DEXTROSE REPLETE LYTES NEEDED MONITOR PO INTAKE CLOSELY GOAL TO D/C TPN PO INTAKE IMPROVES
--- NOTE | 2025-02-19 13:09 | MHC.SL.SWA ---
Dysphasia Diet Status: NDD3/thin Liquid Consistency and Strategies for Safe Swallow: Liquid Intake Recommendation: Thin Solid Food Consistency: Dietary Recommendations: Chopped/Advanced (NDD3) Oral Medication Intake: Crushed with Puree Please contact the pharmacy regarding appropriate crushable or liquid drug formulations that are available whenever modified delivery is recommended. Compensatory Strategies and Precautions to be Taken for Safe Swallow: Sitting Upright (90 deg) Small Bites and Sips Alternate Liquids/Solids Rate of Ingestion Change Supervision While Eating and Drinking for Safe Swallow: Total Assistance (1:1) Swallowing Recommended Treatments: Compens. Strategy Educat. Recommendation for Speech: Inpatient Speech Therapy Comment: Patient is admitted w/ sepsis secondary to UTI and PNA, presenting with mild oropharyngeal phase dysphagia, in setting of dementia and hx GERD. Recommend continue on Chopped/Advanced (NDD3), THIN liquids, pills crushed in puree. Pt requires 1-1 feeding/assistance at all meals. Patient is a slow eater, putting her at risk for reduced nutritional intake. Remove items from tray that can be given as a snack later if intake is poor at meal. Pt may benefit from continued [employer] tx at next level of care. Telephone Service Representative Clinican/Clinical Fellow: No Supervisory Statement: I have reviewed and agree with the student/clinical fellow's documentation: N/A Speech Language Pathologist: Caryn Montes M.A., [facility]
--- NOTE | 2025-02-19 14:03 | PM.PNORT ---
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 Wound care reports that patient is experiencing significant foul smelling grade drainage from her right knee wound despite wound healing well Patient resting in bed No other acute complaints or concerns at this time Physical Exam Vital Signs: Vital Signs: Last Vital Signs Temp 97.7 F 02/19/25 12:00 Pulse 91 02/19/25 12:00 Resp 20 02/19/25 12:00 BP 109/66 02/19/25 12:00 Pulse Ox 97 02/19/25 12:00 O2 Del Method Room Air 02/19/25 12:00 O2 Flow Rate 1 02/15/25 07:20 BMI result Body Mass Index 24.3 Const: General: cooperative, healthy appearing and no acute distress Resp: Effort & Inspection: normal respiratory effort and able to speak in complete sentences Cardio: Rate: regular rate Peripheral pulses: Peripheral pulses 2+ throughout GI: Palpation (GI): Soft to palpation Skin: Lesions: no lesions Rashes: no rashes Extrem: Other: Right knee dressing is c/d/i. Able to dorsi/plantar flex. Calf is supple and nontender. Sensation intact. Pedal pulse intact. Procedures Date of Service Date of Service: 02/19/25 Progress Note: A&P Assessment and plan (1) Open wound of knee, complicated: Status: Acute Plan Continue pain mgmnt as needed Continue ASA for DVT ppx Wound consult placeed and helping with wound care Continue IV vancomycin Continue with all other recommendations per Medicine Time Spent With Patient Time: Total time managing care of this patient today ____ minutes. Quality Stroke Does the patient have a stroke diagnosis?: No Reason for No Anti-thrombotic by Day Two: N/A - Med Ordered VTE Prior VTE?: No VTE Risk Level:: Medical - moderate - high VTE Device Contraindication: N/A - Device Ordered VTE Drug Contraindication: N/A - Med Ordered
--- NOTE | 2025-02-19 15:37 | HO.PM.IMPN ---
Subjective Subjective Date of Service: 02/19/25 Interval History: Oral intake, knee infection Review of Systems seems similar no fever Review of Systems: Yes all other systems are reviewed and are negative Physical Exam Vital Signs: Vital Signs: Last Vital Signs Temp 97.7 F 02/19/25 12:00 Pulse 91 02/19/25 12:00 Resp 20 02/19/25 12:00 BP 109/66 02/19/25 12:00 Pulse Ox 97 02/19/25 12:00 O2 Del Method Room Air 02/19/25 12:00 O2 Flow Rate 1 02/15/25 07:20 BMI result Body Mass Index 24.3 Appearance: Awake and interactive cvs: rrr, [id number] res: clear to auscultation ,no rhonchii or wheezing abd: no rebound or guarding ,nt, bs present. ext pulses present , no cyanosis . neuro: Moves all extremities Objective Data Active Medications Acetaminophen (Acetaminophen 325 Mg Tablet) 650 mg PO Q6H PRN PRN Reason: Pain, Mild 1-3,fever,headache Last Admin: 02/16/25 20:06 Dose: 650 mg Documented By: TYSON Amlodipine Besylate (Amlodipine Besylate 5 Mg Tablet) 5 mg PO DAILY [facility]; Protocol Last Admin: 02/19/25 08:29 Dose: 5 mg Documented By: PREM Aspirin (Aspirin 81 Mg Tab.Chew) 81 mg PO DAILY [facility] Last Admin: 02/19/25 08:29 Dose: 81 mg Documented By: PREM Bisacodyl (Bisacodyl 10 Mg Supp.Rect) 10 mg [place] DAILY PRN PRN Reason: CONSTIPATION Calcium Carbonate (Calcium Carbonate 750 Mg Tab.Chew) 750 mg PO Q4H PRN PRN Reason: Heartburn Clotrimazole (Clotrimazole 1 % Cream 15 Gm Tube) 1 appl TOPICAL BID [facility]; Protocol Last Admin: 02/19/25 08:48 Dose: 1 appl Documented By: PREM Enoxaparin Sodium (Enoxaparin Sodium 40 Mg/0.4 Ml Syringe) 40 mg SUBCUT Q24H [facility] Last Admin: 02/18/25 22:21 Dose: 40 mg Documented By: JUAN JOSE Hydralazine HCl (Hydralazine Hcl 20 Mg/Ml Vial) 10 mg IVPUSH Q6H PRN; Protocol PRN Reason: SBP > 160 Last Admin: 02/16/25 20:06 Dose: 10 mg Documented By: TYSON Doxycycline Hyclate 100 mg/ (Sodium Chloride) 250 mls @ 166.67 mls/hr IV Q12H [facility] Last Infusion: 02/19/25 08:49 Dose: Infused Documented By: PREM Vancomycin HCl 1,500 mg/ (Sodium Chloride) 500 mls @ 333.333 mls/hr IV Q24H [facility] Last Infusion: 02/18/25 21:00 Dose: Infused Documented By: NELY-CONNO Nutrition (Parenteral) (Parenteral Nutrition) 1,200 mls @ 50 mls/hr IV .Q24H [facility]; Protocol Stop: 02/19/25 20:59 Last Admin: 02/18/25 22:15 Dose: 50 mls/hr Documented By: NELY-CONNO Nutrition (Parenteral) (Parenteral Nutrition) 1,200 mls @ 50 mls/hr IV .Q24H [facility]; Protocol Stop: 02/20/25 20:59 Magnesium Hydroxide (Milk Of Magnesia 30 Ml Oral.Susp) 30 ml PO DAILY PRN PRN Reason: Constipation Melatonin (Melatonin 3 Mg Tablet) 6 mg PO BEDTIME PRN PRN Reason: Insomnia Last Admin: 02/14/25 22:24 Dose: 6 mg Documented By: PRISCA Metoprolol Tartrate (Metoprolol Tartrate 12.5 Mg Halftab) 12.5 mg PO BID [facility]; Protocol Last Admin: 02/19/25 08:29 Dose: 12.5 mg Documented By: PREM Nystatin (Nystatin Powder 15 Gm Bottle) 1 appl TOPICAL TID [facility]; Protocol Last Admin: 02/19/25 08:48 Dose: 1 appl Documented By: PREM Ondansetron HCl (Ondansetron Hcl 4 Mg/2 Ml Vial) 4 mg IVPUSH Q8H PRN PRN Reason: Nausea and Vomiting Pharmacy Consult (Consult Rx Vancomycin Dosing) 1 each MISCELLANE DAILY PRN PRN Reason: Consult order Pharmacy Consult (Consult Rx Parenteral Nutrition Ordering) 1 each MISCELLANE DAILY PRN PRN Reason: Consult order Polyethylene Glycol (Polyethylene Glycol 3350 17 Gm Powd.Pack) 17 gm PO DAILY PRN PRN Reason: Constipation Senna (Sennosides 8.6 Mg Tablet) 17.2 mg PO BEDTIME [facility] Last Admin: 02/18/25 22:22 Dose: 17.2 mg Documented By: JUAN JOSE Sodium Chloride (0.9 % Sodium Chloride Flush 3 Ml Syringe) 3 ml IVFLUSH QSHIFT [facility] Last Admin: 02/19/25 08:30 Dose: Not Given Documented By: PREM Non-Admin Reason: IV Running Sodium Chloride (0.9 % Sodium Chloride Flush 10 Ml Syringe) 10 ml IVFLUSH QSOHFT [facility] Last Admin: 02/19/25 08:29 Dose: Not Given Documented By: PREM Non-Admin Reason: IV Running Labs 02/19/25 06:36 02/19/25 06:36 Labs: Laboratory Results - last 24 hr 02/18/25 02/19/25 17:13 06:36 MCV 88.9 MCH 29.0 MCHC 32.6 RDW 15.6 Plt Count 490 H MPV 8.8 L Immature Gran % (Auto) 3.9 H Neut % (Auto) 62.9 Lymph % (Auto) 13.8 L [place] % (Auto) 8.0 Eos % (Auto) 10.7 H Baso % (Auto) 0.7 Lymph # (Auto) 1.9 [place] # (Auto) 1.1 Eos # (Auto) 1.5 H Baso # (Auto) 0.1 Abs Immat Gran (auto) 0.53 H Absolute Neuts (auto) 8.5 H Absolute Nucleated RBC 0.000 Nucleated RBC % (auto) 0.0 Anion Gap 11 L Estim Creat Clear Calc 51.2 Estimated GFR > 60 Random Glucose 296 H Calcium 9.0 Phosphorus 3.2 Magnesium 2.2 Total Bilirubin 0.2 AST 25 ALT 11 Alkaline Phosphatase 166 H Total Protein 5.4 L Albumin 2.8 L Random Vancomycin 12.5 L Assessment and Plan (1) Acute UTI: Status: Acute Plan 89-year-old female with past medical history of dementia, hypertension, hyperlipidemia, allergic rhinitis, right knee infection currently on daptomycin until 03/18/2025, GERD, history of total bilateral knee replacements is being admitted with sepsis secondary to urinary tract infection/pneumonia. Patient has been sign dementia and is currently at [facility] for rehabilitation/long-term care. Sepsis possible sec possible pneumonia Has leukocytosis but improving in comparison to admission , no fever Lactic acid 1.5,patient currently not febrile Bladder scan QS X3 vanco trough 12.5 plan:Duo nebs p.r.n.,Incentive spirometry.continue antibiotics Speech therapy eval ordered Aspiration precautions ordered. ID eval noted -rec to change daptomycin to iv vanco due to ? dapto might causing confusion, also rec to change antibiotics to doxycylcine (?lung source for infection), vanco trough today 13.1 Urine culture grew Pseudomonas-thought to be colonization. poor oral intake: Has p.o. intake of 25%, need a lot of encouragement, currently on PPN. Recent R knee surgery with current wound vac and PICC line : Wound VAC was changed earlier today 02/11/2025 ortho eval-Continue wound VAC therapy, replace every 2-3 days ortho and wound care following-please refer to wound care/ortho notes. wound care recomendations: 1. Turn and Reposition every 2 hours and as needed for patient comfort.? Use pillows or wedges to support off loading positions. 2. Off Load all bony prominences with use of pillows and heel boots if needed.? Apply Preventative foams where needed. ? 3. Monitor for incontinence and moisture control, use barrier creams when needed for prevention and treatment. 4. Provide adequate and supplemental nutrition.? 5. Order low air loss mattress. 6. When applicable maintain blood glucose levels per Providers order. Bilateral Heels - Elevate heels off of bed surface with pillows.? Float heels off of pillows.? Apply skin prep allow to dry.? Apply heel foam dressings, peel back and assess Q shift and change every 5-7 days and PRN. Sacrum and Buttock - Off Load Pressure with Q2 hr turns and use of pillows - Cleanse with PH balance spray or wipes, pat dry. Apply anti-fungal powder twice daily - be sure to dust off excess to prevent caking. Apply thin layer of barrier cream to affected area.? Apply twice daily and Reapply thin layer PRN after each episode of incontinence. May apply Preventative foam higher to the sacral area to protect and aid in pressure redistribution. Right inferior knee - Cleanse with NS moist gauze, apply barrier cream to wound edge, lightly pack wound bed sithe Duraber AG be sure to leave wick for easy removal. Cover with small dry gauze and foam dressing. Change every other day. Dementia -Chronic in nature Per healthcare proxy and patient's niece, patient has been more depressed since being away from her . po intake is very poor -added ppn encouraged to better p.o. intake , staff is aware in detail that need more frequent encouragement for p.o. intake HTN-Metoprolol restarted -Hydralazine p.r.n. -Low-sodium diet DVT prophylaxis: Lovenox Full Code status ongoing need:knee infection/ pneumonia-need iv antibiotics ,close monitering, dec po intake -need PPN/electrolyte monitoring d/w her hcp. Quality Stroke Does the patient have a stroke diagnosis?: No Reason for No Anti-thrombotic by Day Two: N/A - Med Ordered VTE Prior VTE?: No VTE Risk Level:: Medical - moderate - high VTE Device Contraindication: N/A - Device Ordered VTE Drug Contraindication: N/A - Med Ordered
[2025-02-19] MEDS: 0.9 % Sodium Chloride Flush 3 ML SYRINGE IVFLUSH ×2 (16:53→21:20)
--- NOTE | 2025-02-19 16:57 | HO.WOUND ---
Wound Consult: Follow up 89yr old?female admitted to [facility] on 02/11/25 - See progress notes and H&P for detailed history.? Wound consult follow up for Right Leg wound.? Patient agreeable to assessment and photo documentation, although she remains confused at times. Easily re-directable. Follow up on wound care since wound vac removal. Right Flower Etiology: Ulceration ??Present on Admission Measurements: 0.5cm x 0.8cm x 1.5cm Wound Bed: red clean wound bed white moist smooth bone palpable at wound base Drainage / Odor: foul sweet smelling odor creamy kendall velasquez drainage Edges: ? hyperpigmented [place]ity wound: ? hypergranulation tissue noted - No Induration, Fluctuance or Warmth noted Pain: denies Goals of Treatment: ? Defer to Orthopedic surgery - currently recommend packing with durafiber AG for moisture management and antimicrobial properties and for odor control Recommendations: 1. Turn and Reposition every 2 hours and as needed for patient comfort.? Use pillows or wedges to support off loading positions. 2. Off Load all bony prominences with use of pillows and heel boots if needed.? Apply Preventative foams where needed. ? 3. Monitor for incontinence and moisture control, use barrier creams when needed for prevention and treatment. 4. Provide adequate and supplemental nutrition.? 5. Order low air loss mattress. 6. When applicable maintain blood glucose levels per Providers order. Bilateral Heels - Elevate heels off of bed surface with pillows.? Float heels off of pillows.? Apply skin prep allow to dry.? Apply heel foam dressings, peel back and assess Q shift and change every 5-7 days and PRN. Sacrum and Buttock - Off Load Pressure with Q2 hr turns and use of pillows - Cleanse with PH balance spray or wipes, pat dry. Apply anti-fungal powder twice daily - be sure to dust off excess to prevent caking. Apply thin layer of barrier cream to affected area.? Apply twice daily and Reapply thin layer PRN after each episode of incontinence. May apply Preventative foam higher to the sacral area to protect and aid in pressure redistribution. Right inferior knee - Cleanse with NS moist gauze, apply barrier cream to wound edge, lightly pack wound bed sithe Durafiber AG be sure to leave wick for easy removal. Cover with small dry gauze and foam dressing. Change every other day. Re-consult wound care Nurse for wound deterioration or wound changes. Recommend provider to assess and consider imaging and or washout prior to wound vac replacement. Will defer to provider for assessment and next steps in treatment. Discussed with Dr. Espitia as well.
[2025-02-19] MEDS: Parenteral Nutrition 1,200 ML 50 ML IV (21:10)
[2025-02-20 03:27] VITALS: BP 123/60; PULSE 93; RESP 18; TEMP 37.1; O2SAT 96
[2025-02-20 06:31] LABS: MANUAL DIFF FLAG NO
[2025-02-20 06:55] LABS: Alanine Aminotransferase 18 U/L (0-31); Albumin Level 2.8 g/dL (3.5-5.0); Alkaline Phosphatase 181 U/L (39-117); Anion Gap 9 (12-20); Aspartate Amino Transferase 35 U/L (5-31); Blood Urea Nitrogen 21 mg/dL (9-16); Calcium 9.1 mg/dL (8.4-10.2); Carbon Dioxide 26 mmol/L (22-29); Chloride 105 mmol/L (96-108); Creatinine Clr Calc Pharmacy 49.6; Estimated Glomerular Filt Rate > 60; Magnesium 2.1 mg/dL (1.6-2.6); Potassium 4.7 mmol/L (3.3-5.1); Sodium 135 mmol/L (135-145); Total Protein 5.3 g/dL (6.5-8.0)
[2025-02-20 07:16] VITALS: BP 146/65; PULSE 92; RESP 18; TEMP 36.3; O2SAT 98
[2025-02-20 07:21] LABS: Hematocrit 29.7 % (37.0-47.0); Hemoglobin 9.7 g/dl (12.0-16.0); Imm Gran Abs Auto 0.37 X10*3/uL (0.00-0.03); Imm Gran Pct Auto 2.8 % (0.0-0.4); Lymphocytes Absolute Auto 2.8 X10*3/uL (1.2-4.9); Mean Corpuscular HGB Conc 32.7 g/dl (31.0-35.0); Mean Corpuscular Hemoglobin 29.6 pg (27.0-33.0); Mean Corpuscular Volume 90.5 fL (80.0-98.0); NRBC Abs Auto 0.000 X10*3/uL (0.0-0.012); NRBC Pct Auto 0.0 /100WBC (0.0-0.2); Platelet Count 511 X10*3/uL (160-400); Red Blood Count 3.28 X10*6/uL (4.20-5.50); White Blood Count 13.1 X10*3/uL (4.8-10.8)
[2025-02-20] MEDS: Metoprolol Tartrate 12.5 MG HALFTAB PO ×2 (08:27→20:06)
[2025-02-20] MEDS: Clotrimazole 1 % Cream 15 GM TUBE 1 APPL TOPICAL ×2 (08:27→20:06)
[2025-02-20] MEDS: 0.9 % Sodium Chloride Flush 3 ML SYRINGE IVFLUSH ×3 (08:28→20:07)
--- NOTE | 2025-02-20 10:07 | MHC.CLN ---
F/U PO INTAKE REMAINS 25% DIET RX:REGULAR CHOPPED REVIEWED LABS-BS REMAIN ELEVATED NOTED AIC 6.7% DISCUSSED WITH PHARMACY CONTINUE TPN AT 50ML/HOUR WITH 31 G LIPIDS PROVIDES 1162 TOTAL KCALS (75% OF EST KCAL NEEDS), 60G PROTEIN (80% EST PRO NEEDS), 180G DEXTROSE REPLETE LYTES NEEDED MONITOR PO INTAKE CLOSELY GOAL TO D/C TPN PO INTAKE IMPROVES
--- NOTE | 2025-02-20 10:21 | MHC.CM.PN ---
Per ROUNDS discussion, Patient is not yet medically cleared for dc (IV Vanco until 03/18/2025 & poor PO/PPN); PT is recommending STR and CM will continue to follow.
[2025-02-20 11:10] VITALS: BP 135/61; PULSE 87; RESP 18; TEMP 36.5; O2SAT 98
--- NOTE | 2025-02-20 13:24 | MHC.SL.SWA ---
Speech Pathologist Impression: Oropharyngeal swallow coordination WNL Risk of Aspiration Due to: Variability in alertness Deconditioning secondary to weakness Dysphasia Diet Status: Recommend continue on Chopped/Advanced (NDD3), THIN liquids, pills crushed in puree. Pt requires 1-1 feeding/assistance at all meals. Patient is a slow eater, putting her at risk for reduced nutritional intake. Remove items from tray that can be given as a snack later if intake is poor at meal. Liquid Consistency and Strategies for Safe Swallow: Liquid Intake Recommendation: Thin Liquid Intake Strategies: No Straws Solid Food Consistency: Dietary Recommendations: Chopped/Advanced (NDD3) Additional Modifications to Solid Foods: Oral Medication Intake: Crushed with Puree Please contact the pharmacy regarding appropriate crushable or liquid drug formulations that are available whenever modified delivery is recommended. Compensatory Strategies and Precautions to be Taken for Safe Swallow: Sitting Upright (90 deg) Small Bites and Sips Alternate Liquids/Solids Rate of Ingestion Change Supervision While Eating and Drinking for Safe Swallow: Total Assistance (1:1) Foods to Avoid: Swallowing Recommended Treatments: Compens. Strategy Educat. Recommendation for Speech: Inpatient Speech Therapy Comment: Pt seen for dysphagia treatment. Pt alert, communicative. Pt repositioned in more upright position for PO intake. Pt held cup for liquid, attempting to sip thins by straw and then cup, as straw was difficult for pt to coordinate. Pt accepted minimal bites of NDD3 consistency lunch (soft noodles, chopped chicken, tomato sauce, Jello) with adequate oropharyngeal phases of swallow. No overt s/s of aspiration observed. Pt voicing remained clear upon speaking. Pt refused further PO. [facility]HW[facility] [employer] continues to follow as indicated. Frequency/Duration: M-F Date Range for Service Req: Timeline to reassess: T[employer] Clinican/Clinical Fellow: No Supervisory Statement: I have reviewed and agree with the student/clinical fellow's documentation: N/A Speech Language Pathologist: Rosa Cannon M.S., CCC-HIGHW[employer] TRUCK [employer]IVER
--- NOTE | 2025-02-20 14:20 | P.PNIM_ITS ---
Subjective Subjective Date of Service: 02/20/25 Interval History: no fever and no c/o R knee pain appetite poor but denies abd pain Review of Systems Review of Systems: Yes all other systems are reviewed and are negative Physical Exam 2 Vital Signs: Vital Signs: Last Vital Signs Temp 97.7 F 02/20/25 11:10 Pulse 87 02/20/25 11:10 Resp 18 02/20/25 11:10 BP 135/61 02/20/25 11:10 Pulse Ox 98 02/20/25 11:10 O2 Del Method Room Air 02/20/25 11:10 O2 Flow Rate 1 02/15/25 07:20 BMI result Body Mass Index 24.3 Gen: in no acute distress HEENT: sclera anicteric, moist mucus membranes Neck: supple Lungs: clear to auscultation bilaterally Heart: regular rate and rhythm, no murmurs Abd: soft, non-tender, non-distended Ext: no edema, LUE PICC Skin: warm/well-perfused, R knee with clean dressing Neuro: alert and oriented x3, no focal findings Psych: appropriate affect Objective Data Active Medications Acetaminophen (Acetaminophen 325 Mg Tablet) 650 mg PO Q6H PRN PRN Reason: Pain, Mild 1-3,fever,headache Last Admin: 02/16/25 20:06 Dose: 650 mg Documented By: TYSON Amlodipine Besylate (Amlodipine Besylate 5 Mg Tablet) 5 mg PO DAILY [facility]; Protocol Last Admin: 02/20/25 08:27 Dose: 5 mg Documented By: PREM Aspirin (Aspirin 81 Mg Tab.Chew) 81 mg PO DAILY [facility] Last Admin: 02/20/25 08:27 Dose: 81 mg Documented By: PREM Bisacodyl (Bisacodyl 10 Mg Supp.Rect) 10 mg [place] DAILY PRN PRN Reason: CONSTIPATION Calcium Carbonate (Calcium Carbonate 750 Mg Tab.Chew) 750 mg PO Q4H PRN PRN Reason: Heartburn Clotrimazole (Clotrimazole 1 % Cream 15 Gm Tube) 1 appl TOPICAL BID [facility]; Protocol Last Admin: 02/20/25 08:27 Dose: 1 appl Documented By: PREM Enoxaparin Sodium (Enoxaparin Sodium 40 Mg/0.4 Ml Syringe) 40 mg SUBCUT Q24H [facility] Last Admin: 02/19/25 21:10 Dose: 40 mg Documented By: JUAN JOSE Hydralazine HCl (Hydralazine Hcl 20 Mg/Ml Vial) 10 mg IVPUSH Q6H PRN; Protocol PRN Reason: SBP > 160 Last Admin: 02/16/25 20:06 Dose: 10 mg Documented By: TYSON Doxycycline Hyclate 100 mg/ (Sodium Chloride) 250 mls @ 166.67 mls/hr IV Q12H [facility] Last Infusion: 02/20/25 09:08 Dose: Infused Documented By: PREM Vancomycin HCl 1,500 mg/ (Sodium Chloride) 500 mls @ 333.333 mls/hr IV Q24H [facility] Last Infusion: 02/19/25 20:10 Dose: Infused Documented By: JUAN JOSE Nutrition (Parenteral) (Parenteral Nutrition) 1,200 mls @ 50 mls/hr IV .Q24H [facility]; Protocol Stop: 02/20/25 20:59 Last Admin: 02/19/25 21:10 Dose: 50 mls/hr Documented By: JUAN JOSE Nutrition (Parenteral) (Parenteral Nutrition) 1,200 mls @ 50 mls/hr IV .Q24H [facility]; Protocol Stop: 02/21/25 20:59 Magnesium Hydroxide (Milk Of Magnesia 30 Ml Oral.Susp) 30 ml PO DAILY PRN PRN Reason: Constipation Melatonin (Melatonin 3 Mg Tablet) 6 mg PO BEDTIME PRN PRN Reason: Insomnia Last Admin: 02/14/25 22:24 Dose: 6 mg Documented By: PRISCA Metoprolol Tartrate (Metoprolol Tartrate 12.5 Mg Halftab) 12.5 mg PO BID [facility]; Protocol Last Admin: 02/20/25 08:27 Dose: 12.5 mg Documented By: PREM Nystatin (Nystatin Powder 15 Gm Bottle) 1 appl TOPICAL TID [facility]; Protocol Last Admin: 02/20/25 08:28 Dose: 1 appl Documented By: PREM Ondansetron HCl (Ondansetron Hcl 4 Mg/2 Ml Vial) 4 mg IVPUSH Q8H PRN PRN Reason: Nausea and Vomiting Pharmacy Consult (Consult Rx Vancomycin Dosing) 1 each MISCELLANE DAILY PRN PRN Reason: Consult order Pharmacy Consult (Consult Rx Parenteral Nutrition Ordering) 1 each MISCELLANE DAILY PRN PRN Reason: Consult order Polyethylene Glycol (Polyethylene Glycol 3350 17 Gm Powd.Pack) 17 gm PO DAILY PRN PRN Reason: Constipation Senna (Sennosides 8.6 Mg Tablet) 17.2 mg PO BEDTIME [facility] Last Admin: 02/19/25 21:10 Dose: 17.2 mg Documented By: NELY-CONNO Sodium Chloride (0.9 % Sodium Chloride Flush 3 Ml Syringe) [facility] Last Admin: 02/20/25 08:28 Dose: 3 ml Documented By: CHETTEKMel Sodium Chloride (0.9 % Sodium Chloride Flush 10 Ml Syringe) 10 ml IVFLUSH QSHIFT [facility] Last Admin: 02/20/25 08:28 Dose: Not Given Documented By: CHETTEKR Non-Admin Reason: IV Running Labs 02/20/25 06:13 02/20/25 06:13 Labs: Laboratory Results - last 24 hr 02/20/25 06:13 MCV 90.5 MCH 29.6 MCHC 32.7 RDW 15.5 Plt Count 511 H MPV 9.2 L Immature Gran % (Auto) 2.8 H Neut % (Auto) 54.7 Lymph % (Auto) 21.0 [place] % (Auto) 9.7 Eos % (Auto) 11.1 H Baso % (Auto) 0.7 Lymph # (Auto) 2.8 [place] # (Auto) 1.3 H Eos # (Auto) 1.5 H Baso # (Auto) 0.1 Abs Immat Gran (auto) 0.37 H Absolute Neuts (auto) 7.2 Absolute Nucleated RBC 0.000 Nucleated RBC % (auto) 0.0 Anion Gap 9 L Estim Creat Clear Calc 49.6 Estimated GFR > 60 Random Glucose 205 H Calcium 9.1 Phosphorus 3.6 Magnesium 2.1 Total Bilirubin 0.2 AST 35 H ALT 18 Alkaline Phosphatase 181 H Total Protein 5.3 L Albumin 2.8 L Assessment and Plan (1) Open wound of knee, complicated: Status: Acute Plan d10 for 89yo F LTC resident with dementia, HTN, HLD, and infection of R TKA to 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 until 03/18/25 admitted with sepsis likely due to infection of R TKA, possibly PNA as well sepsis due to PNA vs R TKA infection - afebrile, blood cultures negative, urine culture with Pseudomonas but per ID likely coloniszation - changed per ID travel consultant from daptomycin to vancomycin due to possibility that pt's confusion was caused by daptomycin; also on doxycycline since 02/12- - plan for knee is to continue vancomycin until 03/18/25 - Ortho following, definitive plan pending [washout/antibiotic spacer?] - Wound VAC off now, per Wound Care: Bilateral Heels - Elevate heels off of bed surface with pillows.? Float heels off of pillows.? Apply skin prep allow to dry.? Apply heel foam dressings, peel back and assess Q shift and change every 5-7 days and PRN. Sacrum and Buttock - Off Load Pressure with Q2 hr turns and use of pillows - Cleanse with PH balance spray or wipes, pat dry. Apply anti-fungal powder twice daily - be sure to dust off excess to prevent caking. Apply thin layer of barrier cream to affected area.? Apply twice daily and Reapply thin layer PRN after each episode of incontinence. May apply Preventative foam higher to the sacral area to protect and aid in pressure redistribution. Right inferior knee - Cleanse with NS moist gauze, apply barrier cream to wound edge, lightly pack wound bed sithe [facility] be sure to leave wick for easy removal. Cover with small dry gauze and foam dressing. Change every other day. poor oral intake/FTT/dementia - taking only 25% of trays, continue TPN via PICC line HTN - metoprolol tartrate + amlodipine VTE ppx - enoxaparin dispo - eventual LTC In my clinical judgment, the patient requires continued inpatient hospitalization for the following reasons: IV ABX, possible operative intervention, IV nutrition Total time managing care of this patient today: 45 minutes. Quality Stroke Does the patient have a stroke diagnosis?: No Reason for No Anti-thrombotic by Day Two: N/A - Med Ordered VTE Prior VTE?: No VTE Risk Level:: Medical - moderate - high VTE Device Contraindication: N/A - Device Ordered VTE Drug Contraindication: N/A - Med Ordered
[2025-02-20 15:09] VITALS: BP 117/58; PULSE 88; RESP 16; TEMP 37.4; O2SAT 97
[2025-02-20 15:30] VITALS: BP 117/58; PULSE 88; O2SAT 97
[2025-02-20 19:17] VITALS: BP 127/63; PULSE 93; RESP 17; TEMP 36.3; O2SAT 97
[2025-02-20] MEDS: Parenteral Nutrition 1,200 ML 50 ML IV (20:07)
[2025-02-21] VITALS (7 sets, daily range): BP systolic 125–132; BP diastolic 54–62; PULSE 81–96; RESP 16–18; TEMP 36.4–36.7; O2SAT 93–97
[2025-02-21 06:55] LABS: MANUAL DIFF FLAG NO
[2025-02-21 07:04] LABS: Hematocrit 30.4 % (37.0-47.0); Hemoglobin 9.8 g/dl (12.0-16.0); Imm Gran Abs Auto 0.22 X10*3/uL (0.00-0.03); Imm Gran Pct Auto 1.9 % (0.0-0.4); Lymphocytes Absolute Auto 2.2 X10*3/uL (1.2-4.9); Mean Corpuscular HGB Conc 32.2 g/dl (31.0-35.0); Mean Corpuscular Hemoglobin 29.3 pg (27.0-33.0); Mean Corpuscular Volume 90.7 fL (80.0-98.0); NRBC Abs Auto 0.000 X10*3/uL (0.0-0.012); NRBC Pct Auto 0.0 /100WBC (0.0-0.2); Platelet Count 491 X10*3/uL (160-400); Red Blood Count 3.35 X10*6/uL (4.20-5.50); White Blood Count 11.5 X10*3/uL (4.8-10.8)
[2025-02-21 07:22] LABS: Alanine Aminotransferase 17 U/L (0-31); Albumin Level 2.9 g/dL (3.5-5.0); Alkaline Phosphatase 185 U/L (39-117); Anion Gap 13 (12-20); Aspartate Amino Transferase 28 U/L (5-31); Blood Urea Nitrogen 25 mg/dL (9-16); Calcium 9.0 mg/dL (8.4-10.2); Carbon Dioxide 24 mmol/L (22-29); Chloride 105 mmol/L (96-108); Creatinine Clr Calc Pharmacy 48.9; Estimated Glomerular Filt Rate > 60; Magnesium 2.1 mg/dL (1.6-2.6); Potassium 4.6 mmol/L (3.3-5.1); Sodium 137 mmol/L (135-145); Total Protein 5.6 g/dL (6.5-8.0)
[2025-02-21] MEDS: 0.9 % Sodium Chloride Flush 3 ML SYRINGE IVFLUSH ×3 (08:32→21:51)
[2025-02-21] MEDS: Clotrimazole 1 % Cream 15 GM TUBE 1 APPL TOPICAL ×2 (08:33→21:50)
[2025-02-21] MEDS: 0.9 % Sodium Chloride Flush 10 ML SYRINGE IVFLUSH ×2 (08:33→15:20)
[2025-02-21] MEDS: Metoprolol Tartrate 12.5 MG HALFTAB PO ×2 (08:34→21:51)
--- NOTE | 2025-02-21 09:37 | HE.PHANOTE ---
RE: VANCO DOSING Trough came back as 14.7 mg/L after dose of 1500 mg on 02/20/25 @1900 was held. Dose is resumed as 1000 mg q24h starting @0800 02/21/25, next trough is scheduled for 02/22/25 @0600.
--- NOTE | 2025-02-21 09:53 | MHC.CLN ---
F/U PO INTAKE REMAINS THE SAME AT 25% DIET RX:REGULAR CHOPPED DISCUSSED WITH PHARMACY CONTINUE TPN AT 50ML/HOUR WITH 31 G LIPIDS PROVIDES 1162 TOTAL KCALS (75% OF EST KCAL NEEDS), 60G PROTEIN (80% EST PRO NEEDS), 180G DEXTROSE REPLETE LYTES NEEDED MONITOR PO INTAKE CLOSELY MD ADDED MAGIC CUP AND ENSURE TID TO INCREASE KCALS GOAL TO D/C TPN PO INTAKE IMPROVES
--- NOTE | 2025-02-21 11:58 | HO.PM.IMPN ---
Subjective Subjective Date of Service: 02/21/25 Interval History: no new complaints consistently consuming 25% of oral diet Review of Systems Review of Systems: Yes all other systems are reviewed and are negative Physical Exam Vital Signs: Vital Signs: Last Vital Signs Temp 97.5 F 02/21/25 11:20 Pulse 81 02/21/25 11:20 Resp 18 02/21/25 11:20 BP 127/54 L 02/21/25 11:20 Pulse Ox 95 02/21/25 11:20 O2 Del Method Room Air 02/21/25 11:20 O2 Flow Rate 1 02/15/25 07:20 BMI result Body Mass Index 24.3 Gen: in no acute distress HEENT: sclera anicteric, moist mucus membranes Neck: supple Lungs: clear to auscultation bilaterally Heart: regular rate and rhythm, no murmurs Abd: soft, non-tender, non-distended Ext: no edema, LUE PICC Skin: warm/well-perfused, R knee with clean dressing Neuro: alert and oriented x3, no focal findings Psych: appropriate affect Objective Data Active Medications Acetaminophen (Acetaminophen 325 Mg Tablet) 650 mg PO Q6H PRN PRN Reason: Pain, Mild 1-3,fever,headache Last Admin: 02/16/25 20:06 Dose: 650 mg Documented By: TYSON Amlodipine Besylate (Amlodipine Besylate 5 Mg Tablet) 5 mg PO DAILY [facility]; Protocol Last Admin: 02/21/25 08:35 Dose: 5 mg Documented By: GARETT Aspirin (Aspirin 81 Mg Tab.Chew) 81 mg PO DAILY [facility] Last Admin: 02/21/25 08:35 Dose: 81 mg Documented By: GARETT Bisacodyl (Bisacodyl 10 Mg Supp.Rect) 10 mg [place] DAILY PRN PRN Reason: CONSTIPATION Calcium Carbonate (Calcium Carbonate 750 Mg Tab.Chew) 750 mg PO Q4H PRN PRN Reason: Heartburn Clotrimazole (Clotrimazole 1 % Cream 15 Gm Tube) 1 appl TOPICAL BID [facility]; Protocol Last Admin: 02/21/25 08:33 Dose: 1 appl Documented By: GARETT Enoxaparin Sodium (Enoxaparin Sodium 40 Mg/0.4 Ml Syringe) 40 mg SUBCUT Q24H [facility] Last Admin: 02/20/25 20:06 Dose: 40 mg Documented By: CYN Hydralazine HCl (Hydralazine Hcl 20 Mg/Ml Vial) 10 mg IVPUSH Q6H PRN; Protocol PRN Reason: SBP > 160 Last Admin: 02/16/25 20:06 Dose: 10 mg Documented By: TYSON Doxycycline Hyclate 100 mg/ (Sodium Chloride) 250 mls @ 166.67 mls/hr IV Q12H [facility] Last Infusion: 02/21/25 07:37 Dose: Infused Documented By: GARETT Nutrition (Parenteral) (Parenteral Nutrition) 1,200 mls @ 50 mls/hr IV .Q24H [facility]; Protocol Stop: 02/21/25 20:59 Last Admin: 02/20/25 20:07 Dose: 50 mls/hr Documented By: CYN Vancomycin HCl 1,000 mg/ (Sodium Chloride) 270 mls @ 270 mls/hr IV Q24H [facility] Last Infusion: 02/21/25 09:37 Dose: Infused Documented By: GARETT Nutrition (Parenteral) (Parenteral Nutrition) 1,200 mls @ 50 mls/hr IV .Q24H [facility]; Protocol Stop: 02/22/25 20:59 Magnesium Hydroxide (Milk Of Magnesia 30 Ml Oral.Susp) 30 ml PO DAILY PRN PRN Reason: Constipation Melatonin (Melatonin 3 Mg Tablet) 6 mg PO BEDTIME PRN PRN Reason: Insomnia Last Admin: 02/14/25 22:24 Dose: 6 mg Documented By: PRISCA Metoprolol Tartrate (Metoprolol Tartrate 12.5 Mg Halftab) 12.5 mg PO BID [facility]; Protocol Last Admin: 02/21/25 08:34 Dose: 12.5 mg Documented By: GARETT Nystatin (Nystatin Powder 15 Gm Bottle) 1 appl TOPICAL TID [facility]; Protocol Last Admin: 02/21/25 08:33 Dose: 1 appl Documented By: GARETT Ondansetron HCl (Ondansetron Hcl 4 Mg/2 Ml Vial) 4 mg IVPUSH Q8H PRN PRN Reason: Nausea and Vomiting Pharmacy Consult (Consult Rx Vancomycin Dosing) 1 each MISCELLANE DAILY PRN PRN Reason: Consult order Pharmacy Consult (Consult Rx Parenteral Nutrition Ordering) 1 each MISCELLANE DAILY PRN PRN Reason: Consult order Polyethylene Glycol (Polyethylene Glycol 3350 17 Gm Powd.Pack) 17 gm PO DAILY PRN PRN Reason: Constipation Senna (Sennosides 8.6 Mg Tablet) 17.2 mg PO BEDTIME [facility] Last Admin: 02/20/25 20:06 Dose: 17.2 mg Documented By: CYN Sodium Chloride (0.9 % Sodium Chloride Flush 3 Ml Syringe) 3 ml IVFLUSH QSHIFT [facility] Last Admin: 02/21/25 08:32 Dose: 3 ml Documented By: GARETT Sodium Chloride (0.9 % Sodium Chloride Flush 10 Ml Syringe) 10 ml IVFLUSH QSHIFT [facility] Last Admin: 02/21/25 08:33 Dose: 10 ml Documented By: GARETT Labs 02/21/25 06:21 02/21/25 06:21 Labs: Laboratory Results - last 24 hr 02/20/25 02/21/25 16:58 06:21 MCV 90.7 MCH 29.3 MCHC 32.2 RDW 15.6 Plt Count 491 H MPV 8.9 L Immature Gran % (Auto) 1.9 H Neut % (Auto) 58.1 Lymph % (Auto) 19.3 L [place] % (Auto) 9.9 Eos % (Auto) 10.0 H Baso % (Auto) 0.8 Lymph # (Auto) 2.2 [place] # (Auto) 1.1 Eos # (Auto) 1.2 H Baso # (Auto) 0.1 Abs Immat Gran (auto) 0.22 H Absolute Neuts (auto) 6.7 Absolute Nucleated RBC 0.000 Nucleated RBC % (auto) 0.0 Anion Gap 13 Estim Creat Clear Calc 48.9 Estimated GFR > 60 Random Glucose 201 H Calcium 9.0 Phosphorus 3.8 Magnesium 2.1 Total Bilirubin 0.2 AST 28 ALT 17 Alkaline Phosphatase 185 H C-Reactive Protein 1.21 H Total Protein 5.6 L Albumin 2.9 L Random Vancomycin 19.9 14.7 L Assessment and Plan (1) Open wound of knee, complicated: Status: Acute Plan d11 for 89yo F LTC resident with dementia, HTN, HLD, and infection of R TKA to 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 until 03/18/25 admitted with sepsis likely due to infection of R TKA, possibly PNA as well sepsis due to PNA vs R TKA infection - afebrile, blood cultures negative, urine culture with Pseudomonas but per ID likely coloniszation - changed per ID consultants intern from daptomycin to vancomycin due to possibility that pt's confusion was caused by daptomycin; also on doxycycline 02/12-02/22 - plan for knee is to continue vancomycin until 03/18/25 - Ortho following, definitive plan pending [washout/antibiotic spacer?] - Wound VAC off now, per Wound Care: Bilateral Heels - Elevate heels off of bed surface with pillows.? Float heels off of pillows.? Apply skin prep allow to dry.? Apply heel foam dressings, peel back and assess Q shift and change every 5-7 days and PRN. Sacrum and Buttock - Off Load Pressure with Q2 hr turns and use of pillows - Cleanse with PH balance spray or wipes, pat dry. Apply anti-fungal powder twice daily - be sure to dust off excess to prevent caking. Apply thin layer of barrier cream to affected area.? Apply twice daily and Reapply thin layer PRN after each episode of incontinence. May apply Preventative foam higher to the sacral area to protect and aid in pressure redistribution. Right inferior knee - Cleanse with NS moist gauze, apply barrier cream to wound edge, lightly pack wound bed sithe [employer] be sure to leave wick for easy removal. Cover with small dry gauze and foam dressing. Change every other day. poor oral intake/FTT/dementia - taking only 25% of trays, continue TPN via PICC line HTN - metoprolol tartrate + amlodipine VTE ppx - enoxaparin dispo - eventual STR In my clinical judgment, the patient requires continued inpatient hospitalization for the following reasons: IV ABX, possible operative intervention, IV nutrition Total time managing care of this patient today: 45 minutes. Quality Stroke Does the patient have a stroke diagnosis?: No Reason for No Anti-thrombotic by Day Two: N/A - Med Ordered VTE Prior VTE?: No VTE Risk Level:: Medical - moderate - high VTE Device Contraindication: N/A - Device Ordered VTE Drug Contraindication: N/A - Med Ordered
--- NOTE | 2025-02-21 14:47 | PC.NURSE ---
Pt has open wound on R leg; wound care done per orders. No new signs of infection noted. Patient drowsy, but resting comfortably in recliner chair
--- NOTE | 2025-02-21 16:35 | MHC.SLORD ---
Speech Language Pathology Order Status: Pt sleeping soundly upon FIELD RADIO OPERATOR visit. Per RN, no concerns for toleration of diet or pills crushed in puree. FIELD RADIO OPERATOR to f/u tomorrow.
[2025-02-21] MEDS: Parenteral Nutrition 1,200 ML 50 ML IV (21:19)
[2025-02-22] VITALS (9 sets, daily range): BP systolic 104–157; BP diastolic 51–67; PULSE 81–100; RESP 16–18; TEMP 36.3–36.8; O2SAT 96–98
[2025-02-22 06:21] LABS: MANUAL DIFF FLAG NO
[2025-02-22 06:32] LABS: Hematocrit 28.4 % (37.0-47.0); Hemoglobin 9.5 g/dl (12.0-16.0); Imm Gran Abs Auto 0.14 X10*3/uL (0.00-0.03); Imm Gran Pct Auto 1.1 % (0.0-0.4); Lymphocytes Absolute Auto 2.1 X10*3/uL (1.2-4.9); Mean Corpuscular HGB Conc 33.5 g/dl (31.0-35.0); Mean Corpuscular Hemoglobin 29.7 pg (27.0-33.0); Mean Corpuscular Volume 88.8 fL (80.0-98.0); NRBC Abs Auto 0.000 X10*3/uL (0.0-0.012); NRBC Pct Auto 0.0 /100WBC (0.0-0.2); Platelet Count 479 X10*3/uL (160-400); Red Blood Count 3.20 X10*6/uL (4.20-5.50); White Blood Count 12.4 X10*3/uL (4.8-10.8)
[2025-02-22 06:46] LABS: Alanine Aminotransferase 13 U/L (0-31); Albumin Level 2.8 g/dL (3.5-5.0); Alkaline Phosphatase 173 U/L (39-117); Anion Gap 11 (12-20); Aspartate Amino Transferase 22 U/L (5-31); Blood Urea Nitrogen 22 mg/dL (9-16); Calcium 9.0 mg/dL (8.4-10.2); Carbon Dioxide 25 mmol/L (22-29); Chloride 104 mmol/L (96-108); Creatinine Clr Calc Pharmacy 52.0; Estimated Glomerular Filt Rate > 60; Magnesium 2.0 mg/dL (1.6-2.6); Potassium 4.2 mmol/L (3.3-5.1); Sodium 136 mmol/L (135-145); Total Protein 5.6 g/dL (6.5-8.0)
--- NOTE | 2025-02-22 06:55 | HE.PHANOTE ---
RE: VANCO DOSING Nurse Gisselle notified pharmacy that vanco bag from 02/21/25 is still full (dose wasn't given?) and trough came back as 10.8 mg/L. Renal function is stable. Continue with dose 1000 mg q24h. Next trough is scheduled for 02/23/25 @0600.
[2025-02-22] MEDS: 0.9 % Sodium Chloride Flush 3 ML SYRINGE IVFLUSH ×3 (07:48→20:49)
[2025-02-22] MEDS: Metoprolol Tartrate 12.5 MG HALFTAB PO ×2 (08:39→20:49)
[2025-02-22] MEDS: Clotrimazole 1 % Cream 15 GM TUBE 1 APPL TOPICAL ×2 (08:45→20:49)
--- NOTE | 2025-02-22 09:51 | MHC.CM.PN ---
CM met with Patient and her Niece/HCP/Azalia at bedside. Azalia was inquiring about her continuing to hold the bed at [facility] at over $500.00/day. CM encouraged Azalia to contact [facility] Lia[facility] to discuss this. Per MD, Patient will remain hospitalized into next week.CM will continue to follow.
--- NOTE | 2025-02-22 11:05 | MHC.CLN ---
F/U PO INTAKE REMAINS THE SAME AT 25% DIET RX:REGULAR CHOPPED DISCUSSED WITH PHARMACY CONTINUE TPN AT 50ML/HOUR WITH 31 G LIPIDS PROVIDES 1162 TOTAL KCALS (75% OF EST KCAL NEEDS), 60G PROTEIN (80% EST PRO NEEDS), 180G DEXTROSE REPLETE LYTES NEEDED MD ADDED MAGIC CUP AND ENSURE TID TO INCREASE KCALS MAGIC CUP PROVIDES 870KCALS, 27G PROTEIN ENSURE TID PROVIDES 1025KCALS, 60G PROTEIN WITH 100% ACCEPTANCE MONITOR PO INTAKE CLOSELY
--- NOTE | 2025-02-22 11:43 | P.PNIM_ITS ---
Subjective Subjective Date of Service: 02/22/25 Interval History: minimal PO intake, 25% or less Review of Systems Review of Systems: Yes all other systems are reviewed and are negative Physical Exam 2 Vital Signs: Vital Signs: Last Vital Signs Temp 98.3 F 02/22/25 08:00 Pulse 82 02/22/25 08:00 Resp 18 02/22/25 08:00 BP 157/67 H 02/22/25 08:39 Pulse Ox 98 02/22/25 08:00 O2 Del Method Room Air 02/22/25 08:00 O2 Flow Rate 1 02/15/25 07:20 BMI result Body Mass Index 24.3 Gen: in no acute distress HEENT: sclera anicteric, moist mucus membranes Neck: supple Lungs: clear to auscultation bilaterally Heart: regular rate and rhythm, no murmurs Abd: soft, non-tender, non-distended Ext: no edema, LUE PICC Skin: warm/well-perfused, R knee with clean dressing Neuro: alert, confused, no weakness Psych: appropriate affect, impaired insight Objective Data Active Medications Acetaminophen (Acetaminophen 325 Mg Tablet) 650 mg PO Q6H PRN PRN Reason: Pain, Mild 1-3,fever,headache Last Admin: 02/16/25 20:06 Dose: 650 mg Documented By: TYSON Amlodipine Besylate (Amlodipine Besylate 5 Mg Tablet) 5 mg PO DAILY [facility]; Protocol Last Admin: 02/22/25 08:39 Dose: 5 mg Documented By: DES Aspirin (Aspirin 81 Mg Tab.Chew) 81 mg PO DAILY [facility] Last Admin: 02/22/25 08:38 Dose: 81 mg Documented By: DES Bisacodyl (Bisacodyl 10 Mg Supp.Rect) 10 mg [place] DAILY PRN PRN Reason: CONSTIPATION Calcium Carbonate (Calcium Carbonate 750 Mg Tab.Chew) 750 mg PO Q4H PRN PRN Reason: Heartburn Clotrimazole (Clotrimazole 1 % Cream 15 Gm Tube) 1 appl TOPICAL BID [facility]; Protocol Last Admin: 02/22/25 08:45 Dose: 1 appl Documented By: DES Enoxaparin Sodium (Enoxaparin Sodium 40 Mg/0.4 Ml Syringe) 40 mg SUBCUT Q24H [facility] Last Admin: 02/21/25 21:50 Dose: 40 mg Documented By: JUAN JOSE Hydralazine HCl (Hydralazine Hcl 20 Mg/Ml Vial) 10 mg IVPUSH Q6H PRN; Protocol PRN Reason: SBP > 160 Last Admin: 02/16/25 20:06 Dose: 10 mg Documented By: TYSON Vancomycin HCl 1,000 mg/ (Sodium Chloride) 270 mls @ 270 mls/hr IV Q24H [facility] Last Infusion: 02/22/25 08:46 Dose: Infused Documented By: DES Nutrition (Parenteral) (Parenteral Nutrition) 1,200 mls @ 50 mls/hr IV .Q24H [facility]; Protocol Stop: 02/22/25 20:59 Last Admin: 02/21/25 21:19 Dose: 50 mls/hr Documented By: JUAN JOSE Nutrition (Parenteral) (Parenteral Nutrition) 1,200 mls @ 50 mls/hr IV .Q24H [facility]; Protocol Stop: 02/23/25 20:59 Magnesium Hydroxide (Milk Of Magnesia 30 Ml Oral.Susp) 30 ml PO DAILY PRN PRN Reason: Constipation Melatonin (Melatonin 3 Mg Tablet) 6 mg PO BEDTIME PRN PRN Reason: Insomnia Last Admin: 02/14/25 22:24 Dose: 6 mg Documented By: PRISCA Metoprolol Tartrate (Metoprolol Tartrate 12.5 Mg Halftab) 12.5 mg PO BID [facility]; Protocol Last Admin: 02/22/25 08:39 Dose: 12.5 mg Documented By: DES Nystatin (Nystatin Powder 15 Gm Bottle) 1 appl TOPICAL TID [facility]; Protocol Last Admin: 02/22/25 08:45 Dose: 1 appl Documented By: DES Ondansetron HCl (Ondansetron Hcl 4 Mg/2 Ml Vial) 4 mg IVPUSH Q8H PRN PRN Reason: Nausea and Vomiting Pharmacy Consult (Consult Rx Vancomycin Dosing) 1 each MISCELLANE DAILY PRN PRN Reason: Consult order Pharmacy Consult (Consult Rx Parenteral Nutrition Ordering) 1 each MISCELLANE DAILY PRN PRN Reason: Consult order Polyethylene Glycol (Polyethylene Glycol 3350 17 Gm Powd.Pack) 17 gm PO DAILY PRN PRN Reason: Constipation Senna (Sennosides 8.6 Mg Tablet) 17.2 mg PO BEDTIME [facility] Last Admin: 02/21/25 21:50 Dose: 17.2 mg Documented By: JUAN JOSE Sodium Chloride (0.9 % Sodium Chloride Flush 3 Ml Syringe) 3 ml IVFLUSH QSHIFT [facility] Last Admin: 02/22/25 07:48 Dose: 3 ml Documented By: DES Sodium Chloride (0.9 % Sodium Chloride Flush 10 Ml Syringe) 10 ml IVFLUSH QSHIFT [facility] Last Admin: 02/22/25 07:48 Dose: Not Given Documented By: DES Non-Admin Reason: IV Running Labs 02/22/25 05:57 02/22/25 05:57 Labs: Laboratory Results - last 24 hr 02/22/25 05:57 MCV 88.8 MCH 29.7 MCHC 33.5 RDW 15.4 Plt Count 479 H MPV 9.0 L Immature Gran % (Auto) 1.1 H Neut % (Auto) 62.6 Lymph % (Auto) 17.3 L [place] % (Auto) 8.5 Eos % (Auto) 9.9 H Baso % (Auto) 0.6 Lymph # (Auto) 2.1 [place] # (Auto) 1.1 Eos # (Auto) 1.2 H Baso # (Auto) 0.1 Abs Immat Gran (auto) 0.14 H Absolute Neuts (auto) 7.7 Absolute Nucleated RBC 0.000 Nucleated RBC % (auto) 0.0 Anion Gap 11 L Estim Creat Clear Calc 52.0 Estimated GFR > 60 Random Glucose 191 H Calcium 9.0 Phosphorus 3.7 Magnesium 2.0 Total Bilirubin 0.2 AST 22 ALT 13 Alkaline Phosphatase 173 H Total Protein 5.6 L Albumin 2.8 L Random Vancomycin 10.8 L Assessment and Plan (1) Open wound of knee, complicated: Status: Acute Plan d12 for 89yo F LTC resident with dementia, HTN, HLD, and infection of R TKA to 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 until 03/18/25 admitted with sepsis likely due to infection of R TKA, possibly PNA as well sepsis due to PNA and R TKA infection - afebrile, blood cultures negative, urine culture with Pseudomonas but per ID likely colonization - changed per ID java consultant from daptomycin to vancomycin due to possibility that pt's confusion was caused by daptomycin; also on doxycycline 02/12-02/22 - plan for knee is to continue vancomycin until 03/18/25 - Ortho following, no operative intervention planned - Wound VAC off now, per Wound Care: Bilateral Heels - Elevate heels off of bed surface with pillows.? Float heels off of pillows.? Apply skin prep allow to dry.? Apply heel foam dressings, peel back and assess Q shift and change every 5-7 days and PRN. Sacrum and Buttock - Off Load Pressure with Q2 hr turns and use of pillows - Cleanse with PH balance spray or wipes, pat dry. Apply anti-fungal powder twice daily - be sure to dust off excess to prevent caking. Apply thin layer of barrier cream to affected area.? Apply twice daily and Reapply thin layer PRN after each episode of incontinence. May apply Preventative foam higher to the sacral area to protect and aid in pressure redistribution. Right inferior knee - Cleanse with NS moist gauze, apply barrier cream to wound edge, lightly pack wound bed sithe Dur[employer] be sure to leave wick for easy removal. Cover with small dry gauze and foam dressing. Change every other day. poor oral intake/FTT/dementia - taking only 25% of trays, continue TPN via PICC line but discussed with HCP/niece Azalia that she would need PEG tube to achieve appropriate nutritional goal; she will discuss with family over the weekend; in the meanwhile, will start Megace and mirtazapine HTN - metoprolol tartrate + amlodipine VTE ppx - enoxaparin dispo - eventual STR In my clinical judgment, the patient requires continued inpatient hospitalization for the following reasons: IV ABX,, IV nutrition Total time managing care of this patient today: 45 minutes. Quality Stroke Does the patient have a stroke diagnosis?: No Reason for No Anti-thrombotic by Day Two: N/A - Med Ordered VTE Prior VTE?: No VTE Risk Level:: Medical - moderate - high VTE Device Contraindication: N/A - Device Ordered VTE Drug Contraindication: N/A - Med Ordered
--- NOTE | 2025-02-22 12:50 | MHC.SL.SWA ---
Speech Pathologist Impression: Risk of Aspiration, Oropharyngeal Dysphagia Dysphasia Diet Status: Recommend continue on Chopped/Advanced (NDD3), THIN liquids, pills crushed in puree. Pt requires 1-1 feeding/assistance at all meals. Patient is a slow eater, putting her at risk for reduced nutritional intake. Remove items from tray that can be given as a snack later if intake is poor at meal. Liquid Consistency and Strategies for Safe Swallow: Liquid Intake Recommendation: Thin Liquid Intake Strategies: Small Sips Solid Food Consistency: Dietary Recommendations: Chopped/Advanced (NDD3) Additional Modifications to Solid Foods: Check oral cavity for pocketing. Cue for strategies to promote clearance: small bites, alternate with sips of liquid, lingual sweep Oral Medication Intake: Crushed with Puree Please contact the pharmacy regarding appropriate crushable or liquid drug formulations that are available whenever modified delivery is recommended. Compensatory Strategies and Precautions to be Taken for Safe Swallow: Sitting Upright (90 deg) Double Swallow Small Bites and Sips Alternate Liquids/Solids Rate of Ingestion Change Oral Check Supervision While Eating and Drinking for Safe Swallow: Total Assistance (1:1) Swallowing Recommended Treatments: Compens. Strategy Educat. Recommendation for Speech: Inpatient Speech Therapy Frequency/Duration: M-F Date Range for Service Req: Timeline to reassess: Disability Hearing Officer Clinican/Clinical Fellow: No Supervisory Statement: I have reviewed and agree with the student/clinical fellow's documentation: N/A Speech Language Pathologist: Sangeeta Mota M.A., CCC-SHINGLE CATCHER
--- NOTE | 2025-02-22 14:43 | PM.EVENT ---
Event Note Date of Service: 02/22/25 Event Note: Dr Estrada had a lengthy discussion with the family in regards to treatment options -at this time non surgical intervention warranted -continue wound care -encourage diet and stabilization of comorbidities per medical team -abx per ID and medical team Time Spent With Patient Time: Total time managing care of this patient today ____ minutes.
[2025-02-22] MEDS: Parenteral Nutrition 1,200 ML 50 ML IV (20:44)
[2025-02-23] VITALS (7 sets, daily range): BP systolic 103–166; BP diastolic 49–72; PULSE 81–109; RESP 18–20; TEMP 36.1–36.8; O2SAT 95–99
[2025-02-23 07:19] LABS: MANUAL DIFF FLAG NO
[2025-02-23 07:29] LABS: Hematocrit 28.6 % (37.0-47.0); Hemoglobin 9.6 g/dl (12.0-16.0); Imm Gran Abs Auto 0.13 X10*3/uL (0.00-0.03); Imm Gran Pct Auto 1.0 % (0.0-0.4); Lymphocytes Absolute Auto 2.5 X10*3/uL (1.2-4.9); Mean Corpuscular HGB Conc 33.6 g/dl (31.0-35.0); Mean Corpuscular Hemoglobin 29.9 pg (27.0-33.0); Mean Corpuscular Volume 89.1 fL (80.0-98.0); NRBC Abs Auto 0.000 X10*3/uL (0.0-0.012); NRBC Pct Auto 0.0 /100WBC (0.0-0.2); Platelet Count 519 X10*3/uL (160-400); Red Blood Count 3.21 X10*6/uL (4.20-5.50); White Blood Count 12.8 X10*3/uL (4.8-10.8)
[2025-02-23 07:42] LABS: Alanine Aminotransferase 19 U/L (0-31); Albumin Level 2.9 g/dL (3.5-5.0); Alkaline Phosphatase 186 U/L (39-117); Anion Gap 12 (12-20); Aspartate Amino Transferase 25 U/L (5-31); Blood Urea Nitrogen 25 mg/dL (9-16); Calcium 9.4 mg/dL (8.4-10.2); Carbon Dioxide 26 mmol/L (22-29); Chloride 105 mmol/L (96-108); Creatinine Clr Calc Pharmacy 52.0; Estimated Glomerular Filt Rate > 60; Magnesium 2.2 mg/dL (1.6-2.6); Potassium 4.3 mmol/L (3.3-5.1); Sodium 139 mmol/L (135-145); Total Protein 5.7 g/dL (6.5-8.0)
--- NOTE | 2025-02-23 07:49 | HE.PHANOTE ---
VANCO DOSE ADJUSTMENT BASED ON SCR AND TROUGH OF 12.2 DOSE CONTINUED AT 1000 Q 24H. NEXT LEVEL 02/24 @ 0600
[2025-02-23] MEDS: Metoprolol Tartrate 12.5 MG HALFTAB PO ×2 (09:41→19:47)
[2025-02-23] MEDS: 0.9 % Sodium Chloride Flush 3 ML SYRINGE IVFLUSH ×3 (09:42→19:50)
[2025-02-23] MEDS: 0.9 % Sodium Chloride Flush 10 ML SYRINGE IVFLUSH ×2 (09:42→14:55)
[2025-02-23] MEDS: Clotrimazole 1 % Cream 15 GM TUBE 1 APPL TOPICAL ×2 (09:43→19:49)
--- NOTE | 2025-02-23 10:29 | P.PNIM_ITS ---
Subjective Subjective Date of Service: 02/23/25 Interval History: no new complaints, limited history due to dementia Review of Systems Review of Systems: Yes all other systems are reviewed and are negative Physical Exam 2 Vital Signs: Vital Signs: Last Vital Signs Temp 97.7 F 02/23/25 08:00 Pulse 86 02/23/25 08:00 Resp 18 02/23/25 08:00 BP 129/60 02/23/25 08:00 Pulse Ox 99 02/23/25 08:00 O2 Del Method Room Air 02/23/25 08:00 O2 Flow Rate 1 02/15/25 07:20 BMI result Body Mass Index 24.3 Gen: in no acute distress HEENT: sclera anicteric, moist mucus membranes Neck: supple Lungs: clear to auscultation bilaterally Heart: regular rate and rhythm, no murmurs Abd: soft, non-tender, non-distended Ext: no edema, LUE PICC Skin: warm/well-perfused, R knee with clean dressing Neuro: alert, confused, no weakness Psych: appropriate affect, impaired insight Objective Data Active Medications Acetaminophen (Acetaminophen 325 Mg Tablet) 650 mg PO Q6H PRN PRN Reason: Pain, Mild 1-3,fever,headache Last Admin: 02/16/25 20:06 Dose: 650 mg Documented By: TYSON Amlodipine Besylate (Amlodipine Besylate 5 Mg Tablet) 5 mg PO DAILY ON LICENSE OF [facility]; Protocol Last Admin: 02/23/25 09:41 Dose: 5 mg Documented By: DOROTHY Aspirin (Aspirin 81 Mg Tab.Chew) 81 mg PO DAILY ON LICENSE OF [facility] Last Admin: 02/23/25 09:41 Dose: 81 mg Documented By: DOROTHY Bisacodyl (Bisacodyl 10 Mg Supp.Rect) 10 mg IN DAILY PRN PRN Reason: CONSTIPATION Calcium Carbonate (Calcium Carbonate 750 Mg Tab.Chew) 750 mg PO Q4H PRN PRN Reason: Heartburn Clotrimazole (Clotrimazole 1 % Cream 15 Gm Tube) 1 appl TOPICAL BID ON LICENSE OF [facility]; Protocol Last Admin: 02/23/25 09:43 Dose: 1 appl Documented By: DOROTHY Enoxaparin Sodium (Enoxaparin Sodium 40 Mg/0.4 Ml Syringe) 40 mg SUBCUT Q24H ON LICENSE OF [facility] Last Admin: 02/22/25 20:45 Dose: 40 mg Documented By: DARINEL Hydralazine HCl (Hydralazine Hcl 20 Mg/Ml Vial) 10 mg IVPUSH Q6H PRN; Protocol PRN Reason: SBP > 160 Last Admin: 02/16/25 20:06 Dose: 10 mg Documented By: TYSON Vancomycin HCl 1,000 mg/ (Sodium Chloride) 270 mls @ 270 mls/hr IV Q24H [facility] Last Admin: 02/23/25 09:39 Dose: 270 mls/hr Documented By: DOROTHY Nutrition (Parenteral) (Parenteral Nutrition) 1,200 mls @ 50 mls/hr IV .Q24H [facility]; Protocol Stop: 02/23/25 20:59 Last Infusion: 02/22/25 20:52 Dose: Infused Documented By: DARINEL Nutrition (Parenteral) (Parenteral Nutrition) 1,200 mls @ 50 mls/hr IV .Q24H PATRICIA; Protocol Stop: 02/24/25 20:59 Magnesium Hydroxide (Milk Of Magnesia 30 Ml Oral.Susp) 30 ml PO DAILY PRN PRN Reason: Constipation Megestrol Acetate (Megestrol Acetate 400 Mg/10 Ml Oral.Susp) 400 mg PO DAILY PATR[facility]IA Last Admin: 02/23/25 09:41 Dose: 400 mg Documented By: DOROTHY Melatonin (Melatonin 3 Mg Tablet) 6 mg PO BEDTIME PRN PRN Reason: Insomnia Last Admin: 02/14/25 22:24 Dose: 6 mg Documented By: PRISCA Metoprolol Tartrate (Metoprolol Tartrate 12.5 Mg Halftab) 12.5 mg PO BID [facility]; Protocol Last Admin: 02/23/25 09:41 Dose: 12.5 mg Documented By: DOROTHY Mirtazapine (Mirtazapine 7.5 Mg Tablet) 7.5 mg PO BEDTIME [facility] Last Admin: 02/22/25 20:45 Dose: 7.5 mg Documented By: DARINEL Nystatin (Nystatin Powder 15 Gm Bottle) 1 appl TOPICAL TID PATR[facility]IA; Protocol Last Admin: 02/23/25 09:43 Dose: 1 appl Documented By: DOROTHY Ondansetron HCl (Ondansetron Hcl 4 Mg/2 Ml Vial) 4 mg IVPUSH Q8H PRN PRN Reason: Nausea and Vomiting Pharmacy Consult (Consult Rx Vancomycin Dosing) 1 each MISCELLANE DAILY PRN PRN Reason: Consult order Pharmacy Consult (Consult Rx Parenteral Nutrition Ordering) 1 each MISCELLANE DAILY PRN PRN Reason: Consult order Polyethylene Glycol (Polyethylene Glycol 3350 17 Gm Powd.Pack) 17 gm PO DAILY PRN PRN Reason: Constipation Senna (Sennosides 8.6 Mg Tablet) 17.2 mg PO BEDTIME ON LICENSE OF [facility] Last Admin: 02/22/25 20:45 Dose: 17.2 mg Documented By: DARINEL Sodium Chloride (0.9 % Sodium Chloride Flush 3 Ml Syringe) 3 ml IVFLUSH QSHIFT ON LICENSE OF [facility] Last Admin: 02/23/25 09:42 Dose: 3 ml Documented By: DOROTHY Sodium Chloride (0.9 % Sodium Chloride Flush 10 Ml Syringe) [facility] Last Admin: 02/23/25 09:42 Dose: 10 ml Documented By: DOROTHY Labs 02/23/25 06:34 02/23/25 06:34 Labs: Laboratory Results - last 24 hr 02/23/25 06:34 MCV 89.1 MCH 29.9 MCHC 33.6 RDW 15.7 Plt Count 519 H MPV 9.3 L Immature Gran % (Auto) 1.0 H Neut % (Auto) 63.9 Lymph % (Auto) 19.4 L [place] % (Auto) 8.8 Eos % (Auto) 6.4 H Baso % (Auto) 0.5 Lymph # (Auto) 2.5 [place] # (Auto) 1.1 Eos # (Auto) 0.8 H Baso # (Auto) 0.1 Abs Immat Gran (auto) 0.13 H Absolute Neuts (auto) 8.2 Absolute Nucleated RBC 0.000 Nucleated RBC % (auto) 0.0 Anion Gap 12 Estim Creat Clear Calc 52.0 Estimated GFR > 60 Random Glucose 164 H Calcium 9.4 Phosphorus 3.8 Magnesium 2.2 Total Bilirubin 0.2 AST 25 ALT 19 Alkaline Phosphatase 186 H Total Protein 5.7 L Albumin 2.9 L Hold Yellow Top See Note Random Vancomycin 12.2 L Assessment and Plan (1) Open wound of knee, complicated: Status: Acute Plan d13 for 89yo F LTC resident with dementia, HTN, HLD, and infection of R TKA to 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 until 03/18/25 admitted with sepsis likely due to infection of R TKA, possibly PNA as well sepsis due to PNA and R TKA infection - afebrile, blood cultures negative, urine culture with Pseudomonas but per ID likely colonization - changed per ID software consultant from daptomycin to vancomycin due to possibility that pt's confusion was caused by daptomycin; also completed 10d of doxycycline 02/12-02/22 - plan for knee is to continue vancomycin until 03/18/25; Ortho following and had extensive discussion with family; no operative intervention planned - Wound VAC off now, per Wound Care: Bilateral Heels - Elevate heels off of bed surface with pillows.? Float heels off of pillows.? Apply skin prep allow to dry.? Apply heel foam dressings, peel back and assess Q shift and change every 5-7 days and PRN. Sacrum and Buttock - Off Load Pressure with Q2 hr turns and use of pillows - Cleanse with PH balance spray or wipes, pat dry. Apply anti-fungal powder twice daily - be sure to dust off excess to prevent caking. Apply thin layer of barrier cream to affected area.? Apply twice daily and Reapply thin layer PRN after each episode of incontinence. May apply Preventative foam higher to the sacral area to protect and aid in pressure redistribution. Right inferior knee - Cleanse with NS moist gauze, apply barrier cream to wound edge, lightly pack wound bed sithe Durafiber AG be sure to leave wick for easy removal. Cover with small dry gauze and foam dressing. Change every other day. poor oral intake/FTT/dementia - taking only 25% of trays, continue TPN via PICC line but discussed with HCP/niece Azalia that she would need PEG tube to achieve appropriate nutritional goal; she will discuss with family over the weekend; in the meanwhile, started Megace and mirtazapine HTN - metoprolol tartrate + amlodipine VTE ppx - enoxaparin dispo - eventual STR In my clinical judgment, the patient requires continued inpatient hospitalization for the following reasons: IV ABX, IV nutrition Total time managing care of this patient today: 35 minutes. Quality Stroke Does the patient have a stroke diagnosis?: No Reason for No Anti-thrombotic by Day Two: N/A - Med Ordered VTE Prior VTE?: No VTE Risk Level:: Medical - moderate - high VTE Device Contraindication: N/A - Device Ordered VTE Drug Contraindication: N/A - Med Ordered
[2025-02-23 12:11] LABS: Glucose, Whole Blood 153 mg/dL (60-115)
[2025-02-23] MEDS: Parenteral Nutrition 1,200 ML 50 ML IV (21:57)
[2025-02-24] MEDS: 0.9 % Sodium Chloride Flush 10 ML SYRINGE IVFLUSH ×4 (01:36→21:28)
[2025-02-24 04:00] VITALS: BP 124/59; PULSE 95; RESP 18; TEMP 36; O2SAT 96
[2025-02-24 07:28] LABS: MANUAL DIFF FLAG NO
[2025-02-24 07:35] LABS: Hematocrit 29.6 % (37.0-47.0); Hemoglobin 9.7 g/dl (12.0-16.0); Imm Gran Abs Auto 0.11 X10*3/uL (0.00-0.03); Imm Gran Pct Auto 0.8 % (0.0-0.4); Lymphocytes Absolute Auto 2.1 X10*3/uL (1.2-4.9); Mean Corpuscular HGB Conc 32.8 g/dl (31.0-35.0); Mean Corpuscular Hemoglobin 29.3 pg (27.0-33.0); Mean Corpuscular Volume 89.4 fL (80.0-98.0); NRBC Abs Auto 0.000 X10*3/uL (0.0-0.012); NRBC Pct Auto 0.0 /100WBC (0.0-0.2); Platelet Count 510 X10*3/uL (160-400); Red Blood Count 3.31 X10*6/uL (4.20-5.50); White Blood Count 13.9 X10*3/uL (4.8-10.8)
[2025-02-24 07:41] VITALS: BP 128/54; PULSE 102; RESP 20; TEMP 36.8; O2SAT 99
[2025-02-24 07:50] LABS: Alanine Aminotransferase 18 U/L (0-31); Albumin Level 3.0 g/dL (3.5-5.0); Alkaline Phosphatase 191 U/L (39-117); Anion Gap 13 (12-20); Aspartate Amino Transferase 26 U/L (5-31); Blood Urea Nitrogen 29 mg/dL (9-16); Calcium 9.4 mg/dL (8.4-10.2); Carbon Dioxide 23 mmol/L (22-29); Chloride 106 mmol/L (96-108); Creatinine Clr Calc Pharmacy 49.6; Estimated Glomerular Filt Rate > 60; Magnesium 2.3 mg/dL (1.6-2.6); Potassium 4.4 mmol/L (3.3-5.1); Sodium 138 mmol/L (135-145); Total Protein 5.7 g/dL (6.5-8.0)
--- NOTE | 2025-02-24 07:53 | HE.PHANOTE ---
VANCO DOSE ADJUSTMENT BASED ON SCR AND TROUGH OF 14.2. DOSE CONTINUED AT 1000 Q 24. NEXT LEVEL 02/26 @ 0600
[2025-02-24] MEDS: Metoprolol Tartrate 12.5 MG HALFTAB PO ×2 (08:36→21:27)
[2025-02-24] MEDS: Clotrimazole 1 % Cream 15 GM TUBE 1 APPL TOPICAL ×2 (08:37→21:27)
[2025-02-24] MEDS: 0.9 % Sodium Chloride Flush 3 ML SYRINGE IVFLUSH ×3 (08:37→21:28)
--- NOTE | 2025-02-24 10:05 | P.PNIM_ITS ---
Subjective Subjective Date of Service: 02/24/25 Interval History: 2 meals recorded as having 50% intake limited history/insight due to dementia Review of Systems Review of Systems: Yes Unobtainable due to mental status Physical Exam 2 Vital Signs: Vital Signs: Last Vital Signs Temp 98.2 F 02/24/25 07:41 Pulse 102 H 02/24/25 07:41 Resp 20 02/24/25 07:41 BP 128/54 L 02/24/25 07:41 Pulse Ox 99 02/24/25 07:41 O2 Del Method Room Air 02/24/25 07:41 O2 Flow Rate 1 02/15/25 07:20 BMI result Body Mass Index 24.3 Gen: in no acute distress HEENT: sclera anicteric, moist mucus membranes Neck: supple Lungs: clear to auscultation bilaterally Heart: regular rate and rhythm, 3/6 systolic murmur at base Abd: soft, non-tender, non-distended Ext: no edema, LUE PICC Skin: warm/well-perfused, R knee with clean dressing Neuro: alert, confused, no weakness Psych: appropriate affect, impaired insight Objective Data Active Medications Acetaminophen (Acetaminophen 325 Mg Tablet) 650 mg PO Q6H PRN PRN Reason: Pain, Mild 1-3,fever,headache Last Admin: 02/23/25 19:47 Dose: 650 mg Documented By: KAREN Amlodipine Besylate (Amlodipine Besylate 5 Mg Tablet) 5 mg PO DAILY [facility]; Protocol Last Admin: 02/24/25 08:36 Dose: 5 mg Documented By: DOROTHY Aspirin (Aspirin 81 Mg Tab.Chew) 81 mg PO DAILY [facility] Last Admin: 02/24/25 08:36 Dose: 81 mg Documented By: DOROTHY Bisacodyl (Bisacodyl 10 Mg Supp.Rect) 10 mg [place] DAILY PRN PRN Reason: CONSTIPATION Calcium Carbonate (Calcium Carbonate 750 Mg Tab.Chew) 750 mg PO Q4H PRN PRN Reason: Heartburn Clotrimazole (Clotrimazole 1 % Cream 15 Gm Tube) 1 appl TOPICAL BID [facility]; Protocol Last Admin: 02/24/25 08:37 Dose: 1 appl Documented By: DOROTHY Enoxaparin Sodium (Enoxaparin Sodium 40 Mg/0.4 Ml Syringe) 40 mg SUBCUT Q24H [facility] Last Admin: 02/23/25 22:44 Dose: 40 mg Documented By: KAREN Hydralazine HCl (Hydralazine Hcl 20 Mg/Ml Vial) 10 mg IVPUSH Q6H PRN; Protocol PRN Reason: SBP > 160 Last Admin: 02/23/25 19:50 Dose: 10 mg Documented By: KAREN Vancomycin HCl 1,000 mg/ (Sodium Chloride) 270 mls @ 270 mls/hr IV Q24H PATRICIA Last Admin: 02/24/25 08:36 Dose: 270 mls/hr Documented By: DOROTHY Nutrition (Parenteral) (Parenteral Nutrition) 1,200 mls @ 50 mls/hr IV .Q24H PATRICIA; Protocol Stop: 02/24/25 20:59 Last Admin: 02/23/25 21:57 Dose: 50 mls/hr Documented By: KAREN Nutrition (Parenteral) (Parenteral Nutrition) 1,200 mls @ 50 mls/hr IV .Q24H PATRICIA; Protocol Stop: 02/25/25 20:59 Magnesium Hydroxide (Milk Of Magnesia 30 Ml Oral.Susp) 30 ml PO DAILY PRN PRN Reason: Constipation Megestrol Acetate (Megestrol Acetate 400 Mg/10 Ml Oral.Susp) 400 mg PO DAILY [facility] Last Admin: 02/24/25 08:36 Dose: 400 mg Documented By: DOROTHY Melatonin (Melatonin 3 Mg Tablet) 6 mg PO BEDTIME PRN PRN Reason: Insomnia Last Admin: 02/23/25 19:47 Dose: 6 mg Documented By: KAREN Comments: requested for sleep Metoprolol Tartrate (Metoprolol Tartrate 12.5 Mg Halftab) 12.5 mg PO BID [facility]; Protocol Last Admin: 02/24/25 08:36 Dose: 12.5 mg Documented By: DOROTHY Mirtazapine (Mirtazapine 7.5 Mg Tablet) 7.5 mg PO BEDTIME [facility] Last Admin: 02/23/25 19:48 Dose: 7.5 mg Documented By: KAREN Nystatin (Nystatin Powder 15 Gm Bottle) 1 appl TOPICAL TID [facility]; Protocol Last Admin: 02/24/25 08:37 Dose: 1 appl Documented By: DOROTHY Ondansetron HCl (Ondansetron Hcl 4 Mg/2 Ml Vial) 4 mg IVPUSH Q8H PRN PRN Reason: Nausea and Vomiting Pharmacy Consult (Consult Rx Parenteral Nutrition Ordering) 1 each MISCELLANE DAILY PRN PRN Reason: Consult order Polyethylene Glycol (Polyethylene Glycol 3350 17 Gm Powd.Pack) 17 gm PO DAILY PRN PRN Reason: Constipation Senna (Sennosides 8.6 Mg Tablet) 17.2 mg PO BEDTIME [facility] Last Admin: 02/23/25 19:48 Dose: 17.2 mg Documented By: KAREN Sodium Chloride (0.9 % Sodium Chloride Flush 3 Ml Syringe) [facility] Last Admin: 02/24/25 08:37 Dose: 3 ml Documented By: DOROTHY Sodium Chloride (0.9 % Sodium Chloride Flush 10 Ml Syringe) 10 ml IVFLUSH [facility] Last Admin: 02/24/25 08:37 Dose: 10 ml Documented By: DOROTHY Labs 02/24/25 06:22 02/24/25 06:21 Labs: Laboratory Results - last 24 hr 02/23/25 02/24/25 02/24/25 11:56 06:21 06:22 MCV 89.4 MCH 29.3 MCHC 32.8 RDW 15.9 Plt Count 510 H MPV 9.7 Immature Gran % (Auto) 0.8 H Neut % (Auto) 70.1 Lymph % (Auto) 15.4 L [place] % (Auto) 9.6 Eos % (Auto) 3.5 Baso % (Auto) 0.6 Lymph # (Auto) 2.1 [place] # (Auto) 1.3 H Eos # (Auto) 0.5 H Baso # (Auto) 0.1 Abs Immat Gran (auto) 0.11 H Absolute Neuts (auto) 9.8 H Absolute Nucleated RBC 0.000 Nucleated RBC % (auto) 0.0 Anion Gap 13 Estim Creat Clear Calc 49.6 Estimated GFR > 60 POC Glucose 153 H Random Glucose 155 H Calcium 9.4 Phosphorus 4.1 Magnesium 2.3 Total Bilirubin 0.3 AST 26 ALT 18 Alkaline Phosphatase 191 H Total Protein 5.7 L Albumin 3.0 L Vancomycin Trough 14.2 Assessment and Plan (1) Open wound of knee, complicated: Status: Acute Plan d14 for 89yo F LTC resident with dementia, HTN, HLD, and infection of R TKA to 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 until 03/18/25 admitted with sepsis likely due to infection of R TKA as well as PNA sepsis due to PNA and R TKA infection - afebrile, blood cultures negative, urine culture with Pseudomonas but per ID likely colonization - changed per ID jd edwards consultant from daptomycin to vancomycin due to possibility that pt's confusion was caused by daptomycin; also completed 10d of doxycycline 02/12-02/22 - plan for knee is to continue vancomycin until 03/18/25; Ortho following and had extensive discussion with family; no operative intervention planned - Wound VAC off now, per Wound Care: Bilateral Heels - Elevate heels off of bed surface with pillows.? Float heels off of pillows.? Apply skin prep allow to dry.? Apply heel foam dressings, peel back and assess Q shift and change every 5-7 days and PRN. Sacrum and Buttock - Off Load Pressure with Q2 hr turns and use of pillows - Cleanse with PH balance spray or wipes, pat dry. Apply anti-fungal powder twice daily - be sure to dust off excess to prevent caking. Apply thin layer of barrier cream to affected area.? Apply twice daily and Reapply thin layer PRN after each episode of incontinence. May apply Preventative foam higher to the sacral area to protect and aid in pressure redistribution. Right inferior knee - Cleanse with NS moist gauze, apply barrier cream to wound edge, lightly pack wound bed sithe [facility] AG be sure to leave wick for easy removal. Cover with small dry gauze and foam dressing. Change every other day. poor oral intake/FTT/dementia - taking only 25% of trays, continue TPN via PICC line but discussed with HCP/niece Azalia that she would need PEG tube to achieve appropriate nutritional goal; she will discuss with family over the weekend; in the meanwhile, started Megace and mirtazapine. Re-assess tomorrow in consultation with Nutrition and family. If unable to meet nutritional needs without TPN and does not get PEG tube, recommend hospice care. HTN - metoprolol tartrate + amlodipine VTE ppx - enoxaparin dispo - eventual STR In my clinical judgment, the patient requires continued inpatient hospitalization for the following reasons: IV ABX, IV nutrition Total time managing care of this patient today: 35 minutes. Quality Stroke Does the patient have a stroke diagnosis?: No Reason for No Anti-thrombotic by Day Two: N/A - Med Ordered VTE Prior VTE?: No VTE Risk Level:: Medical - moderate - high VTE Device Contraindication: N/A - Device Ordered VTE Drug Contraindication: N/A - Med Ordered
[2025-02-24 11:04] VITALS: BP 130/60; PULSE 87; RESP 20; TEMP 36.6; O2SAT 100
[2025-02-24 16:00] VITALS: BP 118/54; PULSE 95; RESP 26; TEMP 36.5; O2SAT 97
[2025-02-24 19:40] VITALS: BP 129/60; PULSE 107; RESP 16; TEMP 37.1; O2SAT 97
[2025-02-24] MEDS: Parenteral Nutrition 1,200 ML 50 ML IV (21:27)
[2025-02-24 23:35] VITALS: BP 145/65; PULSE 113; RESP 16; TEMP 37.3; O2SAT 95
[2025-02-25] VITALS (8 sets, daily range): BP systolic 102–160; BP diastolic 58–70; PULSE 72–119; RESP 16–20; TEMP 35.9–37.4; O2SAT 94–98
[2025-02-25 07:11] LABS: Alanine Aminotransferase 22 U/L (0-31); Albumin Level 3.2 g/dL (3.5-5.0); Alkaline Phosphatase 235 U/L (39-117); Anion Gap 13 (12-20); Aspartate Amino Transferase 27 U/L (5-31); Blood Urea Nitrogen 29 mg/dL (9-16); Calcium 9.5 mg/dL (8.4-10.2); Carbon Dioxide 23 mmol/L (22-29); Chloride 106 mmol/L (96-108); Creatinine Clr Calc Pharmacy 48.2; Estimated Glomerular Filt Rate > 60; Magnesium 2.2 mg/dL (1.6-2.6); Potassium 4.8 mmol/L (3.3-5.1); Sodium 137 mmol/L (135-145); Total Protein 6.3 g/dL (6.5-8.0)
[2025-02-25] MEDS: Metoprolol Tartrate 12.5 MG HALFTAB PO ×2 (09:13→22:32)
[2025-02-25] MEDS: 0.9 % Sodium Chloride Flush 3 ML SYRINGE IVFLUSH ×3 (09:13→22:36)
[2025-02-25] MEDS: 0.9 % Sodium Chloride Flush 10 ML SYRINGE IVFLUSH ×2 (09:14→22:36)
[2025-02-25] MEDS: Clotrimazole 1 % Cream 15 GM TUBE 1 APPL TOPICAL ×2 (09:29→22:32)
--- NOTE | 2025-02-25 09:58 | MHC.CLN ---
F/U PO INTAKE REMAINS CONSISTENT AT 25%; NOTED 50% PO X2 MEALS DIET RX:REGULAR CHOPPED PT RECEIVING MAX AMOUNT OF SUPPLEMENTS: MAGIC CUP PROVIDES 870KCALS, 27G PROTEIN ENSURE TID PROVIDES 1025KCALS, 60G PROTEIN WITH 100% ACCEPTANCE MD STARTED REMERON AND MEGACE TO INCREASE APPETITE FAMILY MEETING TO DISCUSS PEG PLACEMENT CONTINUE TPN AT 50ML/HOUR WITH 31 G LIPIDS PROVIDES 1162 TOTAL KCALS (75% OF EST KCAL NEEDS), 60G PROTEIN (80% EST PRO NEEDS), 180G DEXTROSE REPLETE LYTES NEEDED CONTINUE TO MONITOR PO INTAKE CLOSELY FOLLOWING WITH TEAM
--- NOTE | 2025-02-25 10:32 | MHC.CM.PN ---
Per ROUNDS discussion, Patient is not yet medically cleared for dc (PPN); STR is the goal for now and CM will continue to follow.
--- NOTE | 2025-02-25 14:05 | P.PNIM_ITS ---
Subjective Subjective Date of Service: 02/25/25 Interval History: Essentially no change overnight. No acute issues Review of Systems Unable to obtain secondary to confusion Physical Exam 2 Vital Signs: Vital Signs: Last Vital Signs Temp 97.6 F 02/25/25 11:17 Pulse 106 H 02/25/25 11:17 Resp 16 02/25/25 11:17 BP 136/63 02/25/25 11:17 Pulse Ox 96 02/25/25 11:17 O2 Del Method Room Air 02/25/25 11:17 O2 Flow Rate 2 02/25/25 10:58 BMI result Body Mass Index 24.3 Const: Other: Awake alert oriented person place Resp: Other: Clear to auscultation bilaterally no rales rhonchi or wheezes Cardio: Other: No S4; positive S1-S2; no S3 murmurs rubs or gallops GI: Other: Soft nontender nondistended normoactive bowel sounds Extrem: Other: No edema bilaterally Objective Data Active Medications Acetaminophen (Acetaminophen 325 Mg Tablet) 650 mg PO Q6H PRN PRN Reason: Pain, Mild 1-3,fever,headache Last Admin: 02/23/25 19:47 Dose: 650 mg Documented By: KAREN Amlodipine Besylate (Amlodipine Besylate 5 Mg Tablet) 5 mg PO DAILY [facility]; Protocol Last Admin: 02/25/25 09:13 Dose: 5 mg Documented By: CATRINA Aspirin (Aspirin 81 Mg Tab.Chew) 81 mg PO DAILY [facility] Last Admin: 02/25/25 09:13 Dose: 81 mg Documented By: CATRINA Bisacodyl (Bisacodyl 10 Mg Supp.Rect) 10 mg [place] DAILY PRN PRN Reason: CONSTIPATION Calcium Carbonate (Calcium Carbonate 750 Mg Tab.Chew) 750 mg PO Q4H PRN PRN Reason: Heartburn Clotrimazole (Clotrimazole 1 % Cream 15 Gm Tube) 1 appl TOPICAL BID [facility]; Protocol Last Admin: 02/25/25 09:29 Dose: 1 appl Documented By: CATRINA Enoxaparin Sodium (Enoxaparin Sodium 40 Mg/0.4 Ml Syringe) 40 mg SUBCUT Q24H [facility] Last Admin: 02/24/25 21:27 Dose: 40 mg Documented By: CYN Hydralazine HCl (Hydralazine Hcl 20 Mg/Ml Vial) 10 mg IVPUSH Q6H PRN; Protocol PRN Reason: SBP > 160 Last Admin: 02/23/25 19:50 Dose: 10 mg Documented By: KAREN Vancomycin HCl 1,000 mg/ (Sodium Chloride) 270 mls @ 270 mls/hr IV Q24H PATRICIA Last Infusion: 02/25/25 10:34 Dose: Infused Documented By: CATRINA Nutrition (Parenteral) (Parenteral Nutrition) 1,200 mls @ 50 mls/hr IV .Q24H PAT[facility]ICIA; Protocol Stop: 02/25/25 20:59 Last Admin: 02/24/25 21:27 Dose: 50 mls/hr Documented By: CYN Nutrition (Parenteral) (Parenteral Nutrition) 1,200 mls @ 50 mls/hr IV .Q24H [facility]IA; Protocol Stop: 02/26/25 20:59 Magnesium Hydroxide (Milk Of Magnesia 30 Ml Oral.Susp) 30 ml PO DAILY PRN PRN Reason: Constipation Megestrol Acetate (Megestrol Acetate 400 Mg/10 Ml Oral.Susp) 400 mg PO DAILY [facility] Last Admin: 02/25/25 09:13 Dose: 400 mg Documented By: CATRINA Melatonin (Melatonin 3 Mg Tablet) 6 mg PO BEDTIME PRN PRN Reason: Insomnia Last Admin: 02/23/25 19:47 Dose: 6 mg Documented By: KAREN Comments: requested for sleep Metoprolol Tartrate (Metoprolol Tartrate 12.5 Mg Halftab) 12.5 mg PO BID [facility]; Protocol Last Admin: 02/25/25 09:13 Dose: 12.5 mg Documented By: CATRINA Mirtazapine (Mirtazapine 7.5 Mg Tablet) 7.5 mg PO BEDTIME [facility] Last Admin: 02/24/25 21:27 Dose: 7.5 mg Documented By: CYN Nystatin (Nystatin Powder 15 Gm Bottle) 1 appl TOPICAL TID [facility]; Protocol Last Admin: 02/25/25 09:29 Dose: 1 appl Documented By: CATRINA Ondansetron HCl (Ondansetron Hcl 4 Mg/2 Ml Vial) 4 mg IVPUSH Q8H PRN PRN Reason: Nausea and Vomiting Pharmacy Consult (Consult Rx Parenteral Nutrition Ordering) 1 each MISCELLANE DAILY PRN PRN Reason: Consult order Pharmacy Consult (Consult Rx Vancomycin Dosing) 1 each MISCELLANE DAILY PRN PRN Reason: Consult order Stop: 03/18/25 23:59 Polyethylene Glycol (Polyethylene Glycol 3350 17 Gm Powd.Pack) 17 gm PO DAILY PRN PRN Reason: Constipation Senna (Sennosides 8.6 Mg Tablet) 17.2 mg PO BEDTIME [facility] Last Admin: 02/24/25 21:27 Dose: 17.2 mg Documented By: CYN Sodium Chloride (0.9 % Sodium Chloride Flush 3 Ml Syringe) 3 ml IVFLUSH QSHIFT [facility] Last Admin: 02/25/25 09:13 Dose: 3 ml Documented By: CATRINA Sodium Chloride (0.9 % Sodium Chloride Flush 10 Ml Syringe) 10 ml IVFLUSH QSHIFT [facility] Last Admin: 02/25/25 09:14 Dose: 10 ml Documented By: CATRINA Labs 02/24/25 06:22 02/25/25 05:57 Labs: Laboratory Results - last 24 hr 02/25/25 05:57 Hold Purple Top SEE NOTE Anion Gap 13 Estim Creat Clear Calc 48.2 Estimated GFR > 60 Random Glucose 245 H Calcium 9.5 Phosphorus 3.3 Magnesium 2.2 Total Bilirubin 0.4 AST 27 ALT 22 Alkaline Phosphatase 235 H Total Protein 6.3 L Albumin 3.2 L Assessment and Plan (1) Sepsis: Status: Acute (2) Pneumonia: Status: Acute (3) Open wound of knee, complicated: Status: Acute Plan 89yo F LTC resident with dementia, HTN, HLD, and infection of R TKA to 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 until 03/18/25 admitted with sepsis likely due to infection of R TKA as well as PNA 1.Sepsis due to PNA and R TKA infection -per ID chandge from daptomycin to vancomycin due to possibility that pt's confusion was caused by daptomycin; also completed 10d of doxycycline 02/12-02/22 -plan for knee is to continue vancomycin until 03/18/25; Ortho following and had extensive discussion with family; no operative intervention planned - Wound VAC off now, per Wound Care: Bilateral Heels - Elevate heels off of bed surface with pillows.? Float heels off of pillows.? Apply skin prep allow to dry.? Apply heel foam dressings, peel back and assess Q shift and change every 5-7 days and PRN. Sacrum and Buttock - Off Load Pressure with Q2 hr turns and use of pillows - Cleanse with PH balance spray or wipes, pat dry. Apply anti-fungal powder twice daily - be sure to dust off excess to prevent caking. Apply thin layer of barrier cream to affected area.? Apply twice daily and Reapply thin layer PRN after each episode of incontinence. May apply Preventative foam higher to the sacral area to protect and aid in pressure redistribution. Right inferior knee - Cleanse with NS moist gauze, apply barrier cream to wound edge, lightly pack wound bed sithe Durafiber AG be sure to leave wick for easy removal. Cover with small dry gauze and foam dressing. Change every other day. 2.Poor oral intake/FTT/dementia - taking only 25% of trays, continue TPN via PICC line but discussed with HCP/toni Azalia that she would need PEG tube to achieve appropriate nutritional goal; she will discuss with family over the weekend; in the meanwhile, started Megace and mirtazapine. -will attempt to discussed with toni going forward; nutritional support and/or hospice 3.HTN -acceptable control on current therapies -adjust as indicated Lovenox Full Code In my clinical judgment, the patient requires continued inpatient hospitalization for the following reasons: IV ABX, IV nutrition Quality Stroke Does the patient have a stroke diagnosis?: No Reason for No Anti-thrombotic by Day Two: N/A - Med Ordered VTE Prior VTE?: No VTE Risk Level:: Medical - moderate - high VTE Device Contraindication: N/A - Device Ordered VTE Drug Contraindication: N/A - Med Ordered
--- NOTE | 2025-02-25 15:34 | MHC.SLORD ---
Speech Language Pathology Order Status: Pt not seen for dysphagia today d/t schedule conflict.
--- NOTE | 2025-02-25 18:12 | PC.NURSE ---
[place] leaking. Balloon deflated and reinflated. Catheter appears blocked with thick sediment. Dr. Enriquez notified. Gave ok to irrigate catheter. Irrigated with 100cc sterile water and urine is now flowing freely, yellow urine.
--- NOTE | 2025-02-25 20:06 | PC.NURSE ---
Pt on TPN. I noticed there was no order for POCs and reached out to MD Ramesh. Per MD Ramesh, no need for POCs at this time.
--- NOTE | 2025-02-25 21:09 | PM.PNORT ---
Subjective Subjective Date of Service: 02/25/25 Interval history: Patient is resting comfortably in bed she denies discomfort Physical Exam Vital Signs: Vital Signs: Last Vital Signs Temp 97.9 F 02/25/25 19:25 Pulse 107 H 02/25/25 19:25 Resp 18 02/25/25 19:25 BP 141/64 H 02/25/25 19:25 Pulse Ox 97 02/25/25 19:25 O2 Del Method Room Air 02/25/25 19:25 O2 Flow Rate 2 02/25/25 10:58 BMI result Body Mass Index 24.3 Extrem: Other: right knee bandage clean dry and intact Procedures Date of Service Date of Service: 02/25/25 Progress Note: A&P Assessment and plan (1) Open wound of knee, complicated: Status: Acute Plan Patient is non op cont recs by ID and medicine Time Spent With Patient Time: Total time managing care of this patient today ____ minutes. Quality Stroke Does the patient have a stroke diagnosis?: No Reason for No Anti-thrombotic by Day Two: N/A - Med Ordered VTE Prior VTE?: No VTE Risk Level:: Medical - moderate - high VTE Device Contraindication: N/A - Device Ordered VTE Drug Contraindication: N/A - Med Ordered
[2025-02-25] MEDS: Parenteral Nutrition 1,200 ML 50 ML IV (22:35)
[2025-02-26 03:38] VITALS: BP 144/65; PULSE 95; RESP 20; TEMP 36.1; O2SAT 100
[2025-02-26 06:12] LABS: Alanine Aminotransferase 18 U/L (0-31); Albumin Level 2.9 g/dL (3.5-5.0); Alkaline Phosphatase 196 U/L (39-117); Anion Gap 11 (12-20); Aspartate Amino Transferase 24 U/L (5-31); Blood Urea Nitrogen 31 mg/dL (9-16); Calcium 9.3 mg/dL (8.4-10.2); Carbon Dioxide 22 mmol/L (22-29); Chloride 108 mmol/L (96-108); Creatinine Clr Calc Pharmacy 52.9; Estimated Glomerular Filt Rate > 60; Potassium 4.4 mmol/L (3.3-5.1); Sodium 137 mmol/L (135-145); Total Protein 5.9 g/dL (6.5-8.0)
[2025-02-26 06:16] LABS: Hematocrit 27.3 % (37.0-47.0); Hemoglobin 9.2 g/dl (12.0-16.0); Imm Gran Abs Auto 0.10 X10*3/uL (0.00-0.03); Imm Gran Pct Auto 0.6 % (0.0-0.4); Lymphocytes Absolute Auto 1.8 X10*3/uL (1.2-4.9); MANUAL DIFF FLAG SCAN; Mean Corpuscular HGB Conc 33.7 g/dl (31.0-35.0); Mean Corpuscular Hemoglobin 29.8 pg (27.0-33.0); Mean Corpuscular Volume 88.3 fL (80.0-98.0); NRBC Abs Auto 0.000 X10*3/uL (0.0-0.012); NRBC Pct Auto 0.0 /100WBC (0.0-0.2); Platelet Count 516 X10*3/uL (160-400); Red Blood Count 3.09 X10*6/uL (4.20-5.50); SCAN SMEAR FLAG 1; White Blood Count 16.3 X10*3/uL (4.8-10.8)
[2025-02-26] MEDS: Metoprolol Tartrate 12.5 MG HALFTAB PO ×2 (07:37→21:07)
[2025-02-26] MEDS: 0.9 % Sodium Chloride Flush 3 ML SYRINGE IVFLUSH ×2 (07:38→17:09)
[2025-02-26] MEDS: 0.9 % Sodium Chloride Flush 10 ML SYRINGE IVFLUSH (07:38)
[2025-02-26] MEDS: Clotrimazole 1 % Cream 15 GM TUBE 1 APPL TOPICAL ×2 (07:38→21:12)
[2025-02-26 07:44] VITALS: BP 171/74; PULSE 107; RESP 18; TEMP 36; O2SAT 97
--- NOTE | 2025-02-26 10:49 | MHC.CLN ---
F/U PO INTAKE REMAINS CONSISTENT AT 25% WITH FEW BITES/SIPS LAST EVENING PER NSG DIET RX:REGULAR CHOPPED PT RECEIVING MAX AMOUNT OF SUPPLEMENTS: MAGIC CUP PROVIDES 870KCALS, 27G PROTEIN ENSURE TID PROVIDES 1025KCALS, 60G PROTEIN WITH 100% ACCEPTANCE MD STARTED REMERON AND MEGACE TO INCREASE APPETITE FAMILY MEETING TO DISCUSS PEG PLACEMENT IN PROGRESS CONTINUE TPN AT 50ML/HOUR WITH 31 G LIPIDS PROVIDES 1162 TOTAL KCALS (75% OF EST KCAL NEEDS), 60G PROTEIN (80% EST PRO NEEDS), 180G DEXTROSE REPLETE LYTES NEEDED CONTINUE TO MONITOR PO INTAKE CLOSELY FOLLOWING WITH TEAM
[2025-02-26 11:50] VITALS: BP 151/72; PULSE 107; RESP 20; TEMP 36; O2SAT 99
--- NOTE | 2025-02-26 14:30 | MHC.SL.SWA ---
Speech Pathologist Impression: Risk of Aspiration Due to: Dysphasia Diet Status: Recommend continue on Chopped/Advanced (NDD3), THIN liquids, pills crushed in puree. Pt requires 1-1 feeding/assistance at all meals. Patient is a slow eater, putting her at risk for reduced nutritional intake. Remove items from tray that can be given as a snack later if intake is poor at meal. Liquid Consistency and Strategies for Safe Swallow: Liquid Intake Recommendation: Thin Liquid Intake Strategies: Small Sips Solid Food Consistency: Dietary Recommendations: Chopped/Advanced (NDD3) Additional Modifications to Solid Foods: Check oral cavity for pocketing. Cue for strategies to promote clearance: small bites, alternate with sips of liquid, lingual sweep Oral Medication Intake: Crushed with Puree Please contact the pharmacy regarding appropriate crushable or liquid drug formulations that are available whenever modified delivery is recommended. Compensatory Strategies and Precautions to be Taken for Safe Swallow: Sitting Upright (90 deg) Small Bites and Sips Alternate Liquids/Solids Rate of Ingestion Change Oral Check Supervision While Eating and Drinking for Safe Swallow: Total Assistance (1:1) Foods to Avoid: Swallowing Recommended Treatments: Compens. Strategy Educat. Recommendation for Speech: Inpatient Speech Therapy Comment: Patient assisted with lunch today. Patient very confused, had notably dry mouth, but needed encouragement to accept drink from tray. Patient then took liquid from spoon, controlled cup sip, and straw sip, though mildly reactive to dependent feeding. No clinical signs of aspiration on liquids. Patient accepted bites of jello, then accepted bites from meal (meat loaf, gravy, mashed potatoes). On more solid food, patient very slowly masticated bites, then produced a timely swallow, with no pocketing noted today. However rate of consumption is remarkably slow, consuming only a small amount in a period of about 20 minutes (1/4 of meal). ANIMAL TRAPPER reported to RN, requested ELECTRICAL LABORATORY TECHNICIAN return to attempt more of meal today. Recommend continue on Chopped/Advanced diet with Regular liquids, pills crushed in puree, 1-1 feeding with patience and encouragement. Recommend continue on Chopped/Advanced (NDD3), THIN liquids, pills crushed in puree. Pt requires 1-1 feeding/assistance at all meals. Patient is a slow eater, putting her at risk for reduced nutritional intake. Remove items from tray that can be given as a snack later if intake is poor at meal. Pt may benefit from continued ANIMAL TRAPPER tx at next level of care. Frequency/Duration: M-F Date Range for Service Req: Timeline to reassess: Music Agent Clinican/Clinical Fellow: No Supervisory Statement: I have reviewed and agree with the student/clinical fellow's documentation: N/A Speech Language Pathologist: Sera Rosas M.A., CCC-ANIMAL TRAPPER
--- NOTE | 2025-02-26 15:04 | HO.PM.IMPN ---
Subjective Subjective Date of Service: 02/26/25 Interval History: Remains somnolent but arousable. Minimal p.o. intake Review of Systems Unable to obtain secondary to confusion Physical Exam Vital Signs: Vital Signs: Last Vital Signs Temp 96.8 F 02/26/25 11:50 Pulse 107 H 02/26/25 11:50 Resp 20 02/26/25 11:50 BP 151/72 H 02/26/25 11:50 Pulse Ox 99 02/26/25 11:50 O2 Del Method Room Air 02/26/25 11:50 O2 Flow Rate 2 02/25/25 10:58 BMI result Body Mass Index 24.3 Const: Other: Awake alert oriented person place Resp: Other: Clear to auscultation bilaterally no rales rhonchi or wheezes Cardio: Other: No S4; positive S1-S2; no S3 murmurs rubs or gallops GI: Other: Soft nontender nondistended normoactive bowel sounds Extrem: Other: No edema bilaterally Objective Data Active Medications Acetaminophen (Acetaminophen 325 Mg Tablet) 650 mg PO Q6H PRN PRN Reason: Pain, Mild 1-3,fever,headache Last Admin: 02/23/25 19:47 Dose: 650 mg Documented By: KAREN Amlodipine Besylate (Amlodipine Besylate 5 Mg Tablet) 5 mg PO DAILY [facility]; Protocol Last Admin: 02/26/25 07:38 Dose: 5 mg Documented By: HUGO Aspirin (Aspirin 81 Mg Tab.Chew) 81 mg PO DAILY [facility] Last Admin: 02/26/25 07:37 Dose: 81 mg Documented By: HUGO Bisacodyl (Bisacodyl 10 Mg Supp.Rect) 10 mg PA DAILY PRN PRN Reason: CONSTIPATION Calcium Carbonate (Calcium Carbonate 750 Mg Tab.Chew) 750 mg PO Q4H PRN PRN Reason: Heartburn Clotrimazole (Clotrimazole 1 % Cream 15 Gm Tube) 1 appl TOPICAL BID [facility]; Protocol Last Admin: 02/26/25 07:38 Dose: 1 appl Documented By: HUGO Enoxaparin Sodium (Enoxaparin Sodium 40 Mg/0.4 Ml Syringe) 40 mg SUBCUT Q24H [facility] Last Admin: 02/25/25 22:32 Dose: 40 mg Documented By: JESSICA Hydralazine HCl (Hydralazine Hcl 20 Mg/Ml Vial) 10 mg IVPUSH Q6H PRN; Protocol PRN Reason: SBP > 160 Last Admin: 02/23/25 19:50 Dose: 10 mg Documented By: KAREN Nutrition (Parenteral) (Parenteral Nutrition) 1,200 mls @ 50 mls/hr IV .Q24H PATRICIA; Protocol Stop: 02/26/25 20:59 Last Admin: 02/25/25 22:35 Dose: 50 mls/hr Documented By: JESSICA Vancomycin HCl 1,250 mg/ (Sodium Chloride) 250 mls @ 166.667 mls/hr IV Q24H PATRICIA Last Infusion: 02/26/25 09:47 Dose: Infused Documented By: HUGO Nutrition (Parenteral) (Parenteral Nutrition) 1,200 mls @ 50 mls/hr IV .Q24H PATRICIA; Protocol Stop: 02/27/25 20:59 Magnesium Hydroxide (Milk Of Magnesia 30 Ml Oral.Susp) 30 ml PO DAILY PRN PRN Reason: Constipation Megestrol Acetate (Megestrol Acetate 400 Mg/10 Ml Oral.Susp) 400 mg PO DAILY [facility] Last Admin: 02/26/25 07:37 Dose: 400 mg Documented By: HUGO Melatonin (Melatonin 3 Mg Tablet) 6 mg PO BEDTIME PRN PRN Reason: Insomnia Last Admin: 02/23/25 19:47 Dose: 6 mg Documented By: KAREN Comments: requested for sleep Metoprolol Tartrate (Metoprolol Tartrate 12.5 Mg Halftab) 12.5 mg PO BID [facility]; Protocol Last Admin: 02/26/25 07:37 Dose: 12.5 mg Documented By: HUGO Mirtazapine (Mirtazapine 7.5 Mg Tablet) 7.5 mg PO BEDTIME PATRICIA Last Admin: 02/25/25 22:32 Dose: 7.5 mg Documented By: JESSICA Nystatin (Nystatin Powder 15 Gm Bottle) 1 appl TOPICAL TID [facility]; Protocol Last Admin: 02/26/25 07:39 Dose: 1 appl Documented By: HUGO Ondansetron HCl (Ondansetron Hcl 4 Mg/2 Ml Vial) 4 mg IVPUSH Q8H PRN PRN Reason: Nausea and Vomiting Pharmacy Consult (Consult Rx Parenteral Nutrition Ordering) 1 each MISCELLANE DAILY PRN PRN Reason: Consult order Pharmacy Consult (Consult Rx Vancomycin Dosing) 1 each MISCELLANE DAILY PRN PRN Reason: Consult order Stop: 03/18/25 23:59 Polyethylene Glycol (Polyethylene Glycol 3350 17 Gm Powd.Pack) 17 gm PO DAILY PRN PRN Reason: Constipation Senna (Sennosides 8.6 Mg Tablet) 17.2 mg PO BEDTIME [facility] Last Admin: 02/25/25 23:09 Dose: Not Given Documented By: JESSICA Non-Admin Reason: loose stool Sodium Chloride (0.9 % Sodium Chloride Flush 3 Ml Syringe) 3 ml IVFLUSH QSHIFT [facility] Last Admin: 02/26/25 07:38 Dose: 3 ml Documented By: HUGO Sodium Chloride (0.9 % Sodium Chloride Flush 10 Ml Syringe) 10 ml IVFLUSH QSHIFT [facility] Last Admin: 02/26/25 07:38 Dose: 10 ml Documented By: HUGO Labs 02/26/25 05:34 02/26/25 05:33 Labs: Laboratory Results - last 24 hr 02/26/25 02/26/25 05:33 05:34 MCV 88.3 MCH 29.8 MCHC 33.7 RDW 15.8 Plt Count 516 H MPV 9.7 Immature Gran % (Auto) 0.6 H Neut % (Auto) 77.9 H Lymph % (Auto) 11.1 L [place] % (Auto) 9.3 Eos % (Auto) 0.6 Baso % (Auto) 0.5 Lymph # (Auto) 1.8 [place] # (Auto) 1.5 H Eos # (Auto) 0.1 Baso # (Auto) 0.1 Abs Immat Gran (auto) 0.10 H Absolute Neuts (auto) 12.7 H Absolute Nucleated RBC 0.000 Nucleated RBC % (auto) 0.0 Smear Tech's Comments VERIFIED Anion Gap 11 L Estim Creat Clear Calc 52.9 Estimated GFR > 60 Fasting Glucose 216 H Calcium 9.3 Total Bilirubin 0.6 AST 24 ALT 18 Alkaline Phosphatase 196 H Total Protein 5.9 L Albumin 2.9 L Random Vancomycin 12.0 L Assessment and Plan (1) Sepsis: Status: Acute (2) Pneumonia: Status: Acute Plan 89yo F LTC resident with dementia, HTN, HLD, and infection of R TKA to 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 until 03/18/25 admitted with sepsis likely due to infection of R TKA as well as PNA 1.Sepsis due to PNA and R TKA infection -per ID chandge from daptomycin to vancomycin due to possibility that pt's confusion was caused by daptomycin; also completed 10d of doxycycline 02/12-02/22 -plan for knee is to continue vancomycin until 03/18/25; Ortho following and had extensive discussion with family; no operative intervention planned - 2.Poor oral intake/FTT/dementia - taking only 25% of trays, continue TPN via PICC -long discussion with toni Vieyra who was healthcare proxy. They state patient would not want a feeding tube and of opted to go with hospice -case management made aware 3.HTN -acceptable control on current therapies -adjust as indicated Lovenox Full Code In my clinical judgment, the patient requires continued inpatient hospitalization for the following reasons: IV ABX, IV nutrition Quality Stroke Does the patient have a stroke diagnosis?: No Reason for No Anti-thrombotic by Day Two: N/A - Med Ordered VTE Prior VTE?: No VTE Risk Level:: Medical - moderate - high VTE Device Contraindication: N/A - Device Ordered VTE Drug Contraindication: N/A - Med Ordered
--- NOTE | 2025-02-26 15:14 | HO.WOUND ---
Wound Consult: Follow up 89yr old?female admitted to [facility] [place] 02[place]11/25 - See progress notes and H&P for detailed history.? Wound consult follow up for Right Leg wound.? Patient agreeable to assessment and photo documentation, although she remains confused at times. Easily re-directable. Patient was very sleepy during my assessment - awoke but quickly fell back to sleep. Chart review reveals she continues with poor po intake, nutrition following. Goals of care discussion on going per direct care nurse. No new topical recommendations needed at this time. 02/19/25 02/26/25 Right Flower Etiology: Ulceration ??Present on Admission Wound Bed: continues to probe to hard bone - unable to visualize due to large hypergranulation flap Drainage / Odor: foul sweet smelling odor creamy kendall velasquez green drainage Edges: ? hyperpigmented [place]renity wound: ?Large hypergranulation tissue noted to be almost covering open wound - No Induration, Fluctuance or Warmth noted Pain: denies Goals of Treatment: ? currently recommend packing with durafiber AG for moisture management and antimicrobial properties and for odor control change to daily - Goals of care discussion continues. Buttock and Intergluteal continues with MASD Goals of Treatment: ? barrier cream, antifungal and off load pressure Fungal dermatitis noted to perineal area as well - Provider Dr. Espitia to order Antifungal topical treatment. Bilateral Heels - with preventative foam dressing in place - remain intact and blanchable. 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 Turn and Reposition every 2 hours and as needed for patient comfort.? Use pillows or wedges to support off loading positions. 2. Off Load all bony prominences with use of pillows and heel boots if needed.? Apply Preventative foams where needed. ? 3. Monitor for incontinence and moisture control, use barrier creams when needed for prevention and treatment. 4. Provide adequate and supplemental nutrition.? 5. Order low air loss mattress. 6. When applicable maintain blood glucose levels per Providers order. Bilateral Heels - Elevate heels off of bed surface with pillows.? Float heels off of pillows.? Apply skin prep allow to dry.? Apply heel foam dressings, peel back and assess Q shift and change every 5-7 days and PRN. Sacrum and Buttock - Off Load Pressure with Q2 hr turns and use of pillows - Cleanse with PH balance spray or wipes, pat dry. Apply anti-fungal powder twice daily - be sure to dust off excess to prevent caking. Apply thin layer of barrier cream to affected area.? Apply twice daily and Reapply thin layer PRN after each episode of incontinence. May apply Preventative foam higher to the sacral area to protect and aid in pressure redistribution. Right inferior knee - Cleanse with NS moist gauze, apply barrier cream to wound edge, lightly pack wound bed sithe [facility] be sure to leave wick for easy removal. Cover with small dry gauze and foam dressing. Change Daily. Re-consult wound care Nurse for wound deterioration or wound changes. Recommend provider to assess and consider imaging and or washout prior to wound vac replacement. Will defer to provider for assessment and next steps in treatment. Discussed with Dr. Espitia as well.
--- NOTE | 2025-02-26 15:25 | MHC.CM.PN ---
IMM 02/26/25 Patient will dicharge tomorrow. She will return to [facility] and transition to hospice. DP return to [facility] via BLS[facility].
[2025-02-26 16:00] VITALS: BP 138/60; PULSE 91; RESP 18; TEMP 36.3; O2SAT 95
[2025-02-26 20:00] VITALS: BP 136/61; PULSE 106; RESP 16; TEMP 36.7; O2SAT 97
[2025-02-26] MEDS: Parenteral Nutrition 1,200 ML 50 ML IV (21:06)
[2025-02-26 23:24] VITALS: BP 128/61; PULSE 106; RESP 20; TEMP 36.7; O2SAT 97
[2025-02-27] MEDS: 0.9 % Sodium Chloride Flush 3 ML SYRINGE IVFLUSH ×2 (01:07→07:43)
[2025-02-27 03:38] VITALS: BP 151/68; PULSE 90; RESP 18; TEMP 36.6; O2SAT 98
[2025-02-27 06:42] LABS: Anion Gap 9 (12-20); Blood Urea Nitrogen 32 mg/dL (9-16); Calcium 9.2 mg/dL (8.4-10.2); Carbon Dioxide 21 mmol/L (22-29); Chloride 109 mmol/L (96-108); Creatinine Clr Calc Pharmacy 53.7; Estimated Glomerular Filt Rate > 60; Magnesium 1.9 mg/dL (1.6-2.6); Potassium 4.4 mmol/L (3.3-5.1); Sodium 135 mmol/L (135-145)
--- NOTE | 2025-02-27 06:45 | HE.PHANOTE ---
RE JORDAN Patients level came back this morning at 13.1. Renal function seems to be stabilizing with some variables. Will continue with current dose of 1250 mg Q24H. Next level to be pulled 03/01 @0600
[2025-02-27 07:42] VITALS: BP 137/62; PULSE 98; RESP 16; TEMP 37; O2SAT 97
[2025-02-27] MEDS: Metoprolol Tartrate 12.5 MG HALFTAB PO (07:42)
[2025-02-27] MEDS: 0.9 % Sodium Chloride Flush 10 ML SYRINGE IVFLUSH (07:43)
[2025-02-27] MEDS: Clotrimazole 1 % Cream 15 GM TUBE 1 APPL TOPICAL (07:44)
--- NOTE | 2025-02-27 11:06 | MHC.CM.PN ---
[facility] where she will transition to hospice. Per [facility], she is able to come on her medicare for up to 5 skilled days, then will be private pay. HCP/Hermila Vieyra is aware and agrees w/ plan. She has also discussed w/ business office @ [facility]. Flo KARY completed w/ Dr. Enriquez and HCP via telephone, witnessed by this CM. Patient is now DNR/DNI. BLS transport scheduled for noon. RN aware. IMM delivered.
--- NOTE | 2025-02-27 11:51 | PM.DS ---
DS: Providers Provider Date of Service: 02/27/25 Date of admission: 02/11/25 21:27 Date of discharge: 02/27/25 Primary care physician: Piotr Remy MD Consults: 02/11/25 21:29 Consult to Wound Care Routine Reason for consultation: wound vac R knee 02/11/25 23:06 Consult to Infectious Diseases Routine Consulting Provider: [facility] Reason for consultation: automatic R knee, prison dapto, has sepsis with UTI, PNA 02/13/25 08:26 Consult to Orthopedics Routine Consulting Provider: [facility] Reason for consultation: Wound vac / knee infection DS: Diagnosis Discharge Diagnosis (1) Sepsis: Status: Acute (2) Pneumonia: Status: Acute DS: Summary Hospital Course Hospital Course: 89-year-old female with past medical history of dementia, hypertension, hyperlipidemia, allergic rhinitis, right knee infection currently on daptomycin until 03/18/2025, GERD, history of total bilateral knee replacements presents to the emergency room from the fdc facility with progressive weakness for the past 2 days with evidence of tachycardia. Patient has a baseline dementia but was more confused per patient's niece who is also her healthcare proxy. Patient was not able to provide any history or answer any questions regarding review of systems below. Per patient's daughter her blood pressure was also elevated 175/83. Patient has been seeing at [facility] for rehab but has recently converted to long-term care. Workup in the ED included urinalysis which indicated UTI. Patient was started on ceftriaxone.. Patient has leukocytosis of 20,000. Lactic acid 1.5. Patient is currently on daptomycin chronically until 03/18/2025 for right knee infection and is followed by orthopedics. Patient currently has PICC line in place. The insertion site does not appear to be infected. Pt has wound VAC in place that was changed earlier in the day on 02/11/2025. The wound VAC is functioning properly. Wound care consultation will be placed. Blood cultures and urine cultures are currently pending. Hospital course Workup initially demonstrated UTI pneumonia for which she was started on ceftriaxone and doxycycline and continued on daptomycin for right knee infection. She was seen by Orthopedics and felt there was no surgical indication at that time. During this hospitalization her dementia progressed. Ultimately she had very little intake and a PICC line was placed and she received TPN. After several days of TPN discussion was had with family in the decision made for comfort measures as patient would not want G-tube. At this point in time meds has been DC and she is comfortable. She has not received any medicines for pain; this can be determined by the receiving facility when appropriate. Most completed with toni Vieyra Time Attestation Discharge Coordination Time (in mins): 35 Quality: Safe Use of Opioids Does Pt have an Active Cancer Diagnosis on the Problem List?: No Quality: Stroke Does the patient have a stroke diagnosis?: No Physical Exam Vital Signs: Vital Signs: Last Vital Signs Temp 98.6 F 02/27/25 07:42 Pulse 98 02/27/25 07:42 Resp 16 02/27/25 07:42 BP 137/62 02/27/25 07:42 Pulse Ox 97 02/27/25 07:42 O2 Del Method Room Air 02/27/25 07:42 O2 Flow Rate 2 02/25/25 10:58 BMI result Body Mass Index 24.3 Const: Other: Awake alert oriented person place Resp: Other: Clear to auscultation bilaterally no rales rhonchi or wheezes Cardio: Other: No S4; positive S1-S2; no S3 murmurs rubs or gallops GI: Other: Soft nontender nondistended normoactive bowel sounds Extrem: Other: No edema bilaterally DS: Data Data Completed and Pending Completed studies during hospitalization [Text1]: Procedures Extraction of Right Lower Leg Subcutaneous Tissue and Fascia, Open Approach (01/31/25) Insertion of Infusion Device into Superior Vena Cava, Percutaneous Approach (01/31/25) Ultrasonography of Superior Vena Cava, Guidance (01/31/25) Labs on day of discharge: Laboratory Results - last 24 hr 02/27/25 06:08 Sodium 135 Potassium 4.4 Chloride 109 H Carbon Dioxide 21 L Anion Gap 9 L BUN 32 H Creatinine 0.61 Estim Creat Clear Calc 53.7 Estimated GFR > 60 Random Glucose 197 H Calcium 9.2 Phosphorus 3.0 Magnesium 1.9 Random Vancomycin 13.1 L Discharge Plan Discharge Anticipated Discharge Date/Time: 02/27/25 11:46 Patient Disposition: Xfer SNF Discharge Diagnosis: End-stage dementia Referrals: [facility] [Outside] - 1 Day Piotr Remy MD [Primary Care Provider, Family Practice] - 1 Week Discharge Medications: Discontinued acetaminophen 325 mg Tablet 650 mg PO Q6H PRN (Reason: Pain) ondansetron HCl 4 mg Tablet 4 mg PO Q6H PRN (Reason: Nausea And Vomiting) tramadol 50 mg Tablet 50 mg PO Q6H PRN (Reason: Pain) magnesium hydroxide [Milk of Magnesia] 400 mg/5 mL Suspension 5 ml PO DAILY PRN (Reason: Constipation) Rx Instructions: For no BM in 3 days bisacodyl 10 mg Suppository 10 mg AK DAILY PRN (Reason: CONSTIPATION ) Rx Instructions: IF no results from M.O.M mirtazapine 7.5 mg Tablet 7.5 mg PO BEDTIME daptomycin 500 mg Recon Soln 420 mg IV Q24H 42 Days Qty: 1 0RF Rx Instructions: End date 03/19/25 aspirin 81 mg Tablet,Chewable 81 mg PO DAILY 42 Days Qty: 42 0RF metoprolol tartrate 25 mg tablet 12.5 mg PO BID 30 Days Qty: 30 0RF omeprazole 40 mg capsule,delayed release(DR/EC) 40 mg PO DAILY@0630 Zyrtec 10 mg capsule 10 mg PO DAILY PRN (Reason: Allergy Symptoms) Discharge Orders: Discharge Order (Routine); Ordered 02/27/25 Ordered By: Bob Enriquez Diet: Speech eval Activity on Discharge: As tolerated Stand Alone Forms: Patient Portal Discharge page Print Language: Indonesian Care Plan Goals: Transferred for hospice care Health Concerns: As per hospice Plan of Treatment: As per receiving facility Assessment: See discharge summary
[2025-02-27 12:00] VITALS: BP 138/63; PULSE 95; RESP 18; TEMP 36.4; O2SAT 97
== END 2025-02-27 12:50 | disposition skilled nursing facility (03) | DRG 559 ==
LOC: HO.ED 18:52 → HO.EDOVER 21:31 → HO.IMC 02-12 19:28 → HO.S3 02-25 13:02
PROVIDERS: Family Medicine; Internal Medicine; Admitting Provider Nurse Practitioner Family; Emergency Provider Emergency Medicine; PCP Student in an Organized Health Care Education/Training Program; Visit Provider Hospitalist
DX: T84.53XA Infection and inflammatory reaction due to internal right knee prosthesis, initial encounter (principal); A41.9 Sepsis, unspecified organism; J18.9 Pneumonia, unspecified organism; Z66 Do not resuscitate; I10 Essential (primary) hypertension; Z51.5 Encounter for palliative care; R62.7 Adult failure to thrive; Z68.24 Body mass index [BMI] 24.0-24.9, adult; E11.9 Type 2 diabetes mellitus without complications; Y79.2 Prosthetic and other implants, materials and accessory orthopedic devices associated with adverse incidents; F03.90 Unspecified dementia, unspecified severity, without behavioral disturbance, psychotic disturbance, mood disturbance, and anxiety; Z20.822 Contact with and (suspected) exposure to COVID-19
CPT/HCPCS: 36415; 71045; 80048; 80053; 80202; 81001; 82040; 82565; 82947; 83605; 83735; 84100; 84478; 85007; 85025; 85027; 86140; 87040; 87086; 87088; 87186; 87637; 92507; 92526; 92610; 93005; 93306; 93971; 97162; 97530; 99285; J0131; J0360; J0696; J0878; J1271; J1650; J2470; J2997; J3374; J7120; P9047; Q9957

== ENCOUNTER → 2025-02-11 14:44 | Outpatient (BNV) | payer MEDICARE, SELFPAY | PROVIDERS: Emergency Provider Emergency Medicine; PCP Student in an Organized Health Care Education/Training Program; Visit Provider Radiology Diagnostic Radiology | DX: R41.82 Altered mental status, unspecified (principal); R91.8 Other nonspecific abnormal finding of lung field; Z95.828 Presence of other vascular implants and grafts | CPT/HCPCS: 71045 ==

== ENCOUNTER → 2025-02-11 15:05 | Outpatient (BNV) | payer MEDICARE, SELFPAY | PROVIDERS: Admitting Provider Nurse Practitioner Family; Emergency Provider Emergency Medicine; PCP Student in an Organized Health Care Education/Training Program; Visit Provider Internal Medicine Cardiovascular Disease | DX: I45.10 Unspecified right bundle-branch block (principal); R00.0 Tachycardia, unspecified | CPT/HCPCS: 93010 ==

== ENCOUNTER 2025-02-11 21:27 | Outpatient (BNV) | payer MEDICARE, SELFPAY | END 2025-02-12 07:00 | PROVIDERS: Admitting Provider Nurse Practitioner Family; Emergency Provider Emergency Medicine; PCP Student in an Organized Health Care Education/Training Program; Visit Provider Internal Medicine Cardiovascular Disease | DX: I27.20 Pulmonary hypertension, unspecified (principal); I35.0 Nonrheumatic aortic (valve) stenosis; I35.8 Other nonrheumatic aortic valve disorders; I51.89 Other ill-defined heart diseases | CPT/HCPCS: 93306 ==

== ENCOUNTER 2025-02-11 21:27 | Outpatient (BNV) | payer MEDICARE, SELFPAY | END 2025-02-15 10:55 | PROVIDERS: Admitting Provider Nurse Practitioner Family; Emergency Provider Emergency Medicine; PCP Student in an Organized Health Care Education/Training Program; Visit Provider Radiology Diagnostic Radiology | DX: R22.31 Localized swelling, mass and lump, right upper limb (principal) | CPT/HCPCS: 93971 ==

== ENCOUNTER → 2025-02-11 21:27 | Outpatient (BNV) | payer MEDICARE, SELFPAY | PROVIDERS: Admitting Provider Nurse Practitioner Family; Emergency Provider Emergency Medicine; PCP Student in an Organized Health Care Education/Training Program; Visit Provider Nurse Practitioner Family | DX: N39.0 Urinary tract infection, site not specified (principal) | CPT/HCPCS: 99223; 99231; 99232 ==

== ENCOUNTER → 2025-02-11 21:27 | Outpatient (BNV) | payer MEDICARE, SELFPAY | PROVIDERS: Admitting Provider Nurse Practitioner Family; Emergency Provider Emergency Medicine; PCP Student in an Organized Health Care Education/Training Program | DX: S81.001A Unspecified open wound, right knee, initial encounter (principal); T84.53XA Infection and inflammatory reaction due to internal right knee prosthesis, initial encounter | CPT/HCPCS: 99024 ==

== ENCOUNTER → 2025-02-11 21:27 | Outpatient (BNV) | payer MEDICARE, SELFPAY | PROVIDERS: Admitting Provider Nurse Practitioner Family; Emergency Provider Emergency Medicine; PCP Student in an Organized Health Care Education/Training Program; Visit Provider Internal Medicine | DX: G93.40 Encephalopathy, unspecified (principal); N39.0 Urinary tract infection, site not specified | CPT/HCPCS: 99232; 99499 ==